=== PATIENT | male | born 1930 | race Caucasian/White ===

== ENCOUNTER 2016-08-29 09:22 | Emergency (ER) | payer BC, OTHER ==
[2016-08-29 09:30] VITALS: BP 148/100; PULSE 69; TEMP 98; BMI 24.7
[2016-08-29] MEDS ORDERED: ACETAMINOPHEN 325 MG TABLET (FP) PO ONE (10:17)
[2016-08-29] MEDS ORDERED: ACETAMINOPHEN 325 MG TABLET (FP) ONE (10:19)
--- NOTE | 2016-08-29 10:23 | PDOC ---
History of Present Illness - General Chief Complaint: Pain Stated Complaint: LT LEG PAIN Time Seen by Provider: 08/29/16 09:40 History Source: Patient - History of Present Illness Occurred: reports: yesterday Severity: Yes: moderate Lower Extremity Pain Location: left: ankle Past History - Past Medical History Allergies/Adverse Reactions: Allergies Allergy/AdvReac Type Severity Reaction Status Date / Time No Known Drug Allergies Allergy Verified 08/29/16 09:25 Home Medications: Ambulatory Orders Allopurinol [Zyloprim -] 300 mg PO DAILY #0 tablet 01/17/13 Aspirin 81 mg PO DAILY #0 tab.chew 01/17/13 Atorvastatin Ca [Lipitor] 40 mg PO HS 08/06/13 Cholecalciferol (Vitamin D3) [Vitamin D3] 1,000 unit PO DAILY 08/08/13 Clopidogrel Bisulfate [Plavix -] 75 mg PO DAILY 05/23/15 Vit A/Vit C/Vit E/Zinc/Copper [Preservision Tablet] 1 each PO DAILY 06/29/15 Potassium Chloride 10 meq PO DAILY 08/18/15 Torsemide 10 mg PO DAILY 08/18/15 Colchicine [Colcrys] 1 tab PO BID 09/15/15 Lisinopril [Zestril] 2.5 mg PO DAILY 12/28/15 Pantoprazole Sodium [Protonix] 40 mg PO DAILY 12/28/15 Trazodone HCl [Desyrel -] 50 mg PO HS 12/28/15 Anemia: No Asthma: No Cancer: No Cardiac Disorders: Yes (a-fib - stent placement - bypass) CVA: No COPD: Yes (aspestos) CHF: No Dementia: No Diabetes: No GI Disorders: No Disorders: No HTN: Yes Hypercholesterolemia: Yes Liver Disease: No Suicide Attempt (Hx): No Seizures: No Thyroid Disease: No Other medical history: pvd - Surgical History Abdominal Surgery: No Appendectomy: No Cardiac Surgery: Yes (cabg) Cholecystectomy: No Lung Surgery: No Neurologic Surgery: No Orthopedic Surgery: No - Immunization History Immunization Up to Date: No - Psycho/Social/Smoking Cessation Hx Anxiety: No Suicidal Ideation: No Smoking Status: No Smoking History: Never smoked Have you smoked in the past 12 months: No Number of Cigarettes Smoked Daily: 0 If you are a former smoker, when did you quit?: 30 yrs ago Information on smoking cessation initiated: No 'Breaking Loose' booklet given: 01/19/15 Hx Alcohol Use: No Drug/Substance Use Hx: No Substance Use Type: None Hx Substance Use Treatment: No Review of Systems - Review of Systems Constitutional: No: Chills, Fever Respiratory: No: Shortness of Breath Cardiac (ROS): No: Chest Pain, Palpitations Musculoskeletal: Yes: Joint Pain. No: Joint Swelling *Physical Exam - Vital Signs Last Vital Signs Temp Pulse Resp BP Pulse Ox 98.0 F 69 18 148/100 100 08/29/16 09:26 08/29/16 09:26 08/29/16 09:26 08/29/16 09:26 08/29/16 09:26 - Physical Exam General Appearance: Yes: Appropriately Dressed. No: Apparent Distress HEENT: positive: Normal Voice Neck: positive: Supple Respiratory/Chest: negative: Respiratory Distress Extremity: positive: Other (significant varicoities to ankle/foot b/l, +minimal ttp to medial L ankle, no joint swelling, bearing weight in ED) Integumentary: positive: Dry, Warm Neurologic: positive: Fully Oriented, Alert, Normal Mood/Affect Medical Decision Making - Medical Decision Making 08/29/16 10:24 86-year-old male, multiple comorbidities presents with ankle pain. Patient reports pain to medial aspect of left ankle 2 days. Unable to describe and worse when he bears weight. Taking Tylenol with some relief. No trauma. No history of similar episode. No calf pain, CP, sob or palpitations See exam Atraumatic L ankle pain Possible 2/2 varicosities vs arthritis vs other nonspecific MSK source No s/o infxn No obvious RFs for DVT/PE -dc w/ pain control and vascular f/u 08/29/16 10:27 *DC/Admit/Observation/Transfer Diagnosis at time of Disposition: Ankle pain Qualifiers: Laterality: left Chronicity: acute Qualified Code(s): M25.572 - Pain in left ankle and joints of left foot - Discharge Dispostion Disposition: HOME Condition at time of disposition: Good - Referrals Referrals: Riki Prince MD [Primary Care Provider] - Jass Rincon MD [Staff Physician] - - Patient Instructions Printed Discharge Instructions: DI for Ankle Pain Additional Instructions: Please take tylenol as needed for pain and follow up with vascular
== END 2016-08-29 10:25 | disposition home or self-care (01) ==
LOC: JERFT 09:22
DX: M25.572 Pain in left ankle and joints of left foot (principal); I83.92 Asymptomatic varicose veins of left lower extremity; I48.91 Unspecified atrial fibrillation; Z79.01 Long term (current) use of anticoagulants; Z95.1 Presence of aortocoronary bypass graft; Z95.5 Presence of coronary angioplasty implant and graft; I10 Essential (primary) hypertension; J44.9 Chronic obstructive pulmonary disease, unspecified; T57.8X1A Toxic effect of other specified inorganic substances, accidental (unintentional), initial encounter; J70.8 Respiratory conditions due to other specified external agents; Z87.891 Personal history of nicotine dependence; I73.89 Other specified peripheral vascular diseases
CPT/HCPCS: 99281-25

== ENCOUNTER 2017-04-30 06:31 | Emergency (ER) | payer BC ==
[2017-04-30 06:39] VITALS: TEMP 97.6; BMI 26.4
--- NOTE | 2017-04-30 07:28 | PDOC ---
History of Present Illness - General Chief Complaint: Urinary Problem Stated Complaint: urinary retention Time Seen by Provider: 04/30/17 07:12 - History of Present Illness Initial Comments: 04/30/17 07:59 The patient is an 86 year old male with a history of urinary retention, CAD s/p CABG, CHF, Afib who present for evaluation of urinary retention. The patient reports that he had a arita catheter removed by his urologist 2 days ago. He states that 1 day ago he began experience worsening suprapubic abdominal pain with associated difficulty urinating and burning on urination prompting his presentation to the ED today. He denies fevers, chills, SOB, chest pain, or nausea or vomiting. Past History - Past Medical History Allergies/Adverse Reactions: Allergies Allergy/AdvReac Type Severity Reaction Status Date / Time No Known Drug Allergies Allergy Verified 04/30/17 06:37 Home Medications: Ambulatory Orders Allopurinol [Zyloprim -] 300 mg PO DAILY #0 tablet 01/17/13 Aspirin 81 mg PO DAILY #0 tab.chew 01/17/13 Atorvastatin Ca [Lipitor] 40 mg PO HS 08/06/13 Cholecalciferol (Vitamin D3) [Vitamin D3] 1,000 unit PO DAILY 08/08/13 Clopidogrel Bisulfate [Plavix -] 75 mg PO DAILY 05/23/15 Vit A/Vit C/Vit E/Zinc/Copper [Preservision Tablet] 1 each PO DAILY 06/29/15 Potassium Chloride 10 meq PO DAILY 08/18/15 Torsemide 10 mg PO DAILY 08/18/15 Colchicine [Colcrys] 1 tab PO BID 09/15/15 Lisinopril [Zestril] 2.5 mg PO DAILY 12/28/15 Pantoprazole Sodium [Protonix] 40 mg PO DAILY 12/28/15 Trazodone HCl [Desyrel -] 50 mg PO HS 12/28/15 Ciprofloxacin [Cipro -] 500 mg PO Q12H #28 tablet 04/30/17 Anemia: No Asthma: No Cancer: No Cardiac Disorders: Yes (a-fib - stent placement - bypass) CVA: No COPD: Yes (aspestos) CHF: No Dementia: No Diabetes: No GI Disorders: No Disorders: No HTN: Yes Hypercholesterolemia: Yes Liver Disease: No Seizures: No Thyroid Disease: No - Surgical History Abdominal Surgery: No Appendectomy: No Cardiac Surgery: Yes (cabg) Cholecystectomy: No Lung Surgery: No Neurologic Surgery: No Orthopedic Surgery: No - Immunization History Immunization Up to Date: No - Suicide/Smoking/Psychosocial Hx Smoking Status: No Smoking History: Never smoked Have you smoked in the past 12 months: No Number of Cigarettes Smoked Daily: 0 If you are a former smoker, when did you quit?: 30 yrs ago Information on smoking cessation initiated: No 'Breaking Loose' booklet given: 01/19/15 Hx Alcohol Use: No Drug/Substance Use Hx: No Substance Use Type: None Hx Substance Use Treatment: No Review of Systems - Review of Systems Comments:: 04/30/17 08:03 Constitutional: No fevers, chills, fatigue, malaise HEENT: No Rhinorrhea, nasal congestion, Cardiovascular: No chest pain, syncope, palpitations, lightheadedness Respiratory: No Cough, SOB, Hemoptysis, Gastrointestinal: Suprapubic abdominal pain. No Nausea, Vomiting, Constipation , Diarrhea, Melena Genitourinary: Increased hesitancy and dysuria. No Frequency, Urgency, Hematuria, Flank pain Musculoskeletal: No Myalgia, arthralgia Skin: No rashes, bruising, pallor Neurologic: No Headache, Dizziness, Numbness, Weakness, or Tingling *Physical Exam - Vital Signs Last Vital Signs Temp Pulse Resp BP Pulse Ox 97.6 F 83 20 140/94 95 04/30/17 06:37 04/30/17 06:37 04/30/17 06:37 04/30/17 06:37 04/30/17 06:37 - Physical Exam Comments: 04/30/17 08:04 General Appearance: Nourished. No Apparent Distress HEENT: EOMI, KATJA. Neck: No Cervical Lymphadenopathy Respiratory/Chest: Lungs Clear, Normal Breath Sounds. No Crackles, Rales, Rhonchi, Wheezing Cardiovascular: Irregularly irregular, Regular Rate. 3/6 systolic murmur noted on auscultation. No Gallops, Rubs Gastrointestinal/Abdominal: Normal Bowel Sounds, Soft. Mild suprapubic tenderness on palpation. No Guarding, Rebound, Musculoskeletal: No CVA Tenderness Extremity: Normal Capillary Refill Integumentary: Normal Color, Dry, Warm Neurologic: Fully Oriented, Alert, Normal Mood/Affect, Normal Response, ED Treatment Course - LABORATORY CBC & Chemistry Diagram: 04/30/17 07:54 04/30/17 07:54 Medical Decision Making - Medical Decision Making 04/30/17 08:05 The patient is an 86 year old male with a history of urinary retention, CAD s/p CABG, CHF, Afib who present for evaluation of urinary retention. Differential includes but is not limited to: UTI, Worsening urinary retention, BPH, metabolic derangement. The patient reports significant improvement in his symptoms after arita catheter placed here in the ED with return of bloody urine. We will send a UA, urine culture, cbc, cmp to evaluate for infectious etiologies. His urinary retention is likely due to his existing bph being managed by his urologist. We will continue to monitor and reassess. 04/30/17 09:21 cbc, cmp are unremarkable. UA demonstrates 2000+ RBC and 1400+ WBC concerning for a UTI. We discussed the case with the patient's urologist who recommended antibiotics and will call the patient tomorrow 05/01 to schedule follow up. We discussed the results with the patient who voiced understanding and is agreeable with the plan. We are comfortable discharging the patient home at this time. *DC/Admit/Observation/Transfer Diagnosis at time of Disposition: Urinary retention Urinary tract infection Qualifiers: Urinary tract infection type: acute cystitis Hematuria presence: with hematuria Qualified Code(s): N30.01 - Acute cystitis with hematuria - Discharge Dispostion Disposition: HOME Condition at time of disposition: Improved Admit: No - Prescriptions Prescriptions: Ciprofloxacin [Cipro -] 500 mg PO Q12H #28 tablet - Referrals Referrals: Natalio Morales MD [Staff Physician] - - Patient Instructions Printed Discharge Instructions: DI for Urinary Tract Infection (UTI), DI for Urinary Retention in Men Additional Instructions: Please return to the ER if you experience concerning or worsening symptoms including worsening fevers, chills, or pain. Your urologist Dr. Morales will call you tomorrow to schedule follow up. We have sent a prescription for antibiotics to the pharmacy that you should take twice a day for 7 days.
[2017-04-30 08:09] LABS: BASOPHIL 0.4 % (0-2.0); EOSINOPHIL 1.6 % (0-4.5); MCH 31.1 pg (25.7-33.7); MCHC 32.4 g/dl (32.0-35.9); MEAN CELL VOLUME 95.8 fl (80-96); MEAN PLT VOLUME 10.3 fl (7.5-11.1); NEUTROPHILS 66.8 % (42.8-82.8); PLATELET COUNT 161 K/MM3 (134-434); RDW 14.7 % (11.9-15.9); WHITE BLOOD COUNT 8.6 K/mm3 (4.0-10.0)
--- NOTE | 2017-04-30 08:10 | PDOC ---
Attending Attestation - Resident Resident Name: Titus Sarabia - ED Attending Attestation I have performed the following: I have examined & evaluated the patient, The case was reviewed & discussed with the resident, I agree w/resident's findings & plan, Exceptions are as noted - HPI HPI: 04/30/17 08:08 86 year old male with hx of CAD, CABG, CHF, PAD, spinal stenosis, Afib s/p Watchman's procedure, borderline DM, gout, HTN, BPH p/w urinary retention. The patient is under the care of Dr. Galeas. Has had persistent hematuria and urinary retention. Had a wor[place] catheter removed 2 days ago for trial. Since then , has been dribbling and with difficulty in urinating. Had increasing distension and dysuria, but no fevers. Upon my initial evaluation, a worthington catheter was placed and approx 1000cc of bloody urine was outputted. - Physicial Exam PE: 04/30/17 08:08 GENERAL: AAOx3, NAD ABD: soft, nd, nontender No CVA tenderness. Worthington catheter in place with draining urine. - Medical Decision Making 04/30/17 08:09 Vital Signs Temp Pulse Resp BP Pulse Ox 97.6 F 83 20 140/94 95 04/30/17 06:37 04/30/17 06:37 04/30/17 06:37 04/30/17 06:37 04/30/17 06:37 86 year old male p/w urinary retention. This has been a longstanding chronic issue with this patient. Has had hematuria chronically that is under eval by his urologist. The family is anticipating an upcoming prostatectomy in the future Will check UA/UC for UTI. Labs to evaluate for potential post renal failure. Will touch base with pt's urologist.
[2017-04-30 08:22] LABS: URINE APPEARANCE CLOUDY; URINE BILIRUBIN NEGATIVE (NEGATIVE); URINE BLOOD 3+ (NEGATIVE); URINE COLOR RED; URINE GLUCOSE (UA) NEGATIVE (NEGATIVE); URINE KETONE NEGATIVE (NEGATIVE); URINE NITRITE NEGATIVE (NEGATIVE); URINE UROBILINOGEN NEGATIVE mg/dL (0.2-1.0)
[2017-04-30 08:32] LABS: URINE PROTEIN 2+ (NEGATIVE)
[2017-04-30 08:33] LABS: URINE RBC 2037 /hpf (0-3); URINE WBC 1405 /hpf (3-5)
[2017-04-30 08:39] LABS: ALBUMIN 3.2 g/dl (3.4-5.0); ALK PHOS 169 U/L (45-117); ANION GAP 9 (8-16); BILIRUBIN,TOTAL 0.5 mg/dL (0.2-1.0); CALCIUM 8.3 mg/dL (8.5-10.1); CO2 30 mmol/L (21-32); CREATININE 0.9 mg/dL (0.7-1.3); GLUCOSE,RANDOM 134 mg/dL (74-106); SGOT/AST 24 U/L (15-37); SGPT/ALT 24 U/L (12-78); TOT PROT 6.2 g/dl (6.4-8.2)
[2017-04-30] MEDS ORDERED: CIPROFLOXACIN 500 MG TABLET (RESTRICTED TO ID) PO ONE (09:19)
[2017-04-30] MEDS ORDERED: LEVOFLOXACIN 500 MG TABLET (FP) PO ONE (09:35)
[2017-04-30 09:40] VITALS: BP 127/72; PULSE 66
[2017-04-30] MEDS ORDERED: LEVOFLOXACIN 500 MG TABLET (FP) ONE (09:41)
[2017-04-30 15:41] LABS: URINE LEUK ESTERASE Negative (NEGATIVE)
== END 2017-04-30 09:58 | disposition home or self-care (01) ==
LOC: JER 06:31
PROC: 0T9B70Z Drainage of Bladder with Drainage Device, Via Natural or Artificial Opening (ICD-10-PCS; principal; 2017-04-30)
DX: N40.1 Benign prostatic hyperplasia with lower urinary tract symptoms (principal); R33.8 Other retention of urine; N30.01 Acute cystitis with hematuria; I25.810 Atherosclerosis of coronary artery bypass graft(s) without angina pectoris; I25.83 Coronary atherosclerosis due to lipid rich plaque; I10 Essential (primary) hypertension; Z95.1 Presence of aortocoronary bypass graft; Z95.5 Presence of coronary angioplasty implant and graft; E78.00 Pure hypercholesterolemia, unspecified; J44.9 Chronic obstructive pulmonary disease, unspecified; E11.9 Type 2 diabetes mellitus without complications; M10.9 Gout, unspecified
CPT/HCPCS: 36415; 51702; 80053; 81003; 81015; 85025; 87086; 99282-25

== ENCOUNTER 2017-05-02 16:45 | Inpatient (IN) | payer BC ==
[2017-05-02 16:50] VITALS: BMI 22.2
--- NOTE | 2017-05-02 17:07 | PDOC ---
History of Present Illness - General Chief Complaint: Hematuria Stated Complaint: PCP ADMIT Past History - Past Medical History Allergies/Adverse Reactions: Allergies Allergy/AdvReac Type Severity Reaction Status Date / Time No Known Drug Allergies Allergy Verified 05/02/17 16:47 Home Medications: Ambulatory Orders Allopurinol [Zyloprim -] 300 mg PO DAILY #0 tablet 01/17/13 Aspirin 81 mg PO DAILY #0 tab.chew 01/17/13 Atorvastatin Ca [Lipitor] 40 mg PO HS 08/06/13 Cholecalciferol (Vitamin D3) [Vitamin D3] 1,000 unit PO DAILY 08/08/13 Clopidogrel Bisulfate [Plavix -] 75 mg PO DAILY 05/23/15 Vit A/Vit C/Vit E/Zinc/Copper [Preservision Tablet] 1 each PO DAILY 06/29/15 Potassium Chloride 10 meq PO DAILY 08/18/15 Torsemide 10 mg PO DAILY 08/18/15 Colchicine [Colcrys] 1 tab PO BID 09/15/15 Lisinopril [Zestril] 2.5 mg PO DAILY 12/28/15 Pantoprazole Sodium [Protonix] 40 mg PO DAILY 12/28/15 Trazodone HCl [Desyrel -] 50 mg PO HS 12/28/15 Ciprofloxacin [Cipro -] 500 mg PO Q12H #28 tablet 04/30/17 Anemia: No Asthma: No Cancer: No Cardiac Disorders: Yes (a-fib - stent placement - bypass) CVA: No COPD: Yes (asbestos) CHF: No Dementia: No Diabetes: No GI Disorders: No Disorders: No HTN: Yes Hypercholesterolemia: Yes Liver Disease: No Seizures: No Thyroid Disease: No - Surgical History Abdominal Surgery: No Appendectomy: No Cardiac Surgery: Yes (cabg) Cholecystectomy: No Lung Surgery: No Neurologic Surgery: No Orthopedic Surgery: No - Immunization History Immunization Up to Date: No - Suicide/Smoking/Psychosocial Hx Smoking Status: No Smoking History: Former smoker Have you smoked in the past 12 months: No Number of Cigarettes Smoked Daily: 0 If you are a former smoker, when did you quit?: 1969 Information on smoking cessation initiated: No 'Breaking Loose' booklet given: 01/19/15 Hx Alcohol Use: No Drug/Substance Use Hx: No Substance Use Type: None Hx Substance Use Treatment: No *Physical Exam - Vital Signs Last Vital Signs Temp Pulse Resp BP Pulse Ox 98.7 F 87 18 121/75 99 05/02/17 16:45 05/02/17 16:45 05/02/17 16:45 05/02/17 16:45 05/02/17 16:45
--- NOTE | 2017-05-02 17:25 | PDOC ---
Attending Attestation - Resident Resident Name: Sheldon Hayes - ED Attending Attestation I have performed the following: I have examined & evaluated the patient, The case was reviewed & discussed with the resident, I agree w/resident's findings & plan, Exceptions are as noted - HPI HPI: 05/02/17 17:24 86yo M hx of CAD, CABG, CHF, PAD, spinal stenosis, Afib, gout, HTN, BPH, recent presentation to ED with urinary retention s/p arita p/w continued hematuria. Pt sent in for admission for scheduled TURP with Dr. Galeas tomorrow. Pt denies fevers, chills, cp, sob, n/v/d, abd pain, LE edema. - Physicial Exam PE: 05/02/17 17:31 GENERAL: Awake, alert, and fully oriented, in no acute distress HEAD: No signs of trauma EYES: PERRLA, EOMI, sclera anicteric, conjunctiva clear ENT: Auricles normal inspection, hearing grossly normal, nares patent, oropharynx clear without exudates. Moist mucosa NECK: Normal ROM, supple, no lymphadenopathy, JVD, or masses LUNGS: Breath sounds equal, clear to auscultation bilaterally. No wheezes, and no crackles HEART: Regular rate and rhythm, normal S1 and S2, no murmurs, rubs or gallops ABDOMEN: Soft, nontender, normoactive bowel sounds. No guarding, no rebound. No masses : arita in place with 30cc dark red blood EXTREMITIES: Normal range of motion, no edema. No clubbing or cyanosis. No cords, erythema, or tenderness NEUROLOGICAL: Normal speech, cranial nerves intact, negative pronator drift, 5/ 5 strength in all 4 extremities, normal sensation to light touch in all 4 extremities, normal cerebellar exam, normal gait, normal reflexes and tone SKIN: Warm, Dry, normal turgor, no rashes or lesions noted. - Medical Decision Making 05/02/17 17:37 86yo M with MMP, urinary retention s/p artia presents for admission for TURP tomorrow due to persistent hematuria. Vitals wnl. WIll check labs, CBC for anemia and pre-op patient for TURP tomorrow. Plan: -labs -UA -pre-op -cxr -admit Heart Score/ECG Review #1 05/02/17 18:19 Twelve-lead EKG was performed and reviewed by me. Corona. fib, rate 55. Left axis deviation. No ST elevations
--- NOTE | 2017-05-02 17:35 | PDOC ---
History of Present Illness - General Chief Complaint: Hematuria Stated Complaint: PCP ADMIT Time Seen by Provider: 05/02/17 17:06 History Source: Patient Exam Limitations: No Limitations - History of Present Illness Initial Comments: 05/02/17 17:32 The patient is an 86M with a PMH of urinary retention, CAD s/p CABG, CHF, a-fib who presents to the ED from his urologists office, Dr. Morales. The patient has no acute complaints except for gross hematuria. They had changed the arita at Dr. Villanueva's office because of hematuria going around his arita. The patient has no other complaints. Past History - Past Medical History Allergies/Adverse Reactions: Allergies Allergy/AdvReac Type Severity Reaction Status Date / Time No Known Drug Allergies Allergy Verified 05/02/17 16:47 Home Medications: Ambulatory Orders Allopurinol [Zyloprim -] 300 mg PO DAILY #0 tablet 01/17/13 Aspirin 81 mg PO DAILY #0 tab.chew 01/17/13 Atorvastatin Ca [Lipitor] 40 mg PO HS 08/06/13 Cholecalciferol (Vitamin D3) [Vitamin D3] 1,000 unit PO DAILY 08/08/13 Clopidogrel Bisulfate [Plavix -] 75 mg PO DAILY 05/23/15 Vit A/Vit C/Vit E/Zinc/Copper [Preservision Tablet] 1 each PO DAILY 06/29/15 Potassium Chloride 10 meq PO DAILY 08/18/15 Torsemide 10 mg PO DAILY 08/18/15 Colchicine [Colcrys] 1 tab PO BID 09/15/15 Lisinopril [Zestril] 2.5 mg PO DAILY 12/28/15 Pantoprazole Sodium [Protonix] 40 mg PO DAILY 12/28/15 Trazodone HCl [Desyrel -] 50 mg PO HS 12/28/15 Ciprofloxacin [Cipro -] 500 mg PO Q12H #28 tablet 04/30/17 Anemia: No Asthma: No Cancer: No Cardiac Disorders: Yes (a-fib - stent placement - bypass) CVA: No COPD: Yes (asbestos) CHF: No Dementia: No Diabetes: No GI Disorders: No Disorders: No HTN: Yes Hypercholesterolemia: Yes Liver Disease: No Seizures: No Thyroid Disease: No - Surgical History Abdominal Surgery: No Appendectomy: No Cardiac Surgery: Yes (cabg) Cholecystectomy: No Lung Surgery: No Neurologic Surgery: No Orthopedic Surgery: No - Immunization History Immunization Up to Date: No - Suicide/Smoking/Psychosocial Hx Smoking Status: No Smoking History: Former smoker Have you smoked in the past 12 months: No Number of Cigarettes Smoked Daily: 0 If you are a former smoker, when did you quit?: 1969 Information on smoking cessation initiated: No 'Breaking Loose' booklet given: 01/19/15 Hx Alcohol Use: No Drug/Substance Use Hx: No Substance Use Type: None Hx Substance Use Treatment: No Review of Systems - Review of Systems Able to Perform ROS?: Yes Is the patient limited Amharic proficient: No Constitutional: No: Chills, Fever HEENTM: No: Eye Pain, Nose Pain, Throat Pain Respiratory: No: Cough, Shortness of Breath Cardiac (ROS): No: Chest Pain, Irregular Heart Rate ABD/GI: No: Constipated, Diarrhea, Nausea, Vomiting : Yes: Hematuria. No: Burning, Dysuria Musculoskeletal: No: Back Pain, Neck Pain Integumentary: No: Bruising, Flushing, Lumps Neurological: No: Headache, Numbness, Tingling, Weakness *Physical Exam - Vital Signs Last Vital Signs Temp Pulse Resp BP Pulse Ox 98.7 F 87 18 121/75 99 05/02/17 16:45 05/02/17 16:45 05/02/17 16:45 05/02/17 16:45 05/02/17 16:45 - Physical Exam General Appearance: Yes: Nourished, Appropriately Dressed. No: Apparent Distress HEENT: positive: Normal Voice, Hearing Grossly Normal Respiratory/Chest: positive: Lungs Clear, Normal Breath Sounds. negative: Chest Tender Cardiovascular: positive: Regular Rhythm, Regular Rate, S1, S2, Systolic Murmur. negative: Diastolic Murmur Gastrointestinal/Abdominal: positive: Flat, Soft. negative: Tender Musculoskeletal: negative: CVA Tenderness, CVA Tenderness (R), CVA Tenderness (L ) Extremity: positive: Normal Inspection, Normal Range of Motion. negative: Coldness, Cyanosis, Calf Tenderness Integumentary: positive: Dry, Warm. negative: Clammy, Diaphoresis Neurologic: positive: Fully Oriented, Alert, Normal Mood/Affect Medical Decision Making - Medical Decision Making 05/02/17 18:33 The patient is an 86M who presented to the ED with gross hematuria from Dr. Parra's office. I have spoken with Dr. Villanueva and will admit to Dr. Prince's service. Both physicians agree to the plan and the patient understands and agrees with the plan as well. Pre-op labs ordered. Admission is placed. *DC/Admit/Observation/Transfer Diagnosis at time of Disposition: Hematuria Qualifiers: Hematuria type: gross Qualified Code(s): R31.0 - Gross hematuria; R31.0 - Gross hematuria - Discharge Dispostion Condition at time of disposition: Stable Admit: Yes
[2017-05-02 17:50] LABS: BASOPHIL 0.5 % (0-2.0); EOSINOPHIL 0.7 % (0-4.5); MCH 31.6 pg (25.7-33.7); MCHC 32.8 g/dl (32.0-35.9); MEAN CELL VOLUME 96.3 fl (80-96); MEAN PLT VOLUME 10.5 fl (7.5-11.1); NEUTROPHILS 73.3 % (42.8-82.8); PLATELET COUNT 165 K/MM3 (134-434); RDW 15.6 % (11.9-15.9); WHITE BLOOD COUNT 11.7 K/mm3 (4.0-10.0)
[2017-05-02 18:16] LABS: INR 1.21 (0.82-1.09); PROTHROMBIN TIME (PATIENT) 13.7 SEC (9.98-11.88)
[2017-05-02 18:19] LABS: ACTIVATED PTT 27.5 SECONDS (26.9-34.4)
[2017-05-02 18:28] LABS: ALBUMIN 3.4 g/dl (3.4-5.0); ANION GAP 5 (8-16); BILIRUBIN,TOTAL 0.4 mg/dL (0.2-1.0); CALCIUM 8.5 mg/dL (8.5-10.1); CO2 34 mmol/L (21-32); GLUCOSE,RANDOM 111 mg/dL (74-106); SGOT/AST 23 U/L (15-37); SGPT/ALT 27 U/L (12-78); TOT PROT 6.6 g/dl (6.4-8.2)
[2017-05-02 18:29] LABS: ALK PHOS 156 U/L (45-117)
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
[2017-05-02] MEDS ORDERED: LEVOFLOXACIN 500 MG TABLET (FP) PO ONE (20:15)
[2017-05-02] MEDS ORDERED: LEVOFLOXACIN 500 MG TABLET (FP) ONE (20:35)
[2017-05-03] MEDS: COLCHICINE 0.6 MG TABLET (FP) PO SCH ×3 (00:41→22:41)
[2017-05-03] MEDS: traZODone HCL 50 MG TABLET (FP) PO SCH ×2 (00:41→22:41)
[2017-05-03] MEDS: ATORVASTATIN CA 40 MG TABLET (FP) PO SCH ×2 (00:41→22:41)
[2017-05-03] MEDS: LEVOFLOXACIN 250 MG TABLET (FP) PO SCH (06:04)
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
[2017-05-03] MEDS: DEXTROSE 5%-0.45% SALINE 1,000 ML IV SCH (09:51)
[2017-05-03] MEDS ORDERED: VIT A PO SCH (10:00)
[2017-05-03] MEDS ORDERED: VIT C PO SCH (10:00)
[2017-05-03] MEDS ORDERED: COPPER PO SCH (10:00)
[2017-05-03] MEDS ORDERED: ZINC PO SCH (10:00)
[2017-05-03] MEDS ORDERED: VIT E PO SCH (10:00)
[2017-05-03] MEDS ORDERED: [UNRECOGNIZED DRUG - OTHER] PO SCH (10:00)
[2017-05-03] MEDS: CHOLECALCIFEROL (VITAMIN D3) 1,000 UNIT TABLET (FP) PO SCH (10:19)
[2017-05-03] MEDS: ALLOPURINOL 300 MG TABLET (FP) PO SCH (10:19)
[2017-05-03] MEDS: PANTOPRAZOLE 40 MG TABLET (FP) PO SCH (10:19)
[2017-05-03 10:23] LABS: MCH 31.3 pg (25.7-33.7); MCHC 32.8 g/dl (32.0-35.9); MEAN CELL VOLUME 95.6 fl (80-96); MEAN PLT VOLUME 10.7 fl (7.5-11.1); PLATELET COUNT 150 K/MM3 (134-434); RDW 15.7 % (11.9-15.9); WHITE BLOOD COUNT 11.7 K/mm3 (4.0-10.0)
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
[2017-05-03] MEDS ORDERED: PT OWN MED DRAWER 7, Y5N ONE ×3 (10:37→22:33)
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
--- NOTE | 2017-05-03 11:47 | EKG ---
Test Reason : Blood Pressure : / mmHG Vent. Rate : 055 BPM Atrial Rate : 055 BPM P-R Int : 000 ms QRS Dur : 120 ms QT Int : 480 ms P-R-T Axes : 000 -56 098 degrees QTc Int : 459 ms ATRIAL FIBRILLATION WITH SLOW VENTRICULAR RESPONSE WITH PREMATURE VENTRICULAR OR ABERRANTLY CONDUCTED COMPLEXES LEFT ANTERIOR FASCICULAR BLOCK NONSPECIFIC ST AND T WAVE ABNORMALITY ABNORMAL ECG WHEN COMPARED WITH ECG OF 30-JUN-2015 11:54, QRS DURATION HAS INCREASED Confirmed by SANDRA CACERES MD ([id number]) on 05/03/2017 11:47:30 AM Referred By: Confirmed By:SANDRA CACERES MD
[2017-05-03 16:57] LABS: BASOPHIL 0.2 % (0-2.0); EOSINOPHIL 1.2 % (0-4.5); MCH 31.9 pg (25.7-33.7); MCHC 33.4 g/dl (32.0-35.9); MEAN CELL VOLUME 95.5 fl (80-96); MEAN PLT VOLUME 11.2 fl (7.5-11.1); NEUTROPHILS 68.8 % (42.8-82.8); PLATELET COUNT 172 K/MM3 (134-434); RDW 15.9 % (11.9-15.9); WHITE BLOOD COUNT 9.9 K/mm3 (4.0-10.0)
[2017-05-03 17:24] LABS: INR 1.26 (0.82-1.09); PROTHROMBIN TIME (PATIENT) 14.2 SEC (9.98-11.88)
[2017-05-03 17:27] LABS: ACTIVATED PTT 27.3 SECONDS (26.9-34.4)
[2017-05-04] MEDS: LEVOFLOXACIN 250 MG TABLET (FP) PO SCH (06:55)
--- NOTE | 2017-05-04 08:41 | PN ---
Progress Note (short form) - Note Progress Note: Awaiting cystoscopy and TURP today. Vital Signs - 24 hr 05/03/17 05/03/17 05/03/17 14:00 17:00 19:35 Temperature 98.1 F 98.1 F 97.8 F Pulse Rate 70 70 64 Respiratory 18 230 H 18 Rate Blood Pressure 122/55 114/52 143/59 O2 Sat by Pulse 97 Oximetry (%) 05/03/17 05/03/17 05/04/17 21:00 22:00 06:15 Temperature 98 F 97.9 F Pulse Rate 72 66 Respiratory 18 18 Rate Blood Pressure 130/61 132/60 O2 Sat by Pulse 97 Oximetry (%) Hematuria persists. Hematology consult appreciated. Neck-no JVD Lungs Clear. Heart s1S2 irregular abdomen soft, NT [place] draining bloody urine. Laboratory Results - last 24 hr 05/02/17 05/02/17 05/02/17 17:43 17:43 17:43 WBC 11.7 H D RBC 2.49 L Hgb 7.9 L Hct 24.0 L MCV 96.3 H MCH 31.6 MCHC 32.8 RDW 15.6 Plt Count 165 MPV 10.5 Neutrophils % 73.3 Lymphocytes % 19.2 Monocytes % 6.3 Eosinophils % 0.7 Basophils % 0.5 PT with INR 13.70 H INR 1.21 H PTT (Actin FS) 27.5 Sodium 139 Potassium 4.0 Chloride 100 Carbon Dioxide 34 H Anion Gap 5 L BUN 26 H Creatinine 1.0 Creat Clearance w eGFR > 60 Random Glucose 111 H Calcium 8.5 Total Bilirubin 0.4 AST 23 ALT 27 Alkaline Phosphatase 156 H Total Protein 6.6 Albumin 3.4 Blood Type Antibody Screen Crossmatch 05/02/17 05/03/17 05/03/17 17:43 10:10 16:00 WBC 11.7 H 9.9 RBC 3.00 L D 2.99 L Hgb 9.4 L D 9.6 L Hct 28.7 L D 28.6 L MCV 95.6 95.5 MCH 31.3 31.9 MCHC 32.8 33.4 RDW 15.7 15.9 Plt Count 150 172 MPV 10.7 11.2 H Neutrophils % 68.8 Lymphocytes % 22.6 Monocytes % 7.2 Eosinophils % 1.2 Basophils % 0.2 PT with INR INR PTT (Actin FS) Sodium Potassium Chloride Carbon Dioxide Anion Gap BUN Creatinine Creat Clearance w eGFR Random Glucose Calcium Total Bilirubin AST ALT Alkaline Phosphatase Total Protein Albumin Blood Type A POSITIVE Antibody Screen Negative Crossmatch See Detail 05/03/17 16:00 WBC RBC Hgb Hct MCV MCH MCHC RDW Plt Count MPV Neutrophils % Lymphocytes % Monocytes % Eosinophils % Basophils % PT with INR 14.20 H INR 1.26 H PTT (Actin FS) 27.3 Sodium Potassium Chloride Carbon Dioxide Anion Gap BUN Creatinine Creat Clearance w eGFR Random Glucose Calcium Total Bilirubin AST ALT Alkaline Phosphatase Total Protein Albumin Blood Type Antibody Screen Crossmatch Current Active Problems Problem ASHD, CABG, Stent Chronic A.fib, previous Watchman's procedure PAD HTN Status Diagnosed Benign localized hyperplasia of prostate with urinary obstruction Acute Hematuria Acute Plan Received PRBC, follow CBC Hematology f/u Plts 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
[2017-05-04] MEDS: DEXTROSE 5%-0.45% SALINE 1,000 ML IV SCH (08:46)
[2017-05-04 08:50] LABS: BASOPHIL 0.3 % (0-2.0); EOSINOPHIL 1.3 % (0-4.5); MCH 31.6 pg (25.7-33.7); MCHC 33.8 g/dl (32.0-35.9); MEAN CELL VOLUME 93.4 fl (80-96); MEAN PLT VOLUME 10.1 fl (7.5-11.1); PLATELET COUNT 144 K/MM3 (134-434); RDW 15.7 % (11.9-15.9); WHITE BLOOD COUNT 9.9 K/mm3 (4.0-10.0)
[2017-05-04 08:55] LABS: INR 1.25 (0.82-1.09); PROTHROMBIN TIME (PATIENT) 14.1 SEC (9.98-11.88)
[2017-05-04 08:58] LABS: ACTIVATED PTT 27.3 SECONDS (26.9-34.4)
[2017-05-04 09:19] LABS: ANION GAP 5 (8-16); CO2 30 mmol/L (21-32); GLUCOSE,RANDOM 99 mg/dL (74-106)
[2017-05-04 09:21] LABS: CALCIUM 8.8 mg/dL (8.5-10.1); CREATININE 0.6 mg/dL (0.7-1.3)
[2017-05-04] MEDS ORDERED: LISINOPRIL 5 MG TABLET (FP) PO SCH (10:00)
[2017-05-04] MEDS: CHOLECALCIFEROL (VITAMIN D3) 1,000 UNIT TABLET (FP) PO SCH (10:18)
[2017-05-04] MEDS: PANTOPRAZOLE 40 MG TABLET (FP) PO SCH (10:18)
[2017-05-04] MEDS: COLCHICINE 0.6 MG TABLET (FP) PO SCH ×2 (10:18→21:10)
[2017-05-04] MEDS: ALLOPURINOL 300 MG TABLET (FP) PO SCH (10:20)
--- NOTE | 2017-05-04 14:30 | PN ---
Progress Note (short form) - Note Progress Note: Patient seen and examined this am. Pt denies any complains. waiting for the procedure. Constitutional: Yes: Well Nourished, No Distress Eyes: Yes: Conjunctiva Clear HENT: Yes: Atraumatic, Normocephalic Neck: Yes: Supple, Trachea Midline Cardiovascular: Yes: Regular Rate and Rhythm Respiratory: Yes: Regular, CTA Bilaterally Gastrointestinal: Yes: Normal Bowel Sounds, Soft Renal/: Yes: Other (catheter with blood noted) Edema: No Temp Pulse Resp BP Pulse Ox 98.2 F 70 18 139/62 98 05/04/17 10:00 05/04/17 10:00 05/04/17 10:00 05/04/17 10:00 05/04/17 09:00 Current Medications Generic Name Dose Route Start Last Admin Trade Name Freq PRN Reason Stop Dose Admin Allopurinol 300 mg 05/03/17 10:00 05/04/17 10:20 Zyloprim - PO 300 mg DAILY DELON Administration Atorvastatin Calcium 40 mg 05/02/17 22:00 05/03/17 22:41 Lipitor - PO 40 mg HS DELON Administration Cholecalciferol 1,000 unit 05/03/17 10:00 05/04/17 10:18 Vitamin D3 - PO 1,000 unit DAILY DELON Administration Colchicine 0.6 mg 05/02/17 22:00 05/04/17 10:18 Colcrys - PO 0.6 mg BID DELON Administration Dextrose/Sodium Chloride 1,000 mls @ 42 mls/hr 05/03/17 08:15 05/04/17 08:46 D5-1/2ns - IV 42 mls/hr ASDIR DELON Administration Levofloxacin 250 mg 05/03/17 06:00 05/04/17 06:55 Levaquin - PO 250 mg DAILY@0600 DELON Administration Lisinopril 5 mg 05/04/17 10:00 05/04/17 10:18 Prinivil PO 5 mg DAILY DELON Administration Non-Formulary Medication 1 each 05/03/17 10:00 Vit A/Vit C/Vit E/Zinc/Copper [Preservision Tablet] PO DAILY DELON Pantoprazole Sodium 40 mg 05/03/17 10:00 05/04/17 10:18 Protonix - PO 40 mg DAILY DELON Administration Trazodone HCl 50 mg 05/02/17 22:00 05/03/17 22:41 Desyrel - PO 50 mg HS DELON Administration Hematuria , admitted for severe hematuria requiring PRBC today's CBC reviewed. adequate hgb Coags wnl ASA /Plavix, half life likely has been overcome ,but will give platelets prior to procedure LFTs wnl ordered single donor one unit of platelets, spoke to RN supportive care. repeat post transfusion CBC , ordered. CBC and coags for tomorrow monitor post procedure will maintain active type and screen always Problem List - Problems (1) Hematuria Code(s): R31.9 - HEMATURIA, UNSPECIFIED Qualifiers: Hematuria type: gross Qualified Code(s): R31.0 - Gross hematuria; R31.0 - Gross hematuria (2) Anemia Code(s): D64.9 - ANEMIA, UNSPECIFIED Qualifiers: Iron deficiency anemia type: chronic blood loss (3) CHF (congestive heart failure) Code(s): I50.9 - HEART FAILURE, UNSPECIFIED Qualifiers: Congestive heart failure type: combined Congestive heart failure chronicity: acute on chronic Qualified Code(s): I50.43 - Acute on chronic combined systolic (congestive) and diastolic (congestive) heart failure; I50.43 - Acute on chronic combined systolic (congestive) and diastolic (congestive) heart failure; I50.43 - Acute on chronic combined systolic (congestive) and diastolic (congestive) heart failure; I50.43 - Acute on chronic combined systolic (congestive) and diastolic (congestive) heart failure (4) Iron deficiency anemia Code(s): D50.9 - IRON DEFICIENCY ANEMIA, UNSPECIFIED
[2017-05-04] MEDS ORDERED: PROPOFOL 20 ML ONE (16:25)
[2017-05-04] MEDS ORDERED: LIDOCAINE HCL/PF 2% SDV 5ML VIAL ONE (16:26)
[2017-05-04] MEDS ORDERED: MIDAZOLAM HCL 2 MG/2 ML SINGLE DOSE VIAL ONE (16:42)
[2017-05-04] MEDS ORDERED: ACETAMINOPHEN 1000 MG/100 ML VIAL (NON FORMULARY) IVPB ONE (16:52)
--- NOTE | 2017-05-04 16:53 | OP ---
Operative Note - Note: Operative Date: 05/04/17 Pre-Operative Diagnosis: BPH, hematuria Operation: cysto TURP Post-Operative Diagnosis: Same as Pre-op Surgeon: Natalio Morales Anesthesia: Spinal
[2017-05-04] MEDS ORDERED: ONDANSETRON 4 MG/2 ML VIAL IVPUSH PRN (18:02)
[2017-05-04] MEDS ORDERED: LACTATED RINGERS SOLUTION 1,000 ML IV SCH (18:15)
[2017-05-04] MEDS ORDERED: DEXTROSE 5%-0.45% SALINE 1,000 ML IV SCH (18:53)
[2017-05-04 19:12] LABS: BASOPHIL 0.2 % (0-2.0); EOSINOPHIL 1.3 % (0-4.5); MCH 32.6 pg (25.7-33.7); MCHC 34.3 g/dl (32.0-35.9); MEAN CELL VOLUME 94.9 fl (80-96); MEAN PLT VOLUME 10.5 fl (7.5-11.1); NEUTROPHILS 75.9 % (42.8-82.8); PLATELET COUNT 151 K/MM3 (134-434)
[2017-05-04] MEDS ORDERED: ACETAMINOPHEN INJECTION 100 ML IVPB ONE (19:44)
[2017-05-04 19:46] LABS: ANION GAP 8 (8-16); CALCIUM 8.4 mg/dL (8.5-10.1); CO2 29 mmol/L (21-32); CREATININE 0.7 mg/dL (0.7-1.3); GLUCOSE,RANDOM 81 mg/dL (74-106)
[2017-05-04] MEDS ORDERED: PT OWN MED DRAWER 7, Y5N ONE (21:21)
[2017-05-04] MEDS ORDERED: traZODone HCL 50 MG TABLET (FP) PO SCH (22:00)
[2017-05-04] MEDS ORDERED: ATORVASTATIN CA 40 MG TABLET (FP) PO SCH (22:00)
[2017-05-05] MEDS ORDERED: LEVOFLOXACIN 250 MG TABLET (FP) PO SCH (06:00)
[2017-05-05 08:43] LABS: BASOPHIL 0.1 % (0-2.0); EOSINOPHIL 1.2 % (0-4.5); MCH 31.4 pg (25.7-33.7); MCHC 33.2 g/dl (32.0-35.9); MEAN CELL VOLUME 94.6 fl (80-96); NEUTROPHILS 78.5 % (42.8-82.8); PLATELET COUNT 123 K/MM3 (134-434); RDW 15.2 % (11.9-15.9); WHITE BLOOD COUNT 9.3 K/mm3 (4.0-10.0)
[2017-05-05 08:52] LABS: ALBUMIN 2.6 g/dl (3.4-5.0); ANION GAP 6 (8-16); CALCIUM 7.6 mg/dL (8.5-10.1); CO2 29 mmol/L (21-32); CREATININE 0.6 mg/dL (0.7-1.3); GLUCOSE,RANDOM 94 mg/dL (74-106); SGOT/AST 14 U/L (15-37); SGPT/ALT 17 U/L (12-78)
[2017-05-05 08:55] LABS: ALK PHOS 130 U/L (45-117); BILIRUBIN,TOTAL 0.9 mg/dL (0.2-1.0); TOT PROT 5.2 g/dl (6.4-8.2)
[2017-05-05 09:22] LABS: ACTIVATED PTT 27.5 SECONDS (26.9-34.4); INR 1.28 (0.82-1.09); PROTHROMBIN TIME (PATIENT) 14.5 SEC (9.98-11.88)
--- NOTE | 2017-05-05 09:24 | PN ---
Progress Note (short form) - Note Progress Note: Comfortable -on TBI Day 1 post TURP. Vital Signs (72 hours) 05/02/17 05/02/17 05/03/17 16:45 20:51 01:06 Temperature 98.7 F 98.0 F Pulse Rate 87 74 Pulse Rate [ 65 Right] Respiratory 18 18 18 Rate Blood Pressure 121/75 129/59 Blood Pressure 110/62 [Left Arm] O2 Sat by Pulse 99 97 98 Oximetry (%) 05/03/17 05/03/17 05/03/17 05:00 06:00 14:00 Temperature 98.7 F 98.1 F Pulse Rate 63 70 Pulse Rate [ Right] Respiratory 20 18 Rate Blood Pressure 105/74 122/55 Blood Pressure [Left Arm] O2 Sat by Pulse 97 Oximetry (%) 05/03/17 05/03/17 05/03/17 17:00 19:35 21:00 Temperature 98.1 F 97.8 F Pulse Rate 70 64 Pulse Rate [ Right] Respiratory 230 H 18 Rate Blood Pressure 114/52 143/59 Blood Pressure [Left Arm] O2 Sat by Pulse 97 97 Oximetry (%) 05/03/17 05/04/17 05/04/17 22:00 06:15 09:00 Temperature 98 F 97.9 F Pulse Rate 72 66 Pulse Rate [ Right] Respiratory 18 18 Rate Blood Pressure 130/61 132/60 Blood Pressure [Left Arm] O2 Sat by Pulse 98 Oximetry (%) 05/04/17 05/04/17 05/04/17 10:00 15:00 17:55 Temperature 98.2 F 97.7 F 97.6 F Pulse Rate 70 59 L 64 Pulse Rate [ Right] Respiratory 18 18 18 Rate Blood Pressure 139/62 108/45 120/50 Blood Pressure [Left Arm] O2 Sat by Pulse 100 Oximetry (%) 05/04/17 05/04/17 05/04/17 18:00 18:15 18:30 Temperature Pulse Rate 60 66 64 Pulse Rate [ Right] Respiratory 16 16 14 Rate Blood Pressure 138/63 128/58 146/60 Blood Pressure [Left Arm] O2 Sat by Pulse 100 100 100 Oximetry (%) 05/04/17 05/04/17 05/04/17 18:45 19:00 19:15 Temperature Pulse Rate 65 68 68 Pulse Rate [ Right] Respiratory 14 14 14 Rate Blood Pressure 150/77 136/64 136/64 Blood Pressure [Left Arm] O2 Sat by Pulse 99 95 95 Oximetry (%) 05/04/17 05/04/17 05/04/17 19:30 19:45 20:00 Temperature 97.5 F L Pulse Rate 61 61 63 Pulse Rate [ Right] Respiratory 12 20 16 Rate Blood Pressure 138/47 151/47 127/52 Blood Pressure [Left Arm] O2 Sat by Pulse 96 98 100 Oximetry (%) 05/04/17 05/04/17 05/04/17 20:20 21:00 22:00 Temperature 97.5 F L 98 F Pulse Rate 60 70 Pulse Rate [ Right] Respiratory 18 18 Rate Blood Pressure 116/65 125/70 Blood Pressure [Left Arm] O2 Sat by Pulse 100 100 Oximetry (%) 05/05/17 05/05/17 02:00 06:00 Temperature 97.6 F 98.1 F Pulse Rate 51 L 56 L Pulse Rate [ Right] Respiratory 18 18 Rate Blood Pressure 115/42 102/58 Blood Pressure [Left Arm] O2 Sat by Pulse Oximetry (%) Awake, alert Neck-no jvd lUNGS CLEAR hEART s1S2 REGULAR aBDOMEN SOFT. nt tbi-LIGHT PINK URINE Laboratory Results - last 24 hr 05/02/17 05/04/17 05/04/17 17:43 06:00 18:15 WBC 10.0 RBC 3.25 L Hgb 10.6 L Hct 30.9 L MCV 94.9 MCH 32.6 MCHC 34.3 RDW 16.0 H Plt Count 151 MPV 10.5 Neutrophils % 75.9 Lymphocytes % 16.9 D Monocytes % 5.7 Eosinophils % 1.3 Basophils % 0.2 Sodium 137 Potassium 3.9 Chloride 102 Carbon Dioxide 30 Anion Gap 5 L BUN 18 D Creatinine 0.6 L D Random Glucose 99 Calcium 8.8 Blood Type A POSITIVE Antibody Screen Negative 05/04/17 05/05/17 18:15 06:00 WBC 9.3 RBC 2.93 L Hgb 9.2 L D Hct 27.7 L MCV 94.6 MCH 31.4 MCHC 33.2 RDW 15.2 Plt Count 123 L MPV 10.0 Neutrophils % 78.5 Lymphocytes % 13.2 D Monocytes % 7.0 Eosinophils % 1.2 Basophils % 0.1 Sodium 139 Potassium 3.8 Chloride 102 Carbon Dioxide 29 Anion Gap 8 BUN 16 Creatinine 0.7 Random Glucose 81 Calcium 8.4 L Blood Type Antibody Screen Current Active Problems Problem a>FIB ashd as padpLAN d/X Status Diagnosed Benign localized hyperplasia of prostate with urinary obstruction Acute Hematuria Acute d/c iv FLUIDS. d/C HOME WHEN OK bY gu f/U WITH gu NEXT WEEK. Problem List - Problems (1) Hematuria Code(s): R31.9 - HEMATURIA, UNSPECIFIED Qualifiers: Hematuria type: gross Qualified Code(s): R31.0 - Gross hematuria; R31.0 - Gross hematuria (2) A-fib Code(s): I48.91 - UNSPECIFIED ATRIAL FIBRILLATION Qualifiers: Atrial fibrillation type: chronic Qualified Code(s): I48.2 - Chronic atrial fibrillation; I48.2 - Chronic atrial fibrillation; I48.2 - Chronic atrial fibrillation; I48.2 - Chronic atrial fibrillation (3) Anemia Code(s): D64.9 - ANEMIA, UNSPECIFIED Qualifiers: Iron deficiency anemia type: chronic blood loss
--- NOTE | 2017-05-05 09:27 | DS ---
Physical Examination Vital Signs: Vital Signs Temperature 98.1 F 05/05/17 06:00 Pulse Rate 56 L 05/05/17 06:00 Respiratory Rate 18 05/05/17 06:00 Blood Pressure 102/58 05/05/17 06:00 O2 Sat by Pulse Oximetry (%) 100 05/04/17 21:00 Constitutional: Yes: No Distress, Anxious Eyes: Yes: Conjunctiva Clear, EOM Intact HENT: Yes: Atraumatic, Normocephalic Neck: Yes: Supple, Trachea Midline Cardiovascular: Yes: Pulse Irregular, Murmur Respiratory: Yes: Regular, CTA Bilaterally Gastrointestinal: Yes: Normal Bowel Sounds, Soft ...Rectal Exam: Yes: Deferred Renal/: Yes: Worthington Present (tbi) Edema: No Integumentary: Yes: WNL Neurological: Yes: Alert, Oriented. No: Aphasia Psychiatric: Yes: WNL Labs: CBC, BMP 05/05/17 06:00 05/05/17 06:00 Laboratory Results - last 24 hr 05/02/17 05/04/17 05/04/17 17:43 18:15 18:15 WBC 10.0 RBC 3.25 L Hgb 10.6 L Hct 30.9 L MCV 94.9 MCH 32.6 MCHC 34.3 RDW 16.0 H Plt Count 151 MPV 10.5 Neutrophils % 75.9 Lymphocytes % 16.9 D Monocytes % 5.7 Eosinophils % 1.3 Basophils % 0.2 PT with INR INR PTT (Actin FS) Fibrinogen Sodium 139 Potassium 3.8 Chloride 102 Carbon Dioxide 29 Anion Gap 8 BUN 16 Creatinine 0.7 Creat Clearance w eGFR Random Glucose 81 Calcium 8.4 L Total Bilirubin AST ALT Alkaline Phosphatase Total Protein Albumin Blood Type A POSITIVE Antibody Screen Negative 05/05/17 05/05/17 05/05/17 06:00 06:00 06:00 WBC 9.3 RBC 2.93 L Hgb 9.2 L D Hct 27.7 L MCV 94.6 MCH 31.4 MCHC 33.2 RDW 15.2 Plt Count 123 L MPV 10.0 Neutrophils % 78.5 Lymphocytes % 13.2 D Monocytes % 7.0 Eosinophils % 1.2 Basophils % 0.1 PT with INR 14.50 H INR 1.28 H PTT (Actin FS) 27.5 Fibrinogen 351.0 Sodium 139 Potassium 3.8 Chloride 104 Carbon Dioxide 29 Anion Gap 6 L BUN 16 Creatinine 0.6 L Creat Clearance w eGFR > 60 Random Glucose 94 Calcium 7.6 L Total Bilirubin 0.9 D AST 14 L D ALT 17 D Alkaline Phosphatase 130 H Total Protein 5.2 L D Albumin 2.6 L D Blood Type Antibody Screen Discharge Summary Reason For Visit: HEMATURIA Current Active Problems Benign localized hyperplasia of prostate with urinary obstruction (Acute) Hematuria (Acute) Condition: Stable - Instructions Referrals: Riki Prince MD [Primary Care Provider] - Disposition: HOME - Home Medications Comprehensive Discharge Medication List: Ambulatory Orders Allopurinol [Zyloprim -] 300 mg PO DAILY #0 tablet 01/17/13 Atorvastatin Ca [Lipitor] 40 mg PO HS 08/06/13 Cholecalciferol (Vitamin D3) [Vitamin D3] 1,000 unit PO DAILY 08/08/13 Vit A/Vit C/Vit E/Zinc/Copper [Preservision Tablet] 1 each PO DAILY 06/29/15 Potassium Chloride 10 meq PO DAILY 08/18/15 Torsemide 20 mg PO DAILY 08/18/15 Colchicine [Colcrys] 1 tab PO BID 09/15/15 Lisinopril [Zestril] 2.5 mg PO DAILY 12/28/15 Ferrous Gluconate [Ferate] 32 mg PO DAILY 05/03/17 Ranitidine [Zantac -] 300 mg PO DAILY 05/03/17 Sennosides [Senna -] 1 tab PO DAILY 05/03/17
[2017-05-05] MEDS ORDERED: PT OWN MED DRAWER 7, Y5N ONE (09:36)
[2017-05-05] MEDS: COLCHICINE 0.6 MG TABLET (FP) PO SCH (09:41)
[2017-05-05] MEDS ORDERED: PANTOPRAZOLE 40 MG TABLET (FP) PO SCH (10:00)
[2017-05-05] MEDS ORDERED: VIT E PO SCH (10:00)
[2017-05-05] MEDS ORDERED: CHOLECALCIFEROL (VITAMIN D3) 1,000 UNIT TABLET (FP) PO SCH (10:00)
[2017-05-05] MEDS ORDERED: [UNRECOGNIZED DRUG - OTHER] PO SCH (10:00)
[2017-05-05] MEDS ORDERED: ZINC PO SCH (10:00)
[2017-05-05] MEDS ORDERED: VIT C PO SCH (10:00)
[2017-05-05] MEDS ORDERED: LISINOPRIL 5 MG TABLET (FP) PO SCH (10:00)
[2017-05-05] MEDS ORDERED: VIT A PO SCH (10:00)
[2017-05-05] MEDS ORDERED: COPPER PO SCH (10:00)
[2017-05-05] MEDS ORDERED: ALLOPURINOL 300 MG TABLET (FP) PO SCH (10:00)
--- NOTE | 2017-05-05 10:08 | OP ---
DATE OF OPERATION: 05/04/2017 PREOPERATIVE DIAGNOSIS: Benign prostatic hypertrophy and gross hematuria. POSTOPERATIVE DIAGNOSIS: Benign prostatic hypertrophy and gross hematuria. PROCEDURE: Cystoscopy, bipolar transurethral resection of the prostate. SURGEON: Natalio Morales MD ESTIMATED BLOOD LOSS: 100 mL. ANESTHESIOLOGIST: Jan Villar MD ANESTHESIA: Spinal. SPECIMENS: The prostate chips. DRAINS: Worthington catheter. PREOPERATIVE INDICATIONS: The patient is an 86-year-old male with enlarged prostate. He is having gross hematuria, enlarged prostate, comes to the OR for bipolar TURP. DESCRIPTION OF PROCEDURE: Patient brought to the OR, placed on the table in supine position, given spinal anesthetic. He was then placed in the modified lithotomy position. IV antibiotics had been given on the floor previously. Groin was prepped and draped, timeout was performed. Cystoscopy was performed. The urethra appeared to be normal. The prostate was very vascular and obstructive; however, no active bleeding was seen. There was an open view from the cardinal view, and the bladder itself had trabeculations throughout with a blood clot sitting in it. This was then irrigated out. The ureteral orifices were visualized. Using the bipolar generator with both the button and the loop, the remaining prostate tissue was vaporized and cut from the bladder neck to the area just proximal to the verumontanum. Hemostasis was maintained throughout. The prostate chips were evacuated with [facility] evacuator and sent for histopathological diagnosis. The view at this time was completely open. The ureteral orifices were also visualized again and were not injured. The bladder otherwise appeared to be okay, and the sphincter muscle was also intact. A 24-[place] 3-way Worthington catheter was placed for postoperative irrigation. The patient was woken up. NATALIO MORALES M.D. [id number]
--- NOTE | 2017-05-05 10:43 | PN ---
Progress Note (short form) - Note Progress Note: Patient seen and examined this am. Pt denies any complains. tolerated the procedure well CBI just stopped Worthington a bit clear Constitutional: Yes: Well Nourished, No Distress Eyes: Yes: Conjunctiva Clear HENT: Yes: Atraumatic, Normocephalic Neck: Yes: Supple, Trachea Midline Cardiovascular: Yes: Regular Rate and Rhythm Respiratory: Yes: Regular, CTA Bilaterally Gastrointestinal: Yes: Normal Bowel Sounds, Soft Renal/: Yes: Other (catheter with blood noted) Edema: No CBC, BMP 05/05/17 06:00 05/05/17 06:00 Current Medications Generic Name Dose Route Start Last Admin Trade Name Freq PRN Reason Stop Dose Admin Allopurinol 300 mg 05/05/17 10:00 05/05/17 09:42 Zyloprim - PO 300 mg DAILY DELON Administration Atorvastatin Calcium 40 mg 05/04/17 22:00 05/04/17 21:10 Lipitor - PO 40 mg HS DELON Administration Cholecalciferol 1,000 unit 05/05/17 10:00 05/05/17 09:42 Vitamin D3 - PO 1,000 unit DAILY DELON Administration Colchicine 0.6 mg 05/04/17 22:00 05/05/17 09:41 Colcrys - PO 0.6 mg BID DELON Administration Fentanyl 25 mcg 05/04/17 18:02 Sublimaze Injection - IVPUSH 05/07/17 18:03 [id number] PRN PAIN Lactated Ringer's 1,000 mls @ 75 mls/hr 05/04/17 18:15 Lactated Ringers Solution IV ASDIR DELON Levofloxacin 250 mg 05/05/17 06:00 05/05/17 06:33 Levaquin - PO 250 mg DAILY@0600 DELON Administration Lisinopril 5 mg 05/05/17 10:00 05/05/17 09:41 Prinivil PO Not Given DAILY [facility] Non-Formulary Medication 1 each 05/05/17 10:00 Vit A/Vit C/Vit E/Zinc/Copper [Preservision Tablet] PO DAILY DELON Pantoprazole Sodium 40 mg 05/05/17 10:00 05/05/17 09:42 Protonix - PO 40 mg DAILY DELON Administration Trazodone HCl 50 mg 05/04/17 22:00 05/04/17 21:10 Desyrel - PO 50 mg HS DELON Administration Hematuria , admitted for severe hematuria requiring PRBC s/p TURP s/p TURP. Post lab values wnl yesterday Today CBC reviewed, will repeat CBC to ensure stability and to assess the need for transfusion prior to d.c close OP f/u communicated with RN. discussed with Problem List - Problems (1) Hematuria Code(s): R31.9 - HEMATURIA, UNSPECIFIED Qualifiers: Hematuria type: gross Qualified Code(s): R31.0 - Gross hematuria; R31.0 - Gross hematuria (2) Anemia Code(s): D64.9 - ANEMIA, UNSPECIFIED Qualifiers: Iron deficiency anemia type: chronic blood loss (3) CHF (congestive heart failure) Code(s): I50.9 - HEART FAILURE, UNSPECIFIED Qualifiers: Congestive heart failure type: combined Congestive heart failure chronicity: acute on chronic Qualified Code(s): I50.43 - Acute on chronic combined systolic (congestive) and diastolic (congestive) heart failure; I50.43 - Acute on chronic combined systolic (congestive) and diastolic (congestive) heart failure; I50.43 - Acute on chronic combined systolic (congestive) and diastolic (congestive) heart failure; I50.43 - Acute on chronic combined systolic (congestive) and diastolic (congestive) heart failure (4) Iron deficiency anemia Code(s): D50.9 - IRON DEFICIENCY ANEMIA, UNSPECIFIED
[2017-05-05 13:14] LABS: BASOPHIL 0.3 % (0-2.0); EOSINOPHIL 0.8 % (0-4.5); MCH 31.1 pg (25.7-33.7); MCHC 32.6 g/dl (32.0-35.9); MEAN CELL VOLUME 95.6 fl (80-96); MEAN PLT VOLUME 9.8 fl (7.5-11.1); NEUTROPHILS 79.2 % (42.8-82.8); PLATELET COUNT 144 K/MM3 (134-434); RDW 16.1 % (11.9-15.9); WHITE BLOOD COUNT 12.2 K/mm3 (4.0-10.0)
[2017-05-05 14:29] VITALS: BP 100/79; PULSE 96; TEMP 98
--- NOTE | 2017-05-09 13:44 | PATH ---
Surgical Pathology Report Patient Name: RUDDY MEJIA Med. Rec. #: [id number] /Age/Gender: 1930 (Age: 86) / M Account: [id number] Location: [facility] MED/SURG Taken: 05/04/2017 Received: 05/05/2017 Reported: 05/09/2017 Physicians: Eliud Ritchie M.D. Specimen(s) Received PROSTATE TISSUE Clinical History BPH, hematuria Final Diagnosis PROSTATE, TRANSURETHRAL RESECTION OF PROSTATE: BENIGN PROSTATIC TISSUE WITH FOCAL ACUTE AND CHRONIC INFLAMMATION, ACINAR ATROPHY, CYSTIC CHANGES AND STROMAL HYPERPLASIA. Electronically Signed Leann Marcus M.D. Gross Description Received in formalin labeled "prostate tissue," is an 8.0 x 6.4 x 0.5 cm aggregate of parker, irregular portions of firm to rubbery tissue, consistent with prostate tissue. The specimen is entirely submitted in 10 cassettes. /05/05/2017 [facility]05/05/2017
== END 2017-05-05 14:54 | disposition home or self-care (01) | DRG 713 ==
LOC: SUPCPDRO 16:45 → JER 16:45 → JERBED 19:27 → J8W 05-03 00:05
PROVIDERS: ADMIT Internal Medicine; ATTEND Internal Medicine
PROC: 30233N1 Transfusion of Nonautologous Red Blood Cells into Peripheral Vein, Percutaneous Approach (ICD-10-PCS; 2017-05-03)
PROC: 0TJB8ZZ Inspection of Bladder, Via Natural or Artificial Opening Endoscopic (ICD-10-PCS; 2017-05-04)
PROC: 0VT08ZZ Resection of Prostate, Via Natural or Artificial Opening Endoscopic (ICD-10-PCS; principal; 2017-05-04 16:00)
DX: N40.1 Benign prostatic hyperplasia with lower urinary tract symptoms (principal); N13.8 Other obstructive and reflux uropathy; I25.10 Atherosclerotic heart disease of native coronary artery without angina pectoris; I73.89 Other specified peripheral vascular diseases; I48.91 Unspecified atrial fibrillation; M10.9 Gout, unspecified; M48.00 Spinal stenosis, site unspecified; R33.8 Other retention of urine; J44.9 Chronic obstructive pulmonary disease, unspecified; E78.00 Pure hypercholesterolemia, unspecified; H91.8X3 Other specified hearing loss, bilateral; K21.9 Gastro-esophageal reflux disease without esophagitis; D50.0 Iron deficiency anemia secondary to blood loss (chronic); I11.0 Hypertensive heart disease with heart failure; I50.89 Other heart failure; K44.9 Diaphragmatic hernia without obstruction or gangrene; E11.43 Type 2 diabetes mellitus with diabetic autonomic (poly)neuropathy; K31.84 Gastroparesis; M54.5 Low back pain; D69.6 Thrombocytopenia, unspecified; Z95.1 Presence of aortocoronary bypass graft; Z87.891 Personal history of nicotine dependence; Z77.090 Contact with and (suspected) exposure to asbestos
CPT/HCPCS: 36415; 36430; 71010-TC; 80048; 80053; 85025; 85027; 85384; 85610; 85730; 86850; 86900; 86901; 86922; 88305-TC; 93005; 93010; 94760; 99283-25; P9034; P9038; P9058

== ENCOUNTER 2017-05-07 09:44 | Emergency (ER) | payer BC ==
--- NOTE | 2017-05-07 09:50 | PDOC ---
Attending Attestation - Resident Resident Name: Tl Vega - HPI HPI: 05/07/17 11:26 Pt presents to the ED with urinary retention. Has indwelling arita after TURP procedure. - Physicial Exam PE: 05/07/17 11:[address] draining red urine after being flushed in the ED. - Medical Decision Making 05/07/17 11:30 Pt presents to the ED complaining of hematuria and obstruction of the catheter. Resolved after bladder irrigation. Will discharge home. Case discussed wiht patient's urologist. Discharge Disposition - Diagnosis Obstructed Arita catheter, Urinary retention - Discharge Dispostion Disposition: HOME Condition at time of disposition: Good Last Admission D/C Date: 05/05/17 Admit: No - Referrals Referrals: Natalio Morales MD [Staff Physician] - Riki Prince MD [Primary Care Provider] - - Patient Instructions Printed Discharge Instructions: How to Care for Your Arita Catheter -- Male Additional Instructions: follow up with your appointment with Dr. Morales in 2 days. Come back to emergency room if problem reoccurs. - Post Discharge Activity
[2017-05-07 09:55] VITALS: TEMP 97.8; BMI 21.9
--- NOTE | 2017-05-07 11:01 | PDOC ---
History of Present Illness - General Chief Complaint: Urinary Catheter Problem Stated Complaint: REVISIT Time Seen by Provider: 05/07/17 09:47 History Source: Patient Exam Limitations: No Limitations - History of Present Illness Initial Comments: 05/07/17 11:04 The patient is an 86M with a PMH of urinary retention, CAD s/p CABG, CHF, a-fib and s/p TURP procedure on 05/04/17 who presents to the ED with postop triple lumen catheter clog and urinary retention and abdominal pain. The bladder collection bag has a few cc's of silvia blood in there but no urine. PAtient states that when he urinates the urine seeps out from the exterior of the catheter and is very painful. PAtient called the from his urologists office, Dr. Morales who told him to come to the ER. Complains of suprapubic pain. No headaches, chill, pyuria, nausea, vomiting. 05/07/17 11:11 05/07/17 11:12 Past History - Past Medical History Allergies/Adverse Reactions: Allergies Allergy/AdvReac Type Severity Reaction Status Date / Time No Known Drug Allergies Allergy Verified 05/07/17 09:55 Home Medications: Ambulatory Orders Allopurinol [Zyloprim -] 300 mg PO DAILY #0 tablet 01/17/13 Atorvastatin Ca [Lipitor] 40 mg PO HS 08/06/13 Cholecalciferol (Vitamin D3) [Vitamin D3] 1,000 unit PO DAILY 08/08/13 Vit A/Vit C/Vit E/Zinc/Copper [Preservision Tablet] 1 each PO DAILY 06/29/15 Potassium Chloride 10 meq PO DAILY 08/18/15 Torsemide 20 mg PO DAILY 08/18/15 Colchicine [Colcrys] 1 tab PO BID 09/15/15 Lisinopril [Zestril] 2.5 mg PO DAILY 12/28/15 Ferrous Gluconate [Ferate] 32 mg PO DAILY 05/03/17 Ranitidine [Zantac -] 300 mg PO DAILY 05/03/17 Sennosides [Senna -] 1 tab PO DAILY 05/03/17 Anemia: No Asthma: No Cancer: No Cardiac Disorders: Yes (a-fib - stent placement - bypass) CVA: No COPD: Yes (asbestos) CHF: No Dementia: No Diabetes: No GI Disorders: No Disorders: No HTN: Yes Hypercholesterolemia: Yes Liver Disease: No Seizures: No Thyroid Disease: No - Surgical History Abdominal Surgery: No Appendectomy: No Cardiac Surgery: Yes (cabg) Cholecystectomy: No Lung Surgery: No Neurologic Surgery: No Orthopedic Surgery: No - Immunization History Immunization Up to Date: No - Suicide/Smoking/Psychosocial Hx Smoking Status: No Smoking History: Former smoker Have you smoked in the past 12 months: No Number of Cigarettes Smoked Daily: 0 If you are a former smoker, when did you quit?: 1969 Information on smoking cessation initiated: No 'Breaking Loose' booklet given: 01/19/15 Hx Alcohol Use: No Drug/Substance Use Hx: No Substance Use Type: None Hx Substance Use Treatment: No Review of Systems - Review of Systems Able to Perform ROS?: Yes Constitutional: No: Symptoms Reported HEENTM: No: Symptoms Reported Respiratory: No: Symptoms reported Cardiac (ROS): No: Symptoms Reported ABD/GI: Yes: Abdominal cramping. No: Abdominal Distended, Vomiting : Yes: See HPI *Physical Exam - Vital Signs Last Vital Signs Temp Pulse Resp BP Pulse Ox 97.8 F 63 18 148/69 97 05/07/17 09:45 05/07/17 09:45 05/07/17 09:45 05/07/17 09:45 05/07/17 09:45 - Physical Exam General Appearance: Yes: Nourished, Appropriately Dressed, Mild Distress HEENT: positive: EOMI, KATJA, Normal ENT Inspection Respiratory/Chest: positive: Lungs Clear, Normal Breath Sounds. negative: Chest Tender, Respiratory Distress Cardiovascular: positive: Regular Rhythm, Regular Rate, S1, S2 Gastrointestinal/Abdominal: positive: Normal Bowel Sounds, Tender (suprapubic). negative: Organomegaly, Pulsatile Mass, Guarding, Rebound Male Genitalia: positive: normal genitalia, hematuria. negative: discharge Medical Decision Making - Medical Decision Making 05/07/17 11:13 The patient is an 86M with a PMH of urinary retention, CAD s/p CABG, CHF, a-fib who presents to the ED s/p TURP with urinary retention. Triple tasneem,men catheter flushed 60Mlx2 with NS, followed by 2L bag of NS hanged to flush. Bedside u/s pre and post procedure confirmed bladder emptying and urethra patency. Liquid in the bag now clear. Call placed to Dr. Morales's office. [employer] regional safety manager recommended 1g Ceftriaxone and follow up at clinic to the patient's due appointment on 05/09/17 PAtient feels much better, ok to d/c. *DC/Admit/Observation/Transfer Diagnosis at time of Disposition: Obstruction of Worthington catheter, Urinary retention - Discharge Dispostion Disposition: HOME Admit: Yes - Referrals Referrals: Riki Prince MD [Primary Care Provider] - Natalio Morales MD [Staff Physician] - - Patient Instructions Printed Discharge Instructions: How to Care for Your Worthington Catheter -- Male Additional Instructions: follow up with your appointment with Dr. Morales in 2 days. Come back to emergency room if problem reoccurs.
[2017-05-07] MEDS ORDERED: cefTRIAXone SODIUM 1 GM VIAL IM ONE (11:11)
[2017-05-07] MEDS ORDERED: cefTRIAXone SODIUM 1 GM VIAL ONE (11:25)
[2017-05-07] MEDS ORDERED: LIDOCAINE HCL 1%, 10 MG/ML (20ML VIAL) ONE (11:37)
[2017-05-07 12:47] VITALS: BP 138/61; PULSE 65
== END 2017-05-07 12:47 | disposition home or self-care (01) ==
LOC: JER 09:44
DX: T83.098A Other mechanical complication of other urinary catheter, initial encounter (principal); Y84.6 Urinary catheterization as the cause of abnormal reaction of the patient, or of later complication, without mention of misadventure at the time of the procedure; Y73.8 Miscellaneous gastroenterology and urology devices associated with adverse incidents, not elsewhere classified; I25.810 Atherosclerosis of coronary artery bypass graft(s) without angina pectoris; I10 Essential (primary) hypertension; Z95.1 Presence of aortocoronary bypass graft; Z95.5 Presence of coronary angioplasty implant and graft; I48.91 Unspecified atrial fibrillation; Z79.01 Long term (current) use of anticoagulants; J44.9 Chronic obstructive pulmonary disease, unspecified; J61 Pneumoconiosis due to asbestos and other mineral fibers
CPT/HCPCS: 99283-25

== ENCOUNTER 2017-09-27 12:38 | Observation (INO) | payer BC, OTHER ==
--- NOTE | 2017-09-27 14:01 | PDOC ---
History of Present Illness - General History Source: Patient Exam Limitations: No Limitations - History of Present Illness Initial Comments: 09/27/17 15:03 The patient is a 87 year old male, with a significant past medical history of CAD s/p CABG, CHF, a-fib, s/p TURP, who presents to the emergency department with SOB and persistent cough. Family notes that a mass was found on his right lung, patient has been managed by , who has ordered a LE and UE CT scan to further evaluate his mass. Family noes the patient has been unable to sleep secondary to cough and has had trouble breathing. He denies any recent fevers, chills, headache or dizziness. He denies any recent nausea, vomit, diarrhea or constipation. He denies any recent chest pain. He denies any recent dysuria, frequency, urgency or hematuria. Allergies: NKA Past surgical history: See HPI Social History: Nonsmoker. Denies EtOH use and recreational drug use. Primary Care Physician: <Skip Ace - Last Filed: 09/27/17 15:59> <Castro Conroy - Last Filed: 09/27/17 16:14> - General Chief Complaint: Shortness of Breath Stated Complaint: SOB Time Seen by Provider: 09/27/17 14:00 Past History <Skip Ace - Last Filed: 09/27/17 15:59> - Past Medical History Anemia: No Asthma: No Cancer: No Cardiac Disorders: Yes (a-fib - stent placement - bypass) CVA: No COPD: Yes (asbestos) CHF: No Dementia: No Diabetes: No GI Disorders: No Disorders: No HTN: Yes Hypercholesterolemia: Yes Liver Disease: No Seizures: No Thyroid Disease: No - Surgical History Abdominal Surgery: No Appendectomy: No Cardiac Surgery: Yes (cabg) Cholecystectomy: No Lung Surgery: No Neurologic Surgery: No Orthopedic Surgery: No - Immunization History Immunization Up to Date: No - Suicide/Smoking/Psychosocial Hx Smoking Status: No Smoking History: Former smoker Have you smoked in the past 12 months: No Number of Cigarettes Smoked Daily: 0 If you are a former smoker, when did you quit?: 1970 Information on smoking cessation initiated: No 'Breaking Loose' booklet given: 01/19/15 Hx Alcohol Use: No Drug/Substance Use Hx: No Substance Use Type: None Hx Substance Use Treatment: No <Marycarmen,Boris - Last Filed: 09/27/17 16:14> - Past Medical History Allergies/Adverse Reactions: Allergies Allergy/AdvReac Type Severity Reaction Status Date / Time No Known Drug Allergies Allergy Verified 09/27/17 12:46 Home Medications: Ambulatory Orders Allopurinol [Zyloprim -] 300 mg PO DAILY #0 tablet 01/17/13 Atorvastatin Ca [Lipitor] 40 mg PO HS 08/06/13 Cholecalciferol (Vitamin D3) [Vitamin D3] 1,000 unit PO DAILY 08/08/13 Vit A/Vit C/Vit E/Zinc/Copper [Preservision Tablet] 1 each PO DAILY 06/29/15 Potassium Chloride 10 meq PO DAILY 08/18/15 Torsemide 20 mg PO DAILY 08/18/15 Colchicine [Colcrys] 1 tab PO BID 09/15/15 Lisinopril [Zestril] 2.5 mg PO DAILY 12/28/15 Ferrous Gluconate [Ferate] 32 mg PO DAILY 05/03/17 Ranitidine [Zantac -] 300 mg PO DAILY 05/03/17 Sennosides [Senna -] 1 tab PO DAILY 05/03/17 Review of Systems - Review of Systems Able to Perform ROS?: Yes Comments:: 09/27/17 15:03 CONSTITUTIONAL: No fever, no chills, no fatigue EYES: No visual changes ENT: No ear pain, no sore throat CARDIOVASCULAR: No chest pain, no palpitations RESPIRATORY: +cough, +SOB GI: No abdominal pain, no nausea, no vomiting, no constipation, no diarrhea GENITOURINARY: No dysuria, no frequency, no hematuria MUSKULOSKELETAL: No backpain, no joint pain, no myalgias SKIN: No rash NEURO: No headache <Skip Ace - Last Filed: 09/27/17 15:59> *Physical Exam - Vital Signs Last Vital Signs Temp Pulse Resp BP Pulse Ox 98.3 F 88 15 139/66 98 09/27/17 12:46 09/27/17 12:46 09/27/17 12:46 09/27/17 12:46 09/27/17 12:46 - Physical Exam Comments: 09/27/17 15:07 CONSTITUTIONAL: Fraile-appearing; well-nourished; in no apparent distress. Poor dentition HEAD: Normocephalic; atraumatic EYES: PERRL; EOM intact ENMT: External appears normal; normal oropharynx NECK: Supple; non-tender; no cervical lymphadenopathy CARD: Normal S1, S2; no murmurs, rubs, or gallops RESP: Decreased breath sounds of the right base. ABD: Soft, non-distended; non-tender; no palpable organomegaly, no palpable hernias EXT: Normal ROM in all four extremities; non-tender to palpation; distal pulses intact SKIN: Warm, dry, no rash NEURO: No focal neurological deficiencies. <Skip Ace - Last Filed: 09/27/17 15:59> - Vital Signs Last Vital Signs Temp Pulse Resp BP Pulse Ox 98.3 F 88 15 139/66 98 09/27/17 12:46 09/27/17 12:46 09/27/17 12:46 09/27/17 12:46 09/27/17 12:46 <Castro Conroy - Last Filed: 09/27/17 16:14> Heart Score/ECG Review - ECG Impressions Comment:: 09/27/17 16:00 EKG impressions reported by at 4:48pm: Undetermined rhythm at 76 bpm Left anterior fascicular block Nonspecific ST and T wave QTc 495 ms <Skip Ace - Last Filed: 09/27/17 15:59> ED Treatment Course - LABORATORY CBC & Chemistry Diagram: 09/27/17 15:26 09/27/17 15:26 <Skip Ace - Last Filed: 09/27/17 15:59> - LABORATORY CBC & Chemistry Diagram: 09/27/17 15:26 09/27/17 15:26 <Castro Conroy - Last Filed: 09/27/17 16:14> Medical Decision Making - Medical Decision Making 09/27/17 15:04 Call made to , awaiting call back. <Skip Ace - Last Filed: 09/27/17 15:59> - Medical Decision Making 09/27/17 16:12 Patient is a frail-appearing 87-year-old male with newly diagnosed right lung mass who presents with persistent, nonproductive cough, shortness of breath at rest and with minimal exertion, orthopnea, generalized weakness and malaise. In the ER, patient is awake and alert, afebrile, with decreased breath sounds at right base. CBC reveals leukocytosis of 14,000 with normal differential. Patient will require Combivent therapy, CT of chest to better evaluate for possible postobstructive pneumonia. Patient will require also IV hydration as well as admission further evaluation and treatment. <Castro Conroy - Last Filed: 09/27/17 16:14> *DC/Admit/Observation/Transfer - Attestations Scribe Attestion: 09/27/17 15:03 Documentation prepared by Skip Ace, acting as emergency medical dispatcher for Castro Conroy MD. <Skip Ace - Last Filed: 09/27/17 15:59> - Discharge Dispostion Admit: Yes - Attestations Physician Attestion: 09/27/17 16:12 The documentation was prepared by the scribe under my direct supervision. I have reviewed the documentation which correctly represents the findings, medical decision-making and critical action taken by me. <Castro Conroy - Last Filed: 09/27/17 16:14> Diagnosis at time of Disposition: Mass of right lung - Discharge Dispostion Condition at time of disposition: Fair - Referrals Referrals: Riki Prince MD [Primary Care Provider] - - Patient Instructions - Post Discharge Activity
[2017-09-27] MEDS ORDERED: ALBUTEROL SO4 2.5/IPRATROPIUM 0.5 INH SOL 3 ML VIAL.NEB. NEB ONE ×2 (15:03→15:10)
[2017-09-27 15:40] LABS: BASO % 0.4 % (0-2.0); EOS % 0.4 % (0-4.5); HEMATOCRIT 34.5 % (35.4-49); HEMOGLOBIN 11.4 GM/dL (11.7-16.9); LYMPH % 15.8 % (8-40); MCH 30.8 pg (25.7-33.7); MCHC 33.1 g/dl (32.0-35.9); MEAN CELL VOLUME 93.1 fl (80-96); MONO % 7.2 % (3.8-10.2); NEUT % 76.2 % (42.8-82.8); PLATELET COUNT 180 K/MM3 (134-434); RBC 3.71 M/mm3 (4.00-5.60); WHITE BLOOD COUNT 14.2 K/mm3 (4.0-10.0)
[2017-09-27 15:55] LABS: INR 1.26 (0.82-1.09); PROTHROMBIN TIME (PATIENT) 14.2 SEC (9.98-11.88)
[2017-09-27 16:42] LABS: ALBUMIN 3.7 g/dl (3.4-5.0); ANION GAP 7 (8-16); BLOOD UREA NITROGEN 20 mg/dL (7-18); CALCIUM 8.4 mg/dL (8.5-10.1); CHLORIDE 100 mmol/L (98-107); CO2 31 mmol/L (21-32); CREATININE 0.8 mg/dL (0.7-1.3); GLUCOSE,RANDOM 86 mg/dL (74-106); POTASSIUM 4.2 mmol/L (3.5-5.1); SGOT/AST 18 U/L (15-37); SODIUM 138 mmol/L (136-145)
[2017-09-27] MEDS ORDERED: CEFTRIAXONE 1 GM in DEXTROSE 5%-WATER - 50 ML IVPB ONE ×2 (16:43→16:45)
[2017-09-27 16:46] LABS: ALK PHOS 132 U/L (45-117); BILIRUBIN,TOTAL 0.9 mg/dL (0.2-1.0); SGPT/ALT 23 U/L (12-78); TOT PROT 7.2 g/dl (6.4-8.2)
[2017-09-27] MEDS ORDERED: MAGNESIUM CITRATE 300 ML BOTTLE PO ONE (16:56)
[2017-09-27] MEDS ORDERED: BISACODYL 10 MG SUPP.RECT PR ONE (16:57)
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
[2017-09-27] MEDS ORDERED: CEFTRIAXONE 1 GM/50 ML BAG ONE (17:25)
[2017-09-27] MEDS ORDERED: BISACODYL 10 MG SUPP.RECT RC ONE (20:05)
[2017-09-27] MEDS ORDERED: MAGNESIUM CITRATE 300 ML BOTTLE ONE (20:05)
[2017-09-27] MEDS ORDERED: COLCHICINE 0.6 MG TABLET (FP) PO SCH (22:00)
[2017-09-27] MEDS: ATORVASTATIN CA 40 MG TABLET (FP) PO SCH (23:13)
[2017-09-27] MEDS: HEPARIN NA (PORCINE) 5,000 UNITS/ML 1ML VIAL SQ SCH (23:13)
[2017-09-27] MEDS: POLYETHYLENE GLYCOL 3350 119 GM BTL PO SCH (23:14)
[2017-09-27] MEDS ORDERED: ACETAMINOPHEN 325 MG TABLET (FP) PO ONE (23:45)
[2017-09-28 04:53] VITALS: BMI 24.8
[2017-09-28] MEDS: HEPARIN NA (PORCINE) 5,000 UNITS/ML 1ML VIAL SQ SCH (06:52)
[2017-09-28 07:29] LABS: BASO % 0.2 % (0-2.0); EOS % 0.5 % (0-4.5); HEMATOCRIT 33.1 % (35.4-49); HEMOGLOBIN 10.9 GM/dL (11.7-16.9); LYMPH % 17.2 % (8-40); MCH 30.7 pg (25.7-33.7); MCHC 33.1 g/dl (32.0-35.9); MEAN CELL VOLUME 92.8 fl (80-96); MEAN PLT VOLUME 10.4 fl (7.5-11.1); MONO % 8.4 % (3.8-10.2); NEUT % 73.7 % (42.8-82.8); PLATELET COUNT 157 K/MM3 (134-434); RBC 3.56 M/mm3 (4.00-5.60); RDW 16.2 % (11.9-15.9); WHITE BLOOD COUNT 10.7 K/mm3 (4.0-10.0)
[2017-09-28 07:52] LABS: ALBUMIN 3.4 g/dl (3.4-5.0); BLOOD UREA NITROGEN 15 mg/dL (7-18); CHLORIDE 99 mmol/L (98-107); POTASSIUM 4.1 mmol/L (3.5-5.1); SODIUM 139 mmol/L (136-145)
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
[2017-09-28 08:02] LABS: ALK PHOS 122 U/L (45-117); ANION GAP 11 (8-16); BILIRUBIN,TOTAL 1.4 mg/dL (0.2-1.0); CALCIUM 8.7 mg/dL (8.5-10.1); CO2 29 mmol/L (21-32); CREATININE 0.7 mg/dL (0.7-1.3); GLUCOSE,RANDOM 82 mg/dL (74-106); MAGNESIUM 2.4 mg/dL (1.8-2.4); SGOT/AST 17 U/L (15-37); SGPT/ALT 18 U/L (12-78); TOT PROT 6.6 g/dl (6.4-8.2)
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
[2017-09-28] MEDS ORDERED: LISINOPRIL 5 MG TABLET (FP) PO SCH (10:00)
[2017-09-28] MEDS ORDERED: cefTRIAXone SODIUM 1 GM VIAL ONE (10:03)
[2017-09-28] MEDS ORDERED: DEXTROSE 5%-WATER - 50 ML IVPB ONE (10:03)
[2017-09-28] MEDS: guaiFENesin/CODEINE 5 ML UNIT-DOSE CUPS PO PRN (10:04)
[2017-09-28] MEDS: RANITIDINE HCL 150 MG TABLET (FP) PO SCH (10:04)
[2017-09-28] MEDS: ALLOPURINOL 300 MG TABLET (FP) PO SCH (10:05)
[2017-09-28] MEDS: POTASSIUM CHLORIDE TABS 10 MEQ TABLET.ER (FP) PO SCH (10:05)
[2017-09-28] MEDS: CEFTRIAXONE 1 GM in DEXTROSE 5%-WATER - 50 ML IVPB SCH (10:05)
[2017-09-28] MEDS: POLYETHYLENE GLYCOL 3350 119 GM BTL PO SCH ×2 (10:06→21:39)
[2017-09-28] MEDS: TORSEMIDE 20 MG TABLET (FP) PO SCH (10:06)
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
[2017-09-28 16:46] LABS: GLUCOSE,PLEURAL FLUID 114.855
[2017-09-28 16:47] LABS: TOTAL PROTEIN,PLEURAL FLUID 3.229
[2017-09-28 16:49] LABS: PLEURAL FLUID APPEARANCE CLEAR; PLEURAL FLUID COLOR YELLOW
[2017-09-28 19:10] LABS: PLEURAL FLUID LYMPHOCYTES 17 %; PLEURAL FLUID MESOTHELIAL 79 %; PLEURAL FLUID NEUTROPHIL 4 %
[2017-09-28] MEDS: ATORVASTATIN CA 40 MG TABLET (FP) PO SCH (21:39)
[2017-09-29] MEDS: guaiFENesin/CODEINE 5 ML UNIT-DOSE CUPS PO PRN ×2 (01:27→09:25)
--- NOTE | 2017-09-29 08:14 | PN ---
Progress Note (short form) - Note Progress Note: Feels better, no SOB., cough improved. WBC 10k.CEA-4 Vital Signs - 24 hr 09/28/17 09/28/17 09/28/17 09:00 10:00 13:14 Temperature 97.2 F L 97.7 F Pulse Rate 75 72 Respiratory 18 18 Rate Blood Pressure 129/60 116/56 O2 Sat by Pulse 98 Oximetry (%) 09/28/17 09/28/17 09/28/17 16:30 21:00 22:00 Temperature 82 F L 99.2 F Pulse Rate 82 78 Respiratory 20 20 20 Rate Blood Pressure 145/67 134/66 O2 Sat by Pulse 96 Oximetry (%) 09/29/17 09/29/17 02:13 06:06 Temperature 99.7 F H 99 F Pulse Rate 85 79 Respiratory 20 20 Rate Blood Pressure 121/63 106/60 O2 Sat by Pulse Oximetry (%) Underwent yestrday thoracenthesis , aspirated 900 cc clear yellow fluid/- transudate by Light criteria. Serum Protein/albumin6.6/3.4-fluid prot 3.3 and albumin 2.0. Prot gradient 3.4 (>3.1) and alb gradient 1.4(>1.2). LDH 118PE Awake, alert NAD Neck supple, no JVD Lungs are clear. Heart S1S2 irregular, irregular c/w a.fib Abdomen soft, NT Ext-no CCE Carotid Dupplex -no carotid significant stenosis. Laboratory Results - last 24 hr 09/27/17 09/28/17 09/28/17 21:35 06:15 14:20 Sodium 139 Potassium 4.1 Chloride 99 Carbon Dioxide 29 Anion Gap 11 BUN 15 D Creatinine 0.7 Creat Clearance w eGFR > 60 Random Glucose 82 Calcium 8.7 Phosphorus 3.0 Magnesium 2.4 Total Bilirubin 1.4 H D AST 17 ALT 18 D Alkaline Phosphatase 122 H Total Protein 6.6 Albumin 3.4 Carcinoembryonic Ag 4.2 Fluid Creatinine No Result Required. Pleural Fluid Source Right pleural Pleural Color Yellow Pleural Appearance Clear Pleural WBC 892 Pleural RBC 1,218 Pleural Neutrophils 4 Pleural Lymphocytes 17 Pleural Mesothelial 79 Pleural Chloride No Result Required. Pleural Total Protein 3.229 Pleural Albumin 2 Pleural LDH 118.22 Pleural Glucose 114.855 Pleural Amylase 34.303 Pleural Cholesterol < 50 Pleural Triglycerides 7 IMP Current Active Problems Problem Status Onset Pleural effusion Acute Plan Continue PO ABX x5 days.D/C home F/u on pathology Problem List - Problems (1) A-fib Code(s): I48.91 - UNSPECIFIED ATRIAL FIBRILLATION Qualifiers: Atrial fibrillation type: chronic Qualified Code(s): I48.2 - Chronic atrial fibrillation (2) CHF (congestive heart failure) Code(s): I50.9 - HEART FAILURE, UNSPECIFIED (3) Pleural effusion Code(s): J90 - PLEURAL EFFUSION, NOT ELSEWHERE CLASSIFIED
--- NOTE | 2017-09-29 08:15 | DS ---
Physical Examination Vital Signs: Vital Signs Temperature 99 F 09/29/17 06:06 Pulse Rate 79 09/29/17 06:06 Respiratory Rate 20 09/29/17 06:06 Blood Pressure 106/60 09/29/17 06:06 O2 Sat by Pulse Oximetry (%) 96 09/28/17 21:00 Constitutional: Yes: No Distress, Anxious Eyes: Yes: Conjunctiva Clear, EOM Intact HENT: Yes: Atraumatic, Normocephalic. No: Drooling Neck: Yes: Supple, Trachea Midline. No: Lymphadenopathy Cardiovascular: Yes: Pulse Irregular, JVD, Murmur, S1, S2 Respiratory: Yes: Regular, Cough, SOB Gastrointestinal: Yes: Normal Bowel Sounds, Soft. No: Abdomen, Obese, Ascites ...Rectal Exam: Yes: Deferred Renal/: No: Anuria, Bladder Distention Breast(s): Yes: WNL Musculoskeletal: Yes: WNL Extremities: Yes: WNL Edema: No Neurological: Yes: Alert. No: Aphasia, Dysarthria ...Motor Strength: WNL Psychiatric: Yes: WNL Labs: CBC, BMP 09/28/17 06:15 09/28/17 06:15 Discharge Summary Reason For Visit: Pleural effusion Current Active Problems Pleural effusion (Acute) Condition: Improved - Instructions Referrals: Riki Prince MD [Primary Care Provider] - Disposition: HOME - Home Medications Comprehensive Discharge Medication List: Ambulatory Orders Allopurinol [Zyloprim -] 300 mg PO DAILY #0 tablet 01/17/13 Atorvastatin Ca [Lipitor] 40 mg PO HS 08/06/13 Cholecalciferol (Vitamin D3) [Vitamin D3] 1,000 unit PO DAILY 08/08/13 Vit A/Vit C/Vit E/Zinc/Copper [Preservision Tablet] 1 each PO DAILY 06/29/15 Potassium Chloride 10 meq PO DAILY 08/18/15 Torsemide 20 mg PO DAILY 08/18/15 Colchicine [Colcrys] 1 tab PO BID 09/15/15 Lisinopril [Zestril] 2.5 mg PO DAILY 12/28/15 Ferrous Gluconate [Ferate] 32 mg PO DAILY 05/03/17 Ranitidine [Zantac -] 300 mg PO DAILY 05/03/17 Sennosides [Senna -] 1 tab PO DAILY 05/03/17
[2017-09-29 09:03] VITALS: BP 119/65; PULSE 75; TEMP 98.3
[2017-09-29] MEDS ORDERED: cefTRIAXone SODIUM 1 GM VIAL ONE (09:08)
[2017-09-29] MEDS ORDERED: DEXTROSE 5%-WATER - 50 ML IVPB ONE (09:09)
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
[2017-09-29] MEDS: CEFTRIAXONE 1 GM in DEXTROSE 5%-WATER - 50 ML IVPB SCH (09:24)
[2017-09-29] MEDS: RANITIDINE HCL 150 MG TABLET (FP) PO SCH (09:25)
[2017-09-29] MEDS: ALLOPURINOL 300 MG TABLET (FP) PO SCH (09:25)
[2017-09-29] MEDS: POTASSIUM CHLORIDE TABS 10 MEQ TABLET.ER (FP) PO SCH (09:25)
[2017-09-29] MEDS: TORSEMIDE 20 MG TABLET (FP) PO SCH (09:25)
[2017-09-29] MEDS: POLYETHYLENE GLYCOL 3350 119 GM BTL PO SCH (09:31)
--- NOTE | 2017-10-02 12:13 | EKG ---
Test Reason : Blood Pressure : / mmHG Vent. Rate : 076 BPM Atrial Rate : 085 BPM P-R Int : 000 ms QRS Dur : 124 ms QT Int : 440 ms P-R-T Axes : 000 -57 083 degrees QTc Int : 495 ms ATRIAL FIBRILLATION PREMATURE VENTRICULAR COMPLEXES LEFT ANTERIOR FASCICULAR BLOCK NONSPECIFIC ST AND T WAVE ABNORMALITY ABNORMAL ECG WHEN COMPARED WITH ECG OF 02-MAY-2017 17:58, NO SIGNIFICANT CHANGE WAS FOUND Confirmed by MALU MARION, CHRISTY ([id number]) on 10/02/2017 12:12:37 PM Referred By: Confirmed By:CHRISTY TORIBIO MD
--- NOTE | 2017-10-03 15:54 | PATH ---
Cytology Non-Gynecological Report Patient Name: RUDDY MEJIA Med. Rec. #: [id number] /Age/Gender: 1930 (Age: 87) / M Account: [id number] Location: [facility] MED/SURG Taken: 09/28/2017 Received: 09/29/2017 Reported: 10/03/2017 Physicians: Eliud Roe M.D. Specimen(s) Received A: RIGHT PLEURAL FLUID B: RIGHT PLEURAL FLUID Clinical History Pleural effusion Final Diagnosis A & B. PLEURAL FLUID, RIGHT, THORACENTESIS: SATISFACTORY FOR EVALUATION NO MALIGNANT CELLS IDENTIFIED. SCATTERED MESOTHELIAL CELLS, FEW MACROPHAGES AND LYMPHOCYTES PRESENT. Comment: Immunohistochemical stains performed at [place], [place] ([id number]) and interpreted at [facility] show few D2-40+ mesothelial cells in a background of CD68+ macrophages and lymphocytes are. MOC-31 and ABELARDO are negative. Irvin-ep4 is non-contributory due to high background staining. Suggest clinical/radiologic correlation. Electronically Signed Leann Marcus M.D. Gross Description A. Approximately 50 cc of yellow fluid received fixed in 50% alcohol. Two cytofunnels and one cellblock prepared. B. Approximately 800 cc of yellow fluid received fresh. Two cytofunnels and one cellblock prepared.
== END 2017-09-29 11:25 | disposition home or self-care (01) ==
LOC: JER 12:38 → INTOOBSV 16:14 → JERBED 16:14 → UNDOADMOB 16:14 → J7W 21:16 → JERBED 21:16 → J7W 09-29 08:16
PROVIDERS: ADMIT Internal Medicine; ATTEND Internal Medicine
PROC: 3E03329 Introduction of Other Anti-infective into Peripheral Vein, Percutaneous Approach (ICD-10-PCS; principal; 2017-09-29)
PROC: 3E033GC Introduction of Other Therapeutic Substance into Peripheral Vein, Percutaneous Approach (ICD-10-PCS; 2017-09-29)
PROC: 3E013GC Introduction of Other Therapeutic Substance into Subcutaneous Tissue, Percutaneous Approach (ICD-10-PCS; 2017-09-29)
PROC: 3E0F7GC Introduction of Other Therapeutic Substance into Respiratory Tract, Via Natural or Artificial Opening (ICD-10-PCS; 2017-09-29)
DX: J90 Pleural effusion, not elsewhere classified (principal); R91.8 Other nonspecific abnormal finding of lung field; I48.2 Chronic atrial fibrillation; I50.43 Acute on chronic combined systolic (congestive) and diastolic (congestive) heart failure; I25.10 Atherosclerotic heart disease of native coronary artery without angina pectoris; I10 Essential (primary) hypertension; E78.5 Hyperlipidemia, unspecified; K21.9 Gastro-esophageal reflux disease without esophagitis; K44.9 Diaphragmatic hernia without obstruction or gangrene; N28.9 Disorder of kidney and ureter, unspecified; N40.0 Benign prostatic hyperplasia without lower urinary tract symptoms; M19.90 Unspecified osteoarthritis, unspecified site; M54.5 Low back pain; G89.29 Other chronic pain; M10.9 Gout, unspecified; R73.03 Prediabetes; J44.9 Chronic obstructive pulmonary disease, unspecified; M48.00 Spinal stenosis, site unspecified; R33.9 Retention of urine, unspecified; N39.0 Urinary tract infection, site not specified; D50.9 Iron deficiency anemia, unspecified; Z86.79 Personal history of other diseases of the circulatory system; Z87.891 Personal history of nicotine dependence; Z95.1 Presence of aortocoronary bypass graft; Z95.5 Presence of coronary angioplasty implant and graft
CPT/HCPCS: 36415; 71045-TC-FY; 71260-TC; 74177-TC; 76942; 80053; 82042; 82150; 82378; 82438; 82570; 82945; 83615; 83735; 84100; 84157; 84311; 84478; 85025; 85610; 86850; 86870; 86900; 86901; 86902; 87040; 87070; 87075; 87102; 87116; 87205; 87206; 87210; 87899; 88108; 88305-TC; 89051; 93005; 93010; 93880-TC; 94010; 94640; 96365; 96366; 96368; 96372; 99282-25; G0378; J1644

== ENCOUNTER 2018-07-23 02:19 | Inpatient (IN) | payer OTHER, MEDICARE ==
--- NOTE | 2018-07-23 03:22 | PDOC ---
Attending Attestation - Resident Resident Name: Jensen Shipman - ED Attending Attestation I have performed the following: I have examined & evaluated the patient, The case was reviewed & discussed with the resident, I agree w/resident's findings & plan - HPI HPI: 07/23/18 04:23 Pt comes with afib; he fell at home. He hit the back of head. - Physicial Exam PE: 07/23/18 05:40 Agree with resident exam - Medical Decision Making 07/23/18 05:40 Patient Name: RUDDY MEJIA THIS IS A PRELIMINARY REPORT FROM [facility] DATE OF SERVICE: 2018-07-23 04:36:57 IMAGES: [id number] EXAM: CERVICAL SPINE CT W/O CONTR HISTORY: Patient fell COMPARISON: None. FINDINGS: There is a type II fracture of the dens with 2.5 mm anterior displacement of the cranial portion relative to the caudal fragment. I do not have the prior scans at this time. I spoke with Dr. Shipman who read a report of a cervical spine CT from May 2018 that did describe a type II dens fracture as well. When the prior scan could be obtained and transmitted I can perform a comparative interpretation. No other cervical spine fracture or malalignment. Degenerative changes. 07/23/18 05:40 Patient Name: RUDDY MEJIA THIS IS A PRELIMINARY REPORT FROM [facility] DATE OF SERVICE: 2018-07-23 04:39:46 IMAGES: [id number] EXAM: HEAD CT WITHOUT CONTRAST HISTORY: Patient fell COMPARISON: None. 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 No obvious acute infarct. No hemorrhage. Involutional changes. Osseous structures are intact. Dens dens fracture will be discussed on cervical spine CT. 07/28/18 20:01 Pt will be admitted for ortho eval, obs, etc.
--- NOTE | 2018-07-23 03:49 | PDOC ---
Attending Attestation - Resident Resident Name: Jensen Shipman - ED Attending Attestation I have performed the following: I have examined & evaluated the patient, The case was reviewed & discussed with the resident, I agree w/resident's findings & plan
--- NOTE | 2018-07-23 03:49 | PDOC ---
History of Present Illness - General Chief Complaint: Injury Stated Complaint: FALL Time Seen by Provider: 07/23/18 03:06 History Source: Patient, Family (Daughter at bedside) Exam Limitations: No Limitations - History of Present Illness Initial Comments: HPI: 88 y/o male BIBEMS to [facility] ER complaining of left sided headache, generalized neck pain, left posterior shoulder pain, and left posterior hip pain. Pt fell from standing height earlier this morning. Pt states he just fell. Unable to stand afterward. Fall not witnessed. Daughter at bedside reports no nausea or vomiting. Pt acting appropriately without change in behavior. Takes Tylenol PM for sleep. H/o recurrent falls. Lives at home with family. Personal c-collar in place on arrival but removed prior to evaluation by provider. Takes ASA daily. No other anticoagulants. PCP: Dr. Prince Medical Hx: - CAD s/p CABG - CHF, LV failure - A-fib, on ASA only s/p Watchman device - BPH s/p TURP - HTN - Gout Past History - Past Medical History Allergies/Adverse Reactions: Allergies Allergy/AdvReac Type Severity Reaction Status Date / Time No Known Drug Allergies Allergy Verified 07/23/18 06:37 Home Medications: Ambulatory Orders Allopurinol [Zyloprim -] 300 mg PO DAILY #0 tablet 01/17/13 Atorvastatin Ca [Lipitor] 40 mg PO HS 08/06/13 Cholecalciferol (Vitamin D3) [Vitamin D3] 1,000 unit PO DAILY 08/08/13 Vit A/Vit C/Vit E/Zinc/Copper [Preservision Tablet] 1 each PO DAILY 06/29/15 Torsemide 20 mg PO DAILY 08/18/15 Ferrous Gluconate [Ferate] 32 mg PO DAILY 05/03/17 Sennosides [Senna -] 1 tab PO DAILY 05/03/17 ASA - 81 mg PO DAILY 10/31/17 Ferrous Gluconate 32 mg PO DAILY 07/03/18 Lisinopril 2.5 mg PO DAILY 07/03/18 Omeprazole 20 mg PO DAILY 07/23/18 Spironolactone 25 mg PO DAILY 07/23/18 Anemia: No Asthma: No Cancer: No Cardiac Disorders: Yes (a-fib - stent placement - bypass) CVA: No COPD: Yes (asbestos) CHF: No Dementia: No Diabetes: No GI Disorders: No Disorders: No HTN: Yes Hypercholesterolemia: Yes Liver Disease: No Seizures: No Thyroid Disease: No - Surgical History Abdominal Surgery: No Appendectomy: No Cardiac Surgery: Yes (cabg) Cholecystectomy: No Lung Surgery: No Neurologic Surgery: No Orthopedic Surgery: No - Immunization History Immunization Up to Date: No - Suicide/Smoking/Psychosocial Hx Smoking Status: No Smoking History: Never smoked Have you smoked in the past 12 months: No Number of Cigarettes Smoked Daily: 0 If you are a former smoker, when did you quit?: 1970 'Breaking Loose' booklet given: 01/19/15 Hx Alcohol Use: No Drug/Substance Use Hx: No Substance Use Type: None Hx Substance Use Treatment: No Review of Systems - Review of Systems Able to Perform ROS?: Yes Comments:: In addition to that documented in the HPI above, the additional ROS was obtained : Constitutional: Denies fevers or chills Eyes: Denies vision changes ENMT: Denies sore throat CV: Denies chest pain Resp: Denies SOB GI: Denies vomiting or diarrhea : Denies painful urination MSK: Per HPI Skin: Denies new rashes Neuro: Denies new numbness or tingling or weakness Endocrine: Denies polyuria Heme: Denies bleeding or bruising *Physical Exam - Vital Signs Last Vital Signs Temp Pulse Resp BP Pulse Ox 98.3 F 88 19 147/70 96 07/23/18 02:35 07/23/18 02:35 07/23/18 02:35 07/23/18 02:35 07/23/18 02:35 - Physical Exam Comments: Constitutional: Thin elderly male in no acute distress or obvious discomfort. Found semi-fowlers in hospital bed. Alert and oriented x4. Head: Normocephalic. Contusion over left orbit. No Battles sign or Periorbital bruising. Eyes: Pupils 2mm and PERRL bilaterally. Sclerae white. Conjunctiva moist and not injected. EARS: Poor hearing, family reports this is baseline. NOSE: No nasal discharge. Neck: Supple, trachea is midline. Pt reports midline c-spine and diffuse R and L neck tenderness. Able to rotated neck laterally to L and R. Cardiovascular/Chest: Regular rate and regular rhythm. No murmur, rubs, clicks , or gallops. Peripheral pulses: Radial pulses full. Old appearing midline sternotomy scar. Respiratory: Breathing unlabored. Equal chest rise and fall. Clear to auscultation bilaterally. No stridor, no wheezing, no rhonchi. Gastrointestinal: abdomen is soft, non-tender, non-distended. Neuro: Alert and oriented. Moving all four extremities spontaneously. Skin/MSK: Point tenderness to left posterior shoulder. No gross bony deformity or overlying signs of trauma. Unable to move arm above 90 degrees secondary to pain. Point tenderness to left posterior hip. No gross bony deformity or overlying signs of trauma. Active and passive movement increases pain. Pelvis stable. Globally, skin is warm and dry. No bleeding or skin lacerations appreciated. Psych: Affect: appropriate. Mood: normal. Moderate Sedation - Procedure Monitoring Vital Signs: Procedure Monitoring Vital Signs Temperature 98.3 F 07/23/18 02:35 Pulse Rate 88 07/23/18 02:35 Respiratory Rate 19 07/23/18 02:35 Blood Pressure 147/70 07/23/18 02:35 O2 Sat by Pulse Oximetry (%) 96 07/23/18 02:35 ED Treatment Course - LABORATORY CBC & Chemistry Diagram: 07/23/18 04:08 07/23/18 04:08 - RADIOLOGY Radiograph Interpretation: Head CT Rafiq Gaytan MD wrote on Jul 23, 2018 at 05:03 AM: Referring Physician: BISHOP COLLIER Patient Name: RUDDY MEJIA THIS IS A PRELIMINARY REPORT FROM [facility] DATE OF SERVICE: 2018-07-23 04:39:46 IMAGES: [id number] EXAM: HEAD CT WITHOUT CONTRAST HISTORY: Patient fell COMPARISON: None. 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 No obvious acute infarct. No hemorrhage. Involutional changes. Osseous structures are intact. Dens dens fracture will be discussed on cervical spine CT. One or more of the following dose reduction techniques were used: automated exposure control, adjustment of the mA and/or kV according to patient size, use of iterative reconstructive technique. THIS DOCUMENT HAS BEEN ELECTRONICALLY SIGNED Rafiq Gaytan MD 07/23/2018 05:[address] Rafiq Gaytan MD wrote on Jul 23, 2018 at 05:15 AM: Referring Physician: BISHOP COLLIER Patient Name: RUDDY MEJIA THIS IS A PRELIMINARY REPORT FROM [facility] DATE OF SERVICE: 2018-07-23 04:36:57 IMAGES: [id number] EXAM: CERVICAL SPINE CT W/O CONTR HISTORY: Patient fell COMPARISON: None. FINDINGS: There is a type II fracture of the dens with 2.5 mm anterior displacement of the cranial portion relative to the caudal fragment. I do not have the prior scans at this time. I spoke with Dr. Shipman who read a report of a cervical spine CT from May 2018 that did describe a type II dens fracture as well. When the prior scan could be obtained and transmitted I can perform a comparative interpretation. No other cervical spine fracture or malalignment. Degenerative changes. One or more of the following dose reduction techniques were used: automated exposure control, adjustment of the mA and/or kV according to patient size, use of iterative reconstructive technique. THIS DOCUMENT HAS BEEN ELECTRONICALLY SIGNED Rafiq Gaytan MD 07/23/2018 05:15 EST Medical Decision Making - Medical Decision Making *Reviewed vital signs, nursing notes, and prior visit documentation (if available). 88 y/o male complaining of headache, left shoulder pain, and left hip pain after unwitnessed fall at home. Pt claims to remember the fall but is unable to provide details. Took both Tylenol PM and Trazadone to help with sleep prior. Afebrile. Vitals unremarkable for hypotension or tachycardia. Physical exam as described above. CT of head unremarkable for acute fracture or intracranial injury. CT of c-spine remarkable for T2 dens fracture. Not acute appearing. Noted on CT scan dated 05/23/2018. Daughter reports the family is aware. Pt is scheduled to follow up with surgeon at [facility] this week. No acute fractures or dislocations of left shoulder or pelvis per ED wet read. Awaiting formal radiology report. Chest PA of poor technical quality - bad penetration and pt rotated. Possible right effusion. Interval change from previous film dated 05/04/2018 per ED wet read. Will obtain CT of Chest to further evaluate. EKG showed afib with single PVC at ventricular rate of 76 bpm. Possible left axis deviation. Normal intervals. No ST segment elevation or depression. No pathologic Q waves. CBC revealed anemia, at baseline compared to trend in [facility]. Troponin mildly elevated. Possible NSTEMI as pts eGFR is >60. Pt denies chest pain. Will admit pt for NIRMALA. Ordered ASA and bolus of heparin. 05:32 Microblog sent to [facility] Admitting. Awaiting call back. 06:10 Telephone consultation with resident Dr. Blount. Verbally appraised of the pts HPI, ED course, and current plan of management. Unsure of admitting protocol with this pt. Will microblog with further instructions. Pt reassessed and found sleeping. Discussed imaging and laboratory results with daughter. Answered all questions. Daughter expressed verbal understanding and agreement with plan to admit the pt to the hospital for further evaluation. Admission order placed. Chest CT pending. *DC/Admit/Observation/Transfer Diagnosis at time of Disposition: NSTEMI (non-ST elevated myocardial infarction) - Discharge Dispostion Condition at time of disposition: Stable Decision to Admit order: Yes - Referrals Referrals: Riki Prince MD [Primary Care Provider] - - Patient Instructions - Post Discharge Activity
[2018-07-23] MEDS ORDERED: ACETAMINOPHEN 500 MG TABLET (FP) PO ONE (03:52)
[2018-07-23 04:11] LABS: URINE APPEARANCE CLEAR; URINE BILIRUBIN NEGATIVE (<2.0 mg/dL); URINE COLOR LTYELLOW; URINE GLUCOSE (UA) NEGATIVE (NEGATIVE); URINE KETONE NEGATIVE (NEGATIVE); URINE LEUK ESTERASE NEGATIVE (NEGATIVE); URINE NITRITE NEGATIVE (NEGATIVE); URINE PROTEIN NEGATIVE (NEGATIVE); URINE UROBILINOGEN NEGATIVE mg/dL (0.2-1.0)
[2018-07-23] MEDS ORDERED: ACETAMINOPHEN 325 MG TABLET (FP) ONE (04:13)
[2018-07-23 04:20] LABS: BASO % 0.4 % (0-2.0); HEMATOCRIT 28.3 % (35.4-49); HEMOGLOBIN 9.7 GM/dL (11.7-16.9); LYMPH % 17.3 % (8-40); MCH 31.2 pg (25.7-33.7); MCHC 34.3 g/dl (32.0-35.9); MEAN CELL VOLUME 90.9 fl (80-96); MEAN PLT VOLUME 10.8 fl (7.5-11.1); MONO % 7.5 % (3.8-10.2); NEUT % 73.8 % (42.8-82.8); PLATELET COUNT 165 K/MM3 (134-434); RBC 3.11 M/mm3 (4.00-5.60); RDW 18.3 % (11.9-15.9); WHITE BLOOD COUNT 7.8 K/mm3 (4.0-10.0)
[2018-07-23 04:48] LABS: BLOOD UREA NITROGEN 31 mg/dL (7-18); CHLORIDE 102 mmol/L (98-107); CO2 33 mmol/L (21-32); CREATININE 0.9 mg/dL (0.55-1.3); GLUCOSE,RANDOM 94 mg/dL (74-106); POTASSIUM 4.2 mmol/L (3.5-5.1); SODIUM 139 mmol/L (136-145)
[2018-07-23 04:49] LABS: ALBUMIN 3.1 g/dl (3.4-5.0); ALK PHOS 141 U/L (45-117); ANION GAP 3 MMOL/L (8-16); BILIRUBIN,TOTAL 0.6 mg/dL (0.2-1); CALCIUM 8.4 mg/dL (8.5-10.1); SGOT/AST 20 U/L (15-37); SGPT/ALT 21 U/L (13-61); TOT PROT 6.9 g/dl (6.4-8.2)
[2018-07-23 05:17] LABS: INR 1.34 (0.83-1.09); PROTHROMBIN TIME (PATIENT) 15.8 SEC (9.7-13.0)
[2018-07-23] MEDS ORDERED: ASPIRIN 81 MG CHEWABLE TABLETS PO ONE (05:39)
[2018-07-23] MEDS ORDERED: HEPARIN NA (PORCINE) 5,000 UNITS/ML 1ML VIAL IVPUSH ONE (05:39)
[2018-07-23] MEDS ORDERED: ASPIRIN 81 MG CHEWABLE TABLETS ONE (06:09)
[2018-07-23] MEDS ORDERED: HEPARIN NA (PORCINE) 5,000 UNITS/ML 1ML VIAL ONE (06:10)
--- NOTE | 2018-07-23 09:37 | EKG ---
Test Reason : Blood Pressure : / mmHG Vent. Rate : 076 BPM Atrial Rate : 080 BPM P-R Int : 000 ms QRS Dur : 122 ms QT Int : 430 ms P-R-T Axes : 000 -63 092 degrees QTc Int : 483 ms ATRIAL FIBRILLATION WITH PREMATURE VENTRICULAR OR ABERRANTLY CONDUCTED COMPLEXES LEFT ANTERIOR FASCICULAR BLOCK NONSPECIFIC T WAVE ABNORMALITY ABNORMAL ECG WHEN COMPARED WITH ECG OF 27-SEP-2017 14:41, NO SIGNIFICANT CHANGE WAS FOUND Confirmed by MALU MARION, CHRISTY ([id number]) on 07/23/2018 9:36:58 AM Referred By: Confirmed By:CHRISTY TORIBIO MD
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
--- NOTE | 2018-07-23 17:25 | PDOC ---
*Physical Exam - Vital Signs Last Vital Signs Temp Pulse Resp BP Pulse Ox 98.4 F 66 18 127/52 L 100 07/23/18 10:03 07/23/18 10:03 07/23/18 10:03 07/23/18 10:03 07/23/18 10:03 - Physical Exam Comments: 07/23/18 17:23 Patient was endorsed to me in the morning as admitted I was contacted by Nurse about patient. It was reported that PMD was not aware of patient in ED. Spoke to Hospitalist and reported they contacted PMD and is now made aware ED Treatment Course - LABORATORY CBC & Chemistry Diagram: 07/24/18 05:30 07/24/18 05:30 - ADDITIONAL ORDERS Additional order review: Laboratory Results 07/23/18 04:03 Urine Color Ltyellow Urine Appearance Clear Urine pH 7.0 Ur Specific [place] 1.015 Urine Protein Negative Urine Glucose (UA) Negative Urine Ketones Negative Urine Blood Negative Urine Nitrite Negative Urine Bilirubin Negative Urine Urobilinogen Negative Ur Leukocyte Esterase Negative 07/23/18 04:08 RBC 3.11 L MCV 90.9 MCHC 34.3 RDW 18.3 H MPV 10.8 Neutrophils % 73.8 Lymphocytes % 17.3 Monocytes % 7.5 Eosinophils % 1.0 D Basophils % 0.4 - Medications Given in the ED: ED Medications Discontinued Medications Generic Name Dose Route Start Last Admin Trade Name Freq PRN Reason Stop Dose Admin Acetaminophen 975 mg 07/23/18 03:52 07/23/18 04:26 Tylenol - PO 07/23/18 03:53 975 mg ONCE ONE Administration Aspirin 162 mg 07/23/18 05:39 07/23/18 06:14 Asa - PO 07/23/18 05:40 162 mg ONCE ONE Administration Heparin Sodium (Porcine) 3,900 unit 07/23/18 05:39 07/23/18 06:15 Heparin - 60 unit/kg (3900 unit) 07/23/18 05:40 3,900 unit IVPUSH Administration ONCE ONE *DC/Admit/Observation/Transfer Diagnosis at time of Disposition: NSTEMI (non-ST elevated myocardial infarction) - Discharge Dispostion Condition at time of disposition: Stable - Referrals - Patient Instructions - Post Discharge Activity
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
[2018-07-23] MEDS ORDERED: ATORVASTATIN CA 40 MG TABLET (FP) ONE (21:25)
[2018-07-23] MEDS ORDERED: SODIUM CHLORIDE 1,000 ML IV SCH (21:30)
[2018-07-23] MEDS: ATORVASTATIN CA 40 MG TABLET (FP) PO SCH (21:33)
[2018-07-24 01:30] VITALS: BMI 24.0
[2018-07-24] MEDS: FUROSEMIDE 40 MG/4 ML INJECTABLE VIAL IVPB SCH ×2 (05:46→13:23)
[2018-07-24] MEDS ORDERED: TORSEMIDE 10 MG TABLET PO SCH ×2 (06:00→10:00)
[2018-07-24 06:51] LABS: BASO % 0.5 % (0-2.0); EOS % 1.3 % (0-4.5); HEMATOCRIT 28.4 % (35.4-49); HEMOGLOBIN 8.9 GM/dL (11.7-16.9); LYMPH % 21.2 % (8-40); MCHC 31.3 g/dl (32.0-35.9); MEAN CELL VOLUME 92.7 fl (80-96); MEAN PLT VOLUME 10.8 fl (7.5-11.1); MONO % 8.7 % (3.8-10.2); NEUT % 68.3 % (42.8-82.8); PLATELET COUNT 134 K/MM3 (134-434); RBC 3.06 M/mm3 (4.00-5.60); RDW 18.3 % (11.9-15.9); WHITE BLOOD COUNT 6.8 K/mm3 (4.0-10.0)
[2018-07-24 07:18] LABS: ALBUMIN 2.8 g/dl (3.4-5.0); ALK PHOS 121 U/L (45-117); ANION GAP 7 MMOL/L (8-16); BILIRUBIN,TOTAL 0.8 mg/dL (0.2-1); BLOOD UREA NITROGEN 19 mg/dL (7-18); CALCIUM 8.1 mg/dL (8.5-10.1); CHLORIDE 105 mmol/L (98-107); CHOLESTEROL 90 mg/dL (50-200); CO2 30 mmol/L (21-32); CREATININE 0.6 mg/dL (0.55-1.3); GLUCOSE,RANDOM 82 mg/dL (74-106); HDL CHOLESTEROL 34 mg/dL (40-60); LDH 159 U/L (87-246); MAGNESIUM 2.1 mg/dL (1.8-2.4); PHOSPHOROUS 2.8 mg/dL (2.5-4.9); POTASSIUM 3.7 mmol/L (3.5-5.1); SGOT/AST 14 U/L (15-37); SGPT/ALT 16 U/L (13-61); SODIUM 142 mmol/L (136-145); TOT PROT 6.1 g/dl (6.4-8.2); TRIGLYCERIDES 58 mg/dL (0-150)
[2018-07-24 08:24] LABS: RETICULOCYTES 1.68 % (0.5-1.5)
--- NOTE | 2018-07-24 08:56 | CON.CARD ---
Consult Consult Specialty:: cardiology Reason for Consultation:: syncope - History of Present Illness Chief Complaint: A&Ox3; OOB in chair; no chest pain or dyspnea; c/o chronic bilateral LE swelling History of Present Illness: 88 y/o male BIBEMS to [facility] ER complaining of left sided headache, generalized neck pain, left posterior shoulder pain, and left posterior hip pain. Pt fell from standing height earlier this morning. Pt states he just fell. Unable to stand afterward. Fall not witnessed. Daughter at bedside reports no nausea or vomiting. Pt acting appropriately without change in behavior. Takes Tylenol PM for sleep. H/o recurrent falls. Lives at home with family. Personal c-collar in place on arrival but removed prior to evaluation by provider. Takes ASA daily. No other anticoagulants. PCP: Dr. [facility] Hx: - CAD s/p CABG More recentlly had DEStent LAD - CHF, LV failure (mild-modertely reduced LVEF; mildly reduced RVEF; mild on 2014 ECHO) - A-fib, on ASA only s/p Watchman device - BPH s/p TURP - HTN - Gout - History Source History Provided By: Patient, Medical Record Limitations to Obtaining History: Poor Historian - Past Medical History PARAMEDIC: Yes: Other (SDH after fall on ice 07/31) Cardio/Vascular: Yes: AFIB, CAD, CHF (systolic), HTN, Hyperlipdemia Gastrointestinal: Yes: GERD, Hiatal Hernia, Other (Tertiary contractures, GASTROPARESIS) Renal/: Yes: Renal Inusuff, BPH Infectious Disease: Yes: VREF (2011 -wound healed) Musculoskeletal: Yes: Chronic low back pain, Osteoarthritis Rheumatology: Yes: Gout Endocrine: Yes: Diabetes Mellitus (Diet controlled) Additional Medical History: S/P SUBDURAL HEMATOMA - Past Surgical History Past Surgical History: Yes: CABG, Carotid Endarterectomy (Left), Colonoscopy, Stent (LAD (reportedly years post-CABG)), Upper Endoscopy - Alcohol/Substance Use Hx Alcohol Use: No - Smoking History Smoking history: Never smoked Have you smoked in the past 12 months: No Aproximately how many cigarettes per day: 0 If you are a former smoker, when did you quit?: 1969 - Social History Usual Living Arrangement: With Spouse ADL: Family Assistance History of Recent Travel: No Home Medications - Allergies Allergies/Adverse Reactions: Allergies Allergy/AdvReac Type Severity Reaction Status Date / Time No Known Drug Allergies Allergy Verified 07/23/18 06:37 - Home Medications Home Medications: Ambulatory Orders Allopurinol [Zyloprim -] 300 mg PO DAILY #0 tablet 01/17/13 Atorvastatin Ca [Lipitor] 40 mg PO HS 08/06/13 Cholecalciferol (Vitamin D3) [Vitamin D3] 1,000 unit PO DAILY 08/08/13 Vit A/Vit C/Vit E/Zinc/Copper [Preservision Tablet] 1 each PO DAILY 06/29/15 Ferrous Gluconate [Ferate] 32 mg PO DAILY 05/03/17 Sennosides [Senna -] 1 tab PO DAILY 05/03/17 ASA - 81 mg PO DAILY 10/31/17 Ferrous Gluconate 32 mg PO DAILY 07/03/18 Omeprazole 20 mg PO DAILY 07/23/18 Spironolactone 25 mg PO DAILY 07/23/18 Torsemide [Demadex -] 20 mg PO BID tablet 07/25/18 Family Disease History - Family Disease History Family Disease History: Diabetes: Sister (ASHD, Hyperlipidemia), Heart Disease: Sister Vital Signs: Vital Signs Temperature 69 F L 07/24/18 06:00 Pulse Rate 69 07/24/18 06:00 Respiratory Rate 18 07/24/18 06:00 Blood Pressure 129/58 L 07/24/18 06:00 O2 Sat by Pulse Oximetry (%) 94 L 07/24/18 08:11 - Other Data Labs, Other Data: CBC, BMP 07/24/18 05:30 07/24/18 05:30 INR, PTT INR 1.34 (0.83-1.09) H 07/23/18 04:08 Troponin, BNP 07/23/18 07/23/18 07/23/18 13:50 20:00 20:00 Troponin I 0.11 H 0.10 H B-Natriuretic Peptide 62826.8 H Troponin, BNP 07/23/18 07/23/18 07/23/18 13:50 20:00 20:00 Troponin I 0.11 H 0.10 H B-Natriuretic Peptide 05287.8 H Imaging - Results Ultrasound: Report Reviewed (ECHO 2014) EKG: Image Reviewed (AF) Problem List - Problems (1) Hx of CABG Code(s): Z95.1 - PRESENCE OF AORTOCORONARY BYPASS GRAFT (2) H/O heart artery stent Code(s): Z95.5 - PRESENCE OF CORONARY ANGIOPLASTY IMPLANT AND GRAFT (3) Mediastinal lymphadenopathy Code(s): R59.0 - LOCALIZED ENLARGED LYMPH NODES (4) Syncope and collapse Code(s): R55 - SYNCOPE AND COLLAPSE (5) A-fib Code(s): I48.91 - UNSPECIFIED ATRIAL FIBRILLATION Qualifiers: Atrial fibrillation type: chronic Qualified Code(s): I48.2 - Chronic atrial fibrillation (6) Chronic anemia Code(s): D64.9 - ANEMIA, UNSPECIFIED (7) Aortic stenosis Assessment/Plan: "Mild" on ECHO; may be underestimated due to systolic LV dysfunction. For repeat of ECHO for LVEF and RVEF, valve status, especially to r/o progression. Code(s): I35.0 - NONRHEUMATIC AORTIC (VALVE) STENOSIS
[2018-07-24] MEDS: SENNOSIDES 8.6MG TABLET (FP) PO SCH (09:49)
[2018-07-24] MEDS: PANTOPRAZOLE 40 MG TABLET (FP) PO SCH (09:49)
[2018-07-24] MEDS: ASPIRIN 81 MG CHEWABLE TABLETS PO SCH (09:49)
[2018-07-24] MEDS: SPIRONOLACTONE 25 MG TABLET (FP) PO SCH (09:49)
[2018-07-24] MEDS: ALLOPURINOL 300 MG TABLET (FP) PO SCH (09:49)
[2018-07-24] MEDS: CHOLECALCIFEROL (VITAMIN D3) 1,000 UNIT TABLET (FP) PO SCH (09:49)
[2018-07-24] MEDS ORDERED: SODIUM CHLORIDE 500 ML IV STA (12:53)
--- NOTE | 2018-07-24 13:11 | PN ---
Progress Note (short form) - Note Progress Note: PULMONARY CONSULTATION DICTATED 07/24/18 IMP NEAR SYNCOPE S/P FALL MEDIASTINAL ADENOPATHY MILDLY INCREASED FROM 2013 RLL CONSOLIDATION LIKELY ATELECTASIS ACUTE ON CHRONIC CHF RUL,RLL PATCHY INFILTRATES ASHD S/P CABG,STENT S/P AVR + TROPONIN SPINAL STENOSIS AFIB S/P WATCHMAN PROCEDURE PVD BILATERAL PLEURAL EFFUSIONS CORKSCREW ESOPHAGUS H/O SUBDURAL HEMATOMA PLAN LASIX/ALDACTONE O2 NEEDED DAILY WT TREND TROPONIN CONSIDER PET CT OUTPATIENT MONITOR H+H ECHO DR MAURICIO Problem List - Problems (1) Aortic stenosis Code(s): I35.0 - NONRHEUMATIC AORTIC (VALVE) STENOSIS (2) Atelectasis of right lung Code(s): J98.11 - ATELECTASIS (3) Chronic anemia Code(s): D64.9 - ANEMIA, UNSPECIFIED (4) H/O heart artery stent Code(s): Z95.5 - PRESENCE OF CORONARY ANGIOPLASTY IMPLANT AND GRAFT (5) Hx of CABG Code(s): Z95.1 - PRESENCE OF AORTOCORONARY BYPASS GRAFT (6) Mediastinal lymphadenopathy Code(s): R59.0 - LOCALIZED ENLARGED LYMPH NODES (7) Syncope and collapse Code(s): R55 - SYNCOPE AND COLLAPSE (8) A-fib Code(s): I48.91 - UNSPECIFIED ATRIAL FIBRILLATION Qualifiers: Atrial fibrillation type: chronic Qualified Code(s): I48.2 - Chronic atrial fibrillation (9) ASHD (arteriosclerotic heart disease) Code(s): I25.10 - ATHSCL HEART DISEASE OF [place] CORONARY ARTERY W/O ANG PCTRS (10) CHF (congestive heart failure) Code(s): I50.9 - HEART FAILURE, UNSPECIFIED (11) Iron deficiency anemia Code(s): D50.9 - IRON DEFICIENCY ANEMIA, UNSPECIFIED (12) Subdural hemorrhage Code(s): I62.00 - NONTRAUMATIC SUBDURAL HEMORRHAGE, UNSPECIFIED (13) Troponin I above reference range Code(s): R74.8 - ABNORMAL LEVELS OF OTHER SERUM ENZYMES
--- NOTE | 2018-07-24 13:28 | PN ---
Progress Note (short form) - Note Progress Note: Patient was discussed with cardiology, pulmonary, oncology. Feels better. Vital Signs (72 hours) 07/23/18 07/23/18 07/23/18 02:35 06:20 06:56 Temperature 98.3 F 98.5 F Pulse Rate 88 Pulse Rate [ 61 Right Radial] Pulse Rate [ Right side Sitting] Pulse Rate [ Right side Standing] Pulse Rate [ Right side Supine] Respiratory 19 19 19 Rate Blood Pressure 147/70 Blood Pressure 129/68 [Left Arm] Blood Pressure [Right side Sitting] Blood Pressure [Right side Standing] Blood Pressure [Right side Supine] O2 Sat by Pulse 96 96 100 Oximetry (%) 07/23/18 07/23/18 07/24/18 10:03 21:53 01:08 Temperature 98.4 F 98.0 F 97.8 F Pulse Rate 66 90 Pulse Rate [ 69 Right Radial] Pulse Rate [ Right side Sitting] Pulse Rate [ Right side Standing] Pulse Rate [ Right side Supine] Respiratory 18 18 18 Rate Blood Pressure 127/52 L 126/73 Blood Pressure 134/71 [Left Arm] Blood Pressure [Right side Sitting] Blood Pressure [Right side Standing] Blood Pressure [Right side Supine] O2 Sat by Pulse 100 98 98 Oximetry (%) 07/24/18 07/24/18 07/24/18 06:00 08:11 10:00 Temperature 69 F L 98.0 F Pulse Rate 69 80 Pulse Rate [ Right Radial] Pulse Rate [ 83 Right side Sitting] Pulse Rate [ 89 Right side Standing] Pulse Rate [ 82 Right side Supine] Respiratory 18 20 Rate Blood Pressure 129/58 L 132/58 L Blood Pressure [Left Arm] Blood Pressure 133/57 L [Right side Sitting] Blood Pressure 141/60 [Right side Standing] Blood Pressure 132/58 L [Right side Supine] O2 Sat by Pulse 94 L Oximetry (%) Neck-JVD Lungs Clear Heart S1S2 irregular Abdomen soft, NT Ext-edema +2-3 Laboratory Results - last 24 hr 07/23/18 07/23/18 07/23/18 13:50 20:00 20:00 WBC RBC Hgb Hct MCV MCH MCHC RDW Plt Count MPV Absolute Neuts (auto) Neutrophils % Lymphocytes % Monocytes % Eosinophils % Basophils % Nucleated RBC % ESR Retic Count Sodium Potassium Chloride Carbon Dioxide Anion Gap BUN Creatinine Creat Clearance w eGFR Random Glucose Calcium Phosphorus Magnesium Ferritin Total Bilirubin AST ALT Alkaline Phosphatase LD Total Creatine Kinase 41 Troponin I 0.11 H 0.10 H C-Reactive Protein B-Natriuretic Peptide 44832.8 H Total Protein Albumin Triglycerides Cholesterol Total LDL Cholesterol HDL Cholesterol Vitamin B12 Serum Folate 07/23/18 07/23/18 07/24/18 20:00 20:00 05:30 WBC 6.8 RBC 3.06 L Hgb 8.9 L Hct 28.4 L MCV 92.7 MCH 29.0 MCHC 31.3 L RDW 18.3 H Plt Count 134 MPV 10.8 Absolute Neuts (auto) 4.6 Neutrophils % 68.3 Lymphocytes % 21.2 D Monocytes % 8.7 Eosinophils % 1.3 Basophils % 0.5 Nucleated RBC % 0 ESR Retic Count Sodium Potassium Chloride Carbon Dioxide Anion Gap BUN Creatinine Creat Clearance w eGFR Random Glucose Calcium Phosphorus Magnesium Ferritin Total Bilirubin AST ALT Alkaline Phosphatase LD Total Creatine Kinase Troponin I C-Reactive Protein 1.8 H B-Natriuretic Peptide Total Protein Albumin Triglycerides Cholesterol Total LDL Cholesterol HDL Cholesterol Vitamin B12 901 Serum Folate 26 H 07/24/18 07/24/18 07/24/18 05:30 05:30 05:30 WBC RBC Hgb Hct MCV MCH MCHC RDW Plt Count MPV Absolute Neuts (auto) Neutrophils % Lymphocytes % Monocytes % Eosinophils % Basophils % Nucleated RBC % ESR 44 H Retic Count 1.68 H D Sodium 142 Potassium 3.7 Chloride 105 Carbon Dioxide 30 Anion Gap 7 L BUN 19 H Creatinine 0.6 Creat Clearance w eGFR > 60 Random Glucose 82 Calcium 8.1 L Phosphorus 2.8 Magnesium 2.1 Ferritin 106.3 Total Bilirubin 0.8 AST 14 L ALT 16 Alkaline Phosphatase 121 H LD Total 159 Creatine Kinase Troponin I C-Reactive Protein B-Natriuretic Peptide Total Protein 6.1 L Albumin 2.8 L Triglycerides 58 Cholesterol 90 Total LDL Cholesterol 49 HDL Cholesterol 34 L Vitamin B12 Serum Folate Current Active Problems Problem Status Onset Aortic stenosis, Acute Atelectasis of right lung Acute Chronic anemia Acute H/O heart artery stent Acute Hx of CABG Acute Mediastinal lymphadenopathy Acute NSTEMI (non-ST elevated myocardial infarction) Acute Syncope and collapse Acute Troponin I above reference range Acute Plan Continue IV Lasix Continue telemetry follow CT abdomen/pelvis Chest PET/CT can be done as outpatient. Problem List - Problems (1) Syncope and collapse Code(s): R55 - SYNCOPE AND COLLAPSE (2) A-fib Code(s): I48.91 - UNSPECIFIED ATRIAL FIBRILLATION Qualifiers: Atrial fibrillation type: chronic Qualified Code(s): I48.2 - Chronic atrial fibrillation (3) NSTEMI (non-ST elevated myocardial infarction) Code(s): I21.4 - NON-ST ELEVATION (NSTEMI) MYOCARDIAL INFARCTION (4) Anemia Code(s): D64.9 - ANEMIA, UNSPECIFIED Qualifiers: Iron deficiency anemia type: chronic blood loss (5) CHF (congestive heart failure) Code(s): I50.9 - HEART FAILURE, UNSPECIFIED (6) Mediastinal lymphadenopathy Code(s): R59.0 - LOCALIZED ENLARGED LYMPH NODES (7) Atelectasis of right lung Code(s): J98.11 - ATELECTASIS
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
[2018-07-24] MEDS ORDERED: ACETAMINOPHEN 325 MG TABLET (FP) PO PRN (17:20)
--- NOTE | 2018-07-24 19:38 | PN ---
Progress Note (short form) - Note Progress Note: Patient seen and examined No specific complaints except not sleeping Last Vital Signs Temp Pulse Resp BP Pulse Ox 98.0 F 82 20 130/62 94 L 07/24/18 17:00 07/24/18 17:00 07/24/18 17:00 07/24/18 17:00 07/24/18 08:11 HEENT: RICHARD, EOM Intact Oropharynx: No thrush, No mucositis Neck brace Nodes: Without adenopathy Cor: atrial fib Lungs: Clear to P&A Abd: Soft, Normal bowel sounds, No organomegaly Ext-LE edema Skin: No rashes, Integument intact CBC, BMP 07/24/18 05:30 07/24/18 05:30 Current Medications Generic Name Dose Route Start Last Admin Trade Name Freq PRN Reason Stop Dose Admin Acetaminophen 650 mg 07/24/18 17:20 07/24/18 17:29 Tylenol - PO 650 mg Q6H PRN Administration FEVER Allopurinol 300 mg 07/24/18 10:00 07/24/18 09:49 Zyloprim - PO 300 mg DAILY DELON Administration Aspirin 81 mg 07/24/18 10:00 07/24/18 09:49 Asa - PO 81 mg DAILY DELON Administration Atorvastatin Calcium 40 mg 07/23/18 22:00 07/23/18 21:33 Lipitor - PO 40 mg HS DELON Administration Cholecalciferol 1,000 unit 07/24/18 10:00 07/24/18 09:49 Vitamin D3 - PO 1,000 unit DAILY DELON Administration Ferrous Gluconate 324 mg 07/25/18 10:00 Fergon - PO DAILY DELON Furosemide 80 mg 07/24/18 06:00 07/24/18 13:23 Lasix Injection - IVPB 80 mg BID@0600,1400 DELON Administration Sodium Chloride 500 mls @ 42 mls/hr 07/24/18 12:53 07/24/18 13:24 Normal Saline - IV 07/25/18 00:47 42 mls/hr ASDIR STA Administration Pantoprazole Sodium 40 mg 07/24/18 10:00 07/24/18 09:49 Protonix - PO 40 mg DAILY DELON Administration Senna 1 tab 07/24/18 10:00 07/24/18 09:49 Senna - PO 1 tab DAILY DELON Administration Spironolactone 25 mg 07/24/18 10:00 07/24/18 09:49 Aldactone - PO 25 mg DAILY DELON Administration Impression: Mediastinal lymphadenopathy- for outpatient PET A/C recommendations per cardiology Atrial fib ABD CT- horseshoe kidney, cholelithiasis ; no adenopathy
[2018-07-24] MEDS: ATORVASTATIN CA 40 MG TABLET (FP) PO SCH (21:36)
[2018-07-25] MEDS: FUROSEMIDE 40 MG/4 ML INJECTABLE VIAL IVPB SCH (06:22)
--- NOTE | 2018-07-25 07:46 | PN ---
Progress Note, Physician Chief Complaint: No arrhythmias, no syncope feels well, LE edema improved - Current Medication List Current Medications: Active Medications Acetaminophen (Tylenol -) 650 mg PO Q6H PRN PRN Reason: FEVER Last Admin: 07/24/18 17:29 Dose: 650 mg Allopurinol (Zyloprim -) 300 mg PO DAILY [facility] Last Admin: 07/24/18 09:49 Dose: 300 mg Aspirin (Asa -) 81 mg PO DAILY [facility] Last Admin: 07/24/18 09:49 Dose: 81 mg Atorvastatin Calcium (Lipitor -) 40 mg PO HS [facility] Last Admin: 07/24/18 21:36 Dose: 40 mg Cholecalciferol (Vitamin D3 -) 1,000 unit PO DAILY [facility] Last Admin: 07/24/18 09:49 Dose: 1,000 unit Ferrous Gluconate (Fergon -) 324 mg PO DAILY [facility] Furosemide (Lasix Injection -) 80 mg IVPB BID@0600,1400 [facility] Last Admin: 07/25/18 06:22 Dose: 80 mg Pantoprazole Sodium (Protonix -) 40 mg PO DAILY [facility] Last Admin: 07/24/18 09:49 Dose: 40 mg Senna (Senna -) 1 tab PO DAILY [facility] Last Admin: 07/24/18 09:49 Dose: 1 tab Spironolactone (Aldactone -) 25 mg PO DAILY [facility] Last Admin: 07/24/18 09:49 Dose: 25 mg - Objective Vital Signs: Vital Signs Temperature 98.1 F 07/25/18 05:00 Pulse Rate 69 07/25/18 05:00 Respiratory Rate 18 07/25/18 05:00 Blood Pressure 114/76 07/25/18 05:00 O2 Sat by Pulse Oximetry (%) 91 L 07/24/18 21:00 Constitutional: Yes: No Distress, Anxious Eyes: Yes: Conjunctiva Clear, EOM Intact HENT: Yes: Atraumatic, Normocephalic, Hoarseness. No: Drooling, Epistaxis, Rhinnorhea, Thrush Neck: Yes: Supple, Trachea Midline Cardiovascular: Yes: Pulse Irregular (A.Fib) Respiratory: Yes: Regular, CTA Bilaterally, SOB on Exertion. No: Accessory Muscle Use, Bradypnea, Cough, Rales, Rhonchi, SOB, Stridor, Wheezes Gastrointestinal: Yes: Normal Bowel Sounds, Soft, Hyperactive Bowel Sounds. No : Ascites, Palpable Mass, Splenomegaly, Tenderness ...Rectal Exam: Yes: Deferred Genitourinary: No: Anuria, Bladder Distention, CVA Tenderness - Left, CVA Tenderness - Right Breast(s): Yes: WNL Musculoskeletal: Yes: Back Pain, Joint Stiffness, Joint Swelling. No: Muscle Weakness Extremities: No: Amputation, Calf Tenderness, Cold, Cyanosis Edema: No Peripheral Pulses WNL: No Peripheral Pulses: Left Doralis Pedis: 0, Right Dorsalis Pedis: 0 Integumentary: Yes: WNL Neurological: Yes: Alert, Oriented, Cran Nerves II-XII Intact, Unsteady Gait, Other ([place] with [place]). No: Aphasia, Ataxia, Confusion, Dysarthria, Facial Droop, Lethargy, Loss of Sensation, Paresthesia, Seizure, Tremors, Unresponsive, Weakness ...Motor Strength: WNL Psychiatric: Yes: WNL Labs: CBC, BMP 07/24/18 05:30 07/24/18 05:30 INR, PTT INR 1.34 (0.83-1.09) H 07/23/18 04:08 - ....Imaging Cat Scan: Report Reviewed (Abdominal CT-no LN) Problem List - Problems (1) Syncope and collapse Assessment/Plan: Vasovagal syncope exacerbated by diuretics and chronic A.fib. R/o orthostatic changes, arrhythmia, autonomic changes. Cardiology, telemetry Code(s): R55 - SYNCOPE AND COLLAPSE (2) A-fib Assessment/Plan: Does not require A/c because of Watchman's procedure. VR controlled. Code(s): I48.91 - UNSPECIFIED ATRIAL FIBRILLATION Qualifiers: Atrial fibrillation type: chronic Qualified Code(s): I48.2 - Chronic atrial fibrillation (3) NSTEMI (non-ST elevated myocardial infarction) Assessment/Plan: Mildly elevated Tr I to 0.11 Probably chronic mil;d elevation of 3rd generation Trop I R/o type 2 CT Cardiology consult Code(s): I21.4 - NON-ST ELEVATION (NSTEMI) MYOCARDIAL INFARCTION (4) Anemia Assessment/Plan: Iron studies, B12, folate, [place]o Code(s): D64.9 - ANEMIA, UNSPECIFIED Qualifiers: Iron deficiency anemia type: chronic blood loss (5) CHF (congestive heart failure) Assessment/Plan: Improved LE edema Will switch to PO diuretics Venous Dupplex negative for DVT Code(s): I50.9 - HEART FAILURE, UNSPECIFIED (6) Mediastinal lymphadenopathy Assessment/Plan: Noted oncology consult CT abdomen negative PET CT as outpt Code(s): R59.0 - LOCALIZED ENLARGED LYMPH NODES (7) Atelectasis of right lung Assessment/Plan: Consult pulmonary Code(s): J98.11 - ATELECTASIS
--- NOTE | 2018-07-25 07:51 | DS ---
Physical Examination Vital Signs: Vital Signs Temperature 98.1 F 07/25/18 05:00 Pulse Rate 69 07/25/18 05:00 Respiratory Rate 18 07/25/18 05:00 Blood Pressure 114/76 07/25/18 05:00 O2 Sat by Pulse Oximetry (%) 91 L 07/24/18 21:00 Constitutional: Yes: No Distress, Anxious Eyes: Yes: Conjunctiva Clear, EOM Intact HENT: Yes: Atraumatic, Normocephalic, Other ([place]BB[place]) Neck: Yes: Decreased ROM, Rigid, Tenderness, Other (Soft cervical collar) Respiratory: Yes: Regular, Diminished (Bases), SOB on Exertion. No: Rales, Rhonchi, Stridor, Tachypnea, Wheezes Gastrointestinal: Yes: Normal Bowel Sounds, Soft. No: Abdomen, Obese, Ascites, Palpable Mass, Tenderness ...Rectal Exam: Yes: Deferred Renal/: Yes: Other (Horseshoe kidney). No: Anuria, Bladder Distention, CVA Tenderness - Left, CVA Tenderness - Right Extremities: No: Calf Tenderness, Cold, Cyanosis Edema: Yes Edema: LLE: Trace, RLE: Trace Peripheral Pulses WNL: No Peripheral Pulses: Left Doralis Pedis: 0, Right Dorsalis Pedis: 0 Integumentary: Yes: WNL Neurological: Yes: Alert, Oriented. No: Aphasia, Asterixis, Ataxia, Dysarthria ...Motor Strength: WNL Psychiatric: Yes: WNL Labs: CBC, BMP 07/24/18 05:30 07/24/18 05:30 Discharge Summary Reason For Visit: syncope,ELEVATED TROPONIN I LEVEL,NON ST ELEVATION Current Active Problems Aortic stenosis (Acute) Atelectasis of right lung (Acute) Chronic anemia (Acute) H/O heart artery stent (Acute) Hx of CABG (Acute) Mediastinal lymphadenopathy (Acute) NSTEMI (non-ST elevated myocardial infarction) (Acute) Syncope and collapse (Acute) Troponin I above reference range (Acute) Condition: Stable - Instructions Referrals: Riki Prince MD [Primary Care Provider] - Disposition: HOME - Home Medications Comprehensive Discharge Medication List: Ambulatory Orders Allopurinol [Zyloprim -] 300 mg PO DAILY #0 tablet 01/17/13 Atorvastatin Ca [Lipitor] 40 mg PO HS 08/06/13 Cholecalciferol (Vitamin D3) [Vitamin D3] 1,000 unit PO DAILY 08/08/13 Vit A/Vit C/Vit E/Zinc/Copper [Preservision Tablet] 1 each PO DAILY 06/29/15 Torsemide 20 mg PO DAILY 08/18/15 Ferrous Gluconate [Ferate] 32 mg PO DAILY 05/03/17 Sennosides [Senna -] 1 tab PO DAILY 05/03/17 ASA - 81 mg PO DAILY 10/31/17 Ferrous Gluconate 32 mg PO DAILY 07/03/18 Omeprazole 20 mg PO DAILY 07/23/18 Spironolactone 25 mg PO DAILY 07/23/18
[2018-07-25 08:06] LABS: SERUM IRON SATURATION 9 % (15-55); TOTAL IRON BINDING CAPACITY 236 ug/dL (250-450); UIBC 215 ug/dL (111-343)
[2018-07-25] MEDS: SPIRONOLACTONE 25 MG TABLET (FP) PO SCH (09:38)
[2018-07-25] MEDS: ASPIRIN 81 MG CHEWABLE TABLETS PO SCH (09:38)
[2018-07-25] MEDS: SENNOSIDES 8.6MG TABLET (FP) PO SCH (09:38)
[2018-07-25] MEDS: CHOLECALCIFEROL (VITAMIN D3) 1,000 UNIT TABLET (FP) PO SCH (09:39)
[2018-07-25] MEDS: PANTOPRAZOLE 40 MG TABLET (FP) PO SCH (09:39)
[2018-07-25] MEDS: ALLOPURINOL 300 MG TABLET (FP) PO SCH (09:39)
[2018-07-25] MEDS ORDERED: FERROUS GLUCONATE 324 MG TAB (FP) PO SCH (10:00)
[2018-07-25 10:16] VITALS: BP 122/74; PULSE 77; TEMP 98
--- NOTE | 2018-07-25 10:42 | PN ---
Progress Note, Physician History of Present Illness: 88 y/o male BIBEMS to [facility] ER complaining of left sided headache, generalized neck pain, left posterior shoulder pain, and left posterior hip pain. Pt fell from standing height earlier this morning. Pt states he just fell. Unable to stand afterward. Fall not witnessed. Daughter at bedside reports no nausea or vomiting. Pt acting appropriately without change in behavior. Takes Tylenol PM for sleep. H/o recurrent falls. Lives at home with family. Personal c-collar in place on arrival but removed prior to evaluation by provider. Takes ASA daily. No other anticoagulants. PCP: Dr. Prince - Objective Vital Signs: Vital Signs Temperature 98.0 F 07/25/18 10:00 Pulse Rate 77 07/25/18 10:00 Respiratory Rate 20 07/25/18 10:00 Blood Pressure 122/74 07/25/18 10:00 O2 Sat by Pulse Oximetry (%) 91 L 07/25/18 09:00 Eyes: Yes: WNL, Conjunctiva Clear, EOM Intact HENT: Yes: WNL, Atraumatic, Normocephalic Neck: Yes: WNL, Supple, Trachea Midline Cardiovascular: Yes: Murmur Respiratory: Yes: WNL, Regular, CTA Bilaterally Gastrointestinal: Yes: WNL, Normal Bowel Sounds Genitourinary: Yes: WNL Musculoskeletal: Yes: WNL Extremities: Yes: WNL Edema: No Integumentary: Yes: WNL Neurological: Yes: WNL, Alert, Oriented ...Motor Strength: WNL Psychiatric: Yes: WNL Labs: CBC, BMP 07/24/18 05:30 07/24/18 05:30 INR, PTT INR 1.34 (0.83-1.09) H 07/23/18 04:08 Assessment/Plan - Results Ultrasound: Report Reviewed (ECHO 2014) EKG: Image Reviewed (AF) Problem List - Problems (1) Hx of CABG Code(s): Z95.1 - PRESENCE OF AORTOCORONARY BYPASS GRAFT (2) H/O heart artery stent Code(s): Z95.5 - PRESENCE OF CORONARY ANGIOPLASTY IMPLANT AND GRAFT (3) Mediastinal lymphadenopathy Code(s): R59.0 - LOCALIZED ENLARGED LYMPH NODES (4) Syncope and collapse Code(s): R55 - SYNCOPE AND COLLAPSE (5) A-fib Code(s): I48.91 - UNSPECIFIED ATRIAL FIBRILLATION Qualifiers: Atrial fibrillation type: chronic Qualified Code(s): I48.2 - Chronic atrial fibrillation (6) Chronic anemia Code(s): D64.9 - ANEMIA, UNSPECIFIED (7) Aortic stenosis Assessment/Plan: "Mild" on ECHO; may be underestimated due to systolic LV dysfunction. For repeat of ECHO for LVEF and RVEF, valve status, especially to r/o progression. Code(s): I35.0 - NONRHEUMATIC AORTIC (VALVE) STENOSIS
--- NOTE | 2018-07-27 11:14 | PATH ---
Surgical Pathology Report Patient Name: RUDDY MEJIA [facility]. Rec. #: [id number] /Age/Gender: 1930 (Age: 88) / M Account: [id number] Location: 4 W TELEMETRY U Taken: 07/24/2018 Received: 07/24/2018 Reported: 07/27/2018 Physicians: Stacie Law M.D. Specimen(s) Received PERIPHERAL BLOOD IN 4 GREEN TOPS 2 LAVEDNER Clinical History Lymphadenopathy, rule out lymphoma Final Diagnosis COMPREHENSIVE FLOW PANEL performed and interpreted at [place], [place] ([id number]) shows the following: INTERPRETATION: CLONAL B-CELL POPULATION WITH NON-SPECIFIC IMMUNOPHENOTYPE, 6% OF TOTAL EVENTS, IS DETECTED. SEE COMMENT. COMMENT: The significance of the small clonal B-cell population is uncertain. The differential diagnosis includes monoclonal B-lymphocytosis (MBL) and low-level peripheral blood involvement by B-cell lymphoproliferative process. Correlation with relevant clinical, imaging, and laboratory data is essential. LYMPHOMA FISH PANEL performed and interpreted at [facility] ([id number]) shows the following: INTERPRETATION: THE IGH/BCL2 t(14;18) TRANSLOCATION IS DETECTED. NO CCND1/IGH t(11;14) TRANSLOCATION IS DETECTED. NO MYC (8q24) REARRANGEMENT IS DETECTED. NO BCL6 (3q27) REARRANGEMENT IS DETECTED. COMMENTS: The IgH/BCL2 t(14;18) translocation can be seen in B cell lymphomas, including follicular lymphoma and diffuse large B cell lymphoma. Four multiplex probe stain procedures were performed. See [facility] report ([id number] and [id number]) for additional details. Electronically Signed Clarice Hernandez M.D. Gross Description Received are 4 green top tubes and 2 lavender top tubes of blood which are sent to [facility]. /07/24/201807/24/2018
== END 2018-07-25 10:27 | disposition home health service (06) | DRG 281 ==
LOC: JER 02:19 → JERBED 05:37 → J4W 07-24 00:48
PROVIDERS: ADMIT Internal Medicine; ATTEND Internal Medicine
DX: I21.4 Non-ST elevation (NSTEMI) myocardial infarction (principal); J98.11 Atelectasis; I50.20 Unspecified systolic (congestive) heart failure; M84.48XD Pathological fracture, other site, subsequent encounter for fracture with routine healing; I48.2 Chronic atrial fibrillation; R59.0 Localized enlarged lymph nodes; D64.9 Anemia, unspecified; I25.10 Atherosclerotic heart disease of native coronary artery without angina pectoris; I73.9 Peripheral vascular disease, unspecified; K22.4 Dyskinesia of esophagus; N40.0 Benign prostatic hyperplasia without lower urinary tract symptoms; M10.9 Gout, unspecified; M48.00 Spinal stenosis, site unspecified; I48.91 Unspecified atrial fibrillation; R73.03 Prediabetes; J44.9 Chronic obstructive pulmonary disease, unspecified; E78.00 Pure hypercholesterolemia, unspecified; K31.84 Gastroparesis; K21.9 Gastro-esophageal reflux disease without esophagitis; K44.9 Diaphragmatic hernia without obstruction or gangrene; D69.6 Thrombocytopenia, unspecified; I11.0 Hypertensive heart disease with heart failure; M54.5 Low back pain; R74.8 Abnormal levels of other serum enzymes; D50.9 Iron deficiency anemia, unspecified; M19.90 Unspecified osteoarthritis, unspecified site; K80.20 Calculus of gallbladder without cholecystitis without obstruction; I35.0 Nonrheumatic aortic (valve) stenosis; Q63.1 Lobulated, fused and horseshoe kidney; Z95.5 Presence of coronary angioplasty implant and graft; Z95.1 Presence of aortocoronary bypass graft
CPT/HCPCS: 36415; 70450-TC; 71045-TC-FY; 71260-TC; 72125-TC; 73030-TC-LT-FY; 73523-TC-FY; 74177-TC; 80053; 80061; 80307; 81003; 82232; 82550; 82607; 82728; 82746; 83010; 83540; 83550; 83615; 83721; 83735; 83880; 84100; 84484; 85025; 85027; 85044; 85610; 85651; 85730; 86140; 87086; 88300-TC; 93005; 93010; 93970-TC; 99284-25; J1644; J7030

== ENCOUNTER 2019-02-11 15:16 | Inpatient (IN) | payer OTHER, MEDICARE ==
--- NOTE | 2019-02-11 15:39 | PDOC ---
Rapid Medical Evaluation Chief Complaint: Pain, Acute Time Seen by Provider: 02/11/19 15:35 Medical Evaluation: Allergies Allergy/AdvReac Type Severity Reaction Status Date / Time No Known Drug Allergies Allergy Verified 07/23/18 06:37 02/11/19 15:35 I have performed a brief in-person evaluation of this patient. The patient presents with a chief complaint of: sent in by PCP for evaluation of RLQ pain with diarrhea and vomiting. Patient daughter report went to PCP office today who advised to come to ER. Denies fever, chills Pertinent physical exam findings: A&O x 3 I have ordered the following: CBC,CMP,Lipase. IV insert The patient will proceed to the ED for further evaluation. Discharge Disposition - Diagnosis Abdominal pain Qualifiers: Abdominal location: right lower quadrant Qualified Code(s): R10.31 - Right lower quadrant pain - Discharge Dispostion Condition at time of disposition: Stable - Referrals - Patient Instructions - Post Discharge Activity
--- NOTE | 2019-02-11 16:55 | PDOC ---
History of Present Illness - General Chief Complaint: Pain, Acute Stated Complaint: RT SIDE ABD PAIN Time Seen by Provider: 02/11/19 15:35 Past History - Past Medical History Allergies/Adverse Reactions: Allergies Allergy/AdvReac Type Severity Reaction Status Date / Time No Known Drug Allergies Allergy Verified 07/23/18 06:37 Home Medications: Ambulatory Orders Allopurinol [Zyloprim -] 300 mg PO DAILY #0 tablet 01/17/13 Atorvastatin Ca [Lipitor] 40 mg PO HS 08/06/13 Cholecalciferol (Vitamin D3) [Vitamin D3] 1,000 unit PO DAILY 08/08/13 Vit A/Vit C/Vit E/Zinc/Copper [Preservision Tablet] 1 each PO DAILY 06/29/15 Sennosides [Senna -] 2 tab PO DAILY 05/03/17 ASA - 81 mg PO DAILY 10/31/17 Omeprazole 40 mg PO DAILY 07/23/18 Clopidogrel Bisulfate [Plavix] 1 tab PO DAILY 09/25/18 Acetaminophen/Diphenhydramine [Acetaminophen Pm Caplet] 2 each PO HS 02/11/19 Eplerenone [Inspra] 25 mg PO DAILY 02/11/19 Ferrous Gluconate [Iron] 32 mg PO DAILY 02/11/19 Torsemide [Demadex -] 20 mg PO DAILY 02/11/19 Anemia: No Asthma: No Cancer: No Cardiac Disorders: Yes (a-fib - stent placement - bypass) CVA: No COPD: Yes (asbestos) CHF: No Dementia: No Diabetes: No GI Disorders: No Disorders: No HTN: Yes Hypercholesterolemia: Yes Liver Disease: No Seizures: No Thyroid Disease: No - Surgical History Abdominal Surgery: No Appendectomy: No Cardiac Surgery: Yes (cabg) Cholecystectomy: No Lung Surgery: No Neurologic Surgery: No Orthopedic Surgery: No - Immunization History Immunization Up to Date: No - Suicide/Smoking/Psychosocial Hx Smoking Status: No Smoking History: Former smoker Have you smoked in the past 12 months: No Number of Cigarettes Smoked Daily: 0 If you are a former smoker, when did you quit?: 1969 Information on smoking cessation initiated: No 'Breaking Loose' booklet given: 01/19/15 Hx Alcohol Use: No Drug/Substance Use Hx: No Substance Use Type: None Hx Substance Use Treatment: No *Physical Exam - Vital Signs Last Vital Signs Temp Pulse Resp BP Pulse Ox 98.1 F 92 H 16 121/49 L 95 02/11/19 15:34 02/11/19 15:34 02/11/19 15:34 02/11/19 15:34 02/11/19 15:34 ED Treatment Course - LABORATORY CBC & Chemistry Diagram: 02/11/19 17:22 02/11/19 17:00 Medical Decision Making - Medical Decision Making 02/11/19 16:54 88 y/o male with a history of CAD s/p CABG, CHF, LV failure, afib on ASA only s/ p watchman device, BPH s/p TURP, HTN, gout who presents from PCP with RLQ stabbing pain that is nonradiating rated 8-9/10 that onset last night with minimal relief with Advil. The patient reports that he had 1 episode of nbnb vomiting, 10 episodes of nonbloody diarrhea and fever. He denies any abdominal surgeries. radiation of pain to the groin or burning with urination. He denies having similar symptoms before. He reports a history of nonhealing wound on r lateral leg 2/2 possible claudication PCP: Dr. Suresh MORALES GENERAL/CONSTITUTIONAL: No weakness. HEAD, EYES, EARS, NOSE AND THROAT: No change in vision. No ear pain or discharge. No sore throat. CARDIOVASCULAR: No chest pain or shortness of breath RESPIRATORY: No cough, wheezing, or hemoptysis. GASTROINTESTINAL: No nausea or constipation. GENITOURINARY: No dysuria, frequency, or change in urination. MUSCULOSKELETAL: No joint or muscle swelling or pain. No neck or back pain. SKIN: No rash NEUROLOGIC: No headache, vertigo, loss of consciousness, or change in strength/ sensation. PE GENERAL: Awake, alert, and fully oriented, in no acute distress HEAD: No signs of trauma, normocephalic, atraumatic EYES: EOMI, sclera anicteric, conjunctiva clear ENT: oropharynx clear without exudates. Moist mucosa NECK: Normal ROM, supple LUNGS: No distress, speaks full sentences, clear to auscultation bilaterally HEART: Regular rate and rhythm, normal S1 and S2, no murmurs, rubs or gallops, peripheral pulses normal and equal bilaterally. ABDOMEN: Soft, + RLQ tenderness, + Rovsing sign, normoactive bowel sounds. No guarding, no rebound. No masses BACK: Neg CVA tenderness EXTREMITIES : + R lateral aspect with wound vac. NEUROLOGICAL: Cranial nerves II through XII grossly intact. Normal speech, no focal sensorimotor deficits SKIN: Warm, Dry, normal turgor, no rashes or lesions noted GENITAL: uncircumcised male, vertical lie of testes, no inguinal lymphadenopathy , nontenderness to epididymal palpation, no erythema, lesions or ulcers MDM 88 y/o male with a history of CAD s/p CABG, CHF, LV failure, afib on ASA only s/ p watchman device, BPH s/p TURP, HTN, gout who presents from PCP with RLQ stabbing pain that is nonradiaitng rated 8-9/10 that onset last night with minimal relief with Advil. DDX including but not limited to: appendicitis vs uti vs cholecysitis consider diverticulitis W/U: - cbc, cmp, lipase, ua, ptt, pt, type and screen - CTAP TX: - tylenol ED Course: leukocytosis CT abd: acute colitis will give ns ivf, levaquin, flagyl plan for admission Shilpa Herrera, PGY2 Emergency Medicine *DC/Admit/Observation/Transfer Diagnosis at time of Disposition: Abdominal pain Qualifiers: Abdominal location: right lower quadrant Qualified Code(s): R10.31 - Right lower quadrant pain - Discharge Dispostion Condition at time of disposition: Stable - Referrals Referrals: Riki Prince MD [Primary Care Provider] - - Patient Instructions - Post Discharge Activity
[2019-02-11] MEDS ORDERED: ACETAMINOPHEN 1000 MG/100 ML VIAL (NON FORMULARY) IVPB ONE (17:16)
[2019-02-11] MEDS ORDERED: ACETAMINOPHEN INJECTION 100 ML IVPB ONE (17:26)
[2019-02-11 17:39] LABS: BASO % 0.1 % (0-2.0); HEMATOCRIT 32.6 % (35.4-49); HEMOGLOBIN 10.5 GM/dL (11.7-16.9); LYMPH % 15.9 % (8-40); MCH 28.8 pg (25.7-33.7); MCHC 32.2 g/dl (32.0-35.9); MEAN CELL VOLUME 89.5 fl (80-96); MEAN PLT VOLUME 10.6 fl (7.5-11.1); PLATELET COUNT 148 K/MM3 (134-434); RBC 3.65 M/mm3 (4.00-5.60); RDW 19.5 % (11.9-15.9); WHITE BLOOD COUNT 18.9 K/mm3 (4.0-10.0)
[2019-02-11 17:46] LABS: URINE APPEARANCE CLEAR; URINE BILIRUBIN NEGATIVE (NEGATIVE); URINE COLOR YELLOW; URINE GLUCOSE (UA) NEGATIVE (NEGATIVE); URINE KETONE NEGATIVE (NEGATIVE); URINE LEUK ESTERASE NEGATIVE (NEGATIVE); URINE NITRITE NEGATIVE (NEGATIVE); URINE PROTEIN NEGATIVE (NEGATIVE); URINE UROBILINOGEN 0.2 mg/dL (0.2-1.0)
[2019-02-11 17:58] LABS: ALBUMIN 3.2 g/dl (3.4-5.0); BILIRUBIN,TOTAL 0.9 mg/dL (0.2-1); BLOOD UREA NITROGEN 40.4 mg/dL (7-18); CALCIUM 8.7 mg/dL (8.5-10.1); CREATININE 1.1 mg/dL (0.55-1.3); POTASSIUM 4.7 mmol/L (3.5-5.1); TOT PROT 7.4 g/dl (6.4-8.2)
[2019-02-11] MEDS ORDERED: SODIUM CHLORIDE 125 ML IV SCH (18:00)
[2019-02-11 18:39] LABS: INR 1.16 (0.83-1.09); PROTHROMBIN TIME (PATIENT) 13.7 SEC (9.7-13.0)
[2019-02-11] MEDS ORDERED: SODIUM CHLORIDE 500 ML IV SCH (20:26)
--- NOTE | 2019-02-11 23:57 | HP ---
Admitting History and Physical - Primary Care Physician PCP: Riki Prince - Admission Chief Complaint: rlq pain History of Present Illness: 88 year old male with a significant past medical history CAD s/p CABG, CHF, LV failure, AFIB on ASA only s/p watchman device, BPH s/p TURP, HTN, gout, and HLD presents to the ED with a 2 day history of right lower quadrant abdominal pain associated with nausea, vomiting x 1, and multiple episodes of watery, non bloody diarrhea. No appetite. Never happened before. No recent travel, change of diet or medications. 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: Other (SDH after fall on ice 07/31) Cardiovascular: Yes: AFIB, CAD, CHF (systolic), HTN, Hyperlipdemia Gastrointestinal: Yes: GERD, Hiatal Hernia, Other (Tertiary contractures, GASTROPARESIS) Renal/: Yes: Renal Inusuff, BPH Heme/Onc: Yes: Anemia, Thrombocytopenia Infectious Disease: Yes: VREF (2011 -wound healed) Musculoskeletal: Yes: Chronic low back pain, Osteoarthritis Rheumatology: Yes: Gout Endocrine: Yes: Diabetes Mellitus (Diet controlled) - Past Surgical History Past Surgical History: Yes: CABG, Carotid Endarterectomy, Colonoscopy, Stent, Upper Endoscopy - Smoking History Smoking history: Former smoker Have you smoked in the past 12 months: No Aproximately how many cigarettes per day: 0 If you are a former smoker, when did you quit?: 1969 - Alcohol/Substance Use Hx Alcohol Use: No History of Substance Use: reports: None - Social History ADL: Family Assistance History of Recent Travel: No Home Medications - Allergies Allergies/Adverse Reactions: Allergies Allergy/AdvReac Type Severity Reaction Status Date / Time No Known Drug Allergies Allergy Verified 07/23/18 06:37 - Home Medications Home Medications: Ambulatory Orders Allopurinol [Zyloprim -] 300 mg PO DAILY #0 tablet 01/17/13 Atorvastatin Ca [Lipitor] 40 mg PO HS 08/06/13 Cholecalciferol (Vitamin D3) [Vitamin D3] 1,000 unit PO DAILY 08/08/13 Vit A/Vit C/Vit E/Zinc/Copper [Preservision Tablet] 1 each PO DAILY 06/29/15 Sennosides [Senna -] 2 tab PO DAILY 05/03/17 ASA - 81 mg PO DAILY 10/31/17 Omeprazole 40 mg PO DAILY 07/23/18 Clopidogrel Bisulfate [Plavix] 1 tab PO DAILY 09/25/18 Acetaminophen/Diphenhydramine [Acetaminophen Pm Caplet] 2 each PO HS 02/11/19 Eplerenone [Inspra] 25 mg PO DAILY 02/11/19 Ferrous Gluconate [Iron] 32 mg PO DAILY 02/11/19 Torsemide [Demadex -] 20 mg PO DAILY 02/11/19 Family Disease History - Family Disease History Family Disease History: Diabetes: Sister (ASHD, Hyperlipidemia), Heart Disease: Sister Review of Systems - Review of Systems Constitutional: reports: No Symptoms Eyes: reports: No Symptoms HENT: reports: No Symptoms Neck: reports: No Symptoms Cardiovascular: reports: No Symptoms Respiratory: reports: No Symptoms Gastrointestinal: reports: Abdominal Pain, Bloating, Diarrhea, Nausea, Vomiting Genitourinary: reports: No Symptoms Breasts: reports: No Symptoms Reported Musculoskeletal: reports: No Symptoms Integumentary: reports: No Symptoms Neurological: reports: No Symptoms Endocrine: reports: No Symptoms Hematology/Lymphatic: reports: No Symptoms Psychiatric: reports: No Symptoms Physical Examination Vital Signs: Vital Signs Temperature 99.5 F 02/11/19 18:24 Pulse Rate 84 02/11/19 18:24 Respiratory Rate 16 02/11/19 15:34 Blood Pressure 120/70 02/11/19 18:24 O2 Sat by Pulse Oximetry (%) 97 02/11/19 18:24 Constitutional: Yes: Well Nourished, No Distress, Calm Cardiovascular: Yes: WNL, Regular Rate and Rhythm Respiratory: Yes: WNL, Regular, CTA Bilaterally Gastrointestinal: Yes: Normal Bowel Sounds, Tenderness (RLQ tenderness to mild palpation). No: Tenderness, Rebound Musculoskeletal: Yes: WNL Extremities: Yes: WNL Edema: No Peripheral Pulses WNL: Yes Wound/Incision: Yes: Other (right foot wound vac in place) Neurological: Yes: WNL, Alert, Oriented ...Motor Strength: WNL Psychiatric: Yes: WNL, Alert, Oriented Labs: CBC, BMP 02/11/19 17:22 02/11/19 17:00 Imaging - Results Cat Scan: Report Reviewed Problem List - Problems (1) Abdominal pain Code(s): R10.9 - UNSPECIFIED ABDOMINAL PAIN Qualifiers: Abdominal location: right lower quadrant Qualified Code(s): R10.31 - Right lower quadrant pain (2) A-fib Code(s): I48.91 - UNSPECIFIED ATRIAL FIBRILLATION Qualifiers: Atrial fibrillation type: chronic Qualified Code(s): I48.2 - Chronic atrial fibrillation (3) ASHD (arteriosclerotic heart disease) Code(s): I25.10 - ATHSCL HEART DISEASE OF [place] CORONARY ARTERY W/O ANG PCTRS (4) Anemia Code(s): D64.9 - ANEMIA, UNSPECIFIED Qualifiers: Iron deficiency anemia type: chronic blood loss (5) CHF (congestive heart failure) Code(s): I50.9 - HEART FAILURE, UNSPECIFIED (6) Hx of CABG Code(s): Z95.1 - PRESENCE OF AORTOCORONARY BYPASS GRAFT Assessment/Plan Assessment: 88 year old male with a significant past medical history CAD s/p CABG, CHF, LV failure, AFIB on ASA only s/p watchman device, BPH s/p TURP, HTN, gout, and HLD presents to the ED with a 2 day history of right lower quadrant abdominal pain associated with nausea, vomiting x 1, and multiple episodes of watery, non bloody diarrhea. Plan: Acute colitis Admit to medical floor NPO IVF with caution given LV dysfunction Levaquin and flagyl cdiff ordered, recent abx use, clindamycin pain control GI and ID eval CAD s/p CABG LV dysfunction Afib BPH HTN Gout HLD DM2 Chronic LE wounds, right leg wound vac -resume home meds
--- NOTE | 2019-02-12 00:57 | PDOC ---
Documentation entered by Brendon Ceron SCRIBE, acting as scribe for Ramandeep Lance MD. Ramandeep Lance MD: This documentation has been prepared by the Osmany mora Elijah, SCRIBE, under my direction and personally reviewed by me in its entirety. I confirm that the documentation accurately reflects all work, treatment, procedures, and medical decision making performed by me. Attending Attestation - Resident Resident Name: JohnShilpa grant - ED Attending Attestation I have performed the following: I have examined & evaluated the patient, The case was reviewed & discussed with the resident, I agree w/resident's findings & plan - HPI HPI: 02/11/19 18:39 Patient is a 88 year old male with a significant past medical history CAD s/p CABG, CHF, LV failure, AFIB on ASA only s/p watchman device, BPH s/p TURP, HTN, gout, and HLD who presents to the ED with R-Sided Lower abdominal pain lasting for x2 days. Patient associates x10 episodes of NB diarrhea, x1 episode of vomiting and decreased appetite. Denies previous abdominal surgeries. Allergies: NKDA Surgical History: CABG PCP: Dr. Prince - Physicial Exam PE: 02/11/19 18:39 GENERAL: +Thin. Awake, alert, and fully oriented, in no acute distress HEAD: No signs of trauma EYES: PERRLA, EOMI, sclera anicteric, conjunctiva clear ENT: Auricles normal inspection, hearing grossly normal, nares patent, oropharynx clear without exudates. Moist mucosa NECK: Normal ROM, supple, no lymphadenopathy, JVD, or masses LUNGS: Breath sounds equal, clear to auscultation bilaterally. No wheezes, and no crackles HEART: Regular rate and rhythm, normal S1 and S2, no murmurs, rubs or gallops ABDOMEN: +RLQ Tenderness. +Some Rebounding. Normoactive bowel sounds. No guarding. No masses EXTREMITIES: Normal range of motion, no edema. No clubbing or cyanosis. No cords, erythema, or tenderness NEUROLOGICAL: Cranial nerves II through XII grossly intact. Normal speech, normal gait SKIN: Warm, Dry, normal turgor, no rashes or lesions noted. - Medical Decision Making 02/11/19 21:08 ct scan of abd/pel: findings of acute colitis pt has elevated leukocytosis pt started on flagly and levaquin and will be admitted to med/surg
[2019-02-12 04:11] VITALS: BMI 22.6
[2019-02-12] MEDS: PANTOPRAZOLE 40 MG TABLET (FP) PO SCH (06:39)
[2019-02-12 07:52] LABS: BASO % 0.1 % (0-2.0); EOS % 0.1 % (0-4.5); HEMATOCRIT 26.5 % (35.4-49); HEMOGLOBIN 8.7 GM/dL (11.7-16.9); LYMPH % 16.9 % (8-40); MCH 29.1 pg (25.7-33.7); MCHC 32.8 g/dl (32.0-35.9); MEAN CELL VOLUME 88.8 fl (80-96); MEAN PLT VOLUME 10.8 fl (7.5-11.1); NEUT % 78.9 % (42.8-82.8); PLATELET COUNT 111 K/MM3 (134-434); RBC 2.99 M/mm3 (4.00-5.60); RDW 19.2 % (11.9-15.9); WHITE BLOOD COUNT 13.8 K/mm3 (4.0-10.0)
[2019-02-12 08:41] LABS: BLOOD UREA NITROGEN 36.5 mg/dL (7-18); CALCIUM 8.2 mg/dL (8.5-10.1); POTASSIUM 3.8 mmol/L (3.5-5.1)
[2019-02-12] MEDS ORDERED: VIT E PO SCH (10:00)
[2019-02-12] MEDS ORDERED: PATIENT'S OWN MEDICATION (NON-FORMULARY) (Omeprazole [Omeprazole] 40 MG) PO SCH (10:00)
[2019-02-12] MEDS ORDERED: VIT C PO SCH (10:00)
[2019-02-12] MEDS ORDERED: VIT A PO SCH (10:00)
[2019-02-12] MEDS ORDERED: COPPER PO SCH (10:00)
[2019-02-12] MEDS ORDERED: [UNRECOGNIZED DRUG - OTHER] PO SCH (10:00)
[2019-02-12] MEDS ORDERED: ZINC PO SCH (10:00)
[2019-02-12] MEDS ORDERED: FERROUS GLUCONATE PO SCH (10:00)
[2019-02-12] MEDS ORDERED: PATIENT'S OWN MEDICATION (NON-FORMULARY) (Asa - 81 MG) PO SCH (10:00)
[2019-02-12] MEDS: HEPARIN NA (PORCINE) 5,000 UNITS/ML 1ML VIAL SQ SCH ×2 (10:19→22:55)
[2019-02-12] MEDS ORDERED: LACTATED RINGERS SOLUTION 1,000 ML IV SCH (10:45)
[2019-02-12] MEDS: ASPIRIN 81 MG CHEWABLE TABLETS PO SCH (11:01)
[2019-02-12] MEDS: CHOLECALCIFEROL (VIT D3) 1,000 UNIT (25 MCG) TABLET PO SCH (11:02)
[2019-02-12] MEDS: EPLERENONE 25 MG TABLET PO SCH (11:02)
[2019-02-12] MEDS: SENNOSIDES 8.6MG TABLET (FP) PO SCH (11:02)
[2019-02-12] MEDS: FERROUS GLUCONATE 324 MG TAB (FP) PO SCH (11:02)
[2019-02-12] MEDS: CLOPIDOGREL BISULFATE 75 MG TABLET (FP) PO SCH (11:02)
[2019-02-12] MEDS: LACTOBACILLUS ACIDOPHILUS 1 TABLET PO SCH (11:02)
[2019-02-12] MEDS: ALLOPURINOL 300 MG TABLET (FP) PO SCH (11:02)
--- NOTE | 2019-02-12 11:12 | CON.ID ---
Consult Consult Specialty:: infectious diseases Referred by:: Reason for Consultation:: abd pain,colitis - History of Present Illness Chief Complaint: abd pain History of Present Illness: 88 year old male with a significant past medical history CAD s/p CABG, CHF, LV failure, AFIB on ASA only s/p watchman device, BPH s/p TURP, HTN, gout, and HLD presents to the ED with a 2 day history of right lower quadrant abdominal pain associated with nausea, vomiting , and multiple episodes of watery, non bloody diarrhea. No appetite. Never happened before. No recent travel, change of diet or medications. 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 (SDH after fall on ice 07/31) Cardio/Vascular: Yes: AFIB, CAD, CHF (systolic), HTN, Hyperlipdemia Gastrointestinal: Yes: GERD, Hiatal Hernia, Other (Tertiary contractures, GASTROPARESIS) Renal/: Yes: Renal Inusuff, BPH Infectious Disease: Yes: VREF (2011 -wound healed) Musculoskeletal: Yes: Chronic low back pain, Osteoarthritis Rheumatology: Yes: Gout Endocrine: Yes: Diabetes Mellitus (Diet controlled) Additional Medical History: S/P SUBDURAL HEMATOMA - Past Surgical History Past Surgical History: Yes: CABG, Carotid Endarterectomy, Colonoscopy, Stent, Upper Endoscopy - Alcohol/Substance Use Hx Alcohol Use: No History of Substance Use: reports: None - Smoking History Smoking history: Former smoker Have you smoked in the past 12 months: No Aproximately how many cigarettes per day: 0 If you are a former smoker, when did you quit?: 1969 - Social History Usual Living Arrangement: With Spouse ADL: Family Assistance History of Recent Travel: No Home Medications - Allergies Allergies/Adverse Reactions: Allergies Allergy/AdvReac Type Severity Reaction Status Date / Time No Known Drug Allergies Allergy Verified 07/23/18 06:37 - Home Medications Home Medications: Ambulatory Orders Allopurinol [Zyloprim -] 300 mg PO DAILY #0 tablet 01/17/13 Atorvastatin Ca [Lipitor] 40 mg PO HS 08/06/13 Cholecalciferol (Vitamin D3) [Vitamin D3] 1,000 unit PO DAILY 08/08/13 Vit A/Vit C/Vit E/Zinc/Copper [Preservision Tablet] 1 each PO DAILY 06/29/15 Sennosides [Senna -] 2 tab PO DAILY 05/03/17 ASA - 81 mg PO DAILY 10/31/17 Omeprazole 40 mg PO DAILY 07/23/18 Clopidogrel Bisulfate [Plavix] 1 tab PO DAILY 09/25/18 Acetaminophen/Diphenhydramine [Acetaminophen Pm Caplet] 2 each PO HS 02/11/19 Eplerenone [Inspra] 25 mg PO DAILY 02/11/19 Ferrous Gluconate [Iron] 32 mg PO DAILY 02/11/19 Torsemide [Demadex -] 20 mg PO DAILY 02/11/19 Family Disease History - Family Disease History Family Disease History: Diabetes: Sister (ASHD, Hyperlipidemia), Heart Disease: Sister Review of Systems - Review of Systems Constitutional: reports: No Symptoms Eyes: reports: No Symptoms HENT: reports: No Symptoms Neck: reports: No Symptoms Cardiovascular: reports: No Symptoms Respiratory: reports: No Symptoms Gastrointestinal: reports: Abdominal Pain, Diarrhea, Nausea Genitourinary: reports: No Symptoms Musculoskeletal: reports: No Symptoms Integumentary: reports: No Symptoms Neurological: reports: No Symptoms Endocrine: reports: No Symptoms Hematology/Lymphatic: reports: No Symptoms Psychiatric: reports: No Symptoms Physical Exam Vital Signs: Vital Signs Temperature 98.2 F 02/12/19 06:00 Pulse Rate 80 02/12/19 06:00 Respiratory Rate 20 02/12/19 06:00 Blood Pressure 112/52 L 02/12/19 06:00 O2 Sat by Pulse Oximetry (%) 94 L 02/12/19 00:15 Constitutional: Yes: Well Nourished, Calm, Mild Distress Cardiovascular: Yes: Pulse Irregular Respiratory: Yes: Regular, CTA Bilaterally Gastrointestinal: Yes: Tenderness (b/l lower quadrants), Other (absent bowel sounds) Musculoskeletal: Yes: WNL Extremities: Yes: WNL Neurological: Yes: Alert, Oriented Psychiatric: Yes: Alert, Oriented Labs: CBC, BMP 02/12/19 06:30 02/12/19 06:30 Imaging - Results Cat Scan: Report Reviewed, Image Reviewed Assessment/Plan Problem List - Problems (1) Abdominal pain Code(s): R10.9 - UNSPECIFIED ABDOMINAL PAIN Qualifiers: Abdominal location: right lower quadrant Qualified Code(s): R10.31 - Right lower quadrant pain (2) A-fib Code(s): I48.91 - UNSPECIFIED ATRIAL FIBRILLATION Qualifiers: Atrial fibrillation type: chronic Qualified Code(s): I48.2 - Chronic atrial fibrillation (3) ASHD (arteriosclerotic heart disease) Code(s): I25.10 - ATHSCL HEART DISEASE OF [place] CORONARY ARTERY W/O ANG PCTRS (4) Anemia Code(s): D64.9 - ANEMIA, UNSPECIFIED Qualifiers: Iron deficiency anemia type: chronic blood loss (5) CHF (congestive heart failure) Code(s): I50.9 - HEART FAILURE, UNSPECIFIED (6) Hx of CABG Code(s): Z95.1 - PRESENCE OF AORTOCORONARY BYPASS GRAFT after looking at the ct scan and the patients clinical picture,patient has acute colitis plan i am going to start patient on zosyn npo hydration rest as per the team
[2019-02-12] MEDS ORDERED: PIPERACILLIN/TAZOBACTAM 3.375 GM VIAL IVPB ONE ×2 (11:29→17:00)
[2019-02-12] MEDS ORDERED: DEXTROSE 5%-WATER - 50 ML IVPB ONE ×2 (11:30→17:00)
[2019-02-12] MEDS: PIPERACILLIN/TAZOB 3.375 GM 3.375 GM in DEXTROSE 5%-WATER - 50 ML IVPB SCH ×2 (11:31→17:08)
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
[2019-02-12] MEDS: LACTATED RINGERS SOLUTION 1,000 ML IV SCH (13:36)
--- NOTE | 2019-02-12 15:05 | CON.GI ---
Consult Consult Specialty:: GI Referred by:: Dr. Prince Reason for Consultation:: Colitis - History of Present Illness Chief Complaint: Abdominal pain and diarrhea History of Present Illness: 88M admitted through [facility] ER yesterday. He described 3 days of diarrhea followed by progressive right sided abdominal pain. He denies similar episodes in the past. Today there has been no diarrhea and the pain is somewhat improved. He believes that he had a normal colonoscopy performed by Dr. Florez 5-6 years ago that was "OK". He states having been on Abx about 3-4 months ago for right leg wound. He denies recent travel. CT scan on admission with IV contrast revealed a colitis involving the cecum and ascending colon. There is no family history of colorectal cancer. - History Source History Provided By: Patient - Past Medical History ASSESSMENT CLINICIAN: Yes: Other (SDH after fall on ice 07/31) Cardio/Vascular: Yes: AFIB, CAD, CHF (systolic), HTN, Hyperlipdemia Gastrointestinal: Yes: GERD, Hiatal Hernia, Other (Tertiary contractures, GASTROPARESIS) Renal/: Yes: Renal Inusuff, BPH Infectious Disease: Yes: VREF (2011 -wound healed) Musculoskeletal: Yes: Chronic low back pain, Osteoarthritis Rheumatology: Yes: Gout Endocrine: Yes: Diabetes Mellitus (Diet controlled) Additional Medical History: S/P SUBDURAL HEMATOMA - Past Surgical History Past Surgical History: Yes: CABG, Carotid Endarterectomy, Colonoscopy, Stent, Upper Endoscopy - Alcohol/Substance Use Hx Alcohol Use: Yes (occasional) History of Substance Use: reports: None - Smoking History Smoking history: Former smoker Have you smoked in the past 12 months: No Aproximately how many cigarettes per day: 0 If you are a former smoker, when did you quit?: 1969 - Social History Usual Living Arrangement: With Spouse ADL: Family Assistance 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 Place of : Other ([place]) History of Recent Travel: No Home Medications - Allergies Allergies/Adverse Reactions: Allergies Allergy/AdvReac Type Severity Reaction Status Date / Time No Known Drug Allergies Allergy Verified 07/23/18 06:37 - Home Medications Home Medications: Ambulatory Orders Allopurinol [Zyloprim -] 300 mg PO DAILY #0 tablet 01/17/13 Atorvastatin Ca [Lipitor] 40 mg PO HS 08/06/13 Cholecalciferol (Vitamin D3) [Vitamin D3] 1,000 unit PO DAILY 08/08/13 Vit A/Vit C/Vit E/Zinc/Copper [Preservision Tablet] 1 each PO DAILY 06/29/15 Sennosides [Senna -] 2 tab PO DAILY 05/03/17 ASA - 81 mg PO DAILY 10/31/17 Omeprazole 40 mg PO DAILY 07/23/18 Clopidogrel Bisulfate [Plavix] 1 tab PO DAILY 09/25/18 Acetaminophen/Diphenhydramine [Acetaminophen Pm Caplet] 2 each PO HS 02/11/19 Eplerenone [Inspra] 25 mg PO DAILY 02/11/19 Ferrous Gluconate [Iron] 32 mg PO DAILY 02/11/19 Torsemide [Demadex -] 20 mg PO DAILY 02/11/19 Family Disease History - Family Disease History Family Disease History: Diabetes: Sister (1, : 70: CVA CAD, Hyperlipidemia) , Heart Disease: Sister, Other: Father (: 77: CVA), Mother (: 83: CVA), Brother (1, : heart problem age 38), Sister, Son (1, healthy), Daughter (2, healthy) Other Family History: No family history of colorectal cancer or other GI malignancy Review of Systems - Review of Systems Constitutional: denies: Fever, Unintentional Wgt. Loss Cardiovascular: denies: Chest Pain Respiratory: denies: SOB Gastrointestinal: reports: Abdominal Pain, Diarrhea. denies: Melena, Nausea, Rectal Bleeding, Vomiting, Vomiting Blood Physical Exam-GI Vital Signs: Vital Signs Temperature 97.1 F L 02/12/19 10:00 Pulse Rate 73 02/12/19 10:00 Respiratory Rate 20 02/12/19 10:00 Blood Pressure 120/61 02/12/19 10:00 O2 Sat by Pulse Oximetry (%) 94 L 02/12/19 00:15 Constitutional: Yes: Calm Eyes: No: Sclera Icterus Cardiovascular: Yes: Pulse Irregular Respiratory: Yes: CTA Bilaterally Gastrointestinal Inspection: Yes: Scars (B/L inguinal scars) ...Auscultate: Yes: Normoactive Bowel Sounds ...Palpate: Yes: Guarding, Soft, Tenderness (TTP right abdomen) ...Percussion: No: Tympanitic Edema: No (No LE edema) Neurological: Yes: Alert Labs: CBC, BMP 02/12/19 06:30 02/12/19 06:30 INR, PTT INR 1.16 (0.83-1.09) H 02/11/19 17:22 Imaging - Results Cat Scan: Report Reviewed, Image Reviewed Problem List - Problems (1) Colitis Assessment/Plan: segmental colitis involving proximal colon with associated diarrhea While infectious etiologies needs to be excluded, proximal ischemic colitis would need to be kept higher in differential as well. In the setting of A. Fib and not on A/C, embolic event will need to be excluded and I agree with CTA of the abdomen and pelvis for further evaluation of the mesenteric vasculature. Agree with NPO for now IV Abx Agree with surgical evaluation If worsening clinical course, consider fully anticoagulating until CTA resulted AM Labs Code(s): K52.9 - NONINFECTIVE GASTROENTERITIS AND COLITIS, UNSPECIFIED
--- NOTE | 2019-02-12 17:06 | CONSULT ---
Consult - text type - Consultation Consultation Note: Podiatry Consultation: 88 year old male, well known to me from wound healing center, significant history of peripheral vascular disease, presented for admission with severe abdominal pain. The patient has been seen regularly in wound healing center, as well as with his vascular surgeon Dr. Haro [facility]. S/p multiple endovascular procedures with vascular sx. He also completed course of IV vancomycin for treatment of osteomyelitis. He has a right ankle chronic ulcer and is now on wound vac therapy for it, as prescribed by vascular sx. Denies F/ C/SOB. Afebrile. PMHx: CAD s/p CABG, CHF, LV failure, AFIB on ASA only s/p watchman device, BPH s /p TURP, HTN, gout, and HLD Meds: noted ALL: NKMA DADA: R foot: pedal pulses nonpalpable, TG wnl. There is a lateral malleolar chronic ulcer with fibrogranular base, regular margins with slight maceration, down to ligament, no exposed bone, no purulence, no fluctuance, no streaking cellulitis, no soft tissue crepitus, no signs of active infection. Imp: 88 year old male, significant peripheral vascular disease, with right ankle chronic ulcer 1. Abx per infectious disease 2. Rx santyl daily to right ankle chronic ulcer 3. Patient to f/u in wound healing upon discharge. No acute intervention required. Thank you for the courtesy of this consultation. Yuly Graff DPM
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
[2019-02-12] MEDS: ATORVASTATIN CA 40 MG TABLET (FP) PO SCH (22:55)
[2019-02-13] MEDS ORDERED: DEXTROSE 5%-WATER - 50 ML IVPB ONE ×3 (02:37→16:17)
[2019-02-13] MEDS ORDERED: PIPERACILLIN/TAZOBACTAM 3.375 GM VIAL IVPB ONE ×4 (02:37→16:17)
[2019-02-13] MEDS: PIPERACILLIN/TAZOB 3.375 GM 3.375 GM in DEXTROSE 5%-WATER - 50 ML IVPB SCH ×3 (02:42→17:58)
[2019-02-13] MEDS: PANTOPRAZOLE 40 MG TABLET (FP) PO SCH (06:48)
[2019-02-13 07:47] LABS: BASO % 0.1 % (0-2.0); EOS % 0.1 % (0-4.5); HEMATOCRIT 30.7 % (35.4-49); HEMOGLOBIN 9.9 GM/dL (11.7-16.9); LYMPH % 20.8 % (8-40); MCH 28.9 pg (25.7-33.7); MCHC 32.2 g/dl (32.0-35.9); MEAN CELL VOLUME 89.7 fl (80-96); MEAN PLT VOLUME 10.6 fl (7.5-11.1); MONO % 5.5 % (3.8-10.2); NEUT % 73.5 % (42.8-82.8); PLATELET COUNT 159 K/MM3 (134-434); RBC 3.43 M/mm3 (4.00-5.60); RDW 18.9 % (11.9-15.9)
[2019-02-13 08:27] LABS: POTASSIUM 3.4 mmol/L (3.5-5.1)
[2019-02-13] MEDS ORDERED: PT OWN MED DRAWER 7, Y5N ONE (08:35)
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
[2019-02-13 08:47] LABS: ALBUMIN 2.7 g/dl (3.4-5.0); BLOOD UREA NITROGEN 26.9 mg/dL (7-18); CALCIUM 8.8 mg/dL (8.5-10.1); TOT PROT 6.4 g/dl (6.4-8.2)
[2019-02-13] MEDS: LACTOBACILLUS ACIDOPHILUS 1 TABLET PO SCH (09:05)
[2019-02-13] MEDS: ASPIRIN 81 MG CHEWABLE TABLETS PO SCH (09:05)
[2019-02-13] MEDS: SENNOSIDES 8.6MG TABLET (FP) PO SCH (09:06)
[2019-02-13] MEDS: CHOLECALCIFEROL (VIT D3) 1,000 UNIT (25 MCG) TABLET PO SCH (09:06)
[2019-02-13] MEDS: ALLOPURINOL 300 MG TABLET (FP) PO SCH (09:06)
[2019-02-13] MEDS: CLOPIDOGREL BISULFATE 75 MG TABLET (FP) PO SCH (09:06)
[2019-02-13] MEDS: EPLERENONE 25 MG TABLET PO SCH (09:07)
[2019-02-13] MEDS: HEPARIN NA (PORCINE) 5,000 UNITS/ML 1ML VIAL SQ SCH ×2 (09:07→21:16)
[2019-02-13] MEDS: FERROUS GLUCONATE 324 MG TAB (FP) PO SCH (09:08)
--- NOTE | 2019-02-13 10:26 | PN ---
Progress Note, Physician History of Present Illness: abd pain less says he feels much better - Current Medication List Current Medications: Active Medications Acetaminophen (Tylenol -) 650 mg PO Q4H PRN PRN Reason: PAIN Allopurinol (Zyloprim -) 300 mg PO DAILY [facility] Last Admin: 02/13/19 09:06 Dose: 300 mg Aspirin (Asa -) 81 mg PO DAILY [facility] Last Admin: 02/13/19 09:05 Dose: 81 mg Atorvastatin Calcium (Lipitor -) 40 mg PO HS [facility] Last Admin: 02/12/19 22:55 Dose: 40 mg Cholecalciferol (Vitamin D3 -) 1,000 unit PO DAILY [facility] Last Admin: 02/13/19 09:06 Dose: 1,000 unit Clopidogrel Bisulfate (Plavix -) 75 mg PO DAILY [facility] Last Admin: 02/13/19 09:06 Dose: 75 mg Eplerenone (Eplerenone) 25 mg PO DAILY [facility] Last Admin: 02/13/19 09:07 Dose: 25 mg Ferrous Gluconate (Fergon -) 324 mg PO DAILY [facility] Last Admin: 02/13/19 09:08 Dose: 324 mg Heparin Sodium (Porcine) (Heparin -) 5,000 unit SQ BID [facility] Last Admin: 02/13/19 09:07 Dose: 5,000 unit Metronidazole (Flagyl 500mg Premixed Ivpb -) 500 mg in 100 mls @ 100 mls/hr IVPB Q8H-IV [facility] Last Admin: 02/13/19 09:07 Dose: 100 mls/hr Levofloxacin (Levaquin 250 Mg Premixed Ivpb -) 250 mg in 50 mls @ 50 mls/hr IVPB Q24H [facility] Last Admin: 02/12/19 20:50 Dose: 50 mls/hr Piperacillin Sod/Tazobactam (Sod 3.375 gm/ Dextrose) 50 mls @ 100 mls/hr IVPB Q8H-IV [facility]; Protocol Last Admin: 02/13/19 02:42 Dose: 100 mls/hr Lactated Ringer's (Lactated Ringers Solution) 1,000 mls @ 100 mls/hr IV ASDIR [facility] Last Admin: 02/12/19 13:36 Dose: 100 mls/hr Lactobacillus Acidophilus (Bacid -) 1 tab PO DAILY [facility] Last Admin: 02/13/19 09:05 Dose: 1 tab Non-Formulary Medication (Vit A/Vit C/Vit E/Zinc/Copper [Preservision Tablet]) 1 each PO DAILY [facility] Pantoprazole Sodium (Protonix -) 40 mg PO AM [facility] Last Admin: 02/13/19 06:48 Dose: 40 mg Senna (Senna -) 2 tab PO DAILY [facility] Last Admin: 02/13/19 09:06 Dose: 2 tab - Objective Vital Signs: Vital Signs Temperature 97.8 F 02/13/19 06:00 Pulse Rate 80 02/13/19 06:00 Respiratory Rate 20 02/13/19 06:00 Blood Pressure 121/54 L 02/13/19 06:00 O2 Sat by Pulse Oximetry (%) 95 02/12/19 21:00 Constitutional: Yes: No Distress, Calm Cardiovascular: Yes: S1, S2 Gastrointestinal: Yes: Normal Bowel Sounds, Soft Musculoskeletal: Yes: WNL Extremities: Yes: WNL Neurological: Yes: Alert, Oriented Psychiatric: Yes: Alert, Oriented Labs: CBC, BMP 02/13/19 06:50 02/13/19 06:50 INR, PTT INR 1.16 (0.83-1.09) H 02/11/19 17:22 Assessment/Plan Problem List - Problems (1) Abdominal pain Code(s): R10.9 - UNSPECIFIED ABDOMINAL PAIN Qualifiers: Abdominal location: right lower quadrant Qualified Code(s): R10.31 - Right lower quadrant pain (2) A-fib Code(s): I48.91 - UNSPECIFIED ATRIAL FIBRILLATION Qualifiers: Atrial fibrillation type: chronic Qualified Code(s): I48.2 - Chronic atrial fibrillation (3) ASHD (arteriosclerotic heart disease) Code(s): I25.10 - ATHSCL HEART DISEASE OF [place] CORONARY ARTERY W/O ANG PCTRS (4) Anemia Code(s): D64.9 - ANEMIA, UNSPECIFIED Qualifiers: Iron deficiency anemia type: chronic blood loss (5) CHF (congestive heart failure) Code(s): I50.9 - HEART FAILURE, UNSPECIFIED (6) Hx of CABG Code(s): Z95.1 - PRESENCE OF AORTOCORONARY BYPASS GRAFT after looking at the ct scan and the patients clinical picture,patient has acute colitis plan continue current mgmt rest as per the team
--- NOTE | 2019-02-13 11:55 | PN.GI ---
GI Progress Note Subjective: Pt seen/examined at bedside, sitting chair, feeling better, tolerated clear liquid breakfast, denies n/v. Had liquidy brown bm this am (seen in bathroom), no blood. - Objective Vital Signs: Vital Signs Temperature 97.8 F 02/13/19 06:00 Pulse Rate 80 02/13/19 06:00 Respiratory Rate 20 02/13/19 06:00 Blood Pressure 121/54 L 02/13/19 06:00 O2 Sat by Pulse Oximetry (%) 95 02/12/19 21:00 Constitutional: Well Nourished, No Distress Cardiovascular: Yes: WNL, Regular Rate and Rhythm Respiratory: Yes: WNL, Regular, CTA Bilaterally ...Palpate: Yes: Other (Abd soft, mildly tender in mid to right side lower abdomen, no rebound, guarding or rigidity) Labs: CBC, BMP 02/13/19 06:50 02/13/19 06:50 INR, PTT INR 1.16 (0.83-1.09) H 02/11/19 17:22 Problem List - Problems (1) Abdominal pain Assessment/Plan: 88yo male h/o CAD s/p CABG, CHF, LV failure, afib s/p watchman device on asa and plavix presenting with abdominal pain and diarrhea. CT imaging revealing thickening at cecum and right colon. 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 Pt improving, wcc normalizing. Possible etiologies including infectious vs mild ischemic colitis. Last colonoscopy ?5 years ago though unable to locate report in system. EGD noted in 07/2013. -Continue supportive measures -Clear liquid diet, advance gradually as tolerated -Please send stool sample for C difficile and cultures as previously ordered (d/ w nursing staff) -Avoid hypotension -Continue empiric antibiotics -Check iron studies/ferritin (Hb near baseline currently) -Pending course and stool studies, and once clinically improved colonoscopy may be considered as weight loss also noted. Would need to clarify if plavix could be held and risks/benefits would need to be carefully weighed in setting of underlying cardiac disease/vasculopathy. Code(s): R10.9 - UNSPECIFIED ABDOMINAL PAIN Qualifiers: Abdominal location: right lower quadrant Qualified Code(s): R10.31 - Right lower quadrant pain
[2019-02-13] MEDS: LACTATED RINGERS SOLUTION 1,000 ML IV SCH ×2 (13:42→17:58)
[2019-02-13] MEDS: COLLAGENASE CLOSTRIDIUM HIST. 30 GRAMS TUBE TP SCH (18:11)
--- NOTE | 2019-02-13 20:26 | PN ---
Progress Note, Physician Chief Complaint: abdominal pain History of Present Illness: Patient has less pain, had 2 soft non-bloody BM's today. and tolerating liquids - Current Medication List Current Medications: Active Medications Acetaminophen (Tylenol -) 650 mg PO Q4H PRN PRN Reason: PAIN Allopurinol (Zyloprim -) 300 mg PO DAILY [facility] Last Admin: 02/13/19 09:06 Dose: 300 mg Aspirin (Asa -) 81 mg PO DAILY [facility] Last Admin: 02/13/19 09:05 Dose: 81 mg Atorvastatin Calcium (Lipitor -) 40 mg PO HS [facility] Last Admin: 02/12/19 22:55 Dose: 40 mg Cholecalciferol (Vitamin D3 -) 1,000 unit PO DAILY [facility] Last Admin: 02/13/19 09:06 Dose: 1,000 unit Clopidogrel Bisulfate (Plavix -) 75 mg PO DAILY [facility] Last Admin: 02/13/19 09:06 Dose: 75 mg Collagenase (Santyl -) 1 applic TP DAILY [facility] Last Admin: 02/13/19 18:11 Dose: 1 applic Eplerenone (Eplerenone) 25 mg PO DAILY [facility] Last Admin: 02/13/19 09:07 Dose: 25 mg Ferrous Gluconate (Fergon -) 324 mg PO DAILY [facility] Last Admin: 02/13/19 09:08 Dose: 324 mg Heparin Sodium (Porcine) (Heparin -) 5,000 unit SQ BID [facility] Last Admin: 02/13/19 09:07 Dose: 5,000 unit Metronidazole (Flagyl 500mg Premixed Ivpb -) 500 mg in 100 mls @ 100 mls/hr IVPB Q8H-IV [facility] Last Admin: 02/13/19 18:13 Dose: 100 mls/hr Levofloxacin (Levaquin 250 Mg Premixed Ivpb -) 250 mg in 50 mls @ 50 mls/hr IVPB Q24H [facility] Last Admin: 02/12/19 20:50 Dose: 50 mls/hr Piperacillin Sod/Tazobactam (Sod 3.375 gm/ Dextrose) 50 mls @ 100 mls/hr IVPB Q8H-IV [facility]; Protocol Last Admin: 02/13/19 17:58 Dose: 100 mls/hr Lactated Ringer's (Lactated Ringers Solution) 1,000 mls @ 100 mls/hr IV ASDIR [facility] Last Admin: 02/13/19 17:58 Dose: 100 mls/hr Lactobacillus Acidophilus (Bacid -) 1 tab PO DAILY [facility] Last Admin: 02/13/19 09:05 Dose: 1 tab Pantoprazole Sodium (Protonix -) 40 mg PO AM [facility] Last Admin: 02/13/19 06:48 Dose: 40 mg Senna (Senna -) 2 tab PO DAILY [facility] Last Admin: 02/13/19 09:06 Dose: 2 tab - Objective Vital Signs: Vital Signs Temperature 97.6 F 02/13/19 18:49 Pulse Rate 70 02/13/19 18:49 Respiratory Rate 20 02/13/19 18:49 Blood Pressure 129/58 L 02/13/19 18:49 O2 Sat by Pulse Oximetry (%) 97 02/13/19 09:00 Constitutional: Yes: Calm Respiratory: Yes: CTA Bilaterally Gastrointestinal: Yes: Soft, Tenderness (mild to minimal right sided tenderness , no rebound tenderness) Labs: CBC, BMP 02/13/19 06:50 02/13/19 06:50 INR, PTT INR 1.16 (0.83-1.09) H 02/11/19 17:22 Problem List - Problems (1) Colitis Assessment/Plan: resolving colitis may advance diet gradually and monitor for exacerbation of abdominal pain continue IVF hydration and completion of IV abx per medical team Code(s): K52.9 - NONINFECTIVE GASTROENTERITIS AND COLITIS, UNSPECIFIED
[2019-02-13] MEDS: ATORVASTATIN CA 40 MG TABLET (FP) PO SCH (21:16)
[2019-02-13] MEDS: ACETAMINOPHEN 325 MG TABLET (FP) PO PRN (21:18)
[2019-02-14] MEDS ORDERED: PIPERACILLIN/TAZOBACTAM 3.375 GM VIAL IVPB ONE ×3 (02:07→17:12)
[2019-02-14] MEDS ORDERED: DEXTROSE 5%-WATER - 50 ML IVPB ONE ×3 (02:08→17:12)
[2019-02-14] MEDS: PIPERACILLIN/TAZOB 3.375 GM 3.375 GM in DEXTROSE 5%-WATER - 50 ML IVPB SCH ×3 (02:20→17:20)
[2019-02-14] MEDS: PANTOPRAZOLE 40 MG TABLET (FP) PO SCH (06:31)
[2019-02-14 07:09] LABS: HEMATOCRIT 27.3 % (35.4-49); MCH 29.4 pg (25.7-33.7); MCHC 33.1 g/dl (32.0-35.9); MEAN CELL VOLUME 88.9 fl (80-96); MEAN PLT VOLUME 10.3 fl (7.5-11.1); PLATELET COUNT 136 K/MM3 (134-434); RBC 3.07 M/mm3 (4.00-5.60); RDW 19.2 % (11.9-15.9); WHITE BLOOD COUNT 8.4 K/mm3 (4.0-10.0)
[2019-02-14 07:19] LABS: ALBUMIN 2.3 g/dl (3.4-5.0); BILIRUBIN,TOTAL 0.8 mg/dL (0.2-1); BLOOD UREA NITROGEN 21.6 mg/dL (7-18); CALCIUM 8.1 mg/dL (8.5-10.1); CREATININE 0.8 mg/dL (0.55-1.3); POTASSIUM 3.4 mmol/L (3.5-5.1); TOT PROT 5.5 g/dl (6.4-8.2)
[2019-02-14] MEDS ORDERED: POTASSIUM CHLORIDE ORAL LIQUID 20 MEQ/15 ML PO ONE (08:44)
--- NOTE | 2019-02-14 08:45 | PN ---
Progress Note (short form) - Note Progress Note: Abdominal pain improved. Vital Signs Temp 97.4 F L 02/14/19 07:24 Pulse 58 L 02/14/19 07:24 Resp 20 02/14/19 07:24 BP 107/52 L 02/14/19 07:24 Pulse Ox 98 02/13/19 21:00 Intake & Output 02/13/19 02/13/19 02/14/19 11:59 23:59 11:59 Intake Total 700 1950 1500 Output Total 250 400 Balance 450 1550 1500 Intake: IV 088 920 7531 Lactated Ringers Solution 361 826 2494 1,000 ml @ 100 mls/hr IV ASDIR [facility] Rx#: [id number] IVPB 150 350 500 Oral 800 Output: Urine 250 400 Void 250 400 Other: Voiding Method Urinal Toilet # Unmeasured Voids Void 1 Bowel Movement No Awake, alert Lungs clear Heart S1S2 irregular Abdomen soft, NT Ext-no CCE Right LE wound Laboratory Results - last 24 hr 02/14/19 02/14/19 02/14/19 05:35 05:35 05:35 WBC 8.4 RBC 3.07 L Hgb 9.0 L Hct 27.3 L MCV 88.9 MCH 29.4 MCHC 33.1 RDW 19.2 H Plt Count 136 MPV 10.3 Sodium 140 Potassium 3.4 L Chloride 103 Carbon Dioxide 30 Anion Gap 6 L BUN 21.6 H Creatinine 0.8 Est GFR (CKD-EPI)AfAm 91.79 Est GFR (CKD-EPI)NonAf 79.20 Random Glucose 102 Calcium 8.1 L Iron 29 L TIBC 173 L Iron Saturation 16 L Unsaturated IBC 144 L Ferritin 195.7 Total Bilirubin 0.8 AST 8 L ALT 10 L Alkaline Phosphatase 89 Total Protein 5.5 L Albumin 2.3 L Current Active Problems Problem Status Onset Abdominal pain Acute Colitis Acute PAD (peripheral artery disease) Acute Plan Continue IV abx Advance diet Problem List - Problems (1) Abdominal pain Code(s): R10.9 - UNSPECIFIED ABDOMINAL PAIN Qualifiers: Abdominal location: right lower quadrant Qualified Code(s): R10.31 - Right lower quadrant pain (2) A-fib Code(s): I48.91 - UNSPECIFIED ATRIAL FIBRILLATION Qualifiers: Atrial fibrillation type: chronic Qualified Code(s): I48.2 - Chronic atrial fibrillation (3) PAD (peripheral artery disease) Code(s): I73.9 - PERIPHERAL VASCULAR DISEASE, UNSPECIFIED
[2019-02-14] MEDS: CHOLECALCIFEROL (VIT D3) 1,000 UNIT (25 MCG) TABLET PO SCH (10:09)
[2019-02-14] MEDS: CLOPIDOGREL BISULFATE 75 MG TABLET (FP) PO SCH (10:09)
[2019-02-14] MEDS: LACTOBACILLUS ACIDOPHILUS 1 TABLET PO SCH (10:09)
[2019-02-14] MEDS: ASPIRIN 81 MG CHEWABLE TABLETS PO SCH (10:09)
[2019-02-14] MEDS: ALLOPURINOL 300 MG TABLET (FP) PO SCH (10:09)
[2019-02-14] MEDS: HEPARIN NA (PORCINE) 5,000 UNITS/ML 1ML VIAL SQ SCH ×2 (10:09→21:47)
[2019-02-14] MEDS: FERROUS GLUCONATE 324 MG TAB (FP) PO SCH (10:10)
[2019-02-14] MEDS: SENNOSIDES 8.6MG TABLET (FP) PO SCH (10:10)
[2019-02-14] MEDS: EPLERENONE 25 MG TABLET PO SCH (10:10)
--- NOTE | 2019-02-14 10:36 | PN ---
Progress Note, Physician History of Present Illness: abd pain less says he feels much better - Current Medication List Current Medications: Active Medications Acetaminophen (Tylenol -) 650 mg PO Q4H PRN PRN Reason: PAIN Last Admin: 02/13/19 21:18 Dose: 650 mg Allopurinol (Zyloprim -) 300 mg PO DAILY [facility] Last Admin: 02/14/19 10:09 Dose: 300 mg Aspirin (Asa -) 81 mg PO DAILY [facility] Last Admin: 02/14/19 10:09 Dose: 81 mg Atorvastatin Calcium (Lipitor -) 40 mg PO HS [facility] Last Admin: 02/13/19 21:16 Dose: 40 mg Cholecalciferol (Vitamin D3 -) 1,000 unit PO DAILY [facility] Last Admin: 02/14/19 10:09 Dose: 1,000 unit Clopidogrel Bisulfate (Plavix -) 75 mg PO DAILY [facility] Last Admin: 02/14/19 10:09 Dose: 75 mg Collagenase (Santyl -) 1 applic TP DAILY [facility] Last Admin: 02/13/19 18:11 Dose: 1 applic Eplerenone (Eplerenone) 25 mg PO DAILY [facility] Last Admin: 02/14/19 10:10 Dose: 25 mg Ferrous Gluconate (Fergon -) 324 mg PO DAILY [facility] Last Admin: 02/14/19 10:10 Dose: 324 mg Heparin Sodium (Porcine) (Heparin -) 5,000 unit SQ BID [facility] Last Admin: 02/14/19 10:09 Dose: 5,000 unit Piperacillin Sod/Tazobactam (Sod 3.375 gm/ Dextrose) 50 mls @ 100 mls/hr IVPB Q8H-IV [facility]; Protocol Last Admin: 02/14/19 10:11 Dose: 100 mls/hr Lactated Ringer's (Lactated Ringers Solution) 1,000 mls @ 100 mls/hr IV ASDIR [facility] Last Admin: 02/13/19 17:58 Dose: 100 mls/hr Lactobacillus Acidophilus (Bacid -) 1 tab PO DAILY [facility] Last Admin: 02/14/19 10:09 Dose: 1 tab Pantoprazole Sodium (Protonix -) 40 mg PO AM [facility] Last Admin: 02/14/19 06:31 Dose: 40 mg Senna (Senna -) 2 tab PO DAILY [facility] Last Admin: 02/14/19 10:10 Dose: 2 tab - Objective Vital Signs: Vital Signs Temperature 97.4 F L 02/14/19 07:24 Pulse Rate 58 L 02/14/19 07:24 Respiratory Rate 20 02/14/19 07:24 Blood Pressure 107/52 L 02/14/19 07:24 O2 Sat by Pulse Oximetry (%) 98 02/13/19 21:00 Constitutional: Yes: No Distress, Calm Cardiovascular: Yes: Regular Rate and Rhythm Respiratory: Yes: Regular Gastrointestinal: Yes: Normal Bowel Sounds, Soft Musculoskeletal: Yes: WNL Extremities: Yes: WNL Labs: CBC, BMP 02/14/19 05:35 02/14/19 05:35 INR, PTT INR 1.16 (0.83-1.09) H 02/11/19 17:22 Assessment/Plan Problem List - Problems (1) Abdominal pain Code(s): R10.9 - UNSPECIFIED ABDOMINAL PAIN Qualifiers: Abdominal location: right lower quadrant Qualified Code(s): R10.31 - Right lower quadrant pain (2) A-fib Code(s): I48.91 - UNSPECIFIED ATRIAL FIBRILLATION Qualifiers: Atrial fibrillation type: chronic Qualified Code(s): I48.2 - Chronic atrial fibrillation (3) ASHD (arteriosclerotic heart disease) Code(s): I25.10 - ATHSCL HEART DISEASE OF [place] CORONARY ARTERY W/O ANG PCTRS (4) Anemia Code(s): D64.9 - ANEMIA, UNSPECIFIED Qualifiers: Iron deficiency anemia type: chronic blood loss (5) CHF (congestive heart failure) Code(s): I50.9 - HEART FAILURE, UNSPECIFIED (6) Hx of CABG Code(s): Z95.1 - PRESENCE OF AORTOCORONARY BYPASS GRAFT after looking at the ct scan and the patients clinical picture,patient has acute colitis plan continue current mgmt rest as per the team wbc has normalized will see how patient does with diet
--- NOTE | 2019-02-14 10:44 | PN.GI ---
GI Progress Note Subjective: Clinically improving No acute events - Objective Vital Signs: Vital Signs Temperature 97.4 F L 02/14/19 07:24 Pulse Rate 58 L 02/14/19 07:24 Respiratory Rate 20 02/14/19 07:24 Blood Pressure 107/52 L 02/14/19 07:24 O2 Sat by Pulse Oximetry (%) 98 02/13/19 21:00 Constitutional: Calm Eyes: No: Sclera Icterus Cardiovascular: Yes: Pulse Irregular (regular rate) Respiratory: Yes: CTA Bilaterally Gastrointestinal Inspection: No: Distention ...Auscultate: Yes: Normoactive Bowel Sounds ...Palpate: Yes: Tenderness (Improved TTP RLQ) Edema: No (No LE edmea) Neurological: Yes: Alert Labs: CBC, BMP 02/14/19 05:35 02/14/19 05:35 INR, PTT INR 1.16 (0.83-1.09) H 02/11/19 17:22 Problem List - Problems (1) Colitis Assessment/Plan: Suspect right sided ischemic colitis without significant SMA involvement Clinically much imrpoved and diet has been advanced Still awaiting stool studies to exclude infectious etiology Will need clarification as to whether plavix can be held for follow-up colonoscopy. This can be addressed in an outpatient setting Code(s): K52.9 - NONINFECTIVE GASTROENTERITIS AND COLITIS, UNSPECIFIED
[2019-02-14] MEDS: COLLAGENASE CLOSTRIDIUM HIST. 30 GRAMS TUBE TP SCH (14:54)
[2019-02-14] MEDS: LACTATED RINGERS SOLUTION 1,000 ML IV SCH (14:55)
[2019-02-14] MEDS: ACETAMINOPHEN 325 MG TABLET (FP) PO PRN (21:46)
[2019-02-14] MEDS: ATORVASTATIN CA 40 MG TABLET (FP) PO SCH (21:46)
[2019-02-14] MEDS ORDERED: PT OWN MED DRAWER 7, Y5N ONE (22:23)
[2019-02-15] MEDS ORDERED: PIPERACILLIN/TAZOBACTAM 3.375 GM VIAL IVPB ONE (01:33)
[2019-02-15] MEDS ORDERED: DEXTROSE 5%-WATER - 50 ML IVPB ONE (01:33)
[2019-02-15] MEDS: PIPERACILLIN/TAZOB 3.375 GM 3.375 GM in DEXTROSE 5%-WATER - 50 ML IVPB SCH (02:36)
[2019-02-15] MEDS: LACTATED RINGERS SOLUTION 1,000 ML IV SCH (02:36)
[2019-02-15] MEDS: PANTOPRAZOLE 40 MG TABLET (FP) PO SCH (06:05)
--- NOTE | 2019-02-15 08:15 | PN.GI ---
GI Progress Note Subjective: No acute events No abdominal pain C. Diff and stool culture negative - Objective Vital Signs: Vital Signs Temperature 97.5 F L 02/15/19 06:56 Pulse Rate 68 02/15/19 06:56 Respiratory Rate 20 02/15/19 06:56 Blood Pressure 130/59 L 02/15/19 06:56 O2 Sat by Pulse Oximetry (%) 97 02/14/19 20:20 Constitutional: Calm Eyes: No: Sclera Icterus Cardiovascular: Yes: Pulse Irregular Respiratory: Yes: CTA Bilaterally Gastrointestinal Inspection: No: Distention ...Auscultate: Yes: Normoactive Bowel Sounds ...Palpate: Yes: Soft. No: Hepatomegaly, Splenomegaly, Tenderness Edema: No (No LE edema) Neurological: Yes: Alert Labs: CBC, BMP 02/14/19 05:35 02/14/19 05:35 INR, PTT INR 1.16 (0.83-1.09) H 02/11/19 17:22 Problem List - Problems (1) Colitis Assessment/Plan: Clinically much improved with resolved abdominal pain. Suspected resolved right sided ischemic colitis On regular diet Abx per ID Avoid hypotension / dehydration Can discuss colonoscopy as outpatient Code(s): K52.9 - NONINFECTIVE GASTROENTERITIS AND COLITIS, UNSPECIFIED
--- NOTE | 2019-02-15 09:01 | PN ---
Progress Note, Physician History of Present Illness: stable feels much better tolerating oral - Current Medication List Current Medications: Active Medications Acetaminophen (Tylenol -) 650 mg PO Q4H PRN PRN Reason: PAIN Last Admin: 02/14/19 21:46 Dose: 650 mg Allopurinol (Zyloprim -) 300 mg PO DAILY [facility] Last Admin: 02/14/19 10:09 Dose: 300 mg Aspirin (Asa -) 81 mg PO DAILY [facility] Last Admin: 02/14/19 10:09 Dose: 81 mg Atorvastatin Calcium (Lipitor -) 40 mg PO HS [facility] Last Admin: 02/14/19 21:46 Dose: 40 mg Cholecalciferol (Vitamin D3 -) 1,000 unit PO DAILY [facility] Last Admin: 02/14/19 10:09 Dose: 1,000 unit Clopidogrel Bisulfate (Plavix -) 75 mg PO DAILY [facility] Last Admin: 02/14/19 10:09 Dose: 75 mg Collagenase (Santyl -) 1 applic TP DAILY [facility] Last Admin: 02/14/19 14:54 Dose: 1 applic Eplerenone (Eplerenone) 25 mg PO DAILY [facility] Last Admin: 02/14/19 10:10 Dose: 25 mg Ferrous Gluconate (Fergon -) 324 mg PO DAILY [facility] Last Admin: 02/14/19 10:10 Dose: 324 mg Heparin Sodium (Porcine) (Heparin -) 5,000 unit SQ BID [facility] Last Admin: 02/14/19 21:47 Dose: 5,000 unit Lactated Ringer's (Lactated Ringers Solution) 1,000 mls @ 100 mls/hr IV ASDIR [facility] Last Admin: 02/15/19 02:36 Dose: 100 mls/hr Lactobacillus Acidophilus (Bacid -) 1 tab PO DAILY [facility] Last Admin: 02/14/19 10:09 Dose: 1 tab Pantoprazole Sodium (Protonix -) 40 mg PO AM [facility] Last Admin: 02/15/19 06:05 Dose: 40 mg Senna (Senna -) 2 tab PO DAILY [facility] Last Admin: 02/14/19 10:10 Dose: 2 tab - Objective Vital Signs: Vital Signs Temperature 97.5 F L 02/15/19 06:56 Pulse Rate 68 02/15/19 06:56 Respiratory Rate 20 02/15/19 06:56 Blood Pressure 130/59 L 02/15/19 06:56 O2 Sat by Pulse Oximetry (%) 97 02/14/19 20:20 Constitutional: Yes: No Distress, Calm Cardiovascular: Yes: S1, S2 Respiratory: Yes: Regular, CTA Bilaterally Gastrointestinal: Yes: Normal Bowel Sounds, Soft Musculoskeletal: Yes: WNL Extremities: Yes: WNL Neurological: Yes: Alert, Oriented Psychiatric: Yes: Alert, Oriented Labs: CBC, BMP 02/14/19 05:35 02/14/19 05:35 INR, PTT INR 1.16 (0.83-1.09) H 02/11/19 17:22 Assessment/Plan Problem List - Problems (1) Abdominal pain Code(s): R10.9 - UNSPECIFIED ABDOMINAL PAIN Qualifiers: Abdominal location: right lower quadrant Qualified Code(s): R10.31 - Right lower quadrant pain (2) A-fib Code(s): I48.91 - UNSPECIFIED ATRIAL FIBRILLATION Qualifiers: Atrial fibrillation type: chronic Qualified Code(s): I48.2 - Chronic atrial fibrillation (3) ASHD (arteriosclerotic heart disease) Code(s): I25.10 - ATHSCL HEART DISEASE OF [place] CORONARY ARTERY W/O ANG PCTRS (4) Anemia Code(s): D64.9 - ANEMIA, UNSPECIFIED Qualifiers: Iron deficiency anemia type: chronic blood loss (5) CHF (congestive heart failure) Code(s): I50.9 - HEART FAILURE, UNSPECIFIED (6) Hx of CABG Code(s): Z95.1 - PRESENCE OF AORTOCORONARY BYPASS GRAFT after looking at the ct scan and the patients clinical picture,patient has acute colitis plan will change to oral abx rest continue current mgmt
[2019-02-15] MEDS ORDERED: PT OWN MED DRAWER 7, Y5N ONE (09:30)
[2019-02-15] MEDS: CHOLECALCIFEROL (VIT D3) 1,000 UNIT (25 MCG) TABLET PO SCH (09:37)
[2019-02-15] MEDS: ASPIRIN 81 MG CHEWABLE TABLETS PO SCH (09:37)
[2019-02-15] MEDS: SENNOSIDES 8.6MG TABLET (FP) PO SCH (09:37)
[2019-02-15] MEDS: LACTOBACILLUS ACIDOPHILUS 1 TABLET PO SCH (09:37)
[2019-02-15] MEDS: CLOPIDOGREL BISULFATE 75 MG TABLET (FP) PO SCH (09:37)
[2019-02-15] MEDS: ALLOPURINOL 300 MG TABLET (FP) PO SCH (09:37)
[2019-02-15] MEDS: EPLERENONE 25 MG TABLET PO SCH (09:38)
[2019-02-15] MEDS: FERROUS GLUCONATE 324 MG TAB (FP) PO SCH (09:38)
--- NOTE | 2019-02-15 09:38 | PN ---
Progress Note (short form) - Note Progress Note: Feels better. No abdominal pain . ID advised 5 days of PO Augmentin. Vital Signs - 24 hr 02/14/19 02/14/19 02/14/19 10:00 17:17 20:20 Temperature 97.9 F 97.8 F Pulse Rate 74 93 H Respiratory 18 20 20 Rate Blood Pressure 135/52 L 129/73 O2 Sat by Pulse 97 Oximetry (%) 02/14/19 02/15/19 20:29 06:56 Temperature 98.2 F 97.5 F L Pulse Rate 95 H 68 Respiratory 20 20 Rate Blood Pressure 145/51 L 130/59 L O2 Sat by Pulse Oximetry (%) Awake, alert Lungs clear Heart S1S2 irregular. irregular Abdomen soft RLE wound. Current Active Problems Problem Status Onset Abdominal pain Acute Colitis-Ischemic right colon Acute PAD (peripheral artery disease) CABG A.FIB Acute plan d/c home augmentin 875 bid Problem List - Problems (1) Abdominal pain Code(s): R10.9 - UNSPECIFIED ABDOMINAL PAIN Qualifiers: Abdominal location: right lower quadrant Qualified Code(s): R10.31 - Right lower quadrant pain (2) A-fib Code(s): I48.91 - UNSPECIFIED ATRIAL FIBRILLATION Qualifiers: Atrial fibrillation type: chronic Qualified Code(s): I48.2 - Chronic atrial fibrillation (3) PAD (peripheral artery disease) Code(s): I73.9 - PERIPHERAL VASCULAR DISEASE, UNSPECIFIED
[2019-02-15] MEDS: HEPARIN NA (PORCINE) 5,000 UNITS/ML 1ML VIAL SQ SCH (09:39)
--- NOTE | 2019-02-15 09:39 | DS ---
Physical Examination Vital Signs: Vital Signs Temperature 97.5 F L 02/15/19 06:56 Pulse Rate 68 02/15/19 06:56 Respiratory Rate 20 02/15/19 06:56 Blood Pressure 130/59 L 02/15/19 06:56 O2 Sat by Pulse Oximetry (%) 97 02/14/19 20:20 Constitutional: Yes: No Distress, Calm Eyes: Yes: Conjunctiva Clear, EOM Intact HENT: Yes: Atraumatic, Normocephalic Neck: Yes: Supple, Trachea Midline Cardiovascular: Yes: Pulse Irregular Respiratory: Yes: Regular, CTA Bilaterally Gastrointestinal: Yes: Normal Bowel Sounds, Soft. No: Abdomen, Obese, Distention, Pulsatile Mass, Tenderness, Tenderness, Epigastrium, Tenderness, Rebound, Vomiting ...Rectal Exam: Yes: Deferred Renal/: No: Anuria Extremities: Yes: Other (RLE wound) Labs: CBC, BMP 02/14/19 05:35 02/14/19 05:35 Discharge Summary Reason For Visit: RT SIDE ABD PAIN Current Active Problems Abdominal pain (Acute) Colitis (Acute) PAD (peripheral artery disease) (Acute) Condition: Improved - Instructions Disposition: HOME - Home Medications Comprehensive Discharge Medication List: Ambulatory Orders Allopurinol [Zyloprim -] 300 mg PO DAILY #0 tablet 01/17/13 Atorvastatin Ca [Lipitor] 40 mg PO HS 08/06/13 Cholecalciferol (Vitamin D3) [Vitamin D3] 1,000 unit PO DAILY 08/08/13 Vit A/Vit C/Vit E/Zinc/Copper [Preservision Tablet] 1 each PO DAILY 06/29/15 Sennosides [Senna -] 2 tab PO DAILY 05/03/17 ASA - 81 mg PO DAILY 10/31/17 Omeprazole 40 mg PO DAILY 07/23/18 Clopidogrel Bisulfate [Plavix] 1 tab PO DAILY 09/25/18 Acetaminophen/Diphenhydramine [Acetaminophen Pm Caplet] 2 each PO HS 02/11/19 Eplerenone [Inspra] 25 mg PO DAILY 02/11/19 Ferrous Gluconate [Iron] 32 mg PO DAILY 02/11/19 Torsemide [Demadex -] 20 mg PO DAILY 02/11/19
[2019-02-15 09:51] VITALS: BP 115/80; PULSE 77; TEMP 98.2
[2019-02-15 10:32] LABS: BASO % 0.2 % (0-2.0); EOS % 0.1 % (0-4.5); HEMATOCRIT 30.9 % (35.4-49); LYMPH % 22.9 % (8-40); MCH 29.1 pg (25.7-33.7); MCHC 32.4 g/dl (32.0-35.9); MEAN CELL VOLUME 89.7 fl (80-96); MEAN PLT VOLUME 10.2 fl (7.5-11.1); MONO % 4.8 % (3.8-10.2); RBC 3.44 M/mm3 (4.00-5.60); RDW 19.5 % (11.9-15.9); WHITE BLOOD COUNT 10.1 K/mm3 (4.0-10.0)
[2019-02-15 10:39] LABS: PLATELET COUNT 175 K/MM3 (134-434)
[2019-02-15 11:04] LABS: BLOOD UREA NITROGEN 11.8 mg/dL (7-18); CALCIUM 8.5 mg/dL (8.5-10.1); CREATININE 0.8 mg/dL (0.55-1.3); POTASSIUM 3.5 mmol/L (3.5-5.1)
[2019-02-15] MEDS ORDERED: AMOX TR/POT CLAV 875MG/125MG TABLETS (FP) PO SCH (17:30)
== END 2019-02-15 11:02 | disposition home or self-care (01) | DRG 392 ==
LOC: JER 15:16 → JERBED 21:25 → J8W 02-12 02:26
PROVIDERS: ADMIT Internal Medicine; ATTEND Internal Medicine
DX: K52.9 Noninfective gastroenteritis and colitis, unspecified (principal); I50.20 Unspecified systolic (congestive) heart failure; L97.318 Non-pressure chronic ulcer of right ankle with other specified severity; I25.10 Atherosclerotic heart disease of native coronary artery without angina pectoris; I48.91 Unspecified atrial fibrillation; N40.0 Benign prostatic hyperplasia without lower urinary tract symptoms; M10.9 Gout, unspecified; E78.5 Hyperlipidemia, unspecified; D72.829 Elevated white blood cell count, unspecified; K21.9 Gastro-esophageal reflux disease without esophagitis; K46.9 Unspecified abdominal hernia without obstruction or gangrene; D64.9 Anemia, unspecified; M54.5 Low back pain; D69.6 Thrombocytopenia, unspecified; E11.43 Type 2 diabetes mellitus with diabetic autonomic (poly)neuropathy; K31.84 Gastroparesis; I11.0 Hypertensive heart disease with heart failure; I48.2 Chronic atrial fibrillation; E11.51 Type 2 diabetes mellitus with diabetic peripheral angiopathy without gangrene; E11.622 Type 2 diabetes mellitus with other skin ulcer; M84.48XG Pathological fracture, other site, subsequent encounter for fracture with delayed healing; K22.4 Dyskinesia of esophagus; M48.00 Spinal stenosis, site unspecified; N28.9 Disorder of kidney and ureter, unspecified; Z95.1 Presence of aortocoronary bypass graft; Z87.891 Personal history of nicotine dependence; Z95.5 Presence of coronary angioplasty implant and graft
CPT/HCPCS: 36415; 74174-TC; 74177-TC; 80048; 80053; 81003; 82728; 83540; 83550; 83605; 83690; 85025; 85027; 85610; 85730; 86140; 86850; 86900; 86901; 87045; 87046; 87086; 87324; 87449; 99284-25; J0131; J1644; J7030

== ENCOUNTER 2019-04-21 12:31 | Inpatient (IN) | payer OTHER, MEDICARE ==
--- NOTE | 2019-04-21 12:43 | PDOC ---
History of Present Illness - General Chief Complaint: Respiratory Stated Complaint: R/O UTI/ FEVER Time Seen by Provider: 04/21/19 12:42 History Source: Patient, Family Exam Limitations: No Limitations (intermittent confusion) - History of Present Illness Initial Comments: 04/21/19 13:04 Cuco Loja is a 88yM w PMHx CAD s/p CABG, CHF, LV failure, afib on ASA/ plavic s/p watchman device, peripheral artery disease, BPH s/p TURP, HTN, gout presenting w fever and altered mental status. Per family, 6d ago diagnosed w pneumonia by PCP, placed on cefuroxime. Having continuous fevers partially relieved w tylenol and ibuprofen (took 2 extra strength Advil today). Associated headache and cough, poor appetite. Not on anticoagulation. Pt usually AxOx3 per family, currently disoriented to time/place. Pt denies SOB, chest/AB pain, urinary, bowel movement changes. Past History - Past Medical History Allergies/Adverse Reactions: Allergies Allergy/AdvReac Type Severity Reaction Status Date / Time No Known Drug Allergies Allergy Verified 04/21/19 12:37 Home Medications: Ambulatory Orders Allopurinol [Zyloprim -] 300 mg PO DAILY #0 tablet 01/17/13 Atorvastatin Ca [Lipitor] 40 mg PO HS 08/06/13 Omeprazole 40 mg PO DAILY 07/23/18 Clopidogrel Bisulfate [Plavix] 1 tab PO DAILY 09/25/18 Acetaminophen/Diphenhydramine [Acetaminophen Pm Caplet] 2 each PO HS 02/11/19 Ferrous Gluconate [Iron] 32 mg PO DAILY 02/11/19 Torsemide [Demadex -] 20 mg PO BID 02/11/19 Aspirin 81 mg PO DAILY 04/21/19 Cefuroxime Axetil [Cefuroxime] 250 mg PO BID 04/21/19 Mirtazapine 15 mg PO DAILY 04/21/19 Potassium Chloride [Klor-Con] 20 meq PO DAILY 04/21/19 predniSONE [Deltasone -] 5 mg PO DAILY 04/21/19 Anemia: No Asthma: No Cancer: No Cardiac Disorders: Yes (a-fib - stent placement - bypass) CVA: No COPD: Yes (asbestos) CHF: No Dementia: No Diabetes: No GI Disorders: No Disorders: No HTN: Yes Hypercholesterolemia: Yes Liver Disease: No Seizures: No Thyroid Disease: No - Surgical History Abdominal Surgery: No Appendectomy: No Cardiac Surgery: Yes (cabg) Cholecystectomy: No Lung Surgery: No Neurologic Surgery: No Orthopedic Surgery: No - Immunization History Immunization Up to Date: No - Psycho Social/Smoking Cessation Hx Smoking Status: No Smoking History: Never smoked Have you smoked in the past 12 months: No Number of Cigarettes Smoked Daily: 0 If you are a former smoker, when did you quit?: 1970 'Breaking Loose' booklet given: 01/19/15 Hx Alcohol Use: Yes (occasional) Drug/Substance Use Hx: No Substance Use Type: None Hx Substance Use Treatment: No Review of Systems - Review of Systems Constitutional: Yes: Fever. No: Chills HEENTM: No: Eye Pain, Nose Pain, Throat Pain, Mouth Pain Respiratory: Yes: Cough. No: Shortness of Breath Cardiac (ROS): No: Chest Pain, Palpitations, Syncope ABD/GI: Yes: Poor Appetite. No: Abdominal Distended, Constipated, Diarrhea, Nausea, Vomiting : No: Burning, Dysuria, Discharge, Frequency, Flank Pain Musculoskeletal: No: Back Pain, Joint Pain, Joint Swelling, Muscle Pain Integumentary: No: Bruising, Dryness, Erythema Neurological: No: Headache, Seizure, Tingling, Tremors Psychiatric: No: Anxiety, Depression, Stressors Endocrine: No: Excessive Sweating, Flushing, Intolerance to Cold, Intolerance to Heat Hematologic/Lymphatic: No: Anemia, Blood Clots *Physical Exam - Vital Signs Last Vital Signs Temp Pulse Resp BP Pulse Ox 99.5 F 77 18 109/41 L 95 04/21/19 12:33 04/21/19 12:33 04/21/19 12:33 04/21/19 12:33 04/21/19 12:33 - Physical Exam General Appearance: Yes: Nourished, Appropriately Dressed HEENT: positive: EOMI, KATJA, Normal Voice, Hearing Grossly Normal. negative: Scleral Icterus (R), Scleral Icterus (L), Nasal Congestion, Rhinorrhea Respiratory/Chest: positive: Decreased Breath Sounds (R<L lung sounds), Crackles (intermittent jose lung bases), Rhonchi (bilateral). negative: Chest Tender, Respiratory Distress, Rapid RR, Stridor, Wheezing Cardiovascular: positive: Regular Rate, S1, S2, Irregularly Irregular. negative : Edema, Murmur Gastrointestinal/Abdominal: positive: Normal Bowel Sounds, Flat, Soft. negative : Tender, Organomegaly, Distended, Guarding Musculoskeletal: negative: CVA Tenderness (R), CVA Tenderness (L) Extremity: positive: Delayed Capillary Refill (3s), Other (4cm open ulcer over R lateral malleolus, non tender/red/purulent) Integumentary: positive: Dry, Swelling (2+ pitting edema to knees bilaterally) Neurologic: positive: Alert, Normal Response, Responsive, Sensory Deficit ( reduced sensation below knees bilaterally ), Disoriented (AxOx2 (not to day), intermittend talking to self ). negative: Facial Droop ED Treatment Course - LABORATORY CBC & Chemistry Diagram: 04/21/19 13:02 04/21/19 13:02 Medical Decision Making - Medical Decision Making 04/21/19 13:08 sepsis workup : CBC CMP trop BNP UA blood/U/wound cx coags CXR EKG CT chest 0.5L NS, tylenol, vanc/zosyn broad coverage for sepsis CXR shows mild RLL effusion and infiltrate, cardiomegaly EKG shows a fib, L axis deviation, HR 87, QTc 519 CT chest shows small R pleural effusion, hiatal hernia, 4.4x2.4cm rounded nodular opacity in inferolateral aspect of R hemithorax concerning for rounded atelectasis vs neoplasm, multiple enlarged mediastinal lymph nodes WBC 12.7, ALP 287, trop 0.14 (baseline 0.11), BNP 18,000 (previous 10,000), no WBC on UA, normal lactate --- Cuco Loja is a 88yM w PMHx CAD s/p CABG, CHF, LV failure, afib on ASA/ plavic s/p watchman device, peripheral artery disease, BPH s/p TURP, HTN, gout presenting w fever and altered mental status d/t RLL PNA refractory to outpatient antibiotics and CHF exacerbation (+2 BLE edema, elevated BNP). CT chest shows small R pleural effusion, and 4.4x2.4cm rounded nodular opacity in inferolateral aspect of R hemithorax concerning for rounded atelectasis vs neoplasm. Also hypotensive 109/41. Mildly elevated troponin w/o symptoms and no ST changes on EKG lowers concern for ACS. No evidence of UTI, normal lactate lowering concern for septic shock. Given 0.5L NS for dehydration, tylenol for headache, vanc/zosyn broad coverage for sepsis. Blood/urine/R lateral malleolus ulcer cultures pending. Admit to tele Dr Lepe for RLL pneumonia (CURB-65 score 3, altered mental status, dehydration, continued fevers not improving with outpatient treatment with antibiotics) and CHF exacerbation Discharge - Discharge Information Problems reviewed: Yes Clinical Impression/Diagnosis: Pneumonia Qualifiers: Pneumonia type: due to unspecified organism Laterality: right Lung location: lower lobe of lung Qualified Code(s): J18.1 - Lobar pneumonia, unspecified organism CHF (congestive heart failure) Qualifiers: Heart failure type: unspecified Heart failure chronicity: acute on chronic Qualified Code(s): I50.9 - Heart failure, unspecified Condition: Good - Follow up/Referral - Patient Discharge Instructions - Post Discharge Activity
[2019-04-21] MEDS ORDERED: SODIUM CHLORIDE 0.9% 500 ML INFUS.BAG IV ONE (13:03)
[2019-04-21] MEDS ORDERED: ACETAMINOPHEN 1000 MG/100 ML VIAL (NON FORMULARY) IVPB ONE (13:03)
--- NOTE | 2019-04-21 13:08 | PDOC ---
Attending Attestation - Resident Resident Name: Giuseppe,Stuart - ED Attending Attestation I have performed the following: I have examined & evaluated the patient, The case was reviewed & discussed with the resident, I agree w/resident's findings & plan, Exceptions are as noted - HPI HPI: 04/21/19 13:10 88y M hx of CHF, chronic leg ulcer, afib sp watchman device presents with fever/ ams/cough for the past 10 days. Pt ewnt to PMD and was dx with pna as outpatient and started on abx, but sypmoms are not realy improving and pt has bene feeling more geneally weak (now minimally ambulatory), gambino. Pt endorses a hx of pleural effusion about 1 yr ago n the past that required drainage. PMD: - Physicial Exam PE: 04/21/19 13:41 General: No acute distress Card: rrr, no mrg Pulm: deminished breath sounds in the LLL, no acute erspiratry distress abd: sof nontender extermity: chronic healing ulcer on R lateral malleolus, +2 b/l LE pitting edema 04/21/19 16:20 - Medical Decision Making 04/21/19 13:45 ddx - pna vs pleural effusion, will obtain sepsis orderset, cxr will broaden abx 04/21/19 14:08 pts blood work reviwed noted for mild anemia bnp elevated to 18k will obtain ct chest to further evluated Heart Score/ECG Review - ECG Impressions Comment:: 04/21/19 14:15 Twelve-lead EKG was performed and reviewed by me. iregularly irregulra rate of 87 LAD nonspecific block
[2019-04-21] MEDS ORDERED: ACETAMINOPHEN INJECTION 100 ML IVPB ONE (13:28)
[2019-04-21 13:30] LABS: BASO % 1.2 % (0-2.0); HEMATOCRIT 27.9 % (35.4-49); HEMOGLOBIN 9.1 GM/dL (11.7-16.9); LYMPH % 17.5 % (8-40); MCH 28.5 pg (25.7-33.7); MCHC 32.5 g/dl (32.0-35.9); MEAN CELL VOLUME 87.5 fl (80-96); MEAN PLT VOLUME 9.7 fl (7.5-11.1); MONO % 4.2 % (3.8-10.2); NEUT % 77.1 % (42.8-82.8); PLATELET COUNT 225 K/MM3 (134-434); RBC 3.19 M/mm3 (4.00-5.60); RDW 17.2 % (11.9-15.9); WHITE BLOOD COUNT 12.7 K/mm3 (4.0-10.0)
[2019-04-21 13:35] LABS: INR 1.46 (0.83-1.09); PROTHROMBIN TIME (PATIENT) 17.3 SEC (9.7-13.0)
[2019-04-21] MEDS ORDERED: VANCOMYCIN 1 GM in D5W (PRE-DOCKED) 1,000 MG/250 ML IVPB ONE (13:40)
[2019-04-21] MEDS ORDERED: PIPERACILLIN/TAZOB 4.5 GM 4.5 GM in DEXTROSE 5%-WATER 100 ML IVPB ONE (13:41)
[2019-04-21 13:51] LABS: ALBUMIN 2.4 g/dl (3.4-5.0); BLOOD UREA NITROGEN 24.6 mg/dL (7-18); CREATININE 0.8 mg/dL (0.55-1.3); POTASSIUM 4.3 mmol/L (3.5-5.1); TOT PROT 6.2 g/dl (6.4-8.2)
[2019-04-21 13:55] LABS: N-TERMINAL BNP 18306.9 pg/ml (5-450)
[2019-04-21 13:57] LABS: PH,URINE 5.5 (5.0-8.0); URINE APPEARANCE Clear; URINE BILIRUBIN Negative (NEGATIVE); URINE COLOR Yellow; URINE GLUCOSE (UA) Negative (NEGATIVE); URINE KETONE Negative (NEGATIVE); URINE LEUK ESTERASE Negative (NEGATIVE); URINE NITRITE Negative (NEGATIVE); URINE PROTEIN Negative (NEGATIVE)
[2019-04-21] MEDS ORDERED: VANCOMYCIN 1 GRAM (PRE-DOCKED) 1,000 MG/250 ML BAG IVPB ONE (14:04)
[2019-04-21] MEDS ORDERED: PIPERACILLIN/TAZOB 4.5 GM 4.5 GM/100 ML BAG IVPB ONE (14:04)
--- NOTE | 2019-04-21 17:09 | HP ---
PCP: Riki Prince CHIEF COMPLAINT: Change in mental status HISTORY OF PRESENT ILLNESS: This is an 88 year old man who comes to the ED today because of a change in mental status. As per family, he is usually alert and oriented and able to get around on his own. For the last few days, he has appeared weak and confused. He has had a cough and fever for about 10 days. He was diagnosed with pneumonia a week ago and prescribed Ceftin which he has been taking. At that time, torsemide was increased. Despite treatment, he appears to be worsening. The patient is alert and oriented at this time. He complains of fever, cough, and weakness. He recently returned from [place] about 1 week ago. He has a chronic wound on his right ankle which does not appear to be worsening as per family. He was admitted here in January 2019 for colitis. He was treated then with Zosyn followed by Augmentin. Today, he was hypotensive when he presented to the ED. He was treated with IV fluid, Zosyn, Vancomycin. His son reports that his confusion improved with this treatment. PAST MEDICAL HISTORY CAD Chronic systolic heart failure Atrial fibrillation HTN Hyperlipidemia PAD Anemia BPH Gout Spinal stenosis Subdural hematoma PAST SURGICAL HISTORY Cardiac stent CABG Watchman procedure Aortic valve replacement Left carotid endarterectomy TURP Back surgery Social History: Smoking: Quit in 1969 Alcohol: Occasional Drugs: Denies Recent Travel: [place] Allergies No Known Drug Allergies Allergy (Verified 04/21/19 12:37) Home Medications Medication Instructions Recorded Allopurinol [Zyloprim -] 300 mg PO DAILY #0 tablet 01/17/13 Atorvastatin Ca [Lipitor] 40 mg PO HS 08/06/13 Omeprazole 40 mg PO DAILY 07/23/18 Clopidogrel Bisulfate [Plavix] 1 tab PO DAILY 09/25/18 Acetaminophen/Diphenhydramine 2 each PO HS 02/11/19 [Acetaminophen Pm Caplet] Ferrous Gluconate [Iron] 32 mg PO DAILY 02/11/19 Torsemide [Demadex -] 20 mg PO BID 02/11/19 Aspirin 81 mg PO DAILY 04/21/19 Cefuroxime Axetil [Cefuroxime] 250 mg PO BID 04/21/19 Mirtazapine 15 mg PO DAILY 04/21/19 Potassium Chloride [Klor-Con] 20 meq PO DAILY 04/21/19 predniSONE [Deltasone -] 5 mg PO DAILY 04/21/19 REVIEW OF SYSTEMS CONSTITUTIONAL: Present: fever, chills, generalized weakness, malaise, loss of appetite. Absent: diaphoresis, weight change HEENT: Absent: rhinorrhea, nasal congestion, throat pain, throat swelling, difficulty swallowing, mouth swelling, ear pain, eye pain, visual changes CARDIOVASCULAR: Present: peripheral edema. Absent: chest pain, syncope, palpitations, lightheadedness RESPIRATORY: Present: cough, dyspnea with exertion. Absent: orthopnea, wheezing , stridor, hemoptysis GASTROINTESTINAL: Absent: abdominal pain, abdominal distension, nausea, vomiting , diarrhea, constipation, melena, hematochezia GENITOURINARY: Absent: dysuria, frequency, urgency, hesitancy, hematuria, flank pain MUSCULOSKELETAL: Absent: myalgia, arthralgia, joint swelling, back pain, neck pain SKIN: Absent: rash, itching, pallor HEMATOLOGIC/IMMUNOLOGIC: Absent: easy bleeding, easy bruising, lymphadenopathy ENDOCRINE: Absent: unexplained weight gain, unexplained weight loss, heat intolerance, cold intolerance NEUROLOGIC: Present: headache. Absent: focal weakness or paresthesias, dizziness, unsteady gait, seizure, mental status changes, bladder or bowel incontinence PSYCHIATRIC: Absent: anxiety, depression, suicidal or homicidal ideation, hallucinations. PHYSICAL EXAMINATION Vital Signs - 24 hr 04/21/19 04/21/19 04/21/19 12:33 16:15 16:22 Temperature 99.5 F 98.1 F Pulse Rate 77 Pulse Rate [ 63 78 Apical] Respiratory 18 17 20 Rate Blood Pressure 109/41 L Blood Pressure 72/42 L 92/53 L [Right Arm] O2 Sat by Pulse 95 97 95 Oximetry (%) GENERAL: Awake, alert, and fully oriented, in no acute distress. HEAD: Normal with no signs of trauma. EYES: Pupils equal, round and reactive to light, extraocular movements intact, sclerae anicteric, conjunctivae clear. EARS, NOSE, THROAT: Ears normal, nares patent, oropharynx clear without exudates. Dry mucous membranes. NECK: Normal range of motion, supple without lymphadenopathy or masses. LUNGS: Breath sounds equal. Crackles R>L. No wheezes. No accessory muscle use. HEART: Irregularly irregular. (+) JVD. ABDOMEN: Soft, nontender, not distended, normoactive bowel sounds, no guarding, no rebound, no masses. No hepatomegaly or splenomegaly. MUSCULOSKELETAL: Normal range of motion at all joints. No bony deformities or tenderness. No CVA tenderness. UPPER EXTREMITIES: 2+ pulses, warm, well-perfused. No cyanosis. No clubbing. No peripheral edema. LOWER EXTREMITIES: 2+ pulses, warm, well-perfused. No calf tenderness. 2+ pitting edema of both legs. NEUROLOGICAL: Cranial nerves II-XII intact. Normal speech. Gait not observed. PSYCHIATRIC: Cooperative. Good eye contact. Appropriate mood and affect. SKIN: Warm, dry, poor turgor, no rashes. Round clean-based ulcer over right lateral malleolus with no drainage or erythema. Normal capillary refill. Laboratory Results - last 24 hr 04/21/19 04/21/19 04/21/19 13:02 13:02 13:02 WBC 12.7 H RBC 3.19 L Hgb 9.1 L Hct 27.9 L MCV 87.5 MCH 28.5 MCHC 32.5 RDW 17.2 H Plt Count 225 D MPV 9.7 Absolute Neuts (auto) 9.8 H Neutrophils % 77.1 Lymphocytes % 17.5 D Monocytes % 4.2 Eosinophils % 0.0 D Basophils % 1.2 D Nucleated RBC % 0 PT with INR 17.30 H INR 1.46 H PTT (Actin FS) 30.0 Sodium 137 Potassium 4.3 Chloride 99 Carbon Dioxide 31 Anion Gap 6 L BUN 24.6 H Creatinine 0.8 Est GFR (CKD-EPI)AfAm 91.79 Est GFR (CKD-EPI)NonAf 79.20 Random Glucose 99 Lactic Acid Calcium 8.0 L Total Bilirubin 1.0 AST 22 ALT 25 Alkaline Phosphatase 287 H Creatine Kinase Troponin I B-Natriuretic Peptide Total Protein 6.2 L Albumin 2.4 L Urine Color Urine Appearance Urine pH Ur Specific [place] Urine Protein Urine Glucose (UA) Urine Ketones Urine Blood Urine Nitrite Urine Bilirubin Urine Urobilinogen Ur Leukocyte Esterase 04/21/19 04/21/19 04/21/19 13:02 13:02 13:30 WBC RBC Hgb Hct MCV MCH MCHC RDW Plt Count MPV Absolute Neuts (auto) Neutrophils % Lymphocytes % Monocytes % Eosinophils % Basophils % Nucleated RBC % PT with INR INR PTT (Actin FS) Sodium Potassium Chloride Carbon Dioxide Anion Gap BUN Creatinine Est GFR (CKD-EPI)AfAm Est GFR (CKD-EPI)NonAf Random Glucose Lactic Acid 1.7 Calcium Total Bilirubin AST ALT Alkaline Phosphatase Creatine Kinase 11 L Troponin I 0.14 H B-Natriuretic Peptide 47882.9 H Total Protein Albumin Urine Color Yellow Urine Appearance Clear Urine pH 5.5 Ur Specific [place] 1.010 Urine Protein Negative Urine Glucose (UA) Negative Urine Ketones Negative Urine Blood Negative Urine Nitrite Negative Urine Bilirubin Negative Urine Urobilinogen 1.0 Ur Leukocyte Esterase Negative Chest CT: 1. Multiple enlarged mediastinal lymph nodes which are either reactive or neoplastic. Recommend follow-up CT in 3 months time to confirm stability. 2. Rounded nodular opacity within the inferolateral aspect of the right hemithorax which likely represents rounded atelectasis, but neoplastic process cannot be entirely excluded. Recommend follow-up CT in 3 months time to confirm stability. 3. Small right pleural effusion. 4. Large hiatal hernia. ASSESSMENT/PLAN: This is an 88 year old man with a history of CAD with stent/CABG, chronic systolic heart failure, atrial fib, Watchman procedure, HTN, hyperlipidemia, PAD , anemia, BPH, TURP, gout, spinal stenosis, subdural hematoma, left carotid endarterectomy, back surgery, AV replacement who was recently diagnosed with pneumonia and treated with Ceftin who now presents to the ED with a persistent cough, fever, and a change in mental status. 1. Acute metabolic encephalopathy secondary to pneumonia and dehydration - Failed outpatient treatment with oral cefuroxime - Zosyn, Vancomycin given in ED - Continue Zosyn - Continue with cautious IV hydration - ID consult - Given recent trip to [place], would be concerned about PE. Had non-contrast chest CT today with no significant findings to explain his symptoms. Will do leg dopplers tonight and consult pulmonology 2. Hypotension secondary to hypovolemia - From recent poor oral intake and increase in torsemide dose - Hold torsemide - Cautious IV hydration 3. Right pleural effusion, chronic 4. Mediastinal lymphadenopathy, chronic 5. Chronic systolic heart failure - Patient does not appear to be in acute LV systolic heart failure from fluid overload with no evidence of pulmonary congestion but has leg edema and JVD, possibly from right heart failure - Last available echo from 2014 showed mildly dilated LV, mild to moderately reduced LV systolic function, mild to moderate global LV hypokinesis, mildly reduced RV systolic function, mildly dilated LA, mildly dilated RA, moderate MR , mild TR, mild - Hold torsemide secondary to hypovolemia with hypotension - Echocardiogram 6. 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 CAD, history of CABG and stent - Continue aspirin, Plavix, Lipitor 8. HTN - Hold torsemide secondary to hypotension/hypovolemia 9. Hyperlipidemia - Continue Lipitor 10. Atrial fibrillation, permanent, history of Watchman procedure - Rate controlled on no medication 11. History of aortic valve replacement 12. PAD 13. Anemia, likely secondary to chronic illness - Stable - Continue ferrous gluconate 14. BPH, history of TURP 15. History of gout - Continue Allopurinol 16. Spinal stenosis
[2019-04-21] MEDS ORDERED: SODIUM CHLORIDE 1,000 ML IV SCH (18:00)
[2019-04-21] MEDS ORDERED: diphenhydrAMINE HCL 25 MG CAPSULE (FP) PO PRN (18:04)
[2019-04-21] MEDS ORDERED: ATORVASTATIN CA 40 MG TABLET (FP) ONE (22:45)
[2019-04-21] MEDS ORDERED: HEPARIN NA (PORCINE) 5,000 UNITS/ML 1ML VIAL ONE (22:46)
[2019-04-21] MEDS ORDERED: MIRTAZAPINE 15 MG TABLET (FP) ONE (22:46)
[2019-04-21] MEDS: ATORVASTATIN CA 40 MG TABLET (FP) PO SCH (22:55)
[2019-04-21] MEDS: MIRTAZAPINE 15 MG TABLET (FP) PO SCH (22:55)
[2019-04-21] MEDS: HEPARIN NA (PORCINE) 5,000 UNITS/ML 1ML VIAL SQ SCH (22:55)
[2019-04-22] MEDS ORDERED: PIPERACILLIN/TAZOB 3.375 GM 3.375 GM in DEXTROSE 5%-WATER - 50 ML IVPB SCH (02:00)
[2019-04-22] MEDS ORDERED: DEXTROSE 5%-WATER - 50 ML IVPB ONE ×3 (02:24→17:02)
[2019-04-22] MEDS ORDERED: PIPERACILLIN/TAZOBACTAM 3.375 GM VIAL IVPB ONE ×3 (02:24→17:02)
[2019-04-22] MEDS: PIPERACILLIN/TAZOB 3.375 GM 3.375 GM in DEXTROSE 5%-WATER - 50 ML IVPB SCH ×3 (02:52→17:27)
[2019-04-22] MEDS: HEPARIN NA (PORCINE) 5,000 UNITS/ML 1ML VIAL SQ SCH ×3 (06:32→21:44)
[2019-04-22 06:43] LABS: BASO % 0.3 % (0-2.0); EOS % 0.6 % (0-4.5); HEMATOCRIT 25.7 % (35.4-49); HEMOGLOBIN 8.4 GM/dL (11.7-16.9); LYMPH % 19.4 % (8-40); MCH 28.8 pg (25.7-33.7); MCHC 32.7 g/dl (32.0-35.9); MEAN CELL VOLUME 88.1 fl (80-96); MEAN PLT VOLUME 9.8 fl (7.5-11.1); MONO % 5.7 % (3.8-10.2); PLATELET COUNT 168 K/MM3 (134-434); RBC 2.92 M/mm3 (4.00-5.60); RDW 17.6 % (11.9-15.9); WHITE BLOOD COUNT 8.3 K/mm3 (4.0-10.0)
[2019-04-22 07:03] LABS: BLOOD UREA NITROGEN 21.5 mg/dL (7-18); CALCIUM 7.8 mg/dL (8.5-10.1); CREATININE 0.7 mg/dL (0.55-1.3); TOT PROT 5.5 g/dl (6.4-8.2)
[2019-04-22 08:09] LABS: MAGNESIUM 1.7 mg/dL (1.8-2.4)
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
[2019-04-22] MEDS: CLOPIDOGREL BISULFATE 75 MG TABLET (FP) PO SCH (09:43)
[2019-04-22] MEDS: PANTOPRAZOLE 40 MG TABLET (FP) PO SCH (09:43)
[2019-04-22] MEDS: ASPIRIN 81 MG CHEWABLE TABLETS PO SCH (09:43)
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
[2019-04-22] MEDS ORDERED: FERROUS GLUCONATE PO SCH (10:00)
--- NOTE | 2019-04-22 10:29 | EKG ---
Test Reason : Blood Pressure : / mmHG Vent. Rate : 087 BPM Atrial Rate : 078 BPM P-R Int : 000 ms QRS Dur : 128 ms QT Int : 432 ms P-R-T Axes : 000 -62 111 degrees QTc Int : 519 ms ATRIAL FIBRILLATION WITH PREMATURE VENTRICULAR OR ABERRANTLY CONDUCTED COMPLEXES LEFT AXIS DEVIATION NON-SPECIFIC INTRA-VENTRICULAR CONDUCTION BLOCK CANNOT RULE OUT ANTERIOR INFARCT , AGE UNDETERMINED ABNORMAL ECG WHEN COMPARED WITH ECG OF 23-JUL-2018 04:19, NO SIGNIFICANT CHANGE WAS FOUND Confirmed by CHRISTY TORIBIO MD ([id number]) on 04/22/2019 10:29:00 AM Referred By: Confirmed By:CHRISTY TORIBIO MD
[2019-04-22] MEDS ORDERED: MAGNESIUM SULF 50% (8.12 MEQ/2 ML-1 GM VIAL) IVPB ONE (12:00)
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
[2019-04-22] MEDS: ALLOPURINOL 300 MG TABLET (FP) PO SCH (12:25)
--- NOTE | 2019-04-22 14:05 | CON.PULM ---
Consult Consult Specialty:: PULM/CCM Referred by:: ART Reason for Consultation:: SOB - History of Present Illness Chief Complaint: AMS History of Present Illness: 88 M, with listed medical history. Admitted via the ER due to a change in mental status. As per notes, family reported change from his baseline of fully alert and oriented. For the last few days, he developed increasing myalgia and confusion. He was apparently given ABX for about 10 days for URI symptoms which have not completely resolved. No travel history or sick contacts. CT chest: compared to 10/2018. ILD changes that appear chronic, traction bronchiectasis, pleural plaquing, calfcified granulomas, mediastinal adenopathy. 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 (SDH after fall on ice 07/31) Cardio/Vascular: Yes: AFIB, CAD, CHF (systolic), HTN, Hyperlipdemia Gastrointestinal: Yes: GERD, Hiatal Hernia, Other (Tertiary contractures, GASTROPARESIS) Renal/: Yes: Renal Inusuff, BPH Infectious Disease: Yes: VREF (2011 -wound healed) Musculoskeletal: Yes: Chronic low back pain, Osteoarthritis Rheumatology: Yes: Gout Endocrine: Yes: Diabetes Mellitus (Diet controlled) Additional Medical History: S/P SUBDURAL HEMATOMA - Past Surgical History Past Surgical History: Yes: CABG, Carotid Endarterectomy, Colonoscopy, Stent, Upper Endoscopy - Alcohol/Substance Use Hx Alcohol Use: Yes (occasional) History of Substance Use: reports: None - Smoking History Smoking history: Former smoker Have you smoked in the past 12 months: No Aproximately how many cigarettes per day: 0 If you are a former smoker, when did you quit?: 1969 - Social History Usual Living Arrangement: With Spouse ADL: Family Assistance 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 History of Recent Travel: No Home Medications - Allergies Allergies/Adverse Reactions: Allergies Allergy/AdvReac Type Severity Reaction Status Date / Time No Known Drug Allergies Allergy Verified 04/21/19 12:37 - Home Medications Home Medications: Ambulatory Orders Allopurinol [Zyloprim -] 300 mg PO DAILY #0 tablet 01/17/13 Atorvastatin Ca [Lipitor] 40 mg PO HS 08/06/13 Omeprazole 40 mg PO DAILY 07/23/18 Clopidogrel Bisulfate [Plavix] 1 tab PO DAILY 09/25/18 Acetaminophen/Diphenhydramine [Acetaminophen Pm Caplet] 2 each PO HS 02/11/19 Ferrous Gluconate [Iron] 32 mg PO DAILY 02/11/19 Torsemide [Demadex -] 20 mg PO BID 02/11/19 Aspirin 81 mg PO DAILY 04/21/19 Cefuroxime Axetil [Cefuroxime] 250 mg PO BID 04/21/19 Mirtazapine 15 mg PO DAILY 04/21/19 Potassium Chloride [Klor-Con] 20 meq PO DAILY 04/21/19 predniSONE [Deltasone -] 5 mg PO DAILY 04/21/19 Review of Systems Unable to obtain ROS, reason: not able to provide Physical Exam Vital Sings: Vital Signs Temperature 98.3 F 04/22/19 09:00 Pulse Rate 98 H 04/22/19 09:00 Respiratory Rate 20 04/22/19 09:00 Blood Pressure 120/74 04/22/19 09:00 O2 Sat by Pulse Oximetry (%) 99 04/22/19 09:00 Constitutional: Yes: No Distress, Thin Eyes: Yes: Conjunctiva Clear, EOM Intact HENT: Yes: Atraumatic, Normocephalic Neck: Yes: Supple, Trachea Midline Cardiovascular: Yes: Regular Rate and Rhythm Respiratory: Yes: Cough, Diminished, On Nasal O2, Rhonchi. No: Accessory Muscle Use, Rales, SOB, SOB on Exertion, Stridor, Tachypnea, Wheezes ...Inspection: Yes: WNL ...Clubbing: No Gastrointestinal: Yes: Normal Bowel Sounds, Soft Renal/: Yes: WNL Musculoskeletal: Yes: WNL Extremities: Yes: WNL Edema: No Peripheral Pulses WNL: Yes Integumentary: Yes: WNL Neurological: Yes: Confusion Labs: CBC, BMP 04/22/19 05:20 04/22/19 05:20 Imaging - Results Chest X-ray: Report Reviewed, Image Reviewed Cat Scan: Report Reviewed, Image Reviewed Problem List - Problems (1) Calcified granuloma of lung Code(s): J84.10 - PULMONARY FIBROSIS, UNSPECIFIED (2) Malnutrition Code(s): E46 - UNSPECIFIED PROTEIN-CALORIE MALNUTRITION Qualifiers: Malnutrition type: protein-calorie malnutrition Protein-calorie malnutrition severity: severe Qualified Code(s): E43 - Unspecified severe protein-calorie malnutrition (3) Pneumonia Code(s): J18.9 - PNEUMONIA, UNSPECIFIED ORGANISM Qualifiers: Pneumonia type: due to unspecified organism Laterality: right Lung location: lower lobe of lung Qualified Code(s): J18.1 - Lobar pneumonia, unspecified organism (4) A-fib Code(s): I48.91 - UNSPECIFIED ATRIAL FIBRILLATION Qualifiers: Atrial fibrillation type: chronic (5) ASHD (arteriosclerotic heart disease) Code(s): I25.10 - ATHSCL HEART DISEASE OF [place] CORONARY ARTERY W/O ANG PCTRS (6) Anemia Code(s): D64.9 - ANEMIA, UNSPECIFIED Qualifiers: Iron deficiency anemia type: chronic blood loss (7) Aortic stenosis Code(s): I35.0 - NONRHEUMATIC AORTIC (VALVE) STENOSIS (8) Atelectasis of right lung Code(s): J98.11 - ATELECTASIS (9) Chronic anemia Code(s): D64.9 - ANEMIA, UNSPECIFIED (10) H/O heart artery stent Code(s): Z95.5 - PRESENCE OF CORONARY ANGIOPLASTY IMPLANT AND GRAFT (11) Hx of CABG Code(s): Z95.1 - PRESENCE OF AORTOCORONARY BYPASS GRAFT (12) Mediastinal lymphadenopathy Code(s): R59.0 - LOCALIZED ENLARGED LYMPH NODES (13) PAD (peripheral artery disease) Code(s): I73.9 - PERIPHERAL VASCULAR DISEASE, UNSPECIFIED Assessment/Plan Noted empiric Zosyn per ID O2 as needed Check urine antigen No indication for systemic steroids BD TX PRN Check sputum if able to produce VTE prophylaxis Will follow Thank you. Dr Hernandez
--- NOTE | 2019-04-22 15:07 | ECHO ---
Name: RUDDY MEJIA Exam:Adult Echocardiogram Study Date: 04/22/2019 01:13 PM Age: 88 yrs Reason For Study: CHF Height: 65 in Weight: 126 lb BSA: 1.6 m2 MMode/2D Measurements & Calculations IVSd: 1.1 cm Ao root diam: 2.4 cm LVIDd: 4.4 cm LA dimension: 3.8 cm LVIDs: 3.5 cm LVPWd: 1.1 cm EDV(Teich): 87.5 ml LVOT diam: 2.0 cm ESV(Teich): 51.5 ml LAV (MOD-bp): 73.0 ml Doppler Measurements & Calculations MV E max ryan: 172.1 cm/sec Ao V2 max: 180.5 cm/sec MV dec time: 0.16 sec Ao max P.0 mmHg CRISTIAN(V,D): 1.00 cm2 LV V1 max P.4 mmHg MR max ryan: 450.6 cm/sec LV V1 max: 59.2 cm/sec MR max P.2 mmHg TR max ryan: 317.6 cm/sec PA V2 max: 111.3 cm/sec TR max P.3 mmHg PA max P.0 mmHg Med Peak E' Ryan: 6.3 cm/sec Med E/e': 27.5 Lat Peak E' Ryan: 3.9 cm/sec Lat E/e': 43.6 Procedure A complete two-dimensional transthoracic echocardiogram was performed (2D, M-mode, Doppler and color flow Doppler). Left Ventricle The left ventricle is normal in size. Left ventricular systolic function is moderately reduced. Eject ion Fraction = 40-45%. There is moderate global hypokinesis of the left ventricle. Right Ventricle The right ventricle is normal size. The right ventricular systolic function is mildly reduced. Atria The left atrial size is normal. Right atrial size is normal. Mitral Valve There is severe mitral annular calcification. There is mild to moderate mitral valve thickening. Ther e is mild to moderate mitral regurgitation. Tricuspid Valve The tricuspid valve is normal in structure and function. There is mild to moderate tricuspid regurgit ation. Pulmonary artery systolic pressure is at least 53 mmHg if RA pressure is assumed 3 mmHg. Aortic Valve The aortic valve is normal in structure and function. No aortic regurgitation is present. Pulmonic Valve The pulmonic valve is not well visualized. Great Vessels The aortic root is normal size. Pericardium/Pleura There is no pericardial effusion. Interpretation Summary The left ventricle is normal in size. Left ventricular systolic function is moderately reduced. There is moderate global hypokinesis of the left ventricle. Ejection Fraction = 40-45%. The right ventricular systolic function is mildly reduced. The left atrial size is normal. Right atrial size is normal. There is severe mitral annular calcification. There is mild to moderate mitral valve thickening. There is mild to moderate mitral regurgitation. There is mild to moderate tricuspid regurgitation. Pulmonary artery systolic pressure is at least 53 mmHg if RA pressure is assumed 3 mmHg There is no pericardial effusion. Previous study is not available for comparison Juan Jose Romero MD 04/22/2019 03:07 PM
[2019-04-22] MEDS: ATORVASTATIN CA 40 MG TABLET (FP) PO SCH (21:45)
[2019-04-22] MEDS: MIRTAZAPINE 15 MG TABLET (FP) PO SCH (21:45)
[2019-04-23] MEDS ORDERED: PIPERACILLIN/TAZOBACTAM 3.375 GM VIAL IVPB ONE ×3 (03:33→16:43)
[2019-04-23] MEDS ORDERED: DEXTROSE 5%-WATER - 50 ML IVPB ONE ×3 (03:33→16:43)
[2019-04-23] MEDS: PIPERACILLIN/TAZOB 3.375 GM 3.375 GM in DEXTROSE 5%-WATER - 50 ML IVPB SCH ×3 (04:00→17:06)
[2019-04-23] MEDS: HEPARIN NA (PORCINE) 5,000 UNITS/ML 1ML VIAL SQ SCH ×3 (06:40→21:23)
--- NOTE | 2019-04-23 08:54 | PN ---
Progress Note (short form) - Note Progress Note: C/o generalized weakness, pain in the LE, back. Pulmonary consult noted. Blood cultures are positive for GNB. ID-pending. Today in a/c, NAD, Neck supple, no JVD Lungs-decrease BS -1/2 of Right lung, dullness on P c/w pleural effusion. Heart S1S2 irregular, c/w a.fib, 2/4 DILIP Abdomen soft n NT/ND Ext +1-2 pretibial edema. Right external malleolus clean 4 cm wound. Awake, alert Ox2 Moves all extremities, CACHIL DEHE Laboratory Results - last 24 hr 04/22/19 04/22/19 05:20 08:35 Sodium 138 Potassium 4.0 Chloride 100 Carbon Dioxide 33 H Anion Gap 5 L BUN 21.5 H Creatinine 0.7 Est GFR (CKD-EPI)AfAm 96.97 Est GFR (CKD-EPI)NonAf 83.67 Random Glucose 89 Lactic Acid 2.4 H* Calcium 7.8 L Magnesium 1.7 L Iron 9 L TIBC 158 L Iron Saturation 5 L Unsaturated IBC 149 L Ferritin 287.8 Total Bilirubin 1.0 AST 15 ALT 20 Alkaline Phosphatase 226 H Total Protein 5.5 L Albumin 2.0 L IMP Current Active Problems Problem Status Onset CHF (congestive heart failure) S/p CABG, stents Elevated Troponin I- due to SEPSIS vs demand ischemia Acute Calcified granuloma of lung Acute Malnutrition Acute Pneumonia GNB Sepsis Acute Plan IV antibiotics. Telemetry Follow respiratory status. if worsens , might need therapeutic right thoracenthesis Wound treatment Follow anemia, PRBC PRN Problem List - Problems (1) Pneumonia Code(s): J18.9 - PNEUMONIA, UNSPECIFIED ORGANISM Qualifiers: Pneumonia type: due to unspecified organism Laterality: right Lung location: lower lobe of lung Qualified Code(s): J18.1 - Lobar pneumonia, unspecified organism (2) A-fib Code(s): I48.91 - UNSPECIFIED ATRIAL FIBRILLATION Qualifiers: Atrial fibrillation type: chronic (3) ASHD (arteriosclerotic heart disease) Code(s): I25.10 - ATHSCL HEART DISEASE OF [place] CORONARY ARTERY W/O ANG PCTRS (4) Malnutrition Code(s): E46 - UNSPECIFIED PROTEIN-CALORIE MALNUTRITION Qualifiers: Malnutrition type: protein-calorie malnutrition Protein-calorie malnutrition severity: severe Qualified Code(s): E43 - Unspecified severe protein-calorie malnutrition (5) Anemia Code(s): D64.9 - ANEMIA, UNSPECIFIED Qualifiers: Iron deficiency anemia type: chronic blood loss
[2019-04-23] MEDS ORDERED: PT OWN MED DRAWER 7, Y5N ONE (09:23)
[2019-04-23] MEDS: PANTOPRAZOLE 40 MG TABLET (FP) PO SCH (09:38)
[2019-04-23] MEDS: ALLOPURINOL 300 MG TABLET (FP) PO SCH (09:38)
[2019-04-23] MEDS: SILVER SULFADIAZINE 1% TOP CREAM 50 GM JAR TP SCH ×2 (09:38→21:24)
[2019-04-23] MEDS: CLOPIDOGREL BISULFATE 75 MG TABLET (FP) PO SCH (09:38)
[2019-04-23] MEDS: ASPIRIN 81 MG CHEWABLE TABLETS PO SCH (09:38)
--- NOTE | 2019-04-23 11:26 | PN ---
Progress Note, Physician History of Present Illness: PULMONARY ALERT,OOB-CHAIR,COMFORTABLE,-RESP DISTRESS - Current Medication List Current Medications: Active Medications Acetaminophen (Tylenol -) 650 mg PO Q4H PRN PRN Reason: PAIN Allopurinol (Zyloprim -) 300 mg PO DAILY [facility] Last Admin: 04/23/19 09:38 Dose: 300 mg Aspirin (Asa -) 81 mg PO DAILY [facility] Last Admin: 04/23/19 09:38 Dose: 81 mg Atorvastatin Calcium (Lipitor -) 40 mg PO HS [facility] Last Admin: 04/22/19 21:45 Dose: 40 mg Clopidogrel Bisulfate (Plavix -) 75 mg PO DAILY [facility] Last Admin: 04/23/19 09:38 Dose: 75 mg Diphenhydramine HCl (Benadryl -) 25 mg PO HS PRN PRN Reason: INSOMNIA Heparin Sodium (Porcine) (Heparin -) 5,000 unit SQ TID [facility] Last Admin: 04/23/19 06:40 Dose: 5,000 unit Piperacillin Sod/Tazobactam (Sod 3.375 gm/ Dextrose) 50 mls @ 100 mls/hr IVPB Q8H-IV [facility]; Protocol Last Admin: 04/23/19 09:38 Dose: 100 mls/hr Mirtazapine (Remeron -) 15 mg PO HS [facility] Last Admin: 04/22/19 21:45 Dose: 15 mg Non-Formulary Medication (Ferrous Gluconate [Iron]) 32 mg PO DAILY [facility] Pantoprazole Sodium (Protonix -) 40 mg PO DAILY [facility] Last Admin: 04/23/19 09:38 Dose: 40 mg Silver Sulfadiazine (Silvadene -) 1 applic TP BID [facility] Last Admin: 04/23/19 09:38 Dose: 1 applic - Objective Vital Signs: Vital Signs Temperature 98 F 04/23/19 10:00 Pulse Rate 105 H 04/23/19 10:00 Respiratory Rate 20 04/23/19 10:00 Blood Pressure 127/54 L 04/23/19 10:00 O2 Sat by Pulse Oximetry (%) 98 04/23/19 09:00 Constitutional: Yes: Calm, Thin Eyes: Yes: WNL HENT: Yes: WNL Neck: Yes: WNL Cardiovascular: Yes: Pulse Irregular, S1, S2 Respiratory: Yes: Rales (BIBASILAR RALES) Gastrointestinal: Yes: Normal Bowel Sounds, Soft Extremities: Yes: WNL Edema: No Labs: CBC, BMP 04/22/19 05:20 Assessment/Plan Problem List - Problems (1) Calcified granuloma of lung Code(s): J84.10 - PULMONARY FIBROSIS, UNSPECIFIED (2) Malnutrition Code(s): E46 - UNSPECIFIED PROTEIN-CALORIE MALNUTRITION Qualifiers: Malnutrition type: protein-calorie malnutrition Protein-calorie malnutrition severity: severe Qualified Code(s): E43 - Unspecified severe protein-calorie malnutrition (3) Pneumonia Code(s): J18.9 - PNEUMONIA, UNSPECIFIED ORGANISM Qualifiers: Pneumonia type: due to unspecified organism Laterality: right Lung location: lower lobe of lung Qualified Code(s): J18.1 - Lobar pneumonia, unspecified organism (4) A-fib Code(s): I48.91 - UNSPECIFIED ATRIAL FIBRILLATION Qualifiers: Atrial fibrillation type: chronic (5) ASHD (arteriosclerotic heart disease) Code(s): I25.10 - ATHSCL HEART DISEASE OF [place] CORONARY ARTERY W/O ANG PCTRS (6) Anemia Code(s): D64.9 - ANEMIA, UNSPECIFIED Qualifiers: Iron deficiency anemia type: chronic blood loss (7) Aortic stenosis Code(s): I35.0 - NONRHEUMATIC AORTIC (VALVE) STENOSIS (8) Atelectasis of right lung Code(s): J98.11 - ATELECTASIS (9) Chronic anemia Code(s): D64.9 - ANEMIA, UNSPECIFIED (10) H/O heart artery stent Code(s): Z95.5 - PRESENCE OF CORONARY ANGIOPLASTY IMPLANT AND GRAFT (11) Hx of CABG Code(s): Z95.1 - PRESENCE OF AORTOCORONARY BYPASS GRAFT (12) Mediastinal lymphadenopathy Code(s): R59.0 - LOCALIZED ENLARGED LYMPH NODES (13) PAD (peripheral artery disease) Code(s): I73.9 - PERIPHERAL VASCULAR DISEASE, UNSPECIFIED Assessment/Plan Zosyn per ID O2 as needed BD TX PRN VTE prophylaxis DR MAURICIO
--- NOTE | 2019-04-23 12:39 | PN ---
Progress Note, Physician History of Present Illness: still very weak son in the room d/w the son - Current Medication List Current Medications: Active Medications Acetaminophen (Tylenol -) 650 mg PO Q4H PRN PRN Reason: PAIN Allopurinol (Zyloprim -) 300 mg PO DAILY [facility] Last Admin: 04/23/19 09:38 Dose: 300 mg Aspirin (Asa -) 81 mg PO DAILY [facility] Last Admin: 04/23/19 09:38 Dose: 81 mg Atorvastatin Calcium (Lipitor -) 40 mg PO HS [facility] Last Admin: 04/22/19 21:45 Dose: 40 mg Clopidogrel Bisulfate (Plavix -) 75 mg PO DAILY [facility] Last Admin: 04/23/19 09:38 Dose: 75 mg Diphenhydramine HCl (Benadryl -) 25 mg PO HS PRN PRN Reason: INSOMNIA Heparin Sodium (Porcine) (Heparin -) 5,000 unit SQ TID [facility] Last Admin: 04/23/19 06:40 Dose: 5,000 unit Piperacillin Sod/Tazobactam (Sod 3.375 gm/ Dextrose) 50 mls @ 100 mls/hr IVPB Q8H-IV [facility]; Protocol Last Admin: 04/23/19 09:38 Dose: 100 mls/hr Mirtazapine (Remeron -) 15 mg PO HS [facility] Last Admin: 04/22/19 21:45 Dose: 15 mg Non-Formulary Medication (Ferrous Gluconate [Iron]) 32 mg PO DAILY [facility] Pantoprazole Sodium (Protonix -) 40 mg PO DAILY [facility] Last Admin: 04/23/19 09:38 Dose: 40 mg Silver Sulfadiazine (Silvadene -) 1 applic TP BID [facility] Last Admin: 04/23/19 09:38 Dose: 1 applic - Objective Vital Signs: Vital Signs Temperature 98 F 04/23/19 10:00 Pulse Rate 105 H 04/23/19 10:00 Respiratory Rate 20 04/23/19 10:00 Blood Pressure 127/54 L 04/23/19 10:00 O2 Sat by Pulse Oximetry (%) 98 04/23/19 09:00 Constitutional: Yes: No Distress, Calm Cardiovascular: Yes: S1, S2 Respiratory: Yes: Regular, Poor Air Entry (rt side) Gastrointestinal: Yes: Normal Bowel Sounds, Soft Musculoskeletal: Yes: WNL Extremities: Yes: WNL Neurological: Yes: Alert, Oriented Psychiatric: Yes: Alert, Oriented Labs: CBC, BMP 04/22/19 05:20 04/22/19 05:20 INR, PTT INR 1.46 (0.83-1.09) H 04/21/19 13:02 Assessment/Plan Assessment/Plan Problem List - Problems (1) Calcified granuloma of lung Code(s): J84.10 - PULMONARY FIBROSIS, UNSPECIFIED (2) Malnutrition Code(s): E46 - UNSPECIFIED PROTEIN-CALORIE MALNUTRITION Qualifiers: Malnutrition type: protein-calorie malnutrition Protein-calorie malnutrition severity: severe Qualified Code(s): E43 - Unspecified severe protein-calorie malnutrition (3) Pneumonia Code(s): J18.9 - PNEUMONIA, UNSPECIFIED ORGANISM Qualifiers: Pneumonia type: due to unspecified organism Laterality: right Lung location: lower lobe of lung Qualified Code(s): J18.1 - Lobar pneumonia, unspecified organism (4) A-fib Code(s): I48.91 - UNSPECIFIED ATRIAL FIBRILLATION Qualifiers: Atrial fibrillation type: chronic (5) ASHD (arteriosclerotic heart disease) Code(s): I25.10 - ATHSCL HEART DISEASE OF [place] CORONARY ARTERY W/O ANG PCTRS (6) Anemia Code(s): D64.9 - ANEMIA, UNSPECIFIED Qualifiers: Iron deficiency anemia type: chronic blood loss (7) Aortic stenosis Code(s): I35.0 - NONRHEUMATIC AORTIC (VALVE) STENOSIS (8) Atelectasis of right lung Code(s): J98.11 - ATELECTASIS (9) Chronic anemia Code(s): D64.9 - ANEMIA, UNSPECIFIED (10) H/O heart artery stent Code(s): Z95.5 - PRESENCE OF CORONARY ANGIOPLASTY IMPLANT AND GRAFT (11) Hx of CABG Code(s): Z95.1 - PRESENCE OF AORTOCORONARY BYPASS GRAFT (12) Mediastinal lymphadenopathy Code(s): R59.0 - LOCALIZED ENLARGED LYMPH NODES (13) PAD (peripheral artery disease) Code(s): I73.9 - PERIPHERAL VASCULAR DISEASE, UNSPECIFIED 14 uti 15 gm negative bacteremia plan continue abx await for repeat blood cx await for identification of bacteria rest as per the team
--- NOTE | 2019-04-23 13:04 | PN ---
Progress Note (short form) - Note Progress Note: s: no chest pain, palps, dizziness, dyspnea. decreased appetite per son. Current Medications Acetaminophen (Tylenol -) 650 mg PO Q4H PRN PRN Reason: PAIN Allopurinol (Zyloprim -) 300 mg PO DAILY [facility] Last Admin: 04/23/19 09:38 Dose: 300 mg Aspirin (Asa -) 81 mg PO DAILY [facility] Last Admin: 04/23/19 09:38 Dose: 81 mg Atorvastatin Calcium (Lipitor -) 40 mg PO HS [facility] Last Admin: 04/22/19 21:45 Dose: 40 mg Clopidogrel Bisulfate (Plavix -) 75 mg PO DAILY [facility] Last Admin: 04/23/19 09:38 Dose: 75 mg Diphenhydramine HCl (Benadryl -) 25 mg PO HS PRN PRN Reason: INSOMNIA Heparin Sodium (Porcine) (Heparin -) 5,000 unit SQ TID [facility] Last Admin: 04/23/19 06:40 Dose: 5,000 unit Piperacillin Sod/Tazobactam (Sod 3.375 gm/ Dextrose) 50 mls @ 100 mls/hr IVPB Q8H-IV [facility]; Protocol Last Admin: 04/23/19 09:38 Dose: 100 mls/hr Mirtazapine (Remeron -) 15 mg PO HS [facility] Last Admin: 04/22/19 21:45 Dose: 15 mg Non-Formulary Medication (Ferrous Gluconate [Iron]) 32 mg PO DAILY [facility] Pantoprazole Sodium (Protonix -) 40 mg PO DAILY [facility] Last Admin: 04/23/19 09:38 Dose: 40 mg Silver Sulfadiazine (Silvadene -) 1 applic TP BID [facility] Last Admin: 04/23/19 09:38 Dose: 1 applic Vital Signs Period Temp Pulse Resp BP Sys/Reyes Pulse Ox Last 24 Hr 97.6 F-98.6 F 89-106 20-20 103-133/54-69 96-98 Constitutional: Yes: Well Nourished, No Distress Eyes: No: Sclera Icterus HENT: No: Nasal Congestion Neck: No: Decreased ROM Respiratory: Yes: Regular, Rales (bases). No: Accessory Muscle Use Gastrointestinal: Yes: Normal Bowel Sounds, Other (+ probable pulsatile liver). No: Distention, Hepatomegaly, Palpable Mass, Tenderness Cardiovascular: Yes: Pulse Irregular JVD: Yes Carotid Bruit: No PMI: Non-Displaced Heart Sounds: Yes: S1, S2. No: Gallop Murmur: No: Systolic Murmur, Diastolic Murmur Musculoskeletal: Yes: Other (No kyphosis) Extremities: No: Cool, Cyanosis Edema: Yes (mild nonpitting pretib/an) Peripheral Pulses: 2+ Left Carotid, 2+ Right Carotid, 2+ Left Doralis Pedis, 2+ Right Dorsalis Pedis Integumentary: No: Jaundice Neurological: Yes: Alert, Oriented (x3) Psychiatric: No: Agitated Assessment/Plan Echo 2014: mild LVE, mild-mod global Lv hypo. mild RV hypo. mod MR. mild /AI. ECG: afib, LAFB, NSST-Ts--no signif change CT chest: no significant change vs prior 11/02: emphysematous changes, chronic interstitial changes at bases, trace effusion, pleural plaques, pleural-based lesion LLL, large hiatal hernia, dilated main PA c/w pulm HTN echo 04/2019 mod reduced LV function EF 40-45%, RV mildly reduced function, severe MAC, mild to mod MR, mild to mod TR, PASP at least 53 mmHg. tele: AF, HR controlled. NSVT 10-11 beats hypotension, confusion, weakness, lactic acidosis = sepsis: - respiratory infectious illness for 10 days or so treated as outpt - BCx's with gram negative rods - UCX with enterococcus - abx/plan per pmd COPD: - per pmd systolic CHF, pulm HTN: -dilated PA on CT c/w pulm HTN -BNP 18K, up from 10K prior. very distended neck veins, mild (stable) LE edema. no signif pulm edema/effusions on CT-- echo with reduced RV function, elevated PASP, TR -suspect dry cough with wheezing is sec to PNA/bronchitis, copd and not chf-- defer diuretics -echo shows pulm HTN - rec oximetry with ambulation and sleep if necessary, to guide home O2 use to minimize progressive pulm HTN/RV failure VTach: -long runs of NSVT on tele 04/22 (20-28 beats) -replete K/Mg to >4/2 -EF moderately reduced, BP improved today - will start low dose bb (limited by sepsis with low bp yest, now stabilized) -cont tele CAD: -remote CABG -2014 s/p PCI of LM/LAD at [facility] per review of prior admit notes here (sees kirsty)--remains on aspirin + clopidogrel, plan per outpt cardio -trop.s here indeterminate range, flat trend. ECG non-ischemic--not c/w ACS AF: -s/p Watchman procedure--continue aspirin per prior treatment plan -HR controlled on its own anemia: -chronic, stable counts -per pmd
[2019-04-23] MEDS: metoPROLOL SUCCINATE 25 MG TAB.SR.24H (FP) PO SCH (14:02)
[2019-04-23] MEDS: ATORVASTATIN CA 40 MG TABLET (FP) PO SCH (21:23)
[2019-04-23] MEDS: MIRTAZAPINE 15 MG TABLET (FP) PO SCH (21:23)
[2019-04-24] MEDS ORDERED: PIPERACILLIN/TAZOBACTAM 3.375 GM VIAL IVPB ONE ×3 (01:11→17:50)
[2019-04-24] MEDS ORDERED: DEXTROSE 5%-WATER - 50 ML IVPB ONE ×3 (01:11→17:50)
[2019-04-24] MEDS: PIPERACILLIN/TAZOB 3.375 GM 3.375 GM in DEXTROSE 5%-WATER - 50 ML IVPB SCH ×3 (01:20→18:06)
[2019-04-24] MEDS: HEPARIN NA (PORCINE) 5,000 UNITS/ML 1ML VIAL SQ SCH ×3 (05:45→22:07)
[2019-04-24 07:01] LABS: EOS % 0.3 % (0-4.5); HEMATOCRIT 24.1 % (35.4-49); LYMPH % 31.2 % (8-40); MCH 28.7 pg (25.7-33.7); MEAN CELL VOLUME 87.1 fl (80-96); MEAN PLT VOLUME 9.7 fl (7.5-11.1); MONO % 6.9 % (3.8-10.2); NEUT % 60.6 % (42.8-82.8); PLATELET COUNT 177 K/MM3 (134-434); RBC 2.77 M/mm3 (4.00-5.60); RDW 17.4 % (11.9-15.9)
--- NOTE | 2019-04-24 07:36 | PN ---
Progress Note, Physician Chief Complaint: OOB to chair. Reports breathing is better History of Present Illness: This is an 88 year old man who comes to the ED today because of a change in mental status. As per family, he is usually alert and oriented and able to get around on his own. For the last few days, he has appeared weak and confused. He has had a cough and fever for about 10 days. He was diagnosed with pneumonia a week ago and prescribed Ceftin which he has been taking. At that time, torsemide was increased. Despite treatment, he appears to be worsening. The patient is alert and oriented at this time. He complains of fever, cough, and weakness. He recently returned from [place] about 1 week ago. He has a chronic wound on his right ankle which does not appear to be worsening as per family. He was admitted here in January 2019 for colitis. He was treated then with Zosyn followed by Augmentin. Today, he was hypotensive when he presented to the ED. He was treated with IV fluid, Zosyn, Vanco. His son reports that his confusion improved with this treatment. Coverage for Dr Prince - Current Medication List Current Medications: Active Medications Acetaminophen (Tylenol -) 650 mg PO Q4H PRN PRN Reason: PAIN Allopurinol (Zyloprim -) 300 mg PO DAILY [facility] Last Admin: 04/23/19 09:38 Dose: 300 mg Aspirin (Asa -) 81 mg PO DAILY [facility] Last Admin: 04/23/19 09:38 Dose: 81 mg Atorvastatin Calcium (Lipitor -) 40 mg PO HS [facility] Last Admin: 04/23/19 21:23 Dose: 40 mg Clopidogrel Bisulfate (Plavix -) 75 mg PO DAILY [facility] Last Admin: 04/23/19 09:38 Dose: 75 mg Diphenhydramine HCl (Benadryl -) 25 mg PO HS PRN PRN Reason: INSOMNIA Last Admin: 04/23/19 21:24 Dose: 25 mg Heparin Sodium (Porcine) (Heparin -) 5,000 unit SQ TID [facility] Last Admin: 04/24/19 05:45 Dose: Not Given Piperacillin Sod/Tazobactam (Sod 3.375 gm/ Dextrose) 50 mls @ 100 mls/hr IVPB Q8H-IV [facility]; Protocol Last Admin: 04/24/19 01:20 Dose: 100 mls/hr Metoprolol Succinate (Toprol Xl -) 12.5 mg PO DAILY [facility] Last Admin: 04/23/19 14:02 Dose: 12.5 mg Mirtazapine (Remeron -) 15 mg PO HS [facility] Last Admin: 04/23/19 21:23 Dose: 15 mg Non-Formulary Medication (Ferrous Gluconate [Iron]) 32 mg PO DAILY [facility] Pantoprazole Sodium (Protonix -) 40 mg PO DAILY [facility] Last Admin: 04/23/19 09:38 Dose: 40 mg Silver Sulfadiazine (Silvadene -) 1 applic TP BID [facility] Last Admin: 04/23/19 21:24 Dose: 1 applic - Objective Vital Signs: Vital Signs Temperature 98.4 F 04/24/19 05:00 Pulse Rate 63 04/24/19 05:00 Respiratory Rate 20 04/24/19 05:00 Blood Pressure 124/60 04/24/19 05:00 O2 Sat by Pulse Oximetry (%) 96 04/23/19 21:00 Additional Findings/Remarks: Constitutional: Yes: Well Nourished, No Distress Eyes: No: Sclera Icterus HENT: No: Nasal Congestion Neck: No: Decreased ROM Respiratory: Yes: Regular, Rales (bases). No: Accessory Muscle Use Gastrointestinal: Yes: Normal Bowel Sounds, Other (+ probable pulsatile liver). No: Distention, Hepatomegaly, Palpable Mass, Tenderness Cardiovascular: Yes: Pulse Irregular JVD: Yes Carotid Bruit: No PMI: Non-Displaced Heart Sounds: Yes: S1, S2. No: Gallop Murmur: No: Systolic Murmur, Diastolic Murmur Musculoskeletal: Yes: Other (No kyphosis) Extremities: No: Cool, Cyanosis Edema: Yes (mild nonpitting pretib/an) Peripheral Pulses: 2+ Left Carotid, 2+ Right Carotid, 2+ Left Doralis Pedis, 2+ Right Dorsalis Pedis Integumentary: No: Jaundice Neurological: Yes: Alert, Oriented (x3) Psychiatric: No: Agitated Studies: Echo 2015: mild LVE, mild-mod global Lv hypo. mild RV hypo. mod MR. mild /AI. ECG: afib, LAFB, NSST-Ts--no signif change CT chest: no significant change vs prior 11/02: emphysematous changes, chronic interstitial changes at bases, trace effusion, pleural plaques, pleural-based lesion LLL, large hiatal hernia, dilated main PA c/w pulm HTN echo 04/2019 mod reduced LV function EF 40-45%, RV mildly reduced function, severe MAC, mild to mod MR, mild to mod TR, PASP at least 53 mmHg. Labs: INR, PTT INR 1.46 (0.83-1.09) H 04/21/19 13:02 Problem List - Problems (1) CHF (congestive heart failure) Assessment/Plan: Echo 2014: mild LVE, mild-mod global Lv hypo. mild RV hypo. mod MR. mild /AI. follwed by Dr Wells no need for diuretics, cough r/t pna not volume overload Code(s): I50.9 - HEART FAILURE, UNSPECIFIED Qualifiers: Heart failure type: unspecified Heart failure chronicity: acute on chronic Qualified Code(s): I50.9 - Heart failure, unspecified (2) Pneumonia Assessment/Plan: c/w supplemental O2 to maintain SPO2 >92 c/w fe nebs c/w zosyn appreciate pulm consultation Code(s): J18.9 - PNEUMONIA, UNSPECIFIED ORGANISM Qualifiers: Pneumonia type: due to unspecified organism Laterality: right Lung location: lower lobe of lung Qualified Code(s): J18.1 - Lobar pneumonia, unspecified organism (3) A-fib Assessment/Plan: s/p Watchman procedure--continue aspirin per prior treatment plan c/w metoprolol Code(s): I48.91 - UNSPECIFIED ATRIAL FIBRILLATION Qualifiers: Atrial fibrillation type: chronic (4) Hx of CABG Assessment/Plan: remote CABG c/w aspirin + clopidogrel -trop.s here indeterminate range, flat trend. ECG non-ischemic--not c/w ACS Code(s): Z95.1 - PRESENCE OF AORTOCORONARY BYPASS GRAFT (5) Prophylactic measure Assessment/Plan: FEN adequate PO intake monitor electrolytes and replete prn cardiac diet DVT heparin sq (bleeding noted at previous injection site-will hold this dose and reassess) Dispo maintain on tele full code discharge planning Code(s): Z29.9 - ENCOUNTER FOR PROPHYLACTIC MEASURES, UNSPECIFIED Visit type - Emergency Visit Emergency Visit: Yes ED Registration Date: 04/21/19 Care time: The patient presented to the Emergency Department on the above date and was hospitalized for further evaluation of their emergent condition. - New Patient This patient is new to me today: No - Critical Care Critical Care patient: No - Discharge Referral Referred to [facility] No
[2019-04-24 07:40] LABS: ALBUMIN 2.1 g/dl (3.4-5.0); BILIRUBIN,TOTAL 1.1 mg/dL (0.2-1); CREATININE 0.7 mg/dL (0.55-1.3); POTASSIUM 3.7 mmol/L (3.5-5.1); TOT PROT 5.9 g/dl (6.4-8.2)
--- NOTE | 2019-04-24 08:18 | PN ---
Progress Note (short form) - Note Progress Note: OOB to chair. Reports breathing feels fine. No CP or SOB. Minimal dry cough. Intake & Output 04/21/19 04/22/19 04/23/19 04/24/19 23:59 23:59 23:59 23:59 Intake Total 630 640 50 Balance 630 640 50 Weight 126 lb 132 lb 6.4 oz 132 lb 134 lb 9.6 oz Last Vital Signs Temp Pulse Resp BP Pulse Ox 98.4 F 63 20 124/60 96 04/24/19 05:00 04/24/19 05:00 04/24/19 05:00 04/24/19 05:00 04/23/19 21:00 Active Medications Acetaminophen (Tylenol -) 650 mg PO Q4H PRN PRN Reason: PAIN Allopurinol (Zyloprim -) 300 mg PO DAILY [facility] Last Admin: 04/23/19 09:38 Dose: 300 mg Aspirin (Asa -) 81 mg PO DAILY [facility] Last Admin: 04/23/19 09:38 Dose: 81 mg Atorvastatin Calcium (Lipitor -) 40 mg PO HS [facility] Last Admin: 04/23/19 21:23 Dose: 40 mg Clopidogrel Bisulfate (Plavix -) 75 mg PO DAILY [facility] Last Admin: 04/23/19 09:38 Dose: 75 mg Diphenhydramine HCl (Benadryl -) 25 mg PO HS PRN PRN Reason: INSOMNIA Last Admin: 04/23/19 21:24 Dose: 25 mg Heparin Sodium (Porcine) (Heparin -) 5,000 unit SQ TID [facility] Last Admin: 04/24/19 05:45 Dose: Not Given Piperacillin Sod/Tazobactam (Sod 3.375 gm/ Dextrose) 50 mls @ 100 mls/hr IVPB Q8H-IV [facility]; Protocol Last Admin: 04/24/19 01:20 Dose: 100 mls/hr Metoprolol Succinate (Toprol Xl -) 12.5 mg PO DAILY [facility] Last Admin: 04/23/19 14:02 Dose: 12.5 mg Mirtazapine (Remeron -) 15 mg PO HS [facility] Last Admin: 04/23/19 21:23 Dose: 15 mg Non-Formulary Medication (Ferrous Gluconate [Iron]) 32 mg PO DAILY [facility] Pantoprazole Sodium (Protonix -) 40 mg PO DAILY [facility] Last Admin: 04/23/19 09:38 Dose: 40 mg Silver Sulfadiazine (Silvadene -) 1 applic TP BID [facility] Last Admin: 04/23/19 21:24 Dose: 1 applic Constitutional: Yes: NAD, Thin Eyes: Yes: WNL HENT: Yes: WNL Neck: Yes: WNL Cardiovascular: Yes: Pulse Irregular, S1, S2 Respiratory: Yes: Scattered bibasilar rhonchi Gastrointestinal: Yes: Normal Bowel Sounds, Soft Extremities: Yes: WNL Edema: No Labs: Laboratory Results - last 24 hr 04/23/19 04/24/19 11:45 05:35 Sodium 136 Potassium 3.7 Chloride 98 Carbon Dioxide 32 Anion Gap 5 L BUN 22.0 H Creatinine 0.7 Est GFR (CKD-EPI)AfAm 96.97 Est GFR (CKD-EPI)NonAf 83.67 Random Glucose 112 H Lactic Acid 1.8 Calcium 8.0 L Total Bilirubin 1.1 H AST 14 L ALT 20 Alkaline Phosphatase 261 H Total Protein 5.9 L Albumin 2.1 L Assessment/Plan Problem List - Problems (1) Calcified granuloma of lung Code(s): J84.10 - PULMONARY FIBROSIS, UNSPECIFIED (2) Malnutrition Code(s): E46 - UNSPECIFIED PROTEIN-CALORIE MALNUTRITION Qualifiers: Malnutrition type: protein-calorie malnutrition Protein-calorie malnutrition severity: severe Qualified Code(s): E43 - Unspecified severe protein-calorie malnutrition (3) Pneumonia Code(s): J18.9 - PNEUMONIA, UNSPECIFIED ORGANISM Qualifiers: Pneumonia type: due to unspecified organism Laterality: right Lung location: lower lobe of lung Qualified Code(s): J18.1 - Lobar pneumonia, unspecified organism (4) A-fib Code(s): I48.91 - UNSPECIFIED ATRIAL FIBRILLATION Qualifiers: Atrial fibrillation type: chronic (5) ASHD (arteriosclerotic heart disease) Code(s): I25.10 - ATHSCL HEART DISEASE OF [place] CORONARY ARTERY W/O ANG PCTRS (6) Anemia Code(s): D64.9 - ANEMIA, UNSPECIFIED Qualifiers: Iron deficiency anemia type: chronic blood loss (7) Aortic stenosis Code(s): I35.0 - NONRHEUMATIC AORTIC (VALVE) STENOSIS (8) Atelectasis of right lung Code(s): J98.11 - ATELECTASIS (9) Chronic anemia Code(s): D64.9 - ANEMIA, UNSPECIFIED (10) H/O heart artery stent Code(s): Z95.5 - PRESENCE OF CORONARY ANGIOPLASTY IMPLANT AND GRAFT (11) Hx of CABG Code(s): Z95.1 - PRESENCE OF AORTOCORONARY BYPASS GRAFT (12) Mediastinal lymphadenopathy Code(s): R59.0 - LOCALIZED ENLARGED LYMPH NODES (13) PAD (peripheral artery disease) Code(s): I73.9 - PERIPHERAL VASCULAR DISEASE, UNSPECIFIED Assessment/Plan Zosyn per ID O2 as needed BD TX PRN VTE prophylaxis Dr Hernandez Problem List - Problems (1) Calcified granuloma of lung Code(s): J84.10 - PULMONARY FIBROSIS, UNSPECIFIED (2) Malnutrition Code(s): E46 - UNSPECIFIED PROTEIN-CALORIE MALNUTRITION Qualifiers: Malnutrition type: protein-calorie malnutrition Protein-calorie malnutrition severity: severe Qualified Code(s): E43 - Unspecified severe protein-calorie malnutrition (3) Pneumonia Code(s): J18.9 - PNEUMONIA, UNSPECIFIED ORGANISM Qualifiers: Pneumonia type: due to unspecified organism Laterality: right Lung location: lower lobe of lung Qualified Code(s): J18.1 - Lobar pneumonia, unspecified organism (4) A-fib Code(s): I48.91 - UNSPECIFIED ATRIAL FIBRILLATION Qualifiers: Atrial fibrillation type: chronic (5) ASHD (arteriosclerotic heart disease) Code(s): I25.10 - ATHSCL HEART DISEASE OF [place] CORONARY ARTERY W/O ANG PCTRS (6) Anemia Code(s): D64.9 - ANEMIA, UNSPECIFIED Qualifiers: Iron deficiency anemia type: chronic blood loss (7) Aortic stenosis Code(s): I35.0 - NONRHEUMATIC AORTIC (VALVE) STENOSIS (8) Atelectasis of right lung Code(s): J98.11 - ATELECTASIS (9) Chronic anemia Code(s): D64.9 - ANEMIA, UNSPECIFIED (10) H/O heart artery stent Code(s): Z95.5 - PRESENCE OF CORONARY ANGIOPLASTY IMPLANT AND GRAFT (11) Hx of CABG Code(s): Z95.1 - PRESENCE OF AORTOCORONARY BYPASS GRAFT (12) Mediastinal lymphadenopathy Code(s): R59.0 - LOCALIZED ENLARGED LYMPH NODES (13) PAD (peripheral artery disease) Code(s): I73.9 - PERIPHERAL VASCULAR DISEASE, UNSPECIFIED
[2019-04-24] MEDS ORDERED: POTASSIUM CHLORIDE TABS 20 MEQ TABLET.ER (FP) PO ONE (09:15)
[2019-04-24] MEDS: SILVER SULFADIAZINE 1% TOP CREAM 50 GM JAR TP SCH ×2 (09:57→22:12)
[2019-04-24] MEDS: ASPIRIN 81 MG CHEWABLE TABLETS PO SCH (09:57)
[2019-04-24] MEDS: ALLOPURINOL 300 MG TABLET (FP) PO SCH (09:57)
[2019-04-24] MEDS: metoPROLOL SUCCINATE 25 MG TAB.SR.24H (FP) PO SCH (09:57)
[2019-04-24] MEDS: FERROUS GLUCONATE 324 MG TAB (FP) PO SCH (09:57)
[2019-04-24] MEDS: PANTOPRAZOLE 40 MG TABLET (FP) PO SCH (09:57)
[2019-04-24] MEDS: CLOPIDOGREL BISULFATE 75 MG TABLET (FP) PO SCH (09:57)
--- NOTE | 2019-04-24 10:56 | PN ---
Progress Note (short form) - Note Progress Note: s: no chest pain, palps, dizziness, dyspnea. Current Medications Acetaminophen (Tylenol -) 650 mg PO Q4H PRN PRN Reason: PAIN Allopurinol (Zyloprim -) 300 mg PO DAILY [facility] Last Admin: 04/24/19 09:57 Dose: 300 mg Aspirin (Asa -) 81 mg PO DAILY [facility] Last Admin: 04/24/19 09:57 Dose: 81 mg Atorvastatin Calcium (Lipitor -) 40 mg PO HS [facility] Last Admin: 04/23/19 21:23 Dose: 40 mg Clopidogrel Bisulfate (Plavix -) 75 mg PO DAILY [facility] Last Admin: 04/24/19 09:57 Dose: 75 mg Diphenhydramine HCl (Benadryl -) 25 mg PO HS PRN PRN Reason: INSOMNIA Last Admin: 04/23/19 21:24 Dose: 25 mg Ferrous Gluconate (Fergon -) 324 mg PO DAILY [facility] Last Admin: 04/24/19 09:57 Dose: 324 mg Heparin Sodium (Porcine) (Heparin -) 5,000 unit SQ TID [facility] Last Admin: 04/24/19 05:45 Dose: Not Given Piperacillin Sod/Tazobactam (Sod 3.375 gm/ Dextrose) 50 mls @ 100 mls/hr IVPB Q8H-IV [facility]; Protocol Last Admin: 04/24/19 09:56 Dose: 100 mls/hr Metoprolol Succinate (Toprol Xl -) 12.5 mg PO DAILY [facility] Last Admin: 04/24/19 09:57 Dose: 12.5 mg Mirtazapine (Remeron -) 15 mg PO HS [facility] Last Admin: 04/23/19 21:23 Dose: 15 mg Pantoprazole Sodium (Protonix -) 40 mg PO DAILY [facility] Last Admin: 04/24/19 09:57 Dose: 40 mg Silver Sulfadiazine (Silvadene -) 1 applic TP BID [facility] Last Admin: 04/24/19 09:57 Dose: 1 applic Vital Signs Period Temp Pulse Resp BP Sys/Reyes Pulse Ox Last 24 Hr 97.9 F-98.8 F 58-110 20-20 94-131/37-77 96-98 Constitutional: Yes: Well Nourished, No Distress Eyes: No: Sclera Icterus HENT: No: Nasal Congestion Neck: No: Decreased ROM Respiratory: Yes: Regular, Rales (bases). No: Accessory Muscle Use Gastrointestinal: Yes: Normal Bowel Sounds, Other (+ probable pulsatile liver). No: Distention, Hepatomegaly, Palpable Mass, Tenderness Cardiovascular: Yes: Pulse Irregular JVD: Yes Carotid Bruit: No PMI: Non-Displaced Heart Sounds: Yes: S1, S2. No: Gallop Murmur: No: Systolic Murmur, Diastolic Murmur Musculoskeletal: Yes: Other (No kyphosis) Extremities: No: Cool, Cyanosis Edema: Yes (mild nonpitting pretib/an) Peripheral Pulses: 2+ Left Carotid, 2+ Right Carotid, 2+ Left Doralis Pedis, 2+ Right Dorsalis Pedis Integumentary: No: Jaundice Neurological: Yes: Alert, Oriented (x3) Psychiatric: No: Agitated Assessment/Plan Echo 2015: mild LVE, mild-mod global Lv hypo. mild RV hypo. mod MR. mild /AI. ECG: afib, LAFB, NSST-Ts--no signif change CT chest: no significant change vs prior 11/02: emphysematous changes, chronic interstitial changes at bases, trace effusion, pleural plaques, pleural-based lesion LLL, large hiatal hernia, dilated main PA c/w pulm HTN echo 04/2019 mod reduced LV function EF 40-45%, RV mildly reduced function, severe MAC, mild to mod MR, mild to mod TR, PASP at least 53 mmHg. tele: AF, HR controlled.PVCs hypotension, confusion, weakness, lactic acidosis, sepsis: - respiratory infectious illness for 10 days or so treated as outpt - BCx's with gram negative rods - UCX with enterococcus - abx/plan per pmd COPD: - per pmd systolic CHF, pulm HTN: -dilated PA on CT c/w pulm HTN -BNP 18K, up from 10K prior. very distended neck veins, mild (stable) LE edema. no signif pulm edema/effusions on CT-- echo with reduced RV function, elevated PASP, TR -suspect dry cough with wheezing is sec to PNA/bronchitis, copd and not chf-- defer diuretics -echo shows pulm HTN - rec oximetry with ambulation and sleep if necessary, to guide home O2 use to minimize progressive pulm HTN/RV failure VTach: -long runs of NSVT on tele 04/22 (20-28 beats) -replete K/Mg to >4/2 -EF moderately reduced, BP improved today - will start low dose bb (limited by sepsis with low bp yest, now stabilized) -cont tele CAD: -remote CABG -2014 s/p PCI of LM/LAD at [facility] per review of prior admit notes here (sees kirsty)--remains on aspirin + clopidogrel, plan per outpt cardio -trop.s here indeterminate range, flat trend. ECG non-ischemic--not c/w ACS AF: -s/p Watchman procedure--continue aspirin per prior treatment plan -HR controlled on its own anemia: -chronic, stable counts -per pmd
--- NOTE | 2019-04-24 12:46 | PN ---
Progress Note, Physician History of Present Illness: stable no new issues - Current Medication List Current Medications: Active Medications Acetaminophen (Tylenol -) 650 mg PO Q4H PRN PRN Reason: PAIN Allopurinol (Zyloprim -) 300 mg PO DAILY [facility] Last Admin: 04/24/19 09:57 Dose: 300 mg Aspirin (Asa -) 81 mg PO DAILY [facility] Last Admin: 04/24/19 09:57 Dose: 81 mg Atorvastatin Calcium (Lipitor -) 40 mg PO HS [facility] Last Admin: 04/23/19 21:23 Dose: 40 mg Clopidogrel Bisulfate (Plavix -) 75 mg PO DAILY [facility] Last Admin: 04/24/19 09:57 Dose: 75 mg Diphenhydramine HCl (Benadryl -) 25 mg PO HS PRN PRN Reason: INSOMNIA Last Admin: 04/23/19 21:24 Dose: 25 mg Ferrous Gluconate (Fergon -) 324 mg PO DAILY [facility] Last Admin: 04/24/19 09:57 Dose: 324 mg Heparin Sodium (Porcine) (Heparin -) 5,000 unit SQ TID [facility] Last Admin: 04/24/19 05:45 Dose: Not Given Piperacillin Sod/Tazobactam (Sod 3.375 gm/ Dextrose) 50 mls @ 100 mls/hr IVPB Q8H-IV [facility]; Protocol Last Admin: 04/24/19 09:56 Dose: 100 mls/hr Metoprolol Succinate (Toprol Xl -) 12.5 mg PO DAILY [facility] Last Admin: 04/24/19 09:57 Dose: 12.5 mg Mirtazapine (Remeron -) 15 mg PO HS [facility] Last Admin: 04/23/19 21:23 Dose: 15 mg Pantoprazole Sodium (Protonix -) 40 mg PO DAILY [facility] Last Admin: 04/24/19 09:57 Dose: 40 mg Silver Sulfadiazine (Silvadene -) 1 applic TP BID [facility] Last Admin: 04/24/19 09:57 Dose: 1 applic - Objective Vital Signs: Vital Signs Temperature 98 F 04/24/19 09:00 Pulse Rate 58 L 04/24/19 09:00 Respiratory Rate 20 04/24/19 09:00 Blood Pressure 113/66 04/24/19 09:00 O2 Sat by Pulse Oximetry (%) 98 04/24/19 09:00 Constitutional: Yes: No Distress, Calm Cardiovascular: Yes: S1, S2 Respiratory: Yes: Regular, CTA Bilaterally Gastrointestinal: Yes: Normal Bowel Sounds, Soft Musculoskeletal: Yes: WNL Extremities: Yes: WNL Neurological: Yes: Alert, Oriented Psychiatric: Yes: Alert, Oriented Labs: CBC, BMP 04/24/19 05:35 04/24/19 05:35 INR, PTT INR 1.46 (0.83-1.09) H 04/21/19 13:02 Assessment/Plan Assessment/Plan Problem List - Problems (1) Calcified granuloma of lung Code(s): J84.10 - PULMONARY FIBROSIS, UNSPECIFIED (2) Malnutrition Code(s): E46 - UNSPECIFIED PROTEIN-CALORIE MALNUTRITION Qualifiers: Malnutrition type: protein-calorie malnutrition Protein-calorie malnutrition severity: severe Qualified Code(s): E43 - Unspecified severe protein-calorie malnutrition (3) Pneumonia Code(s): J18.9 - PNEUMONIA, UNSPECIFIED ORGANISM Qualifiers: Pneumonia type: due to unspecified organism Laterality: right Lung location: lower lobe of lung Qualified Code(s): J18.1 - Lobar pneumonia, unspecified organism (4) A-fib Code(s): I48.91 - UNSPECIFIED ATRIAL FIBRILLATION Qualifiers: Atrial fibrillation type: chronic (5) ASHD (arteriosclerotic heart disease) Code(s): I25.10 - ATHSCL HEART DISEASE OF [place] CORONARY ARTERY W/O ANG PCTRS (6) Anemia Code(s): D64.9 - ANEMIA, UNSPECIFIED Qualifiers: Iron deficiency anemia type: chronic blood loss (7) Aortic stenosis Code(s): I35.0 - NONRHEUMATIC AORTIC (VALVE) STENOSIS (8) Atelectasis of right lung Code(s): J98.11 - ATELECTASIS (9) Chronic anemia Code(s): D64.9 - ANEMIA, UNSPECIFIED (10) H/O heart artery stent Code(s): Z95.5 - PRESENCE OF CORONARY ANGIOPLASTY IMPLANT AND GRAFT (11) Hx of CABG Code(s): Z95.1 - PRESENCE OF AORTOCORONARY BYPASS GRAFT (12) Mediastinal lymphadenopathy Code(s): R59.0 - LOCALIZED ENLARGED LYMPH NODES (13) PAD (peripheral artery disease) Code(s): I73.9 - PERIPHERAL VASCULAR DISEASE, UNSPECIFIED 14 uti 15 gm negative bacteremia plan continue abx await for repeat blood cx await for identification of bacteria rest as per the team will decide once we have everything how long to treat
[2019-04-24 13:08] LABS: MAGNESIUM 2.3 mg/dL (1.8-2.4)
[2019-04-24] MEDS: MIRTAZAPINE 15 MG TABLET (FP) PO SCH (22:11)
[2019-04-24] MEDS: ATORVASTATIN CA 40 MG TABLET (FP) PO SCH (22:11)
[2019-04-25] MEDS ORDERED: DEXTROSE 5%-WATER - 50 ML IVPB ONE ×3 (02:30→17:40)
[2019-04-25] MEDS ORDERED: PIPERACILLIN/TAZOBACTAM 3.375 GM VIAL IVPB ONE ×3 (02:30→17:40)
[2019-04-25] MEDS: HEPARIN NA (PORCINE) 5,000 UNITS/ML 1ML VIAL SQ SCH ×2 (06:34→15:14)
[2019-04-25] MEDS: PIPERACILLIN/TAZOB 3.375 GM 3.375 GM in DEXTROSE 5%-WATER - 50 ML IVPB SCH ×3 (06:34→17:41)
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
[2019-04-25] MEDS ORDERED: AMPICILLIN - 2 GM in SODIUM CHLORIDE 100 ML IVPB SCH (09:00)
[2019-04-25] MEDS: ACETAMINOPHEN 325 MG TABLET (FP) PO PRN ×2 (09:35→18:30)
[2019-04-25] MEDS: SILVER SULFADIAZINE 1% TOP CREAM 50 GM JAR TP SCH ×2 (09:36→23:06)
[2019-04-25] MEDS: metoPROLOL SUCCINATE 25 MG TAB.SR.24H (FP) PO SCH (09:36)
[2019-04-25] MEDS: CLOPIDOGREL BISULFATE 75 MG TABLET (FP) PO SCH (09:36)
[2019-04-25] MEDS: FERROUS GLUCONATE 324 MG TAB (FP) PO SCH (09:36)
[2019-04-25] MEDS: ASPIRIN 81 MG CHEWABLE TABLETS PO SCH (09:36)
[2019-04-25] MEDS: ALLOPURINOL 300 MG TABLET (FP) PO SCH (09:36)
[2019-04-25] MEDS: PANTOPRAZOLE 40 MG TABLET (FP) PO SCH (09:36)
--- NOTE | 2019-04-25 11:27 | PN ---
Progress Note (short form) - Note Progress Note: s: no chest pain, palps, dizziness, dyspnea. Current Medications Generic Name Dose Route Start Last Admin Trade Name Freq PRN Reason Stop Dose Admin Acetaminophen 650 mg 04/21/19 18:04 04/25/19 09:35 Tylenol - PO 650 mg Q4H PRN Administration PAIN Allopurinol 300 mg 04/22/19 10:00 04/25/19 09:36 Zyloprim - PO 300 mg DAILY [facility] Administration Aspirin 81 mg 04/22/19 10:00 04/25/19 09:36 Asa - PO 81 mg DAILY [facility] Administration Atorvastatin Calcium 40 mg 04/21/19 22:00 04/24/19 22:11 Lipitor - PO 40 mg HS [facility] Administration Clopidogrel Bisulfate 75 mg 04/22/19 10:00 04/25/19 09:36 Plavix - PO 75 mg DAILY [facility] Administration Diphenhydramine HCl 25 mg 04/21/19 18:04 04/23/19 21:24 Benadryl - PO 25 mg HS PRN Administration INSOMNIA Ferrous Gluconate 324 mg 04/24/19 10:00 04/25/19 09:36 Fergon - PO 324 mg DAILY [facility] Administration Heparin Sodium (Porcine) 5,000 unit 04/21/19 22:00 04/25/19 06:34 Heparin - SQ Not Given TID [facility] Piperacillin Sod/Tazobactam 50 mls @ 100 mls/hr 04/25/19 10:00 04/25/19 10:40 Sod 3.375 gm/ Dextrose IVPB 100 mls/hr Q8H-IV [facility] Administration Protocol Metoprolol Succinate 12.5 mg 04/23/19 13:30 04/25/19 09:36 Toprol Xl - PO 12.5 mg DAILY [facility] Administration Mirtazapine 15 mg 04/21/19 22:00 04/24/19 22:11 Remeron - PO 15 mg HS [facility] Administration Pantoprazole Sodium 40 mg 04/22/19 10:00 04/25/19 09:36 Protonix - PO 40 mg DAILY [facility] Administration Silver Sulfadiazine 1 applic 04/23/19 10:00 04/25/19 09:36 Silvadene - TP 1 applic BID [facility] Administration Vital Signs Period Temp Pulse Resp BP Sys/Reyes Pulse Ox Last 24 Hr 97.9 F-98.4 F 60-102 20-20 114-125/58-85 92-92 Constitutional: Yes: Well Nourished, No Distress Eyes: No: Sclera Icterus HENT: No: Nasal Congestion Respiratory: Yes: cta bl nl eff Gastrointestinal: Yes: Normal Bowel Sounds, No: Distention, Hepatomegaly, Palpable Mass, Tenderness Cardiovascular: Yes: Pulse Irregular JVD: Yes Heart Sounds: Yes: S1, S2. No: Gallop Murmur: No: Systolic Murmur, Diastolic Murmur Extremities: No: Cool, Cyanosis Edema: Yes (mild nonpitting pretib/an) Peripheral Pulses: 2+ Left Carotid, 2+ Right Carotid, 2+ Left Doralis Pedis, 2+ Right Dorsalis Pedis Integumentary: No: Jaundice Neurological: Yes: Alert, Oriented (x3) Psychiatric: No: Agitated CBC, BMP 04/24/19 05:35 04/24/19 05:35 Assessment/Plan Echo 2014: mild LVE, mild-mod global Lv hypo. mild RV hypo. mod MR. mild /AI. ECG: afib, LAFB, NSST-Ts--no signif change CT chest: no significant change vs prior 11/02: emphysematous changes, chronic interstitial changes at bases, trace effusion, pleural plaques, pleural-based lesion LLL, large hiatal hernia, dilated main PA c/w pulm HTN echo 04/2019 mod reduced LV function EF 40-45%, RV mildly reduced function, severe MAC, mild to mod MR, mild to mod TR, PASP at least 53 mmHg. tele: AF, HR controlled hypotension, confusion, weakness, lactic acidosis, sepsis: - respiratory infectious illness for 10 days or so treated as outpt - BCx's with gram negative rods - UCX with enterococcus - abx/plan per pmd/ID systolic CHF, pulm HTN: -dilated PA on CT c/w pulm HTN -BNP 18K, up from 10K prior. very distended neck veins, mild (stable) LE edema. no signif pulm edema/effusions on CT-- echo with reduced RV function, elevated PASP, TR -suspect dry cough with wheezing is sec to PNA/bronchitis, copd and not chf-- defer diuretics -echo shows pulm HTN - rec oximetry with ambulation and sleep if necessary, to guide home O2 use to minimize progressive pulm HTN/RV failure VTach: -long runs of NSVT on tele 04/22 (20-28 beats) -replete K/Mg to >4/2 -EF moderately reduced, started bb here -cont tele CAD: -remote CABG -2014 s/p PCI of LM/LAD at [facility] per review of prior admit notes here (sees kirsty)--remains on aspirin + clopidogrel, plan per outpt cardio -trop.s here indeterminate range, flat trend. ECG non-ischemic--not c/w ACS AF: -s/p Watchman procedure--continue aspirin per prior treatment plan -HR controlled on its own anemia: -chronic, stable counts -per pmd
--- NOTE | 2019-04-25 12:34 | PN ---
Progress Note (short form) - Note Progress Note: PULMONARY Denies shortness of breath or cough. No fevers recorded. Vital Signs Period Temp Pulse Resp BP Sys/Reyes Pulse Ox Last 24 Hr 97.9 F-98.4 F 60-102 20-20 114-125/58-85 92-92 Gen: NAD at rest Heart: RRR Lung: decreased breath sounds at the bases Abd: soft, nontender Ext: no edema CBC, BMP 04/24/19 05:35 04/24/19 05:35 Active Medications Acetaminophen (Tylenol -) 650 mg PO Q4H PRN PRN Reason: PAIN Last Admin: 04/25/19 09:35 Dose: 650 mg Allopurinol (Zyloprim -) 300 mg PO DAILY [facility] Last Admin: 04/25/19 09:36 Dose: 300 mg Aspirin (Asa -) 81 mg PO DAILY [facility] Last Admin: 04/25/19 09:36 Dose: 81 mg Atorvastatin Calcium (Lipitor -) 40 mg PO HS [facility] Last Admin: 04/24/19 22:11 Dose: 40 mg Clopidogrel Bisulfate (Plavix -) 75 mg PO DAILY [facility] Last Admin: 04/25/19 09:36 Dose: 75 mg Diphenhydramine HCl (Benadryl -) 25 mg PO HS PRN PRN Reason: INSOMNIA Last Admin: 04/23/19 21:24 Dose: 25 mg Ferrous Gluconate (Fergon -) 324 mg PO DAILY [facility] Last Admin: 04/25/19 09:36 Dose: 324 mg Heparin Sodium (Porcine) (Heparin -) 5,000 unit SQ TID [facility] Last Admin: 04/25/19 06:34 Dose: Not Given Piperacillin Sod/Tazobactam (Sod 3.375 gm/ Dextrose) 50 mls @ 100 mls/hr IVPB Q8H-IV [facility]; Protocol Last Admin: 04/25/19 10:40 Dose: 100 mls/hr Metoprolol Succinate (Toprol Xl -) 12.5 mg PO DAILY [facility] Last Admin: 04/25/19 09:36 Dose: 12.5 mg Mirtazapine (Remeron -) 15 mg PO HS [facility] Last Admin: 04/24/19 22:11 Dose: 15 mg Pantoprazole Sodium (Protonix -) 40 mg PO DAILY [facility] Last Admin: 04/25/19 09:36 Dose: 40 mg Silver Sulfadiazine (Silvadene -) 1 applic TP BID [facility] Last Admin: 04/25/19 09:36 Dose: 1 applic A/P r/o Pneumonia Listeria Bacteremia Sepsis Lactic Acidosis +Troponins likely [place]and Ischemia Atrial Fibrillation LV Systolic Dysfunction Pulmonary HTN CAD Anemia - continue antibiotics per ID - lasix as needed - O2 to keep spO2 >90% - rate control - aspiration precautions - DVT prophylaxis
--- NOTE | 2019-04-25 14:57 | PN ---
Progress Note, Physician History of Present Illness: stable no new issues - Current Medication List Current Medications: Active Medications Acetaminophen (Tylenol -) 650 mg PO Q4H PRN PRN Reason: PAIN Last Admin: 04/25/19 09:35 Dose: 650 mg Allopurinol (Zyloprim -) 300 mg PO DAILY [facility] Last Admin: 04/25/19 09:36 Dose: 300 mg Aspirin (Asa -) 81 mg PO DAILY [facility] Last Admin: 04/25/19 09:36 Dose: 81 mg Atorvastatin Calcium (Lipitor -) 40 mg PO HS [facility] Last Admin: 04/24/19 22:11 Dose: 40 mg Clopidogrel Bisulfate (Plavix -) 75 mg PO DAILY [facility] Last Admin: 04/25/19 09:36 Dose: 75 mg Heparin Sodium (Porcine) (Heparin -) 5,000 unit SQ TID [facility] Last Admin: 04/25/19 06:34 Dose: Not Given Piperacillin Sod/Tazobactam (Sod 3.375 gm/ Dextrose) 50 mls @ 100 mls/hr IVPB Q8H-IV [facility]; Protocol Last Admin: 04/25/19 10:40 Dose: 100 mls/hr Silver Sulfadiazine (Silvadene -) 1 applic TP BID [facility] Last Admin: 04/25/19 09:36 Dose: 1 applic - Objective Vital Signs: Vital Signs Temperature 98.1 F 04/25/19 14:00 Pulse Rate 92 H 04/25/19 14:00 Respiratory Rate 20 04/25/19 14:00 Blood Pressure 101/52 L 04/25/19 14:00 O2 Sat by Pulse Oximetry (%) 92 L 04/25/19 08:31 Constitutional: Yes: No Distress, Calm Cardiovascular: Yes: S1, S2 Respiratory: Yes: Regular, CTA Bilaterally Gastrointestinal: Yes: Normal Bowel Sounds, Soft Musculoskeletal: Yes: WNL Extremities: Yes: WNL Neurological: Yes: Alert, Oriented Psychiatric: Yes: Alert, Oriented Labs: CBC, BMP 04/24/19 05:35 04/24/19 05:35 INR, PTT INR 1.46 (0.83-1.09) H 04/21/19 13:02 Assessment/Plan Assessment/Plan Problem List - Problems (1) Calcified granuloma of lung Code(s): J84.10 - PULMONARY FIBROSIS, UNSPECIFIED (2) Malnutrition Code(s): E46 - UNSPECIFIED PROTEIN-CALORIE MALNUTRITION Qualifiers: Malnutrition type: protein-calorie malnutrition Protein-calorie malnutrition severity: severe Qualified Code(s): E43 - Unspecified severe protein-calorie malnutrition (3) Pneumonia Code(s): J18.9 - PNEUMONIA, UNSPECIFIED ORGANISM Qualifiers: Pneumonia type: due to unspecified organism Laterality: right Lung location: lower lobe of lung Qualified Code(s): J18.1 - Lobar pneumonia, unspecified organism (4) A-fib Code(s): I48.91 - UNSPECIFIED ATRIAL FIBRILLATION Qualifiers: Atrial fibrillation type: chronic (5) ASHD (arteriosclerotic heart disease) Code(s): I25.10 - ATHSCL HEART DISEASE OF [place] CORONARY ARTERY W/O ANG PCTRS (6) Anemia Code(s): D64.9 - ANEMIA, UNSPECIFIED Qualifiers: Iron deficiency anemia type: chronic blood loss (7) Aortic stenosis Code(s): I35.0 - NONRHEUMATIC AORTIC (VALVE) STENOSIS (8) Atelectasis of right lung Code(s): J98.11 - ATELECTASIS (9) Chronic anemia Code(s): D64.9 - ANEMIA, UNSPECIFIED (10) H/O heart artery stent Code(s): Z95.5 - PRESENCE OF CORONARY ANGIOPLASTY IMPLANT AND GRAFT (11) Hx of CABG Code(s): Z95.1 - PRESENCE OF AORTOCORONARY BYPASS GRAFT (12) Mediastinal lymphadenopathy Code(s): R59.0 - LOCALIZED ENLARGED LYMPH NODES (13) PAD (peripheral artery disease) Code(s): I73.9 - PERIPHERAL VASCULAR DISEASE, UNSPECIFIED 14 uti 15 gm negative bacteremia plan continue abx await for repeat blood cx await for identification of bacteria rest as per the team will decide once we have everything how long to treat
[2019-04-25] MEDS: ATORVASTATIN CA 40 MG TABLET (FP) PO SCH (23:06)
[2019-04-26] MEDS: HEPARIN NA (PORCINE) 5,000 UNITS/ML 1ML VIAL SQ SCH ×4 (00:32→22:35)
[2019-04-26] MEDS ORDERED: PIPERACILLIN/TAZOBACTAM 3.375 GM VIAL IVPB ONE ×3 (03:31→17:05)
[2019-04-26] MEDS ORDERED: DEXTROSE 5%-WATER - 50 ML IVPB ONE ×3 (03:32→17:05)
[2019-04-26] MEDS: PIPERACILLIN/TAZOB 3.375 GM 3.375 GM in DEXTROSE 5%-WATER - 50 ML IVPB SCH ×3 (03:40→17:08)
--- NOTE | 2019-04-26 07:12 | PN ---
Progress Note, Physician Chief Complaint: admitted w/ UTI, sepsis: LISTERIA BACTEREMIA Comfortable, sitting in chair TELE: NSR, PVCs, Couplets History of Present Illness: Moderately reduced EF on echo - Current Medication List Current Medications: Active Medications Acetaminophen (Tylenol -) 650 mg PO Q4H PRN PRN Reason: PAIN Last Admin: 04/25/19 18:30 Dose: 650 mg Allopurinol (Zyloprim -) 300 mg PO DAILY [facility] Last Admin: 04/25/19 09:36 Dose: 300 mg Aspirin (Asa -) 81 mg PO DAILY [facility] Last Admin: 04/25/19 09:36 Dose: 81 mg Atorvastatin Calcium (Lipitor -) 40 mg PO HS [facility] Last Admin: 04/25/19 23:06 Dose: 40 mg Clopidogrel Bisulfate (Plavix -) 75 mg PO DAILY [facility] Last Admin: 04/25/19 09:36 Dose: 75 mg Heparin Sodium (Porcine) (Heparin -) 5,000 unit SQ TID [facility] Last Admin: 04/26/19 05:53 Dose: Not Given Piperacillin Sod/Tazobactam (Sod 3.375 gm/ Dextrose) 50 mls @ 100 mls/hr IVPB Q8H-IV [facility]; Protocol Last Admin: 04/26/19 03:40 Dose: 100 mls/hr Silver Sulfadiazine (Silvadene -) 1 applic TP BID [facility] Last Admin: 04/25/19 23:06 Dose: 1 applic - Objective Vital Signs: Vital Signs Temperature 97.5 F L 04/26/19 06:00 Pulse Rate 76 04/26/19 06:00 Respiratory Rate 20 04/26/19 06:00 Blood Pressure 112/60 04/26/19 06:00 O2 Sat by Pulse Oximetry (%) 97 04/25/19 21:00 Constitutional: Yes: No Distress Cardiovascular: Yes: Pulse Irregular Respiratory: Yes: Other (decreased breath sounds RIGHT base) Gastrointestinal: Yes: Soft Edema: No Neurological: Yes: Alert, Oriented ...Motor Strength: WNL Labs: CBC, BMP 04/24/19 05:35 04/24/19 05:35 INR, PTT INR 1.46 (0.83-1.09) H 04/21/19 13:02 - ....Imaging EKG: Image Reviewed Assessment/Plan CT chest: no significant change vs prior 11/02: emphysematous changes, chronic interstitial changes at bases, trace effusion, pleural plaques, pleural-based lesion LLL, large hiatal hernia, dilated main PA c/w pulm HTN echo 04/2019 mod reduced LV function EF 40-45%, RV mildly reduced function, severe MAC, mild to mod MR, mild to mod TR, PASP at least 53 mmHg. tele: AF, HR controlled hypotension, confusion, weakness, lactic acidosis, sepsis: LISTERIA BACTEREMIA - respiratory infectious illness for 10 days or so treated as outpt - BCx's with gram negative rods - UCX with enterococcus - abx/plan per pmd/ID systolic CHF, pulm HTN: -dilated PA on CT c/w pulm HTN -BNP 18K, up from 10K prior. very distended neck veins, mild (stable) LE edema. no signif pulm edema/effusions on CT-- echo with reduced RV function, elevated PASP, TR -suspect dry cough with wheezing is sec to PNA/bronchitis, copd and not chf-- defer diuretics -echo shows pulm HTN - rec oximetry with ambulation and sleep if necessary, to guide home O2 use to minimize progressive pulm HTN/RV failure VTach: -long runs of NSVT on tele 04/22 (20-28 beats) -replete K/Mg to >4/2 -EF moderately reduced; Toprol XL 12.5 daily to be resumed, d/w PMD -cont tele CAD: -remote CABG -2014 s/p PCI of LM/LAD at [facility] per review of prior admit notes here (sees kirsty)--remains on aspirin + clopidogrel, plan per outpt cardio -trop.s here indeterminate range, flat trend. ECG non-ischemic--not c/w ACS AF: -s/p Watchman procedure--continue aspirin per prior treatment plan -HR controlled on its own anemia: -chronic, stable counts -per pmd
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
--- NOTE | 2019-04-26 10:48 | PN ---
Progress Note, Physician History of Present Illness: pulmonary alert,oob-chair,-c/o sob,afebrile - Current Medication List Current Medications: Active Medications Acetaminophen (Tylenol -) 650 mg PO Q4H PRN PRN Reason: PAIN Last Admin: 04/25/19 18:30 Dose: 650 mg Allopurinol (Zyloprim -) 300 mg PO DAILY [facility] Last Admin: 04/25/19 09:36 Dose: 300 mg Aspirin (Asa -) 81 mg PO DAILY [facility] Last Admin: 04/25/19 09:36 Dose: 81 mg Atorvastatin Calcium (Lipitor -) 40 mg PO HS [facility] Last Admin: 04/25/19 23:06 Dose: 40 mg Clopidogrel Bisulfate (Plavix -) 75 mg PO DAILY [facility] Last Admin: 04/25/19 09:36 Dose: 75 mg Heparin Sodium (Porcine) (Heparin -) 5,000 unit SQ TID [facility] Last Admin: 04/26/19 05:53 Dose: Not Given Piperacillin Sod/Tazobactam (Sod 3.375 gm/ Dextrose) 50 mls @ 100 mls/hr IVPB Q8H-IV [facility]; Protocol Last Admin: 04/26/19 03:40 Dose: 100 mls/hr Metoprolol Succinate (Toprol Xl -) 12.5 mg PO DAILY [facility] Silver Sulfadiazine (Silvadene -) 1 applic TP BID [facility] Last Admin: 04/25/19 23:06 Dose: 1 applic - Objective Vital Signs: Vital Signs Temperature 97.5 F L 04/26/19 06:00 Pulse Rate 76 04/26/19 06:00 Respiratory Rate 20 04/26/19 06:00 Blood Pressure 112/60 04/26/19 06:00 O2 Sat by Pulse Oximetry (%) 97 04/25/19 21:00 Constitutional: Yes: Calm, Thin Eyes: Yes: WNL HENT: Yes: WNL Cardiovascular: Yes: Pulse Irregular, S1, S2 Respiratory: Yes: CTA Bilaterally Gastrointestinal: Yes: Normal Bowel Sounds, Soft Extremities: Yes: WNL Edema: Yes Labs: CBC, BMP Assessment/Plan Problem List - Problems (1) Calcified granuloma of lung Code(s): J84.10 - PULMONARY FIBROSIS, UNSPECIFIED (2) Malnutrition Code(s): E46 - UNSPECIFIED PROTEIN-CALORIE MALNUTRITION Qualifiers: Malnutrition type: protein-calorie malnutrition Protein-calorie malnutrition severity: severe Qualified Code(s): E43 - Unspecified severe protein-calorie malnutrition (3) Pneumonia Code(s): J18.9 - PNEUMONIA, UNSPECIFIED ORGANISM Qualifiers: Pneumonia type: due to unspecified organism Laterality: right Lung location: lower lobe of lung Qualified Code(s): J18.1 - Lobar pneumonia, unspecified organism (4) A-fib Code(s): I48.91 - UNSPECIFIED ATRIAL FIBRILLATION Qualifiers: Atrial fibrillation type: chronic (5) ASHD (arteriosclerotic heart disease) Code(s): I25.10 - ATHSCL HEART DISEASE OF [place] CORONARY ARTERY W/O ANG PCTRS (6) Anemia Code(s): D64.9 - ANEMIA, UNSPECIFIED Qualifiers: Iron deficiency anemia type: chronic blood loss (7) Aortic stenosis Code(s): I35.0 - NONRHEUMATIC AORTIC (VALVE) STENOSIS (8) Atelectasis of right lung Code(s): J98.11 - ATELECTASIS (9) Chronic anemia Code(s): D64.9 - ANEMIA, UNSPECIFIED (10) H/O heart artery stent Code(s): Z95.5 - PRESENCE OF CORONARY ANGIOPLASTY IMPLANT AND GRAFT (11) Hx of CABG Code(s): Z95.1 - PRESENCE OF AORTOCORONARY BYPASS GRAFT (12) Mediastinal lymphadenopathy Code(s): R59.0 - LOCALIZED ENLARGED LYMPH NODES (13) PAD (peripheral artery disease) Code(s): I73.9 - PERIPHERAL VASCULAR DISEASE, UNSPECIFIED Assessment/PlanA/P r/o Pneumonia Listeria Bacteremia Sepsis Lactic Acidosis resolved +Troponins likely Demand Ischemia Atrial Fibrillation LV Systolic Dysfunction Pulmonary HTN CAD Anemia - antibiotics per ID - lasix as needed - O2 to keep spO2 >90% - rate control - aspiration precautions - DVT prophylaxis - monitor lytes,h+h - normal transfusion threshold DR MAURICIO
[2019-04-26] MEDS: metoPROLOL SUCCINATE 25 MG TAB.SR.24H (FP) PO SCH (11:00)
[2019-04-26] MEDS: CLOPIDOGREL BISULFATE 75 MG TABLET (FP) PO SCH (11:15)
[2019-04-26] MEDS: ASPIRIN 81 MG CHEWABLE TABLETS PO SCH (11:15)
[2019-04-26] MEDS: SILVER SULFADIAZINE 1% TOP CREAM 50 GM JAR TP SCH ×2 (11:16→22:34)
[2019-04-26] MEDS: ALLOPURINOL 300 MG TABLET (FP) PO SCH (11:16)
--- NOTE | 2019-04-26 13:30 | PN ---
Progress Note, Physician - Current Medication List Current Medications: Active Medications Acetaminophen (Tylenol -) 650 mg PO Q4H PRN PRN Reason: PAIN Last Admin: 04/25/19 18:30 Dose: 650 mg Allopurinol (Zyloprim -) 300 mg PO DAILY [facility] Last Admin: 04/26/19 11:16 Dose: 300 mg Aspirin (Asa -) 81 mg PO DAILY [facility] Last Admin: 04/26/19 11:15 Dose: 81 mg Atorvastatin Calcium (Lipitor -) 40 mg PO HS [facility] Last Admin: 04/25/19 23:06 Dose: 40 mg Clopidogrel Bisulfate (Plavix -) 75 mg PO DAILY [facility] Last Admin: 04/26/19 11:15 Dose: 75 mg Heparin Sodium (Porcine) (Heparin -) 5,000 unit SQ TID [facility] Last Admin: 04/26/19 05:53 Dose: Not Given Piperacillin Sod/Tazobactam (Sod 3.375 gm/ Dextrose) 50 mls @ 100 mls/hr IVPB Q8H-IV [facility]; Protocol Last Admin: 04/26/19 11:16 Dose: 100 mls/hr Metoprolol Succinate (Toprol Xl -) 12.5 mg PO DAILY [facility] Last Admin: 04/26/19 11:00 Dose: 12.5 mg Silver Sulfadiazine (Silvadene -) 1 applic TP BID [facility] Last Admin: 04/26/19 11:16 Dose: 1 applic - Objective Vital Signs: Vital Signs Temperature 97.5 F L 04/26/19 10:00 Pulse Rate 84 04/26/19 10:00 Respiratory Rate 18 04/26/19 10:00 Blood Pressure 116/70 04/26/19 10:00 O2 Sat by Pulse Oximetry (%) 98 04/26/19 09:00 Labs: CBC, BMP 04/24/19 05:35 04/24/19 05:35 INR, PTT INR 1.46 (0.83-1.09) H 04/21/19 13:02
[2019-04-26] MEDS: ACETAMINOPHEN 325 MG TABLET (FP) PO PRN (16:14)
[2019-04-26] MEDS: ATORVASTATIN CA 40 MG TABLET (FP) PO SCH (22:34)
[2019-04-27] MEDS ORDERED: DEXTROSE 5%-WATER - 50 ML IVPB ONE ×3 (01:16→17:40)
[2019-04-27] MEDS ORDERED: PIPERACILLIN/TAZOBACTAM 3.375 GM VIAL IVPB ONE ×3 (01:16→17:40)
[2019-04-27] MEDS: PIPERACILLIN/TAZOB 3.375 GM 3.375 GM in DEXTROSE 5%-WATER - 50 ML IVPB SCH ×3 (02:20→18:39)
[2019-04-27] MEDS: HEPARIN NA (PORCINE) 5,000 UNITS/ML 1ML VIAL SQ SCH ×3 (06:26→21:41)
[2019-04-27] MEDS: CLOPIDOGREL BISULFATE 75 MG TABLET (FP) PO SCH (09:47)
[2019-04-27] MEDS: ALLOPURINOL 300 MG TABLET (FP) PO SCH (09:47)
[2019-04-27] MEDS: metoPROLOL SUCCINATE 25 MG TAB.SR.24H (FP) PO SCH (09:47)
[2019-04-27] MEDS: ASPIRIN 81 MG CHEWABLE TABLETS PO SCH (09:48)
[2019-04-27] MEDS: SILVER SULFADIAZINE 1% TOP CREAM 50 GM JAR TP SCH ×3 (09:48→21:42)
--- NOTE | 2019-04-27 13:36 | PN ---
Progress Note (short form) - Note Progress Note: s: no chest pain, palps, dizziness, dyspnea Vital Signs Period Temp Pulse Resp BP Sys/Reyes Pulse Ox Last 24 Hr 97.7 F-98.2 F 70-80 20-20 97-138/53-67 94 Constitutional: Yes: No Distress Cardiovascular: Yes: Pulse Irregular Respiratory: Yes: Other (decreased breath sounds RIGHT base) Gastrointestinal: Yes: Soft Edema: No Neurological: Yes: Alert, Oriented no jaundice, diaphoresis not agitated Current Medications Acetaminophen (Tylenol -) 650 mg PO Q4H PRN PRN Reason: PAIN Last Admin: 04/26/19 16:14 Dose: 650 mg Allopurinol (Zyloprim -) 300 mg PO DAILY [facility] Last Admin: 04/27/19 09:47 Dose: 300 mg Aspirin (Asa -) 81 mg PO DAILY [facility] Last Admin: 04/27/19 09:48 Dose: 81 mg Atorvastatin Calcium (Lipitor -) 40 mg PO HS [facility] Last Admin: 04/26/19 22:34 Dose: 40 mg Clopidogrel Bisulfate (Plavix -) 75 mg PO DAILY [facility] Last Admin: 04/27/19 09:47 Dose: 75 mg Heparin Sodium (Porcine) (Heparin -) 5,000 unit SQ TID [facility] Last Admin: 04/27/19 06:26 Dose: 5,000 unit Piperacillin Sod/Tazobactam (Sod 3.375 gm/ Dextrose) 50 mls @ 100 mls/hr IVPB Q8H-IV [facility]; Protocol Last Admin: 04/27/19 09:47 Dose: 100 mls/hr Metoprolol Succinate (Toprol Xl -) 12.5 mg PO DAILY [facility] Last Admin: 04/27/19 09:47 Dose: 12.5 mg Silver Sulfadiazine (Silvadene -) 1 applic TP BID [facility] Last Admin: 04/27/19 09:48 Dose: 1 applic Assessment/Plan CT chest: no significant change vs prior 11/02: emphysematous changes, chronic interstitial changes at bases, trace effusion, pleural plaques, pleural-based lesion LLL, large hiatal hernia, dilated main PA c/w pulm HTN echo 04/2019 mod reduced LV function EF 40-45%, RV mildly reduced function, severe MAC, mild to mod MR, mild to mod TR, PASP at least 53 mmHg. tele: AF, HR controlled, NSVT 6-7 beats hypotension, confusion, weakness, lactic acidosis, sepsis, listeria bacteremia - respiratory infectious illness for 10 days or so treated as outpt - BCx's with gram negative rods - UCX with enterococcus - abx/plan per pmd/ID systolic CHF, pulm HTN: -dilated PA on CT c/w pulm HTN -BNP 18K, up from 10K prior. very distended neck veins, mild (stable) LE edema. no signif pulm edema/effusions on CT-- echo with reduced RV function, elevated PASP, TR -suspect dry cough with wheezing is sec to PNA/bronchitis, copd and not chf-- defer diuretics -echo shows pulm HTN - rec oximetry with ambulation and sleep if necessary, to guide home O2 use to minimize progressive pulm HTN/RV failure VTach: -long runs of NSVT on tele 04/22 (20-28 beats) -replete K/Mg to >4/2 -EF moderately reduced; toprol 12.5 mg daily resumed, monitoring on tele CAD: -remote CABG -2014 s/p PCI of LM/LAD at [facility] per review of prior admit notes here (sees kirsty)--remains on aspirin + clopidogrel, plan per outpt cardio -trop.s here indeterminate range, flat trend. ECG non-ischemic--not c/w ACS AF: -s/p Watchman procedure--continue aspirin per prior treatment plan -HR controlled on its own anemia: -chronic, stable counts -per pmd
--- NOTE | 2019-04-27 14:21 | PN ---
Progress Note (short form) - Note Progress Note: Resting in NAD. No acute events overnight. Intake & Output 04/24/19 04/25/19 04/26/19 04/27/19 23:59 23:59 23:59 23:59 Intake Total 460 640 430 Balance 460 640 430 Weight 134 lb 9.6 oz 137 lb 6 oz 136 lb 9.6 oz 139 lb 6.4 oz Last Vital Signs Temp Pulse Resp BP Pulse Ox 97.9 F 80 20 138/67 94 L 04/27/19 06:00 04/27/19 06:00 04/27/19 06:00 04/27/19 06:00 04/26/19 21:00 Active Medications Acetaminophen (Tylenol -) 650 mg PO Q4H PRN PRN Reason: PAIN Last Admin: 04/26/19 16:14 Dose: 650 mg Allopurinol (Zyloprim -) 300 mg PO DAILY [facility] Last Admin: 04/27/19 09:47 Dose: 300 mg Aspirin (Asa -) 81 mg PO DAILY [facility] Last Admin: 04/27/19 09:48 Dose: 81 mg Atorvastatin Calcium (Lipitor -) 40 mg PO HS [facility] Last Admin: 04/26/19 22:34 Dose: 40 mg Clopidogrel Bisulfate (Plavix -) 75 mg PO DAILY [facility] Last Admin: 04/27/19 09:47 Dose: 75 mg Heparin Sodium (Porcine) (Heparin -) 5,000 unit SQ TID [facility] Last Admin: 04/27/19 13:48 Dose: Not Given Piperacillin Sod/Tazobactam (Sod 3.375 gm/ Dextrose) 50 mls @ 100 mls/hr IVPB Q8H-IV [facility]; Protocol Last Admin: 04/27/19 09:47 Dose: 100 mls/hr Metoprolol Succinate (Toprol Xl -) 12.5 mg PO DAILY [facility] Last Admin: 04/27/19 09:47 Dose: 12.5 mg Silver Sulfadiazine (Silvadene -) 1 applic TP BID [facility] Last Admin: 04/27/19 09:48 Dose: 1 applic Constitutional: Yes: NAD Eyes: Yes: WNL HENT: Yes: WNL Cardiovascular: Yes: Pulse Irregular, S1, S2 Respiratory: Yes: diminished at the bases, few scattered rhonchi Gastrointestinal: Yes: Normal Bowel Sounds, Soft Extremities: Yes: WNL Edema: Yes Labs: Laboratory Results - last 24 hr 04/21/19 04/21/19 04/21/19 13:02 13:02 13:02 WBC 12.7 H RBC 3.19 L Hgb 9.1 L Hct 27.9 L MCV 87.5 MCH 28.5 MCHC 32.5 RDW 17.2 H Plt Count 225 D MPV 9.7 Absolute Neuts (auto) 9.8 H Neutrophils % 77.1 Lymphocytes % 17.5 D Monocytes % 4.2 Eosinophils % 0.0 D Basophils % 1.2 D Nucleated RBC % 0 PT with INR 17.30 H INR 1.46 H PTT (Actin FS) 30.0 Sodium 137 Potassium 4.3 Chloride 99 Carbon Dioxide 31 Anion Gap 6 L BUN 24.6 H Creatinine 0.8 Est GFR (CKD-EPI)AfAm 91.79 Est GFR (CKD-EPI)NonAf 79.20 Random Glucose 99 Lactic Acid Calcium 8.0 L Total Bilirubin 1.0 AST 22 ALT 25 Alkaline Phosphatase 287 H Creatine Kinase Troponin I B-Natriuretic Peptide Total Protein 6.2 L Albumin 2.4 L Urine Color Urine Appearance Urine pH Ur Specific Ranger Urine Protein Urine Glucose (UA) Urine Ketones Urine Blood Urine Nitrite Urine Bilirubin Urine Urobilinogen Ur Leukocyte Esterase 04/21/19 04/21/19 04/21/19 13:02 13:02 13:30 WBC RBC Hgb Hct MCV MCH MCHC RDW Plt Count MPV Absolute Neuts (auto) Neutrophils % Lymphocytes % Monocytes % Eosinophils % Basophils % Nucleated RBC % PT with INR INR PTT (Actin FS) Sodium Potassium Chloride Carbon Dioxide Anion Gap BUN Creatinine Est GFR (CKD-EPI)AfAm Est GFR (CKD-EPI)NonAf Random Glucose Lactic Acid 1.7 Calcium Total Bilirubin AST ALT Alkaline Phosphatase Creatine Kinase 11 L Troponin I 0.14 H B-Natriuretic Peptide 98671.9 H Total Protein Albumin Urine Color Yellow Urine Appearance Clear Urine pH 5.5 Ur Specific Ranger 1.010 Urine Protein Negative Urine Glucose (UA) Negative Urine Ketones Negative Urine Blood Negative Urine Nitrite Negative Urine Bilirubin Negative Urine Urobilinogen 1.0 Ur Leukocyte Esterase Negative 04/21/19 04/21/19 18:30 18:30 WBC RBC Hgb Hct MCV MCH MCHC RDW Plt Count MPV Absolute Neuts (auto) Neutrophils % Lymphocytes % Monocytes % Eosinophils % Basophils % Nucleated RBC % PT with INR INR PTT (Actin FS) Sodium Potassium Chloride Carbon Dioxide Anion Gap BUN Creatinine Est GFR (CKD-EPI)AfAm Est GFR (CKD-EPI)NonAf Random Glucose Lactic Acid 2.2 H* Calcium Total Bilirubin AST ALT Alkaline Phosphatase Creatine Kinase 14 L Troponin I 0.16 H B-Natriuretic Peptide Total Protein Albumin Urine Color Urine Appearance Urine pH Ur Specific Ranger Urine Protein Urine Glucose (UA) Urine Ketones Urine Blood Urine Nitrite Urine Bilirubin Urine Urobilinogen Ur Leukocyte Esterase Assessment/Plan Problem List - Problems (1) Calcified granuloma of lung Code(s): J84.10 - PULMONARY FIBROSIS, UNSPECIFIED (2) Malnutrition Code(s): E46 - UNSPECIFIED PROTEIN-CALORIE MALNUTRITION Qualifiers: Malnutrition type: protein-calorie malnutrition Protein-calorie malnutrition severity: severe Qualified Code(s): E43 - Unspecified severe protein-calorie malnutrition (3) Pneumonia Code(s): J18.9 - PNEUMONIA, UNSPECIFIED ORGANISM Qualifiers: Pneumonia type: due to unspecified organism Laterality: right Lung location: lower lobe of lung Qualified Code(s): J18.1 - Lobar pneumonia, unspecified organism (4) A-fib Code(s): I48.91 - UNSPECIFIED ATRIAL FIBRILLATION Qualifiers: Atrial fibrillation type: chronic (5) ASHD (arteriosclerotic heart disease) Code(s): I25.10 - ATHSCL HEART DISEASE OF [place] CORONARY ARTERY W/O ANG PCTRS (6) Anemia Code(s): D64.9 - ANEMIA, UNSPECIFIED Qualifiers: Iron deficiency anemia type: chronic blood loss (7) Aortic stenosis Code(s): I35.0 - NONRHEUMATIC AORTIC (VALVE) STENOSIS (8) Atelectasis of right lung Code(s): J98.11 - ATELECTASIS (9) Chronic anemia Code(s): D64.9 - ANEMIA, UNSPECIFIED (10) H/O heart artery stent Code(s): Z95.5 - PRESENCE OF CORONARY ANGIOPLASTY IMPLANT AND GRAFT (11) Hx of CABG Code(s): Z95.1 - PRESENCE OF AORTOCORONARY BYPASS GRAFT (12) Mediastinal lymphadenopathy Code(s): R59.0 - LOCALIZED ENLARGED LYMPH NODES (13) PAD (peripheral artery disease) Code(s): I73.9 - PERIPHERAL VASCULAR DISEASE, UNSPECIFIED Assessment/PlanA/P r/o Pneumonia Listeria Bacteremia Sepsis Lactic Acidosis resolved +Troponins likely Demand Ischemia Atrial Fibrillation LV Systolic Dysfunction Pulmonary HTN CAD Anemia - ABX per ID - lasix as needed - O2 to keep spO2 >90% - rate control - aspiration precautions - DVT prophylaxis - normal transfusion thresholds Dr Hernandez Problem List - Problems (1) Calcified granuloma of lung Code(s): J84.10 - PULMONARY FIBROSIS, UNSPECIFIED (2) Malnutrition Code(s): E46 - UNSPECIFIED PROTEIN-CALORIE MALNUTRITION Qualifiers: Malnutrition type: protein-calorie malnutrition Protein-calorie malnutrition severity: severe Qualified Code(s): E43 - Unspecified severe protein-calorie malnutrition (3) Pneumonia Code(s): J18.9 - PNEUMONIA, UNSPECIFIED ORGANISM Qualifiers: Pneumonia type: due to unspecified organism Laterality: right Lung location: lower lobe of lung Qualified Code(s): J18.1 - Lobar pneumonia, unspecified organism (4) A-fib Code(s): I48.91 - UNSPECIFIED ATRIAL FIBRILLATION Qualifiers: Atrial fibrillation type: chronic (5) ASHD (arteriosclerotic heart disease) Code(s): I25.10 - ATHSCL HEART DISEASE OF [place] CORONARY ARTERY W/O ANG PCTRS (6) Anemia Code(s): D64.9 - ANEMIA, UNSPECIFIED Qualifiers: Iron deficiency anemia type: chronic blood loss (7) Aortic stenosis Code(s): I35.0 - NONRHEUMATIC AORTIC (VALVE) STENOSIS (8) Atelectasis of right lung Code(s): J98.11 - ATELECTASIS (9) Chronic anemia Code(s): D64.9 - ANEMIA, UNSPECIFIED (10) H/O heart artery stent Code(s): Z95.5 - PRESENCE OF CORONARY ANGIOPLASTY IMPLANT AND GRAFT (11) Hx of CABG Code(s): Z95.1 - PRESENCE OF AORTOCORONARY BYPASS GRAFT (12) Mediastinal lymphadenopathy Code(s): R59.0 - LOCALIZED ENLARGED LYMPH NODES (13) PAD (peripheral artery disease) Code(s): I73.9 - PERIPHERAL VASCULAR DISEASE, UNSPECIFIED
[2019-04-27 15:50] LABS: HEMATOCRIT 25.6 % (35.4-49); HEMOGLOBIN 8.1 GM/dL (11.7-16.9); MCH 27.7 pg (25.7-33.7); MCHC 31.6 g/dl (32.0-35.9); MEAN CELL VOLUME 87.7 fl (80-96); MEAN PLT VOLUME 10.3 fl (7.5-11.1); PLATELET COUNT 165 K/MM3 (134-434); RBC 2.91 M/mm3 (4.00-5.60); RDW 17.8 % (11.9-15.9)
[2019-04-27 16:19] LABS: ALBUMIN 2.2 g/dl (3.4-5.0); BILIRUBIN,TOTAL 0.6 mg/dL (0.2-1); CALCIUM 7.9 mg/dL (8.5-10.1); MAGNESIUM 2.3 mg/dL (1.8-2.4); PHOSPHOROUS 2.5 mg/dL (2.5-4.9); POTASSIUM 3.8 mmol/L (3.5-5.1); TOT PROT 6.1 g/dl (6.4-8.2)
[2019-04-27] MEDS ORDERED: POTASSIUM CHLORIDE TABS 10 MEQ TABLET.ER (FP) PO ONE (16:28)
--- NOTE | 2019-04-27 16:32 | PN ---
Progress Note, Physician Chief Complaint: 88 year old man who comes to the ED today because of a change in mental status. History of Present Illness: 24 HR events -pt remains hemodynamically and respiratory stable. -continued on Zosyn, which can most likely be transitioned to aumgentin in preparation for d/c tomorrow. - Current Medication List Current Medications: Active Medications Acetaminophen (Tylenol -) 650 mg PO Q4H PRN PRN Reason: PAIN Last Admin: 04/26/19 16:14 Dose: 650 mg Allopurinol (Zyloprim -) 300 mg PO DAILY [facility] Last Admin: 04/27/19 09:47 Dose: 300 mg Aspirin (Asa -) 81 mg PO DAILY [facility] Last Admin: 04/27/19 09:48 Dose: 81 mg Atorvastatin Calcium (Lipitor -) 40 mg PO HS [facility] Last Admin: 04/26/19 22:34 Dose: 40 mg Clopidogrel Bisulfate (Plavix -) 75 mg PO DAILY [facility] Last Admin: 04/27/19 09:47 Dose: 75 mg Heparin Sodium (Porcine) (Heparin -) 5,000 unit SQ TID [facility] Last Admin: 04/27/19 13:48 Dose: Not Given Piperacillin Sod/Tazobactam (Sod 3.375 gm/ Dextrose) 50 mls @ 100 mls/hr IVPB Q8H-IV [facility]; Protocol Last Admin: 04/27/19 09:47 Dose: 100 mls/hr Metoprolol Succinate (Toprol Xl -) 12.5 mg PO DAILY [facility] Last Admin: 04/27/19 09:47 Dose: 12.5 mg Silver Sulfadiazine (Silvadene -) 1 applic TP BID [facility] Last Admin: 04/27/19 09:48 Dose: 1 applic - Objective Vital Signs: Vital Signs Temperature 97.9 F 04/27/19 06:00 Pulse Rate 80 04/27/19 06:00 Respiratory Rate 20 04/27/19 06:00 Blood Pressure 138/67 04/27/19 06:00 O2 Sat by Pulse Oximetry (%) 94 L 04/26/19 21:00 Constitutional: Yes: No Distress, Calm, Thin Eyes: Yes: Conjunctiva Clear, PERRL HENT: Yes: Atraumatic, Normocephalic Neck: Yes: Supple Cardiovascular: Yes: Pulse Irregular Respiratory: Yes: Regular, CTA Bilaterally Gastrointestinal: Yes: Soft, Hypoactive Bowel Sounds ...Rectal Exam: Yes: Deferred Musculoskeletal: Yes: Joint Stiffness, Muscle Weakness Edema: Yes Edema: LLE: 2+, RLE: 2+ Peripheral Pulses WNL: No Peripheral Pulses: Left Radial: 2+, Right Radial: 2+, Left Doralis Pedis: 1+, Right Dorsalis Pedis: 1+ Integumentary: Yes: Venous Stasis Changes Neurological: Yes: Alert, Oriented, Unsteady Gait (ambulates with rolling walker ) Psychiatric: Yes: Alert Labs: CBC, BMP 04/27/19 15:05 04/27/19 15:05 INR, PTT INR 1.46 (0.83-1.09) H 04/21/19 13:02 Problem List - Problems (1) Coronary artery disease Assessment/Plan: continue aspirin/statin/BB/plavix cardiac diet Code(s): I25.10 - ATHSCL HEART DISEASE OF [place] CORONARY ARTERY W/O ANG PCTRS (2) CHF (congestive heart failure) Assessment/Plan: with b/l LE edema, will restart torsemide at half home dose Code(s): I50.9 - HEART FAILURE, UNSPECIFIED Qualifiers: Heart failure type: unspecified Heart failure chronicity: acute on chronic Qualified Code(s): I50.9 - Heart failure, unspecified (3) Malnutrition Assessment/Plan: continue to supplement diet with ensure Code(s): E46 - UNSPECIFIED PROTEIN-CALORIE MALNUTRITION Qualifiers: Malnutrition type: protein-calorie malnutrition Protein-calorie malnutrition severity: severe Qualified Code(s): E43 - Unspecified severe protein-calorie malnutrition (4) Pneumonia Assessment/Plan: Zosyn can most likely be transitioned to augmentin for d/c AM CXR prior to d/c Code(s): J18.9 - PNEUMONIA, UNSPECIFIED ORGANISM Qualifiers: Pneumonia type: due to unspecified organism Laterality: right Lung location: lower lobe of lung Qualified Code(s): J18.1 - Lobar pneumonia, unspecified organism (5) A-fib Assessment/Plan: continue with BB monitor on telemetry Code(s): I48.91 - UNSPECIFIED ATRIAL FIBRILLATION Qualifiers: Atrial fibrillation type: chronic (6) Prophylactic measure Assessment/Plan: SC heparin TID OOB to chair ambulate as tolerated silvadene cream to RLE wound Code(s): Z29.9 - ENCOUNTER FOR PROPHYLACTIC MEASURES, UNSPECIFIED Impression/Plan Impression/Plan: Code status: Full Visit type - Emergency Visit Emergency Visit: Yes ED Registration Date: 04/21/19 Care time: The patient presented to the Emergency Department on the above date and was hospitalized for further evaluation of their emergent condition. - New Patient This patient is new to me today: Yes Date on this admission: 04/27/19 - Critical Care Critical Care patient: No - Discharge Referral Referred to [facility] Med P.C.: No
--- NOTE | 2019-04-27 20:01 | PN ---
Progress Note, Physician History of Present Illness: Pt is alert. Denies having any complaints. - Current Medication List Current Medications: Active Medications Acetaminophen (Tylenol -) 650 mg PO Q4H PRN PRN Reason: PAIN Last Admin: 04/26/19 16:14 Dose: 650 mg Allopurinol (Zyloprim -) 300 mg PO DAILY [facility] Last Admin: 04/27/19 09:47 Dose: 300 mg Aspirin (Asa -) 81 mg PO DAILY [facility] Last Admin: 04/27/19 09:48 Dose: 81 mg Atorvastatin Calcium (Lipitor -) 40 mg PO HS [facility] Last Admin: 04/26/19 22:34 Dose: 40 mg Clopidogrel Bisulfate (Plavix -) 75 mg PO DAILY [facility] Last Admin: 04/27/19 09:47 Dose: 75 mg Heparin Sodium (Porcine) (Heparin -) 5,000 unit SQ TID [facility] Last Admin: 04/27/19 13:48 Dose: Not Given Piperacillin Sod/Tazobactam (Sod 3.375 gm/ Dextrose) 50 mls @ 100 mls/hr IVPB Q8H-IV [facility]; Protocol Last Admin: 04/27/19 18:39 Dose: 100 mls/hr Metoprolol Succinate (Toprol Xl -) 12.5 mg PO DAILY [facility] Last Admin: 04/27/19 09:47 Dose: 12.5 mg Silver Sulfadiazine (Silvadene -) 1 applic TP BID [facility] Last Admin: 04/27/19 10:00 Dose: Not Given Torsemide (Demadex -) 10 mg PO BID [facility] - Objective Vital Signs: Vital Signs Temperature 97.9 F 04/27/19 06:00 Pulse Rate 80 04/27/19 06:00 Respiratory Rate 20 04/27/19 06:00 Blood Pressure 138/67 04/27/19 06:00 O2 Sat by Pulse Oximetry (%) 94 L 04/26/19 21:00 Constitutional: Yes: No Distress, Calm Cardiovascular: Yes: Regular Rate and Rhythm Respiratory: Yes: Regular Gastrointestinal: Yes: Normal Bowel Sounds, Soft ...Rectal Exam: Yes: WNL Genitourinary: Yes: WNL Integumentary: Yes: WNL Neurological: Yes: Alert Labs: CBC, BMP 04/27/19 15:05 04/27/19 15:05 INR, PTT INR 1.46 (0.83-1.09) H 10/06/19 13:02 Microbiology 04/23/19 05:45 Blood - Peripheral Venous Blood Culture - Preliminary NO GROWTH OBTAINED AFTER 96 HOURS, INCUBATION TO CONTINUE FOR 1 DAYS. 04/23/19 05:45 Blood - Peripheral Venous Blood Culture - Preliminary NO GROWTH OBTAINED AFTER 96 HOURS, INCUBATION TO CONTINUE FOR 1 DAYS. 04/21/19 13:02 Blood - Peripheral Venous Blood Culture - Final Listeria Monocytogenes 04/21/19 13:21 Blood - Peripheral Venous Blood Culture - Final Listeria Monocytogenes 04/21/19 13:30 Urine - Urine Clean Catch Urine Culture - Final Enterococcus Faecalis Problem List - Problems (1) Calcified granuloma of lung Code(s): J84.10 - PULMONARY FIBROSIS, UNSPECIFIED (2) Coronary artery disease Code(s): I25.10 - ATHSCL HEART DISEASE OF [place] CORONARY ARTERY W/O ANG PCTRS (3) Listeria sepsis Code(s): A32.7 - LISTERIAL SEPSIS (4) Pneumonia Code(s): J18.9 - PNEUMONIA, UNSPECIFIED ORGANISM Qualifiers: Pneumonia type: due to unspecified organism Laterality: right Lung location: lower lobe of lung Qualified Code(s): J18.1 - Lobar pneumonia, unspecified organism (5) A-fib Code(s): I48.91 - UNSPECIFIED ATRIAL FIBRILLATION Qualifiers: Atrial fibrillation type: chronic (6) H/O heart artery stent Code(s): Z95.5 - PRESENCE OF CORONARY ANGIOPLASTY IMPLANT AND GRAFT (7) Hx of CABG Code(s): Z95.1 - PRESENCE OF AORTOCORONARY BYPASS GRAFT (8) Iron deficiency anemia Code(s): D50.9 - IRON DEFICIENCY ANEMIA, UNSPECIFIED (9) Mediastinal lymphadenopathy Code(s): R59.0 - LOCALIZED ENLARGED LYMPH NODES Assessment/Plan -- continue IV antibiotics -- continue monitor AMS, leukocytosis improved
[2019-04-27] MEDS: ATORVASTATIN CA 40 MG TABLET (FP) PO SCH (21:41)
[2019-04-28] MEDS: PIPERACILLIN/TAZOB 3.375 GM 3.375 GM in DEXTROSE 5%-WATER - 50 ML IVPB SCH ×3 (02:27→18:18)
[2019-04-28] MEDS: HEPARIN NA (PORCINE) 5,000 UNITS/ML 1ML VIAL SQ SCH ×2 (06:21→14:25)
[2019-04-28] MEDS ORDERED: PIPERACILLIN/TAZOBACTAM 3.375 GM VIAL IVPB ONE (09:57)
[2019-04-28] MEDS ORDERED: PT OWN MED DRAWER 7, Y5N ONE (09:57)
[2019-04-28] MEDS ORDERED: DEXTROSE 5%-WATER - 50 ML IVPB ONE (09:58)
[2019-04-28] MEDS: TORSEMIDE 10 MG TABLET PO SCH ×2 (10:15→22:44)
[2019-04-28] MEDS: CLOPIDOGREL BISULFATE 75 MG TABLET (FP) PO SCH (10:15)
[2019-04-28] MEDS: metoPROLOL SUCCINATE 25 MG TAB.SR.24H (FP) PO SCH (10:15)
[2019-04-28] MEDS: ALLOPURINOL 300 MG TABLET (FP) PO SCH (10:15)
[2019-04-28] MEDS: ASPIRIN 81 MG CHEWABLE TABLETS PO SCH (10:16)
[2019-04-28] MEDS: SILVER SULFADIAZINE 1% TOP CREAM 50 GM JAR TP SCH ×2 (10:16→22:45)
--- NOTE | 2019-04-28 11:05 | PN ---
Physical Exam: SUBJECTIVE: Patient seen and examined, no complains offered, remains confused. OBJECTIVE: Vital Signs Period Temp Pulse Resp BP Sys/Reyes Pulse Ox Last 24 Hr 97.9 F 71-73 20-20 105-114/54-54 96 GENERAL: The patient is awake, alert, confused HEAD: Normal with no signs of trauma. EYES: PERRL, extraocular movements intact, sclera anicteric, conjunctiva clear. No ptosis. ENT: Ears normal, nares patent, oropharynx clear without exudates, moist mucous membranes. NECK: Trachea midline, full range of motion, supple. LUNGS: Breath sounds equal, clear to auscultation bilaterally, no wheezes, no crackles, no accessory muscle use. HEART: irregular without murmur, rub or gallop. ABDOMEN: Soft, nontender, nondistended, normoactive bowel sounds, no guarding, no rebound, no hepatosplenomegaly, no masses. EXTREMITIES: 2+ pulses, warm, well-perfused, edema 1-2+ with Rt ankle wound NEUROLOGICAL: Cranial nerves II through XII grossly intact. Normal speech, gait not observed. PSYCH: Normal mood, normal affect. SKIN: Warm, dry, normal turgor, Rt ankle wound Laboratory Results - last 24 hr 04/27/19 04/27/19 15:05 15:05 WBC 7.0 RBC 2.91 L Hgb 8.1 L Hct 25.6 L MCV 87.7 MCH 27.7 MCHC 31.6 L RDW 17.8 H Plt Count 165 MPV 10.3 Sodium 138 Potassium 3.8 Chloride 98 Carbon Dioxide 33 H Anion Gap 7 L BUN 28.0 H Creatinine 1.0 Est GFR (CKD-EPI)AfAm 77.00 Est GFR (CKD-EPI)NonAf 66.43 Random Glucose 148 H Calcium 7.9 L Phosphorus 2.5 Magnesium 2.3 Total Bilirubin 0.6 AST 11 L ALT 14 Alkaline Phosphatase 205 H Total Protein 6.1 L Albumin 2.2 L Active Medications Generic Name Dose Route Start Last Admin Trade Name Freq PRN Reason Stop Dose Admin Acetaminophen 650 mg 04/21/19 18:04 04/26/19 16:14 Tylenol - PO 650 mg Q4H PRN Administration PAIN Allopurinol 300 mg 04/22/19 10:00 04/28/19 10:15 Zyloprim - PO 300 mg DAILY [facility] Administration Aspirin 81 mg 04/22/19 10:00 04/28/19 10:16 Asa - PO 81 mg DAILY [facility] Administration Atorvastatin Calcium 40 mg 04/21/19 22:00 04/27/19 21:41 Lipitor - PO Not Given HS [facility] Clopidogrel Bisulfate 75 mg 04/22/19 10:00 04/28/19 10:15 Plavix - PO 75 mg DAILY [facility] Administration Heparin Sodium (Porcine) 5,000 unit 04/21/19 22:00 04/28/19 06:21 Heparin - SQ Not Given TID [facility] Piperacillin Sod/Tazobactam 50 mls @ 100 mls/hr 04/25/19 10:00 04/28/19 10:14 Sod 3.375 gm/ Dextrose IVPB 100 mls/hr Q8H-IV [facility] Administration Protocol Metoprolol Succinate 12.5 mg 04/26/19 10:15 04/28/19 10:15 Toprol Xl - PO 12.5 mg DAILY [facility] Administration Silver Sulfadiazine 1 applic 04/23/19 10:00 04/28/19 10:16 Silvadene - TP Not Given BID [facility] Torsemide 10 mg 04/28/19 10:00 04/28/19 10:15 Demadex - PO 10 mg BID [facility] Administration Echo 2014: mild LVE, mild-mod global Lv hypo. mild RV hypo. mod MR. mild /AI. ECG: afib, LAFB, NSST-Ts--no signif change CT chest: no significant change vs prior 11/02: emphysematous changes, chronic interstitial changes at bases, trace effusion, pleural plaques, pleural-based lesion LLL, large hiatal hernia, dilated main PA c/w pulm HTN echo 04/2019 mod reduced LV function EF 40-45%, RV mildly reduced function, severe MAC, mild to mod MR, mild to mod TR, PASP at least 53 mmHg. tele: AF, HR controlled. NSVT 10-11 beats ASSESSMENT/PLAN: 88 year old man with multiple medical problems who comes to the ED today because of a change in mental status. *Hypotension, confusion, weakness, lactic acidosis - poss due to sepsis - s/p out pt tx -afebrile , leukocytosis -BC final report Listeria Monocytogenes - Urine culture Enterococcus - will cont on Zosyn - ID following - Rpt BC preliminary negative * Systolic CHF, pulm HTN: -dilated PA on CT c/w pulm HTN -BNP 71984 -CT chest: no signif pulm edema/effusions - echo with reduced RV function,EF 40-45% elevated PASP, TR - cardiology following - will resume on Lasix, Demadex *VTach -long runs of NSVT on tele 04/22 (20-28 beats) -replete K/Mg to >4/2 -EF moderately reduced, BP improved today - will start low dose bb (limited by sepsis with low bp yest, now stabilized) -cont tele - will resume on BB *CAD. s/p CABG -+Troponins likely Demand Ischemia -2014 s/p PCI of LM/LAD at [facility] per review of prior admit notes here (sees kirsty)--remains on aspirin + clopidogrel, plan per outpt cardio - cardiology following - will cont on BB,Plavix and Statin * A-Fib -s/p Watchman procedure--continue aspirin per prior treatment plan -HR controlled on its own *Anemia:-chronic, stable * HDL -on Statin *BPH, history of TURP * History of gout - Continue Allopurin * pressure ulcer of lateral right ankle, chronic - wound care with Silvadene * VTE: Heparin SQ * F/EN : Heart healthy diet Replace electrolytes as needed Visit type - Emergency Visit Emergency Visit: Yes ED Registration Date: 04/21/19 Care time: The patient presented to the Emergency Department on the above date and was hospitalized for further evaluation of their emergent condition. - New Patient This patient is new to me today: Yes Date on this admission: 04/28/19 - Critical Care Critical Care patient: No
--- NOTE | 2019-04-28 11:45 | PN ---
Progress Note (short form) - Note Progress Note: s: no chest pain, palps, dizziness, dyspnea Vital Signs Period Temp Pulse Resp BP Sys/Reyes Pulse Ox Last 24 Hr 97.9 F 71-73 20-20 105-114/54-54 96 Constitutional: Yes: No Distress Cardiovascular: Yes: Pulse Irregular Respiratory: Yes: Other (decreased breath sounds RIGHT base) Gastrointestinal: Yes: Soft Edema: No Neurological: Yes: Alert, Oriented no jaundice, diaphoresis not agitated Current Medications Acetaminophen (Tylenol -) 650 mg PO Q4H PRN PRN Reason: PAIN Last Admin: 04/26/19 16:14 Dose: 650 mg Allopurinol (Zyloprim -) 300 mg PO DAILY [facility] Last Admin: 04/28/19 10:15 Dose: 300 mg Aspirin (Asa -) 81 mg PO DAILY [facility] Last Admin: 04/28/19 10:16 Dose: 81 mg Atorvastatin Calcium (Lipitor -) 40 mg PO HS [facility] Last Admin: 04/27/19 21:41 Dose: Not Given Clopidogrel Bisulfate (Plavix -) 75 mg PO DAILY [facility] Last Admin: 04/28/19 10:15 Dose: 75 mg Heparin Sodium (Porcine) (Heparin -) 5,000 unit SQ TID [facility] Last Admin: 04/28/19 06:21 Dose: Not Given Piperacillin Sod/Tazobactam (Sod 3.375 gm/ Dextrose) 50 mls @ 100 mls/hr IVPB Q8H-IV [facility]; Protocol Last Admin: 04/28/19 10:14 Dose: 100 mls/hr Metoprolol Succinate (Toprol Xl -) 12.5 mg PO DAILY [facility] Last Admin: 04/28/19 10:15 Dose: 12.5 mg Silver Sulfadiazine (Silvadene -) 1 applic TP BID [facility] Last Admin: 04/28/19 10:16 Dose: Not Given Torsemide (Demadex -) 10 mg PO BID [facility] Last Admin: 04/28/19 10:15 Dose: 10 mg Assessment/Plan CT chest: no significant change vs prior 11/02: emphysematous changes, chronic interstitial changes at bases, trace effusion, pleural plaques, pleural-based lesion LLL, large hiatal hernia, dilated main PA c/w pulm HTN echo 04/2019 mod reduced LV function EF 40-45%, RV mildly reduced function, severe MAC, mild to mod MR, mild to mod TR, PASP at least 53 mmHg. tele: AF, HR controlled, NSVT 14 beats hypotension, confusion, weakness, lactic acidosis, sepsis, listeria bacteremia - respiratory infectious illness for 10 days or so treated as outpt - BCx's with gram negative rods - UCX with enterococcus - abx/plan per pmd/ID systolic CHF, pulm HTN: -dilated PA on CT c/w pulm HTN -BNP 18K, up from 10K prior. very distended neck veins, mild (stable) LE edema. no signif pulm edema/effusions on CT-- echo with reduced RV function, elevated PASP, TR -suspect dry cough with wheezing is sec to PNA/bronchitis, copd and not chf -echo shows pulm HTN - rec oximetry with ambulation and sleep if necessary, to guide home O2 use to minimize progressive pulm HTN/RV failure - inc lower ext edema, CXR with mild congestion - home torsemide resumed VTach: -long runs of NSVT on tele 04/22 (20-28 beats) -replete K/Mg to >4/2 -EF moderately reduced; toprol 12.5 mg daily resumed, monitoring on tele CAD: -remote CABG -2014 s/p PCI of LM/LAD at [facility] per review of prior admit notes here (sees kirsty)--remains on aspirin + clopidogrel, plan per outpt cardio -trops here indeterminate range, flat trend. ECG non-ischemic--not c/w ACS AF: -s/p Watchman procedure--continue aspirin per prior treatment plan -cont metoprolol anemia: -chronic, stable counts -per pmd
[2019-04-28 12:57] VITALS: BMI 23.3
--- NOTE | 2019-04-28 13:13 | PN ---
Progress Note (short form) - Note Progress Note: Resting in NAD. No acute events overnight. Intake & Output 04/25/19 04/26/19 04/27/19 04/28/19 23:59 23:59 23:59 23:59 Intake Total 640 430 100 Balance 640 430 100 Weight 137 lb 6 oz 136 lb 9.6 oz 139 lb 6.4 oz 140 lb Last Vital Signs Temp Pulse Resp BP Pulse Ox 97.9 F 60 20 120/53 L 96 04/28/19 09:00 04/28/19 09:00 04/28/19 09:00 04/28/19 09:00 04/28/19 09:00 Active Medications Acetaminophen (Tylenol -) 650 mg PO Q4H PRN PRN Reason: PAIN Last Admin: 04/26/19 16:14 Dose: 650 mg Allopurinol (Zyloprim -) 300 mg PO DAILY [facility] Last Admin: 04/28/19 10:15 Dose: 300 mg Aspirin (Asa -) 81 mg PO DAILY [facility] Last Admin: 04/28/19 10:16 Dose: 81 mg Atorvastatin Calcium (Lipitor -) 40 mg PO HS [facility] Last Admin: 04/27/19 21:41 Dose: Not Given Clopidogrel Bisulfate (Plavix -) 75 mg PO DAILY [facility] Last Admin: 04/28/19 10:15 Dose: 75 mg Heparin Sodium (Porcine) (Heparin -) 5,000 unit SQ TID [facility] Last Admin: 04/28/19 06:21 Dose: Not Given Piperacillin Sod/Tazobactam (Sod 3.375 gm/ Dextrose) 50 mls @ 100 mls/hr IVPB Q8H-IV [facility]; Protocol Last Admin: 04/28/19 10:14 Dose: 100 mls/hr Metoprolol Succinate (Toprol Xl -) 12.5 mg PO DAILY [facility] Last Admin: 04/28/19 10:15 Dose: 12.5 mg Silver Sulfadiazine (Silvadene -) 1 applic TP BID [facility] Last Admin: 04/28/19 10:16 Dose: Not Given Torsemide (Demadex -) 10 mg PO BID [facility] Last Admin: 04/28/19 10:15 Dose: 10 mg Constitutional: Yes: NAD Eyes: Yes: WNL HENT: Yes: WNL Cardiovascular: Yes: Pulse Irregular, S1, S2 Respiratory: Yes: diminished at the bases, few scattered rhonchi Gastrointestinal: Yes: Normal Bowel Sounds, Soft Extremities: Yes: WNL Edema: Yes Labs: Laboratory Results - last 24 hr 04/27/19 04/27/19 15:05 15:05 WBC 7.0 RBC 2.91 L Hgb 8.1 L Hct 25.6 L MCV 87.7 MCH 27.7 MCHC 31.6 L RDW 17.8 H Plt Count 165 MPV 10.3 Sodium 138 Potassium 3.8 Chloride 98 Carbon Dioxide 33 H Anion Gap 7 L BUN 28.0 H Creatinine 1.0 Est GFR (CKD-EPI)AfAm 77.00 Est GFR (CKD-EPI)NonAf 66.43 Random Glucose 148 H Calcium 7.9 L Phosphorus 2.5 Magnesium 2.3 Total Bilirubin 0.6 AST 11 L ALT 14 Alkaline Phosphatase 205 H Total Protein 6.1 L Albumin 2.2 L Assessment/Plan Problem List - Problems (1) Calcified granuloma of lung Code(s): J84.10 - PULMONARY FIBROSIS, UNSPECIFIED (2) Malnutrition Code(s): E46 - UNSPECIFIED PROTEIN-CALORIE MALNUTRITION Qualifiers: Malnutrition type: protein-calorie malnutrition Protein-calorie malnutrition severity: severe Qualified Code(s): E43 - Unspecified severe protein-calorie malnutrition (3) Pneumonia Code(s): J18.9 - PNEUMONIA, UNSPECIFIED ORGANISM Qualifiers: Pneumonia type: due to unspecified organism Laterality: right Lung location: lower lobe of lung Qualified Code(s): J18.1 - Lobar pneumonia, unspecified organism (4) A-fib Code(s): I48.91 - UNSPECIFIED ATRIAL FIBRILLATION Qualifiers: Atrial fibrillation type: chronic (5) ASHD (arteriosclerotic heart disease) Code(s): I25.10 - ATHSCL HEART DISEASE OF [place] CORONARY ARTERY W/O ANG PCTRS (6) Anemia Code(s): D64.9 - ANEMIA, UNSPECIFIED Qualifiers: Iron deficiency anemia type: chronic blood loss (7) Aortic stenosis Code(s): I35.0 - NONRHEUMATIC AORTIC (VALVE) STENOSIS (8) Atelectasis of right lung Code(s): J98.11 - ATELECTASIS (9) Chronic anemia Code(s): D64.9 - ANEMIA, UNSPECIFIED (10) H/O heart artery stent Code(s): Z95.5 - PRESENCE OF CORONARY ANGIOPLASTY IMPLANT AND GRAFT (11) Hx of CABG Code(s): Z95.1 - PRESENCE OF AORTOCORONARY BYPASS GRAFT (12) Mediastinal lymphadenopathy Code(s): R59.0 - LOCALIZED ENLARGED LYMPH NODES (13) PAD (peripheral artery disease) Code(s): I73.9 - PERIPHERAL VASCULAR DISEASE, UNSPECIFIED Assessment/PlanA/P r/o Pneumonia Listeria Bacteremia Sepsis Lactic Acidosis resolved +Troponins likely Demand Ischemia Atrial Fibrillation LV Systolic Dysfunction Pulmonary HTN CAD Anemia - ABX per ID - lasix as needed - O2 to keep spO2 >90% - rate control - aspiration precautions - DVT prophylaxis - normal transfusion thresholds Dr Hernandez Problem List - Problems (1) Calcified granuloma of lung Code(s): J84.10 - PULMONARY FIBROSIS, UNSPECIFIED (2) Malnutrition Code(s): E46 - UNSPECIFIED PROTEIN-CALORIE MALNUTRITION Qualifiers: Malnutrition type: protein-calorie malnutrition Protein-calorie malnutrition severity: severe Qualified Code(s): E43 - Unspecified severe protein-calorie malnutrition (3) Pneumonia Code(s): J18.9 - PNEUMONIA, UNSPECIFIED ORGANISM Qualifiers: Pneumonia type: due to unspecified organism Laterality: right Lung location: lower lobe of lung Qualified Code(s): J18.1 - Lobar pneumonia, unspecified organism (4) A-fib Code(s): I48.91 - UNSPECIFIED ATRIAL FIBRILLATION Qualifiers: Atrial fibrillation type: chronic (5) ASHD (arteriosclerotic heart disease) Code(s): I25.10 - ATHSCL HEART DISEASE OF [place] CORONARY ARTERY W/O ANG PCTRS (6) Anemia Code(s): D64.9 - ANEMIA, UNSPECIFIED Qualifiers: Iron deficiency anemia type: chronic blood loss (7) Aortic stenosis Code(s): I35.0 - NONRHEUMATIC AORTIC (VALVE) STENOSIS (8) Atelectasis of right lung Code(s): J98.11 - ATELECTASIS (9) Chronic anemia Code(s): D64.9 - ANEMIA, UNSPECIFIED (10) H/O heart artery stent Code(s): Z95.5 - PRESENCE OF CORONARY ANGIOPLASTY IMPLANT AND GRAFT (11) Hx of CABG Code(s): Z95.1 - PRESENCE OF AORTOCORONARY BYPASS GRAFT (12) Mediastinal lymphadenopathy Code(s): R59.0 - LOCALIZED ENLARGED LYMPH NODES (13) PAD (peripheral artery disease) Code(s): I73.9 - PERIPHERAL VASCULAR DISEASE, UNSPECIFIED
--- NOTE | 2019-04-28 13:42 | PN ---
Progress Note, Physician History of Present Illness: Pt feeling better. Denies having any specific complaints. Is afebrile. - Current Medication List Current Medications: Active Medications Acetaminophen (Tylenol -) 650 mg PO Q4H PRN PRN Reason: PAIN Last Admin: 04/26/19 16:14 Dose: 650 mg Allopurinol (Zyloprim -) 300 mg PO DAILY [facility] Last Admin: 04/28/19 10:15 Dose: 300 mg Aspirin (Asa -) 81 mg PO DAILY [facility] Last Admin: 04/28/19 10:16 Dose: 81 mg Atorvastatin Calcium (Lipitor -) 40 mg PO HS [facility] Last Admin: 04/27/19 21:41 Dose: Not Given Clopidogrel Bisulfate (Plavix -) 75 mg PO DAILY [facility] Last Admin: 04/28/19 10:15 Dose: 75 mg Heparin Sodium (Porcine) (Heparin -) 5,000 unit SQ TID [facility] Last Admin: 04/28/19 06:21 Dose: Not Given Piperacillin Sod/Tazobactam (Sod 3.375 gm/ Dextrose) 50 mls @ 100 mls/hr IVPB Q8H-IV [facility]; Protocol Last Admin: 04/28/19 10:14 Dose: 100 mls/hr Metoprolol Succinate (Toprol Xl -) 12.5 mg PO DAILY [facility] Last Admin: 04/28/19 10:15 Dose: 12.5 mg Silver Sulfadiazine (Silvadene -) 1 applic TP BID [facility] Last Admin: 04/28/19 10:16 Dose: Not Given Torsemide (Demadex -) 10 mg PO BID [facility] Last Admin: 04/28/19 10:15 Dose: 10 mg - Objective Vital Signs: Vital Signs Temperature 97.9 F 04/28/19 09:00 Pulse Rate 60 04/28/19 09:00 Respiratory Rate 20 04/28/19 09:00 Blood Pressure 120/53 L 04/28/19 09:00 O2 Sat by Pulse Oximetry (%) 96 04/28/19 09:00 Constitutional: Yes: No Distress, Calm Neck: Yes: Supple Cardiovascular: Yes: Regular Rate and Rhythm Respiratory: Yes: Regular Gastrointestinal: Yes: Normal Bowel Sounds, Soft Genitourinary: Yes: WNL Extremities: Yes: WNL Integumentary: Yes: WNL Neurological: Yes: Alert Labs: CBC, BMP 04/27/19 15:05 04/27/19 15:05 INR, PTT INR 1.46 (0.83-1.09) H 04/21/19 13:02 Microbiology 04/23/19 05:45 Blood - Peripheral Venous Blood Culture - Final NO GROWTH AFTER 5 DAYS INCUBATION 04/23/19 05:45 Blood - Peripheral Venous Blood Culture - Final NO GROWTH AFTER 5 DAYS INCUBATION 04/21/19 13:02 Blood - Peripheral Venous Blood Culture - Final Listeria Monocytogenes 04/21/19 13:21 Blood - Peripheral Venous Blood Culture - Final Listeria Monocytogenes 04/21/19 13:30 Urine - Urine Clean Catch Urine Culture - Final Enterococcus Faecalis - ....Imaging Chest X-ray: Report Reviewed Problem List - Problems (1) Calcified granuloma of lung Code(s): J84.10 - PULMONARY FIBROSIS, UNSPECIFIED (2) Coronary artery disease Code(s): I25.10 - ATHSCL HEART DISEASE OF [place] CORONARY ARTERY W/O ANG PCTRS (3) Listeria sepsis Code(s): A32.7 - LISTERIAL SEPSIS (4) Pneumonia Code(s): J18.9 - PNEUMONIA, UNSPECIFIED ORGANISM Qualifiers: Pneumonia type: due to unspecified organism Laterality: right Lung location: lower lobe of lung Qualified Code(s): J18.1 - Lobar pneumonia, unspecified organism (5) A-fib Code(s): I48.91 - UNSPECIFIED ATRIAL FIBRILLATION Qualifiers: Atrial fibrillation type: chronic (6) H/O heart artery stent Code(s): Z95.5 - PRESENCE OF CORONARY ANGIOPLASTY IMPLANT AND GRAFT (7) Hx of CABG Code(s): Z95.1 - PRESENCE OF AORTOCORONARY BYPASS GRAFT (8) Iron deficiency anemia Code(s): D50.9 - IRON DEFICIENCY ANEMIA, UNSPECIFIED (9) Mediastinal lymphadenopathy Code(s): R59.0 - LOCALIZED ENLARGED LYMPH NODES Assessment/Plan Listeria bacteremia/ s/p Sepsis UTI Possible PNA -- continue IV antibiotics -- clinically improving since admission -- continue monitor
[2019-04-28] MEDS: ATORVASTATIN CA 40 MG TABLET (FP) PO SCH (22:44)
[2019-04-29] MEDS: PIPERACILLIN/TAZOB 3.375 GM 3.375 GM in DEXTROSE 5%-WATER - 50 ML IVPB SCH ×3 (02:32→17:40)
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
--- NOTE | 2019-04-29 07:50 | DS ---
Physical Examination Vital Signs: Vital Signs Temperature 97.7 F 04/29/19 01:00 Pulse Rate 74 04/29/19 05:00 Respiratory Rate 20 04/29/19 07:44 Blood Pressure 104/59 L 04/29/19 05:00 O2 Sat by Pulse Oximetry (%) 96 04/29/19 07:44 Constitutional: Yes: No Distress, Anxious Eyes: Yes: Conjunctiva Clear, EOM Intact HENT: Yes: Atraumatic, Normocephalic Neck: Yes: Supple, Trachea Midline Cardiovascular: Yes: Pulse Irregular (A.FIB) Respiratory: Yes: Regular, Diminished (RLL) Gastrointestinal: Yes: Normal Bowel Sounds, Soft. No: Abdomen, Obese ...Rectal Exam: Yes: Deferred Renal/: No: Anuria, Bladder Distention Breast(s): Yes: WNL Musculoskeletal: Yes: Back Pain Extremities: No: Calf Tenderness, Cyanosis Edema: No Wound/Incision: Yes: Other (Ankle) ...Motor Strength: WNL Psychiatric: Yes: WNL Labs: CBC, BMP 04/27/19 15:05 04/27/19 15:05 Discharge Summary Problems reviewed: Yes Reason For Visit: LISTERIA SEPSIS, CHF Current Active Problems CHF (congestive heart failure) (Acute) Calcified granuloma of lung (Acute) Coronary artery disease (Acute) Listeria sepsis (Acute) Malnutrition (Acute) Pneumonia (Acute) Prophylactic measure (Acute) Prophylactic measure (Acute) Condition: Improved - Instructions Referrals: Riki Prince MD [Primary Care Provider] - Disposition: HOME - Home Medications Comprehensive Discharge Medication List: Ambulatory Orders Allopurinol [Zyloprim -] 300 mg PO DAILY #0 tablet 01/17/13 Atorvastatin Ca [Lipitor] 40 mg PO HS 08/06/13 Omeprazole 40 mg PO DAILY 07/23/18 Clopidogrel Bisulfate [Plavix] 1 tab PO DAILY 09/25/18 Acetaminophen/Diphenhydramine [Acetaminophen Pm Caplet] 2 each PO HS 02/11/19 Ferrous Gluconate [Iron] 32 mg PO DAILY 02/11/19 Torsemide [Demadex -] 20 mg PO BID 02/11/19 Aspirin 81 mg PO DAILY 04/21/19 Cefuroxime Axetil [Cefuroxime] 250 mg PO BID 04/21/19 Mirtazapine 15 mg PO DAILY 04/21/19 Potassium Chloride [Klor-Con] 20 meq PO DAILY 04/21/19 predniSONE [Deltasone -] 5 mg PO DAILY 04/21/19
[2019-04-29] MEDS: ALLOPURINOL 300 MG TABLET (FP) PO SCH (09:16)
[2019-04-29] MEDS: ASPIRIN 81 MG CHEWABLE TABLETS PO SCH (09:16)
[2019-04-29] MEDS: ACETAMINOPHEN 325 MG TABLET (FP) PO PRN (09:16)
[2019-04-29] MEDS: CLOPIDOGREL BISULFATE 75 MG TABLET (FP) PO SCH (09:16)
[2019-04-29] MEDS: metoPROLOL SUCCINATE 25 MG TAB.SR.24H (FP) PO SCH (09:16)
[2019-04-29] MEDS: TORSEMIDE 10 MG TABLET PO SCH (09:16)
[2019-04-29] MEDS: SILVER SULFADIAZINE 1% TOP CREAM 50 GM JAR TP SCH (09:17)
[2019-04-29] MEDS ORDERED: DEXTROSE 5%-WATER - 50 ML IVPB ONE (09:23)
[2019-04-29] MEDS ORDERED: PIPERACILLIN/TAZOBACTAM 3.375 GM VIAL IVPB ONE (09:23)
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
--- NOTE | 2019-04-29 11:39 | PN ---
Progress Note (short form) - Note Progress Note: s: no chest pain, palps, dizziness, dyspnea. Current Medications Generic Name Dose Route Start Last Admin Trade Name Freq PRN Reason Stop Dose Admin Acetaminophen 650 mg 04/21/19 18:04 04/29/19 09:16 Tylenol - PO 650 mg Q4H PRN Administration PAIN Allopurinol 300 mg 04/22/19 10:00 04/29/19 09:16 Zyloprim - PO 300 mg DAILY [facility] Administration Aspirin 81 mg 04/22/19 10:00 04/29/19 09:16 Asa - PO 81 mg DAILY [facility] Administration Atorvastatin Calcium 40 mg 04/21/19 22:00 04/28/19 22:44 Lipitor - PO 40 mg HS [facility] Administration Clopidogrel Bisulfate 75 mg 04/22/19 10:00 04/29/19 09:16 Plavix - PO 75 mg DAILY [facility] Administration Piperacillin Sod/Tazobactam 50 mls @ 100 mls/hr 04/25/19 10:00 04/29/19 09:26 Sod 3.375 gm/ Dextrose IVPB 100 mls/hr Q8H-IV [facility] Administration Protocol Metoprolol Succinate 12.5 mg 04/26/19 10:15 04/29/19 09:16 Toprol Xl - PO 12.5 mg DAILY [facility] Administration Silver Sulfadiazine 1 applic 04/23/19 10:00 04/29/19 09:17 Silvadene - TP 1 applic BID [facility] Administration Torsemide 10 mg 04/28/19 10:00 04/29/19 09:16 Demadex - PO 10 mg BID [facility] Administration Vital Signs Period Temp Pulse Resp BP Sys/Reyes Pulse Ox Last 24 Hr 97.7 F-98 F 65-98 20-20 98-131/56-91 96-96 Constitutional: Yes: Well Nourished, No Distress Eyes: No: Sclera Icterus HENT: No: Nasal Congestion Respiratory: Yes: cta bl nl eff Gastrointestinal: Yes: Normal Bowel Sounds, No: Distention, Hepatomegaly, Palpable Mass, Tenderness Cardiovascular: Yes: Pulse Irregular JVD: Yes Heart Sounds: Yes: S1, S2. No: Gallop Murmur: No: Systolic Murmur, Diastolic Murmur Extremities: No: Cool, Cyanosis Edema: Yes (mild pretib) Integumentary: No: Jaundice diaphoresis Psychiatric: No: Agitated CBC, BMP 04/27/19 15:05 04/27/19 15:05 Assessment/Plan Echo 2014: mild LVE, mild-mod global Lv hypo. mild RV hypo. mod MR. mild /AI. ECG: afib, LAFB, NSST-Ts--no signif change CT chest: no significant change vs prior 11/02: emphysematous changes, chronic interstitial changes at bases, trace effusion, pleural plaques, pleural-based lesion LLL, large hiatal hernia, dilated main PA c/w pulm HTN echo 04/2019 mod reduced LV function EF 40-45%, RV mildly reduced function, severe MAC, mild to mod MR, mild to mod TR, PASP at least 53 mmHg. tele: AF, HR controlled hypotension, confusion, weakness, lactic acidosis, sepsis, listeria bacteremia - respiratory infectious illness for 10 days or so treated as outpt - BCx's with gram negative rods - UCX with enterococcus - abx/plan per pmd/ID systolic CHF, pulm HTN: -dilated PA on CT c/w pulm HTN -BNP 18K, up from 10K prior. very distended neck veins, mild (stable) LE edema. no signif pulm edema/effusions on CT-- echo with reduced RV function, elevated PASP, TR -suspect dry cough with wheezing is sec to PNA/bronchitis, copd and not chf -echo shows pulm HTN - rec oximetry with ambulation and sleep if necessary, to guide home O2 use to minimize progressive pulm HTN/RV failure - inc lower ext edema, CXR with mild congestion - home torsemide resumed VTach: -long runs of NSVT on tele 04/22 (20-28 beats) -replete K/Mg to >4/2 -EF moderately reduced; toprol 12.5 mg daily resumed, monitoring on tele CAD: -remote CABG -2014 s/p PCI of LM/LAD at [facility] per review of prior admit notes here (sees kirsty)--remains on aspirin + clopidogrel, plan per outpt cardio -trops here indeterminate range, flat trend. ECG non-ischemic--not c/w ACS AF: -s/p Watchman procedure--continue aspirin per prior treatment plan -cont metoprolol anemia: -chronic, stable counts -per pmd
--- NOTE | 2019-04-29 12:31 | PN ---
Progress Note, Physician History of Present Illness: stale no new issues - Current Medication List Current Medications: Active Medications Acetaminophen (Tylenol -) 650 mg PO Q4H PRN PRN Reason: PAIN Last Admin: 04/29/19 09:16 Dose: 650 mg Allopurinol (Zyloprim -) 300 mg PO DAILY [facility] Last Admin: 04/29/19 09:16 Dose: 300 mg Aspirin (Asa -) 81 mg PO DAILY [facility] Last Admin: 04/29/19 09:16 Dose: 81 mg Atorvastatin Calcium (Lipitor -) 40 mg PO HS [facility] Last Admin: 04/28/19 22:44 Dose: 40 mg Clopidogrel Bisulfate (Plavix -) 75 mg PO DAILY [facility] Last Admin: 04/29/19 09:16 Dose: 75 mg Piperacillin Sod/Tazobactam (Sod 3.375 gm/ Dextrose) 50 mls @ 100 mls/hr IVPB Q8H-IV [facility]; Protocol Last Admin: 04/29/19 09:26 Dose: 100 mls/hr Metoprolol Succinate (Toprol Xl -) 12.5 mg PO DAILY [facility] Last Admin: 04/29/19 09:16 Dose: 12.5 mg Silver Sulfadiazine (Silvadene -) 1 applic TP BID [facility] Last Admin: 04/29/19 09:17 Dose: 1 applic Torsemide (Demadex -) 10 mg PO BID [facility] Last Admin: 04/29/19 09:16 Dose: 10 mg - Objective Vital Signs: Vital Signs Temperature 97.7 F 04/29/19 01:00 Pulse Rate 74 04/29/19 05:00 Respiratory Rate 20 04/29/19 07:44 Blood Pressure 104/59 L 04/29/19 05:00 O2 Sat by Pulse Oximetry (%) 96 04/29/19 07:44 Constitutional: Yes: No Distress, Calm Cardiovascular: Yes: Regular Rate and Rhythm Respiratory: Yes: Poor Air Entry, Other Gastrointestinal: Yes: Normal Bowel Sounds, Soft Musculoskeletal: Yes: WNL Extremities: Yes: WNL Neurological: Yes: Alert, Oriented Psychiatric: Yes: Alert, Oriented Labs: CBC, BMP 04/27/19 15:05 04/27/19 15:05 INR, PTT INR 1.46 (0.83-1.09) H 04/21/19 13:02 Assessment/Plan Assessment/Plan Problem List - Problems (1) Calcified granuloma of lung Code(s): J84.10 - PULMONARY FIBROSIS, UNSPECIFIED (2) Malnutrition Code(s): E46 - UNSPECIFIED PROTEIN-CALORIE MALNUTRITION Qualifiers: Malnutrition type: protein-calorie malnutrition Protein-calorie malnutrition severity: severe Qualified Code(s): E43 - Unspecified severe protein-calorie malnutrition (3) Pneumonia Code(s): J18.9 - PNEUMONIA, UNSPECIFIED ORGANISM Qualifiers: Pneumonia type: due to unspecified organism Laterality: right Lung location: lower lobe of lung Qualified Code(s): J18.1 - Lobar pneumonia, unspecified organism (4) A-fib Code(s): I48.91 - UNSPECIFIED ATRIAL FIBRILLATION Qualifiers: Atrial fibrillation type: chronic (5) ASHD (arteriosclerotic heart disease) Code(s): I25.10 - ATHSCL HEART DISEASE OF [place] CORONARY ARTERY W/O ANG PCTRS (6) Anemia Code(s): D64.9 - ANEMIA, UNSPECIFIED Qualifiers: Iron deficiency anemia type: chronic blood loss (7) Aortic stenosis Code(s): I35.0 - NONRHEUMATIC AORTIC (VALVE) STENOSIS (8) Atelectasis of right lung Code(s): J98.11 - ATELECTASIS (9) Chronic anemia Code(s): D64.9 - ANEMIA, UNSPECIFIED (10) H/O heart artery stent Code(s): Z95.5 - PRESENCE OF CORONARY ANGIOPLASTY IMPLANT AND GRAFT (11) Hx of CABG Code(s): Z95.1 - PRESENCE OF AORTOCORONARY BYPASS GRAFT (12) Mediastinal lymphadenopathy Code(s): R59.0 - LOCALIZED ENLARGED LYMPH NODES (13) PAD (peripheral artery disease) Code(s): I73.9 - PERIPHERAL VASCULAR DISEASE, UNSPECIFIED 14 uti 15 gm negative bacteremia plan continue abx await for repeat blood cx await for identification of bacteria rest as per the team total 2 weeks one more week left
[2019-04-29 16:02] VITALS: BP 109/59; PULSE 76; TEMP 98.2
== END 2019-04-29 18:29 | DRG 871 ==
LOC: JER 12:31 → JERBED 14:05 → J4W 04-22 00:24
PROVIDERS: ADMIT Internal Medicine; ATTEND Internal Medicine
PROC: 02HV33Z Insertion of Infusion Device into Superior Vena Cava, Percutaneous Approach (ICD-10-PCS; principal; 2019-04-29)
PROC: B518ZZA Fluoroscopy of Superior Vena Cava, Guidance (ICD-10-PCS; 2019-04-29)
DX: A32.7 Listerial sepsis (principal); L89.513 Pressure ulcer of right ankle, stage 3; J18.1 Lobar pneumonia, unspecified organism; G93.41 Metabolic encephalopathy; E43 Unspecified severe protein-calorie malnutrition; J98.11 Atelectasis; N39.0 Urinary tract infection, site not specified; E87.2 Acidosis; I24.8 Other forms of acute ischemic heart disease; I47.1 Supraventricular tachycardia; I48.21 Permanent atrial fibrillation; I50.22 Chronic systolic (congestive) heart failure; I25.10 Atherosclerotic heart disease of native coronary artery without angina pectoris; I10 Essential (primary) hypertension; E78.5 Hyperlipidemia, unspecified; D64.9 Anemia, unspecified; N40.0 Benign prostatic hyperplasia without lower urinary tract symptoms; I95.9 Hypotension, unspecified; M10.9 Gout, unspecified; K44.9 Diaphragmatic hernia without obstruction or gangrene; I11.0 Hypertensive heart disease with heart failure; E86.1 Hypovolemia; E86.0 Dehydration; K21.9 Gastro-esophageal reflux disease without esophagitis; M54.5 Low back pain; R59.1 Generalized enlarged lymph nodes; M48.00 Spinal stenosis, site unspecified; D50.0 Iron deficiency anemia secondary to blood loss (chronic); I35.0 Nonrheumatic aortic (valve) stenosis; I27.20 Pulmonary hypertension, unspecified; J84.10 Pulmonary fibrosis, unspecified; E11.51 Type 2 diabetes mellitus with diabetic peripheral angiopathy without gangrene; D50.9 Iron deficiency anemia, unspecified; Z95.5 Presence of coronary angioplasty implant and graft; Z95.1 Presence of aortocoronary bypass graft; Z95.2 Presence of prosthetic heart valve
CPT/HCPCS: 36415; 36569; 71045-TC-FY; 71250-TC; 77001-TC-FY; 80053; 81003; 82550; 82728; 83540; 83550; 83605; 83735; 83880; 84100; 84484; 85025; 85027; 85610; 85730; 87040; 87086; 87186; 93005; 93010; 93306-TC; 93970-TC; 97116-GP; 97162-GP; 99283-25; C1751; J0131; J1644; J7030